=== PATIENT | female | born 1965 | race Caucasian/White ===

== ENCOUNTER → 2017-08-29 12:17 | Outpatient (CLI) | payer BC, SELFPAY | PROVIDERS: PCP Nurse Practitioner Family; Visit Provider Nurse Practitioner Family | DX: R53.83 Other fatigue (principal) | CPT/HCPCS: 93225; 93226 ==

== ENCOUNTER → 2017-09-23 10:21 | Outpatient (POV) | payer BC, SELFPAY | PROVIDERS: Family Provider Nurse Practitioner Family; PCP Nurse Practitioner Family; Visit Provider Internal Medicine | DX: Z00.00 Encounter for general adult medical examination without abnormal findings (principal) ==

== ENCOUNTER → 2017-11-14 16:17 | Outpatient (CLI) | payer BC, SELFPAY ==
--- NOTE | 2017-11-14 16:20 | XR_ITS ---
XR DEXA axial skeleton HISTORY: ITS.REASON: post menapausal ORDERING PHYSICIAN: Low Hammonds PATIENT AGE: 52 years COMPARISON: None FINDINGS: The BMD measured at the left femoral neck is 1.070 g/cm squared with a T score of 0.2 . This is considered normal according to the World Health Organization criteria. Fracture risk is low. Treatment is advised. The L1 L4 density has a T score 1.0 which is within normal limits. On the scanogram submitted there is a sclerotic focus along the right ilium inferiorly and laterally. Consider pelvic radiograph for more thorough evaluation. IMPRESSION: 1. Normal bone density. Follow-up October 2019 2. Possible sclerotic lesion of the right ilium laterally. Consider pelvic radiograph for further evaluation
--- NOTE | 2017-11-14 16:20 | MM_ITS ---
. MM Dig screening mamm BI w/CAD CAD Screening ORDERING PHYSICIAN : Low Hammonds PATIENT AGE: 52 years GENDER: Female COMPARISON: Previous mammograms: 20 INDICATION: Takes estrogen. Previous benign excisional biopsy right and left breast Family history. paternal aunt and maternal aunts TECHNIQUE: Standard CC and MLO images were obtained. R2 CAD reviewed. FINDINGS: Moderate Dense inhomogeneous breast tissue, distributed mainly right and left breast bilaterally.. Mammography is decreased sensitivity within regions of greater breast density. Mild/moderate asymmetry and scattered areas of density bilaterally but the overall pattern appears similar to 2017 in 2015 with no significant new findings. Subtle changes from Previous biopsies bilateral suggested. Mammography is somewhat limited breast of this character if any palpable areas arise follow-up images with ultrasound would be warranted. RIGHT BREAST:Stable region of dense breast tissue superior central breast most evident on the cc view and dissipate on MLO view. This area is unchanged since 2015 LEFT BREAST:Density tissue superior breast actually seems to dissipate more so on today's MLO view than previous 2017 exam. No new findings. ======= IMPRESSION: No new areas of significant concern Inhomogeneous breast. Stable areas of dense breast bilaterally Mammography is slightly limited in these areas but no new findings Would recommend an encourage annual bilateral follow-up BI-RADS Category: 2 Benign Finding(s) RECOMMENDED FOLLOW-UP: 1YR - 1 YEAR FOLLOW-UP (A letter has been sent to the patient regarding results of the study.)
== END ==
PROVIDERS: Family Provider Nurse Practitioner Family; PCP Nurse Practitioner Family; Visit Provider Nurse Practitioner Family
DX: N95.1 Menopausal and female climacteric states (principal); Z12.31 Encounter for screening mammogram for malignant neoplasm of breast
CPT/HCPCS: 77067; 77080

== ENCOUNTER → 2017-11-18 10:27 | Outpatient (CLI) | payer BC, SELFPAY ==
--- NOTE | 2017-11-18 10:28 | XR_ITS ---
XR pelvis 1-2V HISTORY: ITS.REASON: possible lesion see on bone density scan ORDERING PHYSICIAN: KADEN Smith PATIENT AGE: 52 years COMPARISON: DEXA scan of 11/14/2017 FINDINGS: No fracture or dislocation is evident. No significant degenerative change. No lytic or blastic change. The SI joints have an unremarkable appearance. Unremarkable soft tissues. The area of increased density noted on the bone scan in the right ilium is not identified on the plain film and was likely due to an artifact. Surgical clips are present in the pelvis. IMPRESSION: Negative pelvis. No blastic lesions evident.
== END ==
PROVIDERS: PCP Nurse Practitioner Family; Visit Provider Physician Assistant
DX: M89.9 Disorder of bone, unspecified (principal)
CPT/HCPCS: 72170

== ENCOUNTER → 2017-12-16 14:33 | Outpatient (CLI) | payer BC, SELFPAY ==
--- NOTE | 2017-12-16 14:34 | MR_ITS ---
MR cervical spine wo con, MR 3-d myelogram/MRCP HISTORY: Neck Pain . RT Hand and shoulder pain. ITS.REASON: neck pain ORDERING PHYSICIAN: Allison Conn MD PATIENT AGE: 52 years COMPARISON: Prior MRI 04/06/16 TECHNIQUE: Standard multiplanar multiecho sequences are performed without contrast. 3-D MIP and myelographic images are also rendered and reviewed FINDINGS: The craniocervical junction has an unremarkable appearance. There is straightening of the cervical lordosis. C2-C3: Unremarkable. C3-C4: Mild degenerative disc disease with minimal bulging disc. Anterior osteophyte. C4-C5: Degenerative disc disease with mild concentric bulging disc. Right-sided foraminal narrowing from uncovertebral hypertrophy. C5-C6: Degenerative disc disease with bulging discs/broad-based disc osteophyte complex with resultant narrowing of the canal at 9 mm. Uncovertebral hypertrophy and facet hypertrophy with bilateral lateral recess and foraminal narrowing. There is minimal contour deformity involving the aspect of the cord at this level. C6-C7: Mild degenerative disc disease. C7-T1 unremarkable. Mild degenerative disc disease upper thoracic spine as seen on the sagittal images. IMPRESSION: 1. Overall no significant change multilevel cervical spondylosis with degenerative disc disease, bulging disc, uncovertebral and facet hypertrophy. No disc herniation evident. Please see above for detailed description at each level. 2. Degenerative disc disease C5-C6 with broad-based bulging disc/disc osteophyte complex with canal stenosis with contour deformity involving the anterior aspect of the cord with bilateral foraminal narrowing. 3. Right-sided foraminal narrowing at C4-C5 from uncovertebral hypertrophy IMPRESSION:
== END ==
PROVIDERS: Family Provider Nurse Practitioner Family; PCP Nurse Practitioner Family; Visit Provider Specialist
DX: M47.12 Other spondylosis with myelopathy, cervical region (principal); M54.2 Cervicalgia; R53.1 Weakness; G62.9 Polyneuropathy, unspecified
CPT/HCPCS: 72141; 76376

== ENCOUNTER → 2017-12-19 11:26 | Outpatient (CLI) | payer BC, SELFPAY ==
--- NOTE | 2017-12-19 11:28 | XR_ITS ---
XR cervical spine w flex/ext CLINICAL INDICATION: ITS.REASON: NECK pain, SPONDYLOSIS WITH MYELOPATHY ORDERING PHYSICIAN: Allison Conn MD PATIENT AGE: 52 years COMPARISON: 12/16/2017 FINDINGS: There is multilevel degenerative disc disease at C3-C4, C4-C5, C5-C6, and C6-C7. These findings are most severe at C5-C6 and C6-C7. There are endplate osteophytes anteriorly and posteriorly at C5-C6 and C6-C7. There is mild foraminal narrowing on the right at C5-C6 and on the left at C5-C6. No lytic or blastic change. No evidence of cervical rib. Flexion and extension views are obtained showing no abnormal subluxation in flexion or extension. The neutral images show mild reversal of the cervical lordosis which may be due to mild muscle spasm. IMPRESSION: 1. Slight reversal of cervical lordosis which may be positional or due to mild spasm. 2. Multilevel cervical spondylosis with degenerative disc disease and foraminal narrowing at C5-C6. 3. No abnormal subluxation in flexion or extension
[2017-12-19 14:07] LABS: Alanine Aminotransferase 32 U/L (12-78); Albumin Level 3.8 gm/dL (3.4-5.0); Albumin/Globulin Ratio 0.8 (1.1-1.8); Alkaline Phosphatase 120 U/L (46-116); Anion Gap 11.5 mEq/L (5-15); Aspartate Amino Transferase 22 U/L (15-37); Bilirubin,Total 0.3 mg/dL (0.2-1.0); Blood Urea Nitrogen 10 mg/dL (7-18); Calcium 9.7 mg/dL (8.5-10.1); Carbon Dioxide 30 mmol/L (21.0-32.0); Chloride 101 mmol/L (98-107); Creatinine,Serum 0.54 mg/dL (0.55-1.02); Estimated Glomerular Filt Rate 118 ml/min (>60); GFR (African American) 143 ML/MIN (>60); Globulin 4.5 gm/dl (1.3-3.2); Glucose 84 mg/dL (74-106); Potassium 3.5 mmoL/L (3.5-5.1); Sodium 139 mmol/L (136-145); Total Protein,Serum 8.3 gm/dL (6.4-8.2)
[2017-12-19 14:15] LABS: Basophils # 0.1 K/mm3 (0-0.2); Basophils % 0.5 % (0.1-2.0); Hematocrit 47.3 % (37.0-47.0); Hemoglobin 16.7 g/dL (12.2-16.2); Lymphocytes # 3.1 K/mm3 (0.7-4.5); Lymphocytes % 31.5 K/mm3 (10-50); Mean Corpuscular HGB Conc 35.3 g/dL (31.8-35.4); Mean Corpuscular Hemoglobin 33.4 pg (27.0-31.2); Mean Corpuscular Volume 94.6 fl (81-99); Mean Platelet Volume 9.1 fl (7.4-10.4); Monocytes # 0.5 K/mm3 (0.1-1.0); Monocytes % 4.9 % (1.7-9.3); Neutrophils # 6.3 K/mm3 (1.8-7.8); Neutrophils % 63.1 % (37.0-80.0); Platelet Count 188 K/mm3 (142-424); Red Blood Count 5.01 M/mm3 (4.20-5.40); Red Cell Distribution Width 13.2 % (11.5-17.5)
[2017-12-20 12:58] LABS: Folate 7.3 ng/mL (>3.0); Vitamin B12 524 pg/mL (232-1245)
== END ==
PROVIDERS: Visit Provider Specialist
DX: M47.12 Other spondylosis with myelopathy, cervical region (principal); M54.2 Cervicalgia; R53.1 Weakness; G62.9 Polyneuropathy, unspecified
CPT/HCPCS: 36415; 72052; 80053; 82607; 82746; 85025

== ENCOUNTER → 2018-04-14 13:03 | Outpatient (CLI) | payer BC, SELFPAY ==
--- NOTE | 2018-04-14 13:05 | CT_ITS ---
CT chest wo con HISTORY: Follow-up lung nodule, emphysema, tobacco use, smoker ITS.REASON: LUNG NODULE ORDERING PHYSICIAN: Qasim Flores MD PATIENT AGE: 53 years COMPARISON: 04/08/2017 Technique: Axial images obtained with sagittal and coronal reformats. All CT scans at the facility use one or more dose reduction, viz: automated exposure control, ma/kV adjustment per patient size (including targeted exams where dose is matched to indication, i.e. head), or iterative reconstruction technique. FINDINGS: No mediastinal or hilar mass or adenopathy. There are few small nodes present within the mediastinum and abel some of which are calcified. Normal heart size. No pericardial effusion. Scattered fibrotic changes are once again noted in the apices with no change in the previously described biapical stellate densities. No new pulmonary nodular opacities evident. Incidental note made of nonobstructing right nephrolithiasis along with left renal cortical scarring with nephrocalcinosis. IMPRESSION: 1. No change with no acute finding. 2. Centrilobular is edema with biapical fibrosis which appear stable. 3. Recommend yearly CT follow-up.
== END ==
PROVIDERS: Family Provider Nurse Practitioner Family; PCP Nurse Practitioner Family; Visit Provider Internal Medicine
DX: R91.1 Solitary pulmonary nodule (principal)
CPT/HCPCS: 71250

== ENCOUNTER → 2018-04-22 09:27 | Outpatient (POV) | payer BC, SELFPAY | PROVIDERS: Family Provider Nurse Practitioner Family; PCP Nurse Practitioner Family; Visit Provider Internal Medicine | DX: Z00.00 Encounter for general adult medical examination without abnormal findings (principal) ==

== ENCOUNTER → 2018-10-08 09:08 | Outpatient (CLI) | payer BC, SELFPAY ==
--- NOTE | 2018-10-08 09:10 | MR_ITS ---
MR head/brain wo con HISTORY: ITS.REASON: new onset severe headaches ORDERING PHYSICIAN: Allison Conn MD PATIENT AGE: 53 years Comparison: None TECHNIQUE: Standard multiplanar multiecho sequences are performed without contrast. FINDINGS: No midline shift, mass effect, intracranial hemorrhage, or hydrocephalus. No evidence of acute infarction. There are scattered periventricular and subcortical T2 white matter hyperintensities as well as a few T2 white matter hyperintensities in the tristen which may represent ischemic gliotic change from microvascular disease. Migraine headache is an additional consideration. Demyelinating process is felt to be less likely but not totally excluded. No evidence of corpus callosum involvement or subcortical U Fiber involvement. The pituitary has an unremarkable appearance. No cerebellar ectopia. The upper cervical cord is unremarkable. There is mild anterolisthesis of C3 on C4 with minimal bulging disc at C3-C4 and C4-C5. Mild mucosal thickening of the ethmoid and frontal sinuses. No mastoid effusion or sinus air-fluid level. The hippocampal gyri are unremarkable and the temporal horns are symmetric. No obvious calvarial abnormality. IMPRESSION: 1. No acute intracranial findings. 2. Scattered T2 nonspecific T2 white matter hyperintensity foci which may represent ischemic gliotic change from microvascular disease or migraine headache. Demyelinating process felt to be less likely but not totally excluded. 3. Mild ethmoid sinus disease 4. Degenerative changes in the upper cervical spine
== END ==
PROVIDERS: PCP Nurse Practitioner Family; Visit Provider Specialist
DX: G43.009 Migraine without aura, not intractable, without status migrainosus (principal); G47.00 Insomnia, unspecified; M47.812 Spondylosis without myelopathy or radiculopathy, cervical region
CPT/HCPCS: 70551

== ENCOUNTER → 2018-10-27 07:52 | Outpatient (POV) | payer BC, SELFPAY | PROVIDERS: Visit Provider Specialist | DX: M79.601 Pain in right arm (principal) | CPT/HCPCS: 95886; 95908 ==

== ENCOUNTER → 2018-11-25 09:13 | Outpatient (CLI) | payer BC, SELFPAY ==
--- NOTE | 2018-11-25 09:23 | XR_ITS ---
EXAM: XR lumbar spine min 4V HISTORY: Low back pain ITS.REASON: pain ORDERING PHYSICIAN: Julisa Freeman PATIENT AGE: 53 years COMPARISON: None FINDINGS: There is mild straightening of the normal curvature upper lumbar spine probably reflecting muscle spasm. There is a transitional vertebrae at the lumbosacral junction with almost complete sacralization of L5. There is mild degenerative spurring of the T12-L1 disc space. There is no pars defect. There are mild hypertrophic facet changes lower lumbar spine especially L3-4 and L4-5 levels. IMPRESSION: Findings of muscle spasm along with mild degenerative disc disease T12-L1 and facet hypertrophy lower lumbar spine
[2018-11-25 10:09] LABS: Basophils % 0.1 % (0.1-2.0); Eosinophils % 0.1 % (0.1-12.0); Hematocrit 44.6 % (37.0-47.0); Hemoglobin 16.1 g/dL (12.2-16.2); Lymphocytes # 1.9 K/mm3 (0.7-4.5); Lymphocytes % 11.6 % (10-50); Mean Corpuscular HGB Conc 36.2 g/dL (31.8-35.4); Mean Corpuscular Hemoglobin 33.3 pg (27.0-31.2); Mean Corpuscular Volume 91.9 fl (81-99); Monocytes # 0.8 K/mm3 (0.1-1.0); Monocytes % 4.9 % (1.7-9.3); Neutrophils # 13.6 K/mm3 (1.8-7.8); Neutrophils % 83.3 % (37.0-80.0); Platelet Count 190 K/mm3 (142-424); Red Blood Count 4.86 M/mm3 (4.20-5.40); White Blood Count 16.4 K/mm3 (4.8-10.8)
[2018-11-25 11:30] LABS: Erythrocyte Sedimentation Rate 30 mm/hr (0-30)
[2018-11-25 11:46] LABS: MANUAL DIFFERENTIAL MANUAL DIFFERENTIAL (MANUAL DIFF)
[2018-11-25 12:00] LABS: Albumin Level 3.5 gm/dL (3.4-5.0); Albumin/Globulin Ratio 0.9 (1.1-1.8); Alkaline Phosphatase 144 U/L (46-116); Anion Gap 15.8 mEq/L (5-15); Bilirubin,Total 0.3 mg/dL (0.2-1.0); Blood Urea Nitrogen 12 mg/dL (7-18); C-Reactive Protein 0.4 mg/L (0.0-0.9); Calcium 9.5 mg/dL (8.5-10.1); Carbon Dioxide 27 mmol/L (21.0-32.0); Chloride 102 mmol/L (98-107); Creatinine,Serum 0.61 mg/dL (0.55-1.02); Estimated Glomerular Filt Rate 102 ml/min (>60); GFR (African American) 124 ML/MIN (>60); Potassium 3.8 mmoL/L (3.5-5.1); Sodium 141 mmol/L (136-145); Thyroid Stimulating Hormone 0.69 uIU/ml (0.358-3.740); Total Protein,Serum 7.5 gm/dL (6.4-8.2)
[2018-11-25 12:23] LABS: Alanine Aminotransferase 24 U/L (12-78); Aspartate Amino Transferase 21 U/L (15-37); Glucose 107 mg/dL (74-106)
[2018-11-25 12:52] LABS: Lymphocytes % 16 % (10-50); Monocytes % 4 % (2-9); Neutrophils % 78 % (42-76); Platelet Estimate Normal; RBC Morphology Normal; Total Cells Counted 100
[2018-11-26 14:12] LABS: Anti-DNA (DS) Ab Qn 6 IU/mL (0-9); RA Latex Turbid. 19.2 IU/mL (0.0-13.9); Vitamin D 25 Hydroxy 9.1 ng/mL (30.0-100.0)
== END ==
PROVIDERS: PCP Emergency Medicine; Visit Provider Nurse Practitioner Family
DX: M54.9 Dorsalgia, unspecified (principal); M25.50 Pain in unspecified joint; R53.83 Other fatigue
CPT/HCPCS: 36415; 72110; 80053; 82652; 84439; 84443; 85007; 85025; 85651; 86140; 86225; 86431

== ENCOUNTER → 2018-11-26 11:52 | Outpatient (CLI) | payer BC, SELFPAY ==
[2018-11-26 12:51] LABS: Chol/HDL Ratio 6.3 (1-3.5); Cholesterol 200 mg/dL (140-200); HDL Cholesterol 32 mg/dL (29-89)
[2018-11-26 13:22] LABS: Triglycerides 518 mg/dL (30-200)
[2018-11-27 12:19] LABS: Anti-Centromere B Antibodies <0.2 AI (0.0-0.9); Anti-Jo-1 <0.2 AI (0.0-0.9); Anti-Smith Antibody <0.2 AI (0.0-0.9); Antichromatin Antibodies 0.2 AI (0.0-0.9); Antiscleroderma-70 Antibodies <0.2 AI (0.0-0.9); RNP Antibodies <0.2 AI (0.0-0.9); Sjogren's Anti-SS-A <0.2 AI (0.0-0.9); Sjogren's Anti-SS-B <0.2 AI (0.0-0.9)
[2018-11-27 15:07] LABS: Anti-DNA (DS) Ab Qn 6 IU/mL (0-9)
[2018-11-28 07:16] LABS: PTT-LA 42.7 sec (0.0-51.9); dRVVT 50.1 sec (0.0-47.0); dRVVT Mix 41.8 sec (0.0-47.0)
[2018-11-28 09:04] LABS: Anti-Cyclic Citrullinated Pept 6 units (0-19)
[2018-11-28 09:06] LABS: Lupus Reflex Interpretation Comment: (.)
== END ==
PROVIDERS: Visit Provider Nurse Practitioner Family
DX: M25.50 Pain in unspecified joint (principal); R53.83 Other fatigue
CPT/HCPCS: 36415; 80061; 85613; 86200; 86225; 86235

== ENCOUNTER → 2019-01-06 15:57 | Outpatient (POV) | payer BC, SELFPAY | PROVIDERS: Visit Provider Internal Medicine | DX: Z00.00 Encounter for general adult medical examination without abnormal findings (principal) ==

== ENCOUNTER → 2019-01-29 12:43 | Outpatient (CLI) | payer BC, SELFPAY ==
--- NOTE | 2019-01-29 12:46 | CT_ITS ---
CT abdomen pelvis wo con CLINICAL INDICATION: Follow-up left nephrolithiasis/left ureteral stone ITS.REASON: kidney stone ORDERING PHYSICIAN: Rashawn Sims MD PATIENT AGE: 53 years COMPARISON: 11/26/2018 TECHNIQUE: Axial images obtained with sagittal and coronal reformats. All CT scans at the facility use one or more dose reduction, viz: automated exposure control, ma/kV adjustment per patient size (including targeted exams where dose is matched to indication, i.e. head), or iterative reconstruction technique. PROCEDURE: Oral Contrast: None IV Contrast: None . FINDINGS: The lung bases are clear. Stable isodensity is noted in the right hepatic dome. The gallbladder, spleen, adrenal glands, and pancreas have an unremarkable appearance. There are nonobstructing bilateral renal calculi. There are 2 small stones in the mid and upper aspect of the right kidney at 2 mm. On the left, a 3 mm stone in the upper pole. There are 2 cortical calcifications in the lower pole the largest medially at 4 mm associated with a cortical scar one superiorly at 3 mm. The left-sided hydronephrosis and hydroureter has improved. The previously noted 5 mm stone in the distal left ureter is no longer apparent and is not evident within the urinary bladder or urethra. This stone has not been pushed back into the right renal pelvicalyceal system. Unremarkable appendix. Diverticulosis involves the sigmoid colon and descending colon. No evidence of diverticulitis. No intestinal obstruction or free air. Prior hysterectomy. No acute bony findings. IMPRESSION: 1. Nonobstructing bilateral renal calculi. There is cortical scarring of the left kidney with nephrocalcinosis 2. Left-sided ureteral calculus is no longer apparent. There is resolution of the left-sided obstructive uropathy.
== END ==
PROVIDERS: PCP Nurse Practitioner Family; Visit Provider Urology
DX: N20.0 Calculus of kidney (principal)
CPT/HCPCS: 74176

== ENCOUNTER → 2019-02-04 12:22 | Outpatient (CLI) | payer BC, SELFPAY ==
--- NOTE | 2019-02-04 | CA_ITS ---
PROCEDURE: 2-D M-mode and color Doppler study INDICATIONS FOR THE TEST: Chest pain COPD Heart Murmur Tobacco SmokingX Palpitations Fatigue Syncope Edema Hypertension Diabetes Mellitus Rheumatic Fever SOBXDOEXObesity Hyperlipidemia Family History HD Additional History PATIENT INFORMATION HEIGHT: 62 WEIGHT:138 GENDER: Female B/P:100/68 2-D/M-MODE INTERPRETATION: 2-D MEASUREMENTS OBSERVED VALUES IN CMS Right Ventricular Dimension (RVDd) 1.4 Interventricular Septum (Thickness)(IVsd) .7 Left Ventricular Internal Dimensions(LVIDd) 5.5 Left Ventricular Posterior Wall (Thickness)(LVPWd) 1.1 Aortic Root 2.9 Aortic Cusp Separation 1.7 Left Atrial Dimensions (LAD) 2.2 2D 1. Left atrium is normal size, left ventricle is normal size, left ventricle wall thickness is upper limit of normal, there is preserved left ventricular systolic function, visually estimated ejection fraction 55% with no regional wall motion abnormality. 2. The right atrium and right ventricle are normal size and contractility. 3. The aortic valve is thickened and calcified, leaflet continue to display mobility. 4. The mitral and tricuspid valve leaflets are minimally thickened. 5. The pulmonic valve is poorly visualized. 6. No significant pericardial effusion noted. DOPPLER INTERROGATION: Doppler interrogation of the aortic, mitral and tricuspid valvular presence of mild mitral and tricuspid regurgitation, tricuspid regurgitation jet velocity is inadequate for calculation of the right ventricular systolic pressure, grade 1 diastolic dysfunction seen without tissue Doppler evidence of raised left atrial pressure. CONCLUSION: 1. Normal left ventricular size, preserved ventricular systolic function, visually estimated ejection fraction 55% with no regional wall motion abnormality, grade 1 diastolic dysfunction seen without tissue Doppler evidence of raised left atrial pressure. 2. Mild mitral and tricuspid regurgitation 3. No significant pericardial effusion noted.
[2019-02-04 13:30] VITALS: PULSE 100; PULSE 97
== END ==
PROVIDERS: PCP Emergency Medicine; Visit Provider Internal Medicine
DX: R06.02 Shortness of breath (principal); J42 Unspecified chronic bronchitis
CPT/HCPCS: 93306; 94060; 94618; 94640; 94726; 94729

== ENCOUNTER → 2019-03-12 13:23 | Outpatient (CLI) | payer BC, SELFPAY ==
--- NOTE | 2019-03-12 13:25 | US_ITS ---
MM Dig mamm BI DX w/CAD, US breast RT complete, US breast LT complete INDICATION: Bilateral breast pain ORDERING PHYSICIAN: KADEN Ochoa PATIENT AGE: 54 years COMPARISON: 11/14/2017, 07/29/2015 TECHNIQUE: Standard images performed along with spot views and bilateral breast ultrasound FINDINGS: There is average fibroglandular tissue Right breast: Asymmetric density is noted in the central aspect of the right breast similar to multiple previous exams. Asymmetric density also noted in the medial aspect of the right breast somewhat less apparent than when compared to the previous studies. Right breast ultrasound: 4 mm cyst at 8:00, 5 mm hypoechoic nodule at 9:00 and may represent complex cyst Left mammogram: Asymmetry is present in the upper outer aspect of the left breast. No discrete mass evident on the spot compression views. Left breast ultrasound: Unremarkable. Small nodes are present in the axilla. IMPRESSION: No convincing evidence of malignancy. Asymmetric density noted in the superior left breast without sonographic correlate and may be due to asymmetric fibroglandular tissue. Asymmetric density in the central right breast. Probably relates to fibroglandular tissue. BI-RADS Category: 3 Probably Benign Finding Short Term Follow-up RECOMMENDED FOLLOW-UP: 6M - 6 MONTH FOLLOW-UP (A letter has been sent to the patient regarding results of the study.)
== END ==
PROVIDERS: PCP Nurse Practitioner Family; Visit Provider Physician Assistant
DX: N64.4 Mastodynia (principal); R92.8 Other abnormal and inconclusive findings on diagnostic imaging of breast
CPT/HCPCS: 76641; 77066

== ENCOUNTER → 2019-04-22 07:05 | Outpatient (CLI) | payer BC, SELFPAY ==
--- NOTE | 2019-04-22 | CA_ITS ---
APPROVED REPORT Exam: Pharmacologic Technologist: Tiffanie Alvarez, Ht: 5 ft 3 in Wt: 143 lbs BSA: 1.68 m2 HR: 62 bpm BP: 121/68 mmHg Indications: Chest pain, Shortness of Air Medical History Medications: Lisinopril,,,,, Estradiol,,,,, BisOPROLOL,,,,, Tizanidine,,,,, Gemfibrizil,,,,, Stress Test Details Test: LEXISCAN HR Resting HR: 66 bpm Max Heart Rate (APMHR): 165 bpm Max HR Achieved: 107 bpm Target HR (85% APMHR): 140 bpm % of APMHR: 64 Recovery HR: 77 bpm BP Resting BP: 121/68 mmHg Max BP: 143/83 mmHg Recovery BP: 125.0/75.0 mmHg ECG Clinical Exercise duration: 04:02 min Highest Stage Achieved: Stress ECG Conclusion Resting EKG: Normal Sinus Rhythm, rightward axis, low voltage QRS in precordial leads. Switched from exercise at patients request. Symptoms: mild stomach discomfort Arrhythmias/Ectopy: None ST-T Changes: no significant change Conclusion: Unremarkable Lexiscan Stress. Myoview images reported separately. Electronically signed by : Hermilo Solano, 04/22/2019 11:46:39
--- NOTE | 2019-04-22 07:06 | NM_ITS ---
APPROVED REPORT Exam: Nuclear Stress Test Indication: Chest pain, SOB, HTN, High Cholesterol, Tobacco use, Abnormal EKG Patient Location: Outpatient Stress Tech: Tiffanie Alvarez NM Tech:Mai Cornelius, ARRT, RT (R)(N) Ht: 5 ft 3 in Wt: 143 lbs BSA: 1.68 m2 HR: 62 bpm BP: 121/68 mmHg BMI: 25.3 History: Chest pain, SOB, HTN, High Cholesterol, Tobacco use, Abnormal EKG Procedure: Patient received a 0.4 mg of intravenous Lexiscan, resting heart rate 62 bpm, resting blood pressure 121/68 mmHg, with Lexiscan maximum heart rate achived was 101 bpm which is Less than 85 % of the maximum predicted heart rate and blood pressure was 143/83 mmHg. With Lexiscan, patient denied any complaint of chest pain. Electrocardiogram Resting electrocardiogram shows sinus rhythm low voltage QRS complexes, with Lexiscan there is less than 1.[address] segment depression from the baseline EKG. The EKG portion of the Lexiscan Myoview is nondiagnostic. Cardiac Stress and Resting SPECT Images: Cardiac Stress and Resting SPECT images were obtained using technetium 99m Myoview 31 mCi stress and 10 mCi at rest. Gated SPECT with analysis of segmental wall motion and calculation of the ejection fraction also done. Cardiac stress and resting SPECT images show uniform myocardial activity without segmental perfusion abnormality, computer derived ejection fraction is over 60 % with no regional wall motion abnormality. The right ventricle is normal size and contractility. Conclusion: 1. The EKG portion of the Lexiscan Myoview is nondiagnostic. 2. No scintigraphic evidence of reversible ischemia seen, computer derived ejection fraction is 60% with no regional wall motion abnormality, right ventricle is normal size and contractility. 3. Normal Lexiscan Myoview study. Electronically signed by : Zack Hearn, 04/30/2019 16:31:12
--- NOTE | 2019-04-22 07:19 | HMH.ITSHM ---
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 []LISINOPRIL ESTRADIOL BISOPROLOL GEMFIBRAZIL TIZANIDINE
== END ==
PROVIDERS: PCP Nurse Practitioner Family; Visit Provider Internal Medicine
DX: R06.00 Dyspnea, unspecified (principal); R07.9 Chest pain, unspecified
CPT/HCPCS: 78452; 93017; A9502; J2785

== ENCOUNTER → 2019-04-28 12:19 | Outpatient (CLI) | payer BC, SELFPAY ==
--- NOTE | 2019-04-28 12:26 | CT_ITS ---
PROCEDURE: CT CHEST WO CON CLINICAL INDICATION: ABNORMAL CHEST CT Follow-up lung nodule COMPARISON: CHESTWO CT chest wo con from 04/14/2018 TECHNIQUE: Axial images obtained with sagittal and coronal reformats. All CT scans at the facility use one or more dose reduction, viz: automated exposure control, ma/kV adjustment per patient size (including targeted exams where dose is matched to indication, i.e. head), or iterative reconstruction technique. FINDINGS: Scattered small nodes are present in the axilla. No mediastinal or hilar mass or adenopathy. Normal heart size. COPD with centrilobular emphysema and scattered areas of scarring. No change in the previously described stellate densities. No new abnormalities apparent. No effusions or infiltrates. Upper abdominal images are unremarkable. IMPRESSION: Stable CT appearance of the chest. No change with no acute finding. No change in the stellate densities COPD/centrilobular emphysema Dictated by: Deejay Rodriguez MD 04/29/2019 10:52 Signed by: <Electronically signed by Deejay Rodriguez MD in [place]> 04/29/2019 10:52
== END ==
PROVIDERS: PCP Nurse Practitioner Family; Visit Provider Internal Medicine
DX: R93.89 Abnormal findings on diagnostic imaging of other specified body structures (principal)
CPT/HCPCS: 71250

== ENCOUNTER → 2019-05-19 20:11 | Outpatient (CLI) | payer BC, SELFPAY | PROVIDERS: PCP Nurse Practitioner Family; Visit Provider Nurse Practitioner Family | DX: G47.33 Obstructive sleep apnea (adult) (pediatric) (principal); I10 Essential (primary) hypertension; R40.0 Somnolence; R06.83 Snoring; R51 Headache; G89.29 Other chronic pain; G47.8 Other sleep disorders | CPT/HCPCS: 95810 ==

== ENCOUNTER → 2019-06-30 11:28 | Outpatient (CLI) | payer BC, SELFPAY ==
--- NOTE | 2019-06-30 11:31 | XR_ITS ---
PROCEDURE: XR KUB CLINICAL INDICATION: KIDNEY STONE COMPARISON: [id number] XR lumbar spine min 4V from 11/25/[id number] abdomen pelvis wo con from 01/29/2019 FINDINGS: A small calcific density is present along the lateral aspect of the L2 transverse process on the left at 3 mm consistent with a renal stone. Small stone is present in the upper pole left kidney at 2 mm. No obvious ureteral calculi are evident. There are bilateral pelvic calcifications. These however were present on a previous lumbar spine film of 11/25/2018. Surgical clips are present in the pelvis. IMPRESSION: Left nephrolithiasis Dictated by: Deejay Rodriguez MD 06/30/2019 14:04 Electronically signed by Deejay Rodriguez MD in [place] 06/30/2019 14:04
== END ==
PROVIDERS: PCP Nurse Practitioner Family; Visit Provider Urology
DX: N20.0 Calculus of kidney (principal)
CPT/HCPCS: 74018

== ENCOUNTER → 2019-09-16 12:39 | Outpatient (CLI) | payer BC, SELFPAY ==
--- NOTE | 2019-09-16 12:40 | MM_ITS ---
PROCEDURE: MM DIG MAMM BI DX W/CAD with 3D tomosynthesis CLINICAL INDICATION: 6 mth f/u Follow-up abnormal mammogram COMPARISON: [id number] DIG MAMM-DX SY W/AVWS W/CAD from 11/07/2016 [facility] MM Dig screening mamm BI w/CAD from 11/14/2017 DIG MAMM-DX SY from 03/12/2019 BREASTRT US breast RT complete from 03/12/2019 BREASTLT US breast LT complete from 03/12/2019 US BREAST LT COMPLETE from 09/16/2019 US BREAST RT COMPLETE from 09/16/2019 TECHNIQUE: Standard CC and MLO images and 3D Will synthesis was obtained. R2 CAD reviewed. FINDINGS: There is average fibroglandular tissue. No malignant appearing mass or malignant-appearing microcalcification is evident. Asymmetry once again noted in the upper aspect of the left breast not significantly changed consistent with fibroglandular tissue. On the spot view of the left CC there was questionable calcifications in the central aspect of the left breast. This is not demonstrated on the additional orthogonal view or the tomograms. Continued six-month follow-up suggested of this area. Right breast ultrasound 5 mm hypoechoic nodule once again noted at 8 o'clock unchanged. 4 mm hypoechoic nodule noted at 11 o'clock. Left breast ultrasound: Unremarkable. IMPRESSION: Probably benign findings. Probably benign hypoechoic nodules of the right breast. Questionable calcification central/medial left breast as seen on the spot view only. Recommend continued six-month follow-up to confirm 1 year stability BI-RAD Category: 3 Probably Benign Finding Short Term Follow-up FOLLOW-UP: 6M 6Month Follow-up (A letter has been sent to the patient regarding results of the study.) Dictated by: Deejay Rodriguez MD 09/26/2019 09:14 Electronically signed by Deejay Rodriguez MD in [place] 09/26/2019 09:14
== END ==
PROVIDERS: PCP Nurse Practitioner Family; Visit Provider Nurse Practitioner Family
DX: R92.8 Other abnormal and inconclusive findings on diagnostic imaging of breast (principal)
CPT/HCPCS: 76641; 77062; 77066; G0279

== ENCOUNTER → 2020-01-22 09:24 | Outpatient (CLI) | payer BC, SELFPAY ==
[2020-01-22 09:45] LABS: Basophils # 0.2 K/mm3 (0-0.2); Eosinophils % 0.3 % (0.1-12.0); Hematocrit 45.5 % (37.0-47.0); Hemoglobin 16.5 g/dL (12.2-16.2); Lymphocytes # 2.3 K/mm3 (0.7-4.5); Lymphocytes % 30.4 % (10-50); Mean Corpuscular HGB Conc 36.2 g/dL (31.8-35.4); Mean Corpuscular Hemoglobin 34.1 pg (27.0-31.2); Mean Platelet Volume 8.8 fl (7.4-10.4); Monocytes # 0.4 K/mm3 (0.1-1.0); Monocytes % 5.1 % (1.7-9.3); Neutrophils # 4.6 K/mm3 (1.8-7.8); Neutrophils % 62.2 % (37.0-80.0); Platelet Count 181 K/mm3 (142-424); Red Blood Count 4.84 M/mm3 (4.20-5.40); Red Cell Distribution Width 13.7 % (11.5-17.5); White Blood Count 7.5 K/mm3 (4.8-10.8)
[2020-01-22 10:35] LABS: Alanine Aminotransferase 14 U/L (12-78); Albumin Level 4.3 g/dl (3.5-5.0); Albumin/Globulin Ratio 1.4 (1.1-1.8); Alkaline Phosphatase 121 U/L (38-126); Anion Gap 8.4 mEq/L (5-15); Aspartate Amino Transferase 26 U/L (14-36); Bilirubin,Total 0.5 mg/dl (0.2-1.3); Blood Urea Nitrogen 12 mg/dl (7-17); Calcium 9.9 mg/dl (8.4-10.2); Carbon Dioxide 33 mmol/L (22.0-30.0); Chloride 102 mmol/L (98-107); Chol/HDL Ratio 7.4 (1-3.5); Cholesterol 229 mg/dl (140-200); Estimated Glomerular Filt Rate 87 ml/min (>60); GFR (African American) 105 ML/MIN (>60); Glucose 86 mg/dl (74-100); HDL Cholesterol 31 mg/dl (40-60); Potassium 4.4 mmoL/L (3.5-5.1); Sodium 139 mmol/L (136-145); Total Protein,Serum 7.3 g/dl (6.3-8.2)
[2020-01-22 10:45] LABS: Triglycerides 917 mg/dl (30-150)
[2020-01-22 10:46] LABS: Direct LDL Cholesterol 43.62 mg/dL (100-129)
[2020-01-22 10:51] LABS: T4 (Thyroxine) 9.2 ug/dl (5.53-11.0)
[2020-01-22 11:04] LABS: Thyroid Stimulating Hormone 1.96 uIU/mL (0.465-4.68)
[2020-01-23 11:13] LABS: Vitamin D 25 Hydroxy 16.4 ng/mL (30.0-100.0)
== END ==
PROVIDERS: Visit Provider Nurse Practitioner Family
DX: Z00.00 Encounter for general adult medical examination without abnormal findings (principal); E55.9 Vitamin D deficiency, unspecified
CPT/HCPCS: 36415; 80053; 80061; 82652; 84436; 84443; 85025

== ENCOUNTER → 2020-01-28 14:24 | Outpatient (CLI) | payer BC, SELFPAY ==
[2020-01-28 16:43] LABS: Hemoglobin A1C 4.8 % (4.0-6.0)
== END ==
PROVIDERS: Visit Provider Nurse Practitioner Family
DX: E78.2 Mixed hyperlipidemia (principal)
CPT/HCPCS: 36415; 83036

== ENCOUNTER → 2020-01-29 10:20 | Outpatient (CLI) | payer BC, SELFPAY ==
--- NOTE | 2020-01-29 10:30 | XR_ITS ---
PROCEDURE: XR KUB CLINICAL INDICATION: stones COMPARISON: [facility] CT abdomen pelvis wo con from 01/29/2019 XR KUB from 06/30/2019 FINDINGS: There is a 4 mm calcific density overlying the lower pole of the right kidney and a 2 mm calcific density in the midpole and 2 mm calcific density in the upper pole consistent with left-sided nephrolithiasis. Pelvic calcifications are present and may be vascular. Surgical clips are present in the pelvis. No definite ureteral calculus. There is a faint calcific density overlying the upper pole of the right kidney. IMPRESSION: Bilateral nephrolithiasis Dictated by: Deejay Rodriguez MD 01/29/2020 15:00 Electronically signed by Deejay Rodriguez MD in [place] 01/29/2020 15:00
== END ==
PROVIDERS: PCP Nurse Practitioner Family; Visit Provider Urology
DX: N20.0 Calculus of kidney (principal)
CPT/HCPCS: 74018

== ENCOUNTER → 2021-01-31 15:08 | Outpatient (CLI) | payer BC, SELFPAY | PROVIDERS: Visit Provider Nurse Practitioner Family | DX: R10.9 Unspecified abdominal pain (principal) | CPT/HCPCS: 87086; 87088; 87186 ==

== ENCOUNTER → 2021-04-19 08:58 | Outpatient (CLI) | payer BC, SELFPAY ==
--- NOTE | 2021-04-19 08:58 | US_ITS ---
PROCEDURE: US GALLBLADDER CLINICAL INDICATION: abd pain COMPARISON: CT ABDW CT ABD W/ CONTRAST from 03/09/2016 FINDINGS: Pancreas: Unremarkable/Not well seen Liver: There is a hyperechoic focus in the left hepatic lobe measuring 1 cm. There is appropriate direction of blood flow within a non dilated portal vein. Right kidney: Unremarkable appearing. No hydronephrosis. Gallbladder: Gallbladder is filled with stones. Common bile duct is normal at 3 mm. No gallbladder wall thickening or pericholecystic fluid. IMPRESSION: 1. Cholelithiasis. 2. 1 cm hyperechoic focus of the liver in the left hepatic lobe which may be due to a hemangioma and could be confirmed with MRI with hemangioma protocol Dictated by: Deejay Rodriguez MD 04/19/2021 17:51 Deejay Rodriguez MD in [place] 04/19/2021 17:51
== END ==
PROVIDERS: PCP Nurse Practitioner Family; Visit Provider Nurse Practitioner Family
DX: R10.9 Unspecified abdominal pain (principal)
CPT/HCPCS: 76705

== ENCOUNTER → 2021-05-11 11:17 | Outpatient (CLI) | payer BC, SELFPAY ==
[2021-05-11 11:38] LABS: Chloride 103 mmol/L (98-107); Potassium 3.7 mmoL/L (3.5-5.1); Sodium 144 mmol/L (136-145)
[2021-05-11 11:41] LABS: Anion Gap 12.7 mEq/L (5-15); Blood Urea Nitrogen 13 mg/dl (7-17); Calcium 10.1 mg/dl (8.4-10.2); Carbon Dioxide 32 mmol/L (22.0-30.0); Estimated Glomerular Filt Rate 103 ml/min (>60); GFR (African American) 125 ML/MIN (>60); Glucose 89 mg/dl (74-100)
== END ==
PROVIDERS: Visit Provider Nurse Practitioner Family
DX: Z01.812 Encounter for preprocedural laboratory examination (principal)
CPT/HCPCS: 36415; 80048

== ENCOUNTER → 2021-05-16 09:05 | Outpatient (CLI) | payer BC, SELFPAY ==
--- NOTE | 2021-05-16 09:07 | MR_ITS ---
PROCEDURE INFORMATION: Exam: MR Abdomen Without and With Contrast Exam date and time: 05/16/2021 9:07 AM Age: 56 years old Clinical indication: Abdominal pain; Patient HX: Nausea and vomiting. Epigastric pain x3-4months. Abnormal US 04-19-21; Additional info: Hemangioma protocol TECHNIQUE: Imaging protocol: MR of the abdomen without and with intravenous contrast. Contrast material: PROHANCE; Contrast volume: 12 ml; Contrast route: IV; COMPARISON: ABDPELWO CT abdomen pelvis wo con 01/29/2019 12:49 PM FINDINGS: Liver: There are 5 separate lesions identified within the liver. Three are present within the superior aspect of the right hepatic lobe, with the largest right hepatic lobe lesion measuring 11 mm. There are 3 lesions also identified within the left hepatic lobe. The largest left hepatic lobe lesion measures 10 mm. Diffusion-weighted images demonstrate some proton diffusion restriction within these small lesions. All lesions demonstrate enhancement which is greater than adjacent hepatic tissue on the 5, 10, and 15 minute postcontrast enhancement images. They are compatible with benign hemangiomas. Gallbladder and bile ducts: There are multiple gallstones present within the gallbladder. No evidence of gallbladder wall thickening or pericholecystic effusion. There is no evidence of intrahepatic or extrahepatic biliary dilatation. Pancreas: Unremarkable. No ductal dilation. Spleen: Unremarkable. No splenomegaly. Adrenal glands: Unremarkable. No mass. Kidneys and ureters: Focal cortical loss identified along the lateral aspect of the left kidney. There is no evidence of renal mass or hydronephrosis. There is a 4 mm cortical cyst arising from the anterior interpolar region of the right kidney. Stomach and bowel: Visualized stomach and intestines are unremarkable. Intraperitoneal space: No free fluid. Arteries: No abdominal aortic aneurysm. Bones/joints: Unremarkable. Soft tissues: Unremarkable. IMPRESSION: 1. There are 6 separate hepatic masses present within right and left hepatic lobes. The largest is present within the superior aspect of the right hepatic lobe measuring 11 mm. All lesions demonstrate enhancement which is greater than adjacent liver on delayed contrast enhancement imaging. They are compatible with benign hemangiomas. 2. Cholelithiasis. 3. Focal cortical loss lateral aspect of the left kidney. There is a 4 mm cortical cyst arising from the anterior interpolar region of the right kidney. COMMENTS: Consistent with the [employer]'s Incidental Findings Committee white paper (J Am Sherman Radiol 2018): Any incidental renal lesion less than 1 cm or classified as too small to characterize, or any incidental cystic renal lesion characterized as simple-appearing, is likely benign. No follow-up imaging is recommended for these lesions per consensus recommendations based on imaging criteria.
== END ==
PROVIDERS: PCP Nurse Practitioner Family; Visit Provider Nurse Practitioner Family
DX: R16.0 Hepatomegaly, not elsewhere classified (principal)
CPT/HCPCS: 74183; A9576

== ENCOUNTER → 2021-06-03 12:01 | Outpatient (CLI) | payer BC, SELFPAY ==
[2021-06-03 12:34] LABS: Basophils # 0.2 K/mm3 (0-0.2); Eosinophils % 0.1 % (0.1-12.0); Hematocrit 45.7 % (37.0-47.0); Hemoglobin 16.2 g/dL (12.2-16.2); Lymphocytes # 2.9 K/mm3 (0.7-4.5); Lymphocytes % 29.6 % (10-50); Mean Corpuscular HGB Conc 35.5 g/dL (31.8-35.4); Mean Corpuscular Hemoglobin 33.9 pg (27.0-31.2); Mean Corpuscular Volume 95.5 fl (81-99); Mean Platelet Volume 8.9 fl (7.4-10.4); Monocytes # 0.4 K/mm3 (0.1-1.0); Monocytes % 4.4 % (1.7-9.3); Neutrophils # 6.2 K/mm3 (1.8-7.8); Platelet Count 190 K/mm3 (142-424); Red Blood Count 4.79 M/mm3 (4.20-5.40); Red Cell Distribution Width 13.6 % (11.5-17.5); White Blood Count 9.7 K/mm3 (4.8-10.8)
[2021-06-03 13:21] LABS: Chloride 104 mmol/L (98-107); Sodium 144 mmol/L (136-145)
[2021-06-03 13:22] LABS: Potassium 4.2 mmoL/L (3.5-5.1)
[2021-06-03 13:24] LABS: Alanine Aminotransferase 21 U/L (12-78); Alkaline Phosphatase 108 U/L (38-126); Aspartate Amino Transferase 29 U/L (14-36); Bilirubin,Total 0.3 mg/dl (0.2-1.3); Blood Urea Nitrogen 13 mg/dl (7-17); Estimated Glomerular Filt Rate 127 ml/min (>60); GFR (African American) 154 ML/MIN (>60)
[2021-06-03 13:25] LABS: Albumin Level 4.1 g/dl (3.5-5.0); Albumin/Globulin Ratio 1.3 (1.1-1.8); Anion Gap 12.2 mEq/L (5-15); Calcium 9.9 mg/dl (8.4-10.2); Carbon Dioxide 32 mmol/L (22.0-30.0); Globulin 3.1 g/dL (1.3-3.2); Glucose 95 mg/dl (74-100); Total Protein,Serum 7.2 g/dl (6.3-8.2)
== END ==
PROVIDERS: Visit Provider Surgery
DX: Z01.812 Encounter for preprocedural laboratory examination (principal); Z11.52 Encounter for screening for COVID-19; K80.20 Calculus of gallbladder without cholecystitis without obstruction
CPT/HCPCS: 36415; 80053; 85025; C9803; U0003; U0005

== ENCOUNTER 2021-06-06 06:02 | Day surgery (SDC) | payer BC, SELFPAY ==
[2021-05-31 14:54] VITALS: BMI 22.3
[2021-06-06] VITALS (24 sets, daily range): BP systolic 94–143; BP diastolic 57–85; PULSE 63–89; RESP 14–18; TEMP 30.6–43; O2SAT 95–100
--- NOTE | 2021-06-06 06:31 | HMH.ANESCL ---
[facility] Anesthesia Checklist - Structural Data Admitted From: Home Planned Operative Procedure/s: lap ivory Consent for Planned Operative Procedure(s) Verified: Yes - Additional verifications Anesthesia Reactions: No Hx Blood Transfusions: No Blood Transfusion Reaction: No - Airway Assessment C-Spine Mobility Assessed: Yes TMJ Mobility Assessed: Yes Dentition: Good Dentition - Neurological Assessment Level of Consciousness: Awake, Alert, Appropriate - Anesthesia Plan Anesthesia Risk discussed: Yes Anesthesia Plan: Verified ASA Class: II Anesthesia Type: General [facility] History I have reviewed the patient's past medical history: Yes Medical History: Reports:: Chronic Obstructive Pulmonary Disease (COPD), Hypertension, Kidney Stones, Migraine, Renal Disease Denies:: Cancer, Diabetes Mellitus Type 1, Diabetes Mellitus Type 2, Internal Pacemaker, MRSA, Seizures *Have you ever received a pneumonia vaccine?: No *Have you received a flu vaccine this season?: No Other Medical History: Reports: Arthritis, Hormone Therapy, Liver Disease, Other. Denies: Blood Transfusion Reaction Anesthesia experience/problems:: none Other Surgeries: Yes: Colonoscopy, , Hysterectomy-Total, Other. No: Pacemaker Amputation: No Fractures: No - *Social History Last grade of school completed: 9th or 10th Smoking Status: Current every day smoker Tobacco Type: cigarettes # Packs/Day (cigarettes): 2 #Yrs smoked (if former smoker): 30 Alcohol Intake: never Alcohol Intake Frequency:: other Substance Use Type: denies use *Occupational Status:: disabled Housing: house Household Members: family *Travel in the last 8 weeks: None Family Hx:: Non-contributory
--- NOTE | 2021-06-06 08:20 | P.OP_ITS ---
Date of procedure: 06/06/21 Pre-op Diagnosis:: Symptomatic gallstones Post-op Diagnosis:: Same Procedure performed:: Laparoscopic cholecystectomy Surgeon:: Roel Perez MD AUTO DESIGN DETAILER:: Other Anesthesia: GETA Estimated blood loss (mL): 20 Clinical Note:: 56-year-old female referred by Yandel Gaitan for gallbladder. She states for couple months she has had symptoms of epigastric and right upper quadrant pain. She has had associated nausea and vomiting. This seems to be worse in the evenings. Does not seem to be associated with eating. She underwent gallbladder ultrasound which reveals gallbladder filled with gallstones with normal common bile duct. She was found to have a liver lesion on ultrasound and MRI was performed which revealed several lesions consistent with hepatic hemangiomas. Operative findings:: She had a somewhat thickened gallbladder. It was obscured with omental adhesions. There were stones present. No obvious visible liver lesions. Operative note:: Patient was taken to the operating room. She was positioned in a supine position. General anesthesia was induced via endotracheal tube. Abdomen was prepped and draped in the standard surgical fashion. Subumbilical skin incision was made. While performing abdominal wall lift Veress needle was inserted and CO2 pneumoperitoneum was achieved to 15 mmHg. 11 mm optical trocar was inserted at the umbilicus. Intraperitoneal contents were visualized. She was positioned in reverse Trendelenburg left side down. A couple of 5 mm trochars were inserted in the right upper abdomen. 10 mm trocar was inserted in the epigastrium. Gallbladder was mostly completely obscured with omental adhesions. These were taken down using blunt dissection. The gallbladder was grasped retracted anteriorly and superiorly over the dome of the liver. Infundibulum of the gallbladder was grasped and retracted anterior laterally. Blunt dissection was carried out the neck of the gallbladder bluntly incising the visceral peritoneum. The cystic duct was dissected free from surrounding structures. It appeared as though the cystic artery was virtually wrapped around and densely adherent to the cystic duct. Both structures were multiply clipped and sharply divided. The gallbladder was then dissected free from the liver in a retrograde fashion using RAÚL ultrasonic harmonic ulises. There was some unavoidable limited hepatic capsule avulsion with traction of the gallbladder. To ensure hemostasis electrocautery was used. Gallbladder was then placed within an Endo Catch retrieval device and removed from the peritoneal cavity via the umbilical trocar site. Gallbladder fossa and perihepatic space was irrigated and as pirated until clear. EVista was deployed on the gallbladder fossa in a limited fashion to further ensure hemostasis. Trochars were then removed as CO2 pneumoperitoneum was evacuated. Fascia at the umbilicus was closed with several interrupted 0 Vicryl sutures. 0 Vicryl was placed in the anterior fascia at the epigastric site. Local anesthetic was infiltrated. Skin incision was closed with 4-0 Monocryl in a subcuticular fashion. Steri-Strips and dressings were applied. Condition: stable Disposition: PACU Specimens:: Gallbladder and contents Complications:: None immediately apparent
--- NOTE | 2021-06-06 08:29 | P.PN_ITS ---
[facility] Anesthesia Record Part I Intake, IV Amount: 700 Estimated blood loss (mL): 0 Urine output (mL): 0 Blood Pressure: 94/57 SaO2: 98 Pulse Rate: 64 Respiratory Rate: 14 Temperature: 98.0 F Patient is:: Drowsy Stable to PACU at:: 08:25
--- NOTE | 2021-06-06 09:18 | SUR.PHASEI ---
0900 spoke with JOHANA Patel, explained meds given to this point and patient stated pain level. Order for 2mg morphine x1, states that no more PACU pain meds to be given, suggests exploring PO home med dose prior to DC in Post Op if surgeon agrees. patient resting between doses but when awakened reports pain 10/10 consistently.
--- NOTE | 2021-06-06 10:47 | SUR.PHASEII ---
PT WANTS TO GET DRESSED AND GO HOME,
--- NOTE | 2021-06-06 11:47 | P.PN_ITS ---
[facility] Anesthesia Record Part II Discharge Time: 09:27 Destination: Home PACU nurse assessment reviewed?: Yes Patient Condition:: Good Anesthesia Complications:: No None Swallowing reflex intact?: Yes Cyanosis?: No Blood Pressure: 121/67 Pulse Rate: 85 Temperature: 87.0 F Mental Status: Alert & Oriented Pain level:: 2 Nausea and/or vomitting:: None Intake, IV Amount: 0
== END 2021-06-06 10:58 | disposition home or self-care (01) ==
LOC: OR 06:04
PROVIDERS: PCP Nurse Practitioner Family; Visit Provider Surgery
PROC: 0FT44ZZ Resection of Gallbladder, Percutaneous Endoscopic Approach (ICD-10-PCS; CPT 47562; principal; 2021-06-06 07:30)
DX: K80.20 Calculus of gallbladder without cholecystitis without obstruction (principal); K66.0 Peritoneal adhesions (postprocedural) (postinfection); J44.9 Chronic obstructive pulmonary disease, unspecified; I10 Essential (primary) hypertension; G43.909 Migraine, unspecified, not intractable, without status migrainosus; N28.9 Disorder of kidney and ureter, unspecified; M19.90 Unspecified osteoarthritis, unspecified site; K76.9 Liver disease, unspecified; Z79.890 Hormone replacement therapy; Z79.899 Other long term (current) drug therapy
CPT/HCPCS: 47562; 96374; J2405; J2710

== ENCOUNTER → 2021-06-20 15:28 | Outpatient (CLI) | payer BC, SELFPAY | PROVIDERS: Visit Provider Urology | DX: N39.0 Urinary tract infection, site not specified (principal); B96.20 Unspecified Escherichia coli [E. coli] as the cause of diseases classified elsewhere | CPT/HCPCS: 87086; 87088; 87186 ==

== ENCOUNTER → 2021-07-14 10:44 | Outpatient (CLI) | payer BC, SELFPAY | PROVIDERS: PCP Nurse Practitioner Family; Visit Provider Nurse Practitioner | DX: Z20.822 Contact with and (suspected) exposure to COVID-19 (principal) | CPT/HCPCS: C9803; U0003; U0005 ==

== ENCOUNTER → 2021-07-28 14:24 | Outpatient (CLI) | payer BC, SELFPAY | PROVIDERS: PCP Nurse Practitioner Family; Visit Provider Nurse Practitioner | DX: Z20.822 Contact with and (suspected) exposure to COVID-19 (principal) | CPT/HCPCS: C9803; U0003; U0005 ==

== ENCOUNTER → 2023-01-18 09:10 | Outpatient (CLI) | payer BC, SELFPAY ==
--- NOTE | 2023-01-18 09:11 | MR_ITS ---
FINAL REPORT CLINICAL HISTORY: RIGHT SIDED neck pain. WEAKNESS IN RIGHT ARM. HEADACHE COMPARISON: 12/16/2017 FINDINGS: Multiplanar MR imaging of the cervical spine was performed without contrast. On the sagittal T2-weighted images, disc degeneration is seen throughout. There are endplate changes at multiple levels. There is no evidence of fracture. There is mild anterolisthesis of C3 on C4. Mild retrolisthesis is seen of C5 on C6. The cervical spinal cord has an unremarkable appearance without evidence of mass, edema or syrinx. No significant canal stenosis is identified. The cervicomedullary junction is normal. C2-3: There is no significant canal stenosis or neural foraminal narrowing. C3-4: Disc osteophyte complex with small central disc protrusion and mild right neural foraminal narrowing. C4-5: Disc osteophyte complex with moderate right and severe left neural foraminal narrowing. C5-6: Disc osteophyte complex with severe right and mild left neural foraminal narrowing. There is mild central canal stenosis with AP diameter of the thecal sac measuring 8 mm. C6-7: Disc osteophyte complex with moderate right and mild left neural foraminal narrowing. C7-T1: There is no significant canal stenosis or neural foraminal narrowing. T1-2: Annular disc bulge with uncovertebral osteophytes and mild bilateral neural foraminal narrowing. IMPRESSION: Multilevel degenerative disc disease with mild central canal stenosis and severe right neural foraminal narrowing at C5-6, stable from prior exam. Reviewed, Interpreted and Dictated by Roel Cruz III, MD Transcribed by Bianca Patel Authenticated and [facility]
--- NOTE | 2023-01-18 10:26 | CT_ITS ---
FINAL REPORT TECHNIQUE: Axial images were obtained from the lung apex to the mid abdomen by computed tomography. This study was performed with techniques to keep radiation doses as low as reasonably achievable (ALARA). Individualized dose reduction techniques using automated exposure control or adjustment of mA and/or kV according to the patient's size were employed. CLINICAL HISTORY: lung cancer screening, CURRENT SMOKER 2 PKS PER DAY X 37 YRS COMPARISON: 04/28/2019 FINDINGS: CHEST CT LOW DOSE CTDI vol (mGy): 2.90 DLP (mGy-cm): 105.25 There is no axillary adenopathy. There are small mediastinal nodes without evidence of adenopathy. The heart is normal in size. There is no pericardial or pleural effusion. Lung window images demonstrate no suspicious infiltrate or nodule. There is mild emphysema. There is bilateral scarring, greatest in the lung apices. Findings are stable since previous. Patient is status post cholecystectomy. There is mild left renal scarring. There are small nonobstructing left renal stones versus parenchymal calcification. IMPRESSION: Stable appearance of the chest. Lung RADS category 1. Recommend 12 month follow-up low-dose chest CT. Reviewed, Interpreted and Dictated by Roel Cruz III, MD Transcribed by Sybil Mccracken Authenticated and [facility]
== END ==
PROVIDERS: PCP Emergency Medicine; Visit Provider Emergency Medicine
DX: M54.2 Cervicalgia (principal); Z79.891 Long term (current) use of opiate analgesic; Z12.2 Encounter for screening for malignant neoplasm of respiratory organs
CPT/HCPCS: 71271; 72141; 76376

== ENCOUNTER 2023-05-16 12:57 | Emergency (ER) | payer BC, SELFPAY ==
[2023-05-16 13:10] VITALS: BP 146/85; PULSE 89; RESP 18; TEMP 36.9; O2SAT 97; BMI 22.1
--- NOTE | 2023-05-16 13:17 | EXP.UTC ---
Discharge Plan Disposition Patient Disposition: Home, Self-Care Condition: Good Prescriptions Prescriptions: No Action estradiol 2 mg tablet 2 mg PO DAILY Rx Instructions: TAKE 1 TABLET BY MOUTH EVERY DAY lisinopril-hydrochlorothiazide 10-12.5 mg tablet 1 tab PO DAILY Rx Instructions: TAKE 1 TABLET BY MOUTH ONCE DAILY FOR HIGH BLOOD PRESSURE Referrals Follow up/Referrals: Erick Washburn MD [Primary Care Provider] - See instructions Activity Restrictions/Add. Instructions Additional Instructions/Restrictions: Start oral steriods tomorrow Follow up with your Family Doctor for further testing and evaluation if no improvement Return if needed Straight to ER if any life threatening symptoms Clinical Impressions Clinical Impression: Right sciatic nerve pain Instructions Patient Instructions: Sciatica, DI for Sciatica Discharge ED Provider: Sunitha Garcia [facility] General Stated complaint: numbness in right leg and toes Mode of Arrival: Ambulatory Source of Information: Patient Limitations: No Limitations Time Seen by Provider: 05/16/23 13:17 Description of Symptoms (Recalled from Triage Doc. by RN): PATIENT C/O NUMBNESS TO RIGHT 4TH/5TH TOES AND PAIN TO RIGHT LEG. SHE STATES THIS HAS BEEN GOING ON FOR A WHILE, BUT HAS GOTTEN WORSE OVER THE LAST 2 WEEKS HEENT Symptoms (Recalled from RN notes): No Resp Symptoms (Recalled from RN notes): No Skin Symptoms (Recalled from RN notes): No MS Symptoms (Recalled from RN notes): Yes Functional Status (Recalled from RN notes): WNL History of Present Illness Provider Complaint: Patient states that she has been having numb like feeling in her last two toes for several months on and off and states that for the last couple of weeks she has been having pain in her buttock area that goes down her leg to her toes at times States that her mother has this and they told her it was her sciatic nerve and now she thinks she may be having sciatic nerve pain so she came in to see if there was something she can get for it Related Data Home Medications Medication Instructions Recorded Confirmed estradiol 2 mg tablet 2 mg PO DAILY Supplement 05/16/23 05/16/23 lisinopril 10 1 tab PO DAILY Hypertension 05/16/23 05/16/23 mg-hydrochlorothiazide 12.5 mg tablet Allergies Allergy/AdvReac Type Severity Reaction Status Date / Time Penicillins [PENICILLINS] Allergy Intermediate I-HIVES Verified 01/08/23 10:23 Worker's Comp Is this a Worker's Comp case?: No [facility] Disclaimer: The information contained in this section may have been updated after the patient was seen, as this information can be updated by other users. Medical History Tobacco dependence due to cigarettes Social History Smoking Status: Current every day smoker tobacco type: cigarettes packs per day: 2 second hand exposure: Yes alcohol intake: never counseling provided: none substance use type: denies use current occupational status: disabled Travel in the last 8 weeks: None household members: family housing: house current occupational exposures/hazards: No caffeine: Yes ROS Obtained: Yes All systems reviewed & no additional complaints except as documented and Yes Systems reviewed as appropriate & no additional complaints except as documented Constitutional Constitutional: Reports system reviewed and no additional complaints, except as documented and Reports as per HPI ENT Ears, Nose, Mouth, and Throat: Reports system reviewed and no additional complaints, except as documented and Reports as per HPI Cardiovascular Cardiovascular: Reports system reviewed and no additional complaints, except as documented and Reports as per HPI Respiratory Respiratory: Reports system reviewed and no additional complaints, except as documented and Reports as per HPI Gastrointestinal G
[2023-05-16 13:41] VITALS: BP 146/85; PULSE 89; RESP 18; TEMP 36.9; O2SAT 97
== END 2023-05-16 13:44 | disposition home or self-care (01) ==
PROVIDERS: Emergency Provider Nurse Practitioner; PCP Emergency Medicine
DX: M54.31 Sciatica, right side (principal); F17.210 Nicotine dependence, cigarettes, uncomplicated
CPT/HCPCS: 96372; 99204; 99212; G0463

== ENCOUNTER 2024-01-07 10:55 | Emergency (ER) | payer BC, SELFPAY ==
[2024-01-07 11:00] VITALS: BP 156/92; PULSE 77; RESP 18; TEMP 37.2; O2SAT 98; BMI 22.8
--- NOTE | 2024-01-07 11:08 | EXP.UTC ---
Discharge Plan Disposition Patient Disposition: Home, Self-Care Condition: Good Prescriptions Prescriptions: New methylprednisolone 4 mg Tablets,Dose Pack 4 mg PO DIRECTED 6 Days Qty: 21 0RF Rx Instructions: Take 1 pack as directed for 6 days No Action lisinopril-hydrochlorothiazide 10-12.5 mg tablet See Rx Instructions .ROUTE .COMPLEX Qty: 90 0RF Dose Instruction: TAKE 1 TABLET BY MOUTH DAILY FOR HYPERTENSION/HIGH BLOOD PRESSURE Rx Instructions: TAKE 1 TABLET BY MOUTH DAILY FOR HYPERTENSION/HIGH BLOOD PRESSURE estradiol 2 mg tablet See Rx Instructions .ROUTE .COMPLEX Qty: 30 3RF Dose Instruction: TAKE 1 TABLET BY MOUTH EVERY DAY Rx Instructions: TAKE 1 TABLET BY MOUTH EVERY DAY Referrals Follow up/Referrals: Provider,Referral, [Primary Care Provider] - See instructions Myriam Boyd DPM [Staff Physician] - See instructions Activity Restrictions/Add. Instructions Additional Instructions/Restrictions: Rest the affected extremity, Elevate the extremity as tolerated while you are resting. Take the medications as directed. Follow up with Dr. Boyd (podiatry). I put in a referral but you need to call her office and schedule an appointment. You need further testing to evaluate your symptoms. Follow up with your regular doctor. We are giving you a list of doctors that are taking new patients. GO TO THE ER FOR ANY WORSENING SYMPTOMS Clinical Impressions Clinical Impression: Paresthesia of skin, Numbness of toes Instructions Patient Instructions: DI for Numbness/Tingling, Methylprednisolone Discharge ED Provider: Qasim Miranda [facility] General Stated complaint: numbness in R foot Time Seen by Provider: 01/07/24 11:07 History of Present Illness Provider Complaint: She states that for the past approx. 4 weeks she has had numbness of the tips of her right 2nd through 5th toes. She denies any foot pain. She denies any injury. She denies any history of diabetes or neuropathy. Related Data Previous Rx's Medication Instructions Recorded lisinopril 10 See Rx Instructions .Route 10/31/23 mg-hydrochlorothiazide 12.5 mg .COMPLEX #90 tabs tablet estradiol 2 mg tablet See Rx Instructions .Route 12/19/23 .COMPLEX #30 tabs methylprednisolone 4 mg tablets in 4 mg PO DIRECTED 6 days #21 tabs 01/07/24 a dose pack Allergies Allergy/AdvReac Type Severity Reaction Status Date / Time Penicillins [PENICILLINS] Allergy Intermediate I-HIVES Verified 01/07/24 11:13 [facility] Disclaimer: The information contained in this section may have been updated after the patient was seen, as this information can be updated by other users. Medical History Tobacco dependence due to cigarettes Social History Smoking Status: Current every day smoker tobacco type: cigarettes packs per day: 2 second hand exposure: Yes alcohol intake: never counseling provided: none substance use type: denies use current occupational status: disabled Travel in the last 8 weeks: None household members: family housing: house current occupational exposures/hazards: No caffeine: Yes ROS Obtained: Yes All systems reviewed & no additional complaints except as documented Constitutional Constitutional: Denies chills and Denies fever(s) Eyes Eyes: Denies eye discharge ENT Ears, Nose, Mouth, and Throat: Denies dizziness, Denies otalgia and Denies sore throat Cardiovascular Cardiovascular: Denies chest pain Respiratory Respiratory: Denies shortness of breath, Denies chest congestion, Denies cough, Denies stridor and Denies wheezing Gastrointestinal Gastrointestingal: Denies nausea or vomiting Musculoskeletal Musculoskeletal: Reports system reviewed and no additional complaints, except as documented and Denies arthralgias Integumentary/Breasts Skin/Breast: Denies redness, Denies rash and Denies wounds Neurologic Neurologic: Reports as per HPI, Denies dizziness and Reports paresthesias Allergic/Immunologic Allergic/Immunologic: Denies wheezing Physical Exam General General appearance: alert and in no apparent distress Head Head exam: atraumatic, normocephalic and normal inspection Eye Eye exam: Present normal appearance, PERRL and EOMI ENT ENT exam: Present normal exam, normal oropharynx, mucous membranes moist, TM's normal bilaterally and normal external ear exam Neck Neck exam: Present normal inspection, full ROM and trachea midline; Absent meningismus or lymphadenopathy Chest Chest inspection: Present normal inspection and symmetric chest wall rise; Absent tenderness Respiratory Respiratory exam: Present normal lung sounds bilaterally; Absent respiratory distress Cardiovascular Cardiovascular exam: Present regular rate and normal rhythm; Absent JVD Abdominal Exam Abdominal exam: Present soft and normal bowel sounds; Absent distention, tenderness or guarding Extremities Exam Extremities exam: Present full ROM and normal capillary refill; Absent calf tenderness Expanded Lower Extremity Exam Right: Knee exam: Present normal inspection, full ROM and knee extension intact; Absent tenderness Lower leg exam: Present normal inspection, full ROM and Achilles tendon intact; Absent tenderness or Homans' sign Ankle exam: Present normal inspection and full ROM; Absent tenderness, tenderness over talofibular lig or anterior draw sign Foot/toe exam: Present full ROM; Absent tenderness, swelling, abrasion, laceration, ecchymosis, deformity, crepitus, dislocation, erythema, amputation, puncture wound, foreign body, calcaneal tenderness, tenderness at base of 5th metatarsal, nail avulsion or subungual hematoma Neurovascular/Tendon exam: Present normal capillary refill; Absent pulse deficit, motor deficit, sensory deficit, tendon deficit, extremity cold to touch, pallor, normal 2-point discrimination or normal fine/light touch Gait: observed and normal Back Exam Back exam: Present normal inspection; Absent tenderness Neurological Exam Neurological exam: Present alert, oriented X3, CN II-XII intact, normal gait and reflexes normal Expanded Neurological Exam Speech: Present fluid speech Cranial nerves: Normal: EOM function (II, III, IV, ), facial sensation (V), facial palsy (VII), gag reflex (IX), spinal accessory function (XI) and tongue deviation (XII) Cerebellar function: normal gait Motor strength - LUE: 5/5 Motor strength - RUE: 5/5 Motor strength - LLE: 5/5 Motor strength - RLE: 5/5 Sensory exam lower extremity: Abnormal Right: 2 point discrimination (she has decreased sensation to the tips of 2nd toe to 5th on right foot, normal sensation elsewhere) DTR: 2+: biceps (L), biceps (R), patellar (L), patellar (R), Achilles tendon (L) and Achilles tendon (R) Spinal cord function: Absent saddle anesthesia Psychiatric Psychiatric exam: Present normal affect and normal mood Skin Skin exam: Present warm, dry, intact and normal color; Absent rash, cyanosis, diaphoresis, erythema, pallor, mottled or other Lymphatic Lymphatic Findings: no adenopathy Medical Decision Making Medical Records Medical records reviewed: No I reviewed the patient's medical records. Emanuel Inquiry Pt receiving controlled substance: No Lab Data Lab results reviewed: Yes I reviewed the patient's lab results.
[2024-01-07 11:28] LABS: POC Glucose,Bedside 99 (70-110)
[2024-01-07 11:49] VITALS: BP 156/92; PULSE 77; RESP 18; TEMP 37.2; O2SAT 98
== END 2024-01-07 11:49 | disposition home or self-care (01) ==
PROVIDERS: Emergency Provider Nurse Practitioner Family
DX: R20.2 Paresthesia of skin (principal); R20.0 Anesthesia of skin; F17.210 Nicotine dependence, cigarettes, uncomplicated
CPT/HCPCS: 82962; 99212; 99214; G0463

== ENCOUNTER 2024-01-23 13:33 | Outpatient (CLI) | payer BC, SELFPAY ==
--- NOTE | 2024-01-23 13:34 | MM_ITS ---
PROCEDURE INFORMATION: Exam: MG Bilateral Screening 3D Mammography Exam date and time: 01/23/2024 1:50 PM Age: 58 years old Clinical indication: Screening. Maternal and paternal aunts had breast cancer. TECHNIQUE: Imaging protocol: Bilateral Screening tomosynthesis and 2D mammography including computer-aided detection (CAD) when performed. COMPARISON: 1. MG MM DIG MAMM BI DX W/CAD 09/16/2019 1:23 PM 2. MG DIG MAMM-DX SY 03/12/2019 2:04 PM 3. MG SCBI MM Dig screening mamm BI w/CAD 11/14/2017 4:28 PM 4. MG DMDBAV DIG MAMM-DX SY W/AVWS W/CAD 11/07/2016 11:09 AM FINDINGS: MAMMOGRAPHY: Breast composition: The breasts are heterogeneously dense, which may obscure small masses. Mass: Questionable 0.3 cm mass in the right inner lower breast, in the CC projection, middle 3rd, about 6 cm from the nipple, MLO image [id number] and frame 49. The more posterior mass in the inner right breast is stable since 10/28/2016. Architectural distortion: None. Calcifications: No suspicious calcifications. Asymmetric density: None. Skin thickening: None. Axillary adenopathy: None. IMPRESSION: Patient will be recalled for right sonography for further evaluation of questionable right breast mass. ASSESSMENT: BI-RADS Category 0: Incomplete: Need Additional Imaging Evaluation and/or Prior Mammograms for Comparison
== END 2024-01-23 23:59 | disposition home or self-care (01) ==
LOC: RAD 13:34
PROVIDERS: PCP Internal Medicine; Visit Provider Nurse Practitioner Obstetrics & Gynecology
DX: Z12.31 Encounter for screening mammogram for malignant neoplasm of breast (principal)
CPT/HCPCS: 77063; 77067

== ENCOUNTER 2024-02-04 13:55 | Outpatient (CLI) | payer BC, SELFPAY ==
--- NOTE | 2024-02-04 13:55 | US_ITS ---
PROCEDURE INFORMATION: Exam: US Right Breast, Complete Exam date and time: 02/04/2024 2:15 PM Age: 58 years old Clinical indication: Patient recalled for further evaluation of a right breast mass TECHNIQUE: Imaging protocol: Complete ultrasound of all four quadrants of the right breast and the retroareolar regions, including ultrasound of the axilla when performed. COMPARISON: Mammogram dated 01/13/2024 FINDINGS: ULTRASOUND: Breast ultrasound findings: Sonographic images of the right breast including the retroareolar region, all 4 quadrants and the axilla do not demonstrate any solid or cystic masses. No architectural distortion or acoustical shadowing. No skin thickening or axillary adenopathy. Review of the patient's most recent mammogram dated 01/23/2024 demonstrated a superficial well-circumscribed 0.3 cm mass in the lower inner quadrant. IMPRESSION: A six-month follow-up diagnostic right mammogram is recommended to ensure stability of a 0.3 cm mass seen in the right lower inner quadrant middle third. There was no sonographic correlate. ASSESSMENT: BI-RADS Category 3: Probably benign.
== END 2024-02-04 23:59 | disposition home or self-care (01) ==
LOC: RAD 13:55
PROVIDERS: PCP Internal Medicine; Visit Provider Nurse Practitioner Obstetrics & Gynecology
DX: R92.8 Other abnormal and inconclusive findings on diagnostic imaging of breast (principal); N63.14 Unspecified lump in the right breast, lower inner quadrant
CPT/HCPCS: 76641

== ENCOUNTER 2024-03-24 09:27 | Outpatient (CLI) | payer BC, SELFPAY ==
--- NOTE | 2024-03-24 09:32 | XR_ITS ---
FINAL REPORT CLINICAL HISTORY: right LE radiculopathy states toes right side feel numb for a few months FINDINGS: LUMBAR SPINE Five views demonstrate no acute fracture. There is moderate anterior osteophyte formation at L1-2 and L2-3. There is moderate facet sclerosis in the lower lumbar spine. There is no malalignment. IMPRESSION: Degenerative changes as above. Reviewed, Interpreted and Dictated by Jadon Ortiz MD Transcribed by Sybil Mccracken Authenticated and [facility]
[2024-03-24 19:07] LABS: Basophils # 0.2 K/mm3 (0-0.2); Basophils % 2.5 % (0.1-2.0); Eosinophils % 0.1 % (0.1-12.0); Hematocrit 45.2 % (37.0-47.0); Hemoglobin 15.9 g/dL (12.2-16.2); Lymphocytes # 2.7 K/mm3 (0.7-4.5); Lymphocytes % 30.9 % (10-50); Mean Corpuscular HGB Conc 35.1 g/dL (31.8-35.4); Mean Corpuscular Volume 99.9 fl (81-99); Mean Platelet Volume 10.3 fl (7.4-10.4); Monocytes # 0.6 K/mm3 (0.1-1.0); Monocytes % 7.1 % (1.7-9.3); Neutrophils # 5.1 K/mm3 (1.8-7.8); Neutrophils % 59.5 % (37.0-80.0); Platelet Count 172 K/mm3 (142-424); Red Blood Count 4.53 M/mm3 (4.20-5.40); Red Cell Distribution Width 14.1 % (11.5-17.5); White Blood Count 8.6 K/mm3 (4.8-10.8)
[2024-03-24 19:26] LABS: Alanine Aminotransferase 18 U/L (12-78); Albumin Level 4.1 g/dl (3.5-5.0); Albumin/Globulin Ratio 1.3 (1.1-1.8); Alkaline Phosphatase 141 U/L (38-126); Anion Gap 13.4 mEq/L (5-15); Aspartate Amino Transferase 28 U/L (14-36); Bilirubin,Total 0.5 mg/dl (0.2-1.3); Blood Urea Nitrogen 13 mg/dl (7-17); Calcium 9.6 mg/dl (8.4-10.2); Carbon Dioxide 25 mmol/L (22.0-30.0); Chloride 108 mmol/L (98-107); Chol/HDL Ratio 11.2 (1-3.5); Cholesterol 247 mg/dl (140-200); Estimated Glomerular Filt Rate 102 ml/min (>60); GFR (African American) 123 ML/MIN (>60); Globulin 3.1 g/dL (1.3-3.2); HDL Cholesterol 22 mg/dl (40-60); Potassium 3.4 mmoL/L (3.5-5.1); Sodium 143 mmol/L (136-145); Total Protein,Serum 7.2 g/dl (6.3-8.2)
[2024-03-24 19:32] LABS: Glucose 43 mg/dl (74-100)
[2024-03-24 19:39] LABS: Direct LDL Cholesterol < 30.00 mg/dL (100-129)
[2024-03-24 19:53] LABS: 25-OH Vitamin D, Total 23.8 ng/mL (30-100)
[2024-03-24 19:54] LABS: Thyroid Stimulating Hormone 2.04 uIU/mL (0.465-4.68)
[2024-03-25 10:35] LABS: Triglycerides 1783 mg/dl (30-150)
[2024-03-27 05:09] LABS: Insulin Level Total 6.1 uIU/mL (2.6-24.9)
[2024-03-27 08:30] LABS: C-Peptide 2.1 ng/mL (1.1-4.4)
== END 2024-03-24 23:59 | disposition home or self-care (01) ==
LOC: RAD 09:28
PROVIDERS: PCP Physician Assistant; Visit Provider Physician Assistant
DX: M54.31 Sciatica, right side (principal)
CPT/HCPCS: 72110; 80050; 80053; 80061; 82306; 83525; 84443; 84681; 85025

== ENCOUNTER 2024-05-07 14:00 | Outpatient (RCR) | payer BC, SELFPAY ==
--- NOTE | 2024-04-02 11:52 | HMH.PTOPEV ---
PT Outpatient Evaluation Rehab PT Outpatient Evaluation Start: 04/02/24 08:03 Freq: Status: Active Protocol: Document 04/02/24 10:55 HARRY (Rec: 04/02/24 11:51 HARRY [id number]) E-signed By Hernandez Walsh, PT Outpatient Therapy Subjective History Subjective History Patient Holly Smith is a 59 yof presenting at outpatient PT today with the chief complaint of back pain. Her back pain has been chronic and on going for multiple years. Lately in the past year she as noticed some numbness that occurs only in her toes mainly affecting the right foot. Patient had X-ray imaging of the lumbar spine completed on (03/24/24). Results of that x- ray reported no acute fracture , moderate anterior osteophyte formation at L1-2 and L2-3, moderate facet sclerosis in the lower lumbar spine, and no malalignment. Overall the impression was stated and conclude as consistent with degenerative changes. Patient' s PMH includes HTN and she stated she is waiting for blood work to come back as she is getting a few other things checked out. She does not have a history of diabetes currently at this time but is a frequent smoker. Patient mentioned that she has previously had PT in the past and that it provided no progressive changes. New diagnosis of cancer in past 12 No months? Chief Complaint Pain,Spasms,Stiff Symptom Type Ache Symptoms Relieved By Rest/Positioning,OTC Meds Symptoms Aggravated By Prone,Supine,Sitting,Standing, Bending/Stooping,Physical Activity,Lifting Prior Functional Limitations None Current Functional Limitations Lifting,Sleeping,Standing, Sitting,Recreation Activity, Walking,Bending/Stooping Symptom Description Constant and Continuous Level of pain today (0-10) 8 Pain scale - at its worst (0-10) 10 Lumbopelvic Eval Assistive device Assistive Devices None / NA Gait Observation General Gait Pattern Observation Antalgic Gait Accessory Movement T11 bilateral T12 bilateral L2 bilateral L3 bilateral Range of Motion Lumbar Spine Active Flexion Range of 35 Motion (degrees) Lumbar Spine Active Extension Range of 10 Motion (degrees) Left Lumbar Spine Lateral Flexion Active 13 Range of Motion (degrees) Right Lumbar Spine Lateral Flexion 15 Active Range of Motion (degrees) Lumbar Spine ROM Limitations Soft Tissue Tightness,Pain Manual Muscle Test Bilateral Knee Extension Strength Grade 3+ Fair+ Knee Flexion Strength Grade 3+ Fair+ Hip Flexion Strength Grade 3+ Fair+ Hip Abduction Strength Grade 3+ Fair+ Hip Adduction Strength Grade 3+ Fair+ Ankle Dorsiflexion Strength Grade 5 Normal Gastronemius/Soleus Strength Grade 5 Normal Special Tests Hip Adelso (IZZY) Test Negative Left,Negative Right Hip Piriformis Test Negative Left,Negative Right Sciatic Nerve Tension Test Negative Left,Negative Right Oswestry Index Section 1 Pain Intensity The pain is moderate and does not vary much Section 2 Personal Care (Washing,Dresing) my way of washing or dressing even though it causes some pain Section 3 Lifting I can lift heavy weights without extra pain Section 4 Walking I have some pain when walking but it does not increase with distance Section 5 Sitting Pain prevents me from sitting for more than one hour Section 6 Standing I have some pain on standing, but it does not increase with time Section 7 Sleeping Because of my pain, my normal night's sleep is less than 6 hours sleep Section 8 Social Life Pain has no significant effect on my social life apart from limiting Section 9 Traveling I get some pain when traveling , but none of my usual forms of travel m Section 10 Changing Degreee of Pain My pain is neither getting better or worse Score and Risk Level Oswestry Sc 16 Oswestry Risk Level Moderate Disability Miscellaneous Dx PT Eval Objective Objective Leg discrepancy assess during IE, noted some slight variation with observation. Distraction also completed and provided that patient no significant changes. Outpatient Therapy Assessment Impairments Problems/Impairmments Palpation Tenderness,Impaired Range of Motion,Impaired Strength,Impaired Endurance, Impaired Walking,Impaired Standing,Impaired Sitting, Impaired Bending,Subjective C/ O Pain Prognosis Rehab Potential Good Comment Patient is a good candidate at this time for skilled PT services to address her limited ROM in the lumbar spine along with her decreased strength in the LE's. She will significantly benefit to decrease her pain levels and improve her limitations to promote a better QOL. Short Term Goals Number of Weeks 4 Decreased Palpation Tenderness Yes: PPT of Lumbar spine musculature surrounding (L 1-3 ) from 4/5 to 3/5 Increase Range of Motion Yes: AROM Lumbar Flexion by 5 degrees Increase Strength Yes: B LE MMT grossly 4/5 Increase Ability to Walk Yes: 5 min with pain level at or below 7/10 Improve Oswestry Score Yes: Score: 14 or below Decrease Subjective C/O Pain Yes: at rest from 8/10 to 6/10 Patient to be Ind w/ HEP Yes Track Man Goals Number of Weeks 8 Decreased Palpation Tenderness Yes: PPT of Lumbar spine musculature surrounding (L 1-3 ) from 3/5 to 2/5 or less Increase Range of Motion Yes: AROM Lumbar Flexion and Extension by 10 degrees Increase Strength Yes: B LE MMT grossly 5/5 Increase Ability to Walk Yes: 10 min with pain level at or below 6/10 Improve Oswestry Score Yes: Score: 10 or below Decrease Subjective C/O Pain Yes: at rest from 6/10 to 4/10 or below Patient to be Ind w/ Advanced HEP Yes Outpatient Therapy Plan of Care Treatment Plan May Include Therapeutic Exercise Including Home Yes Exercise Program Manual Therapy Techniques Yes Neuromuscular Re-education Yes Therapeutic Activities to Return to Yes Previous Functional/Work Level ADL/Self Care Education Yes Mechanical Traction Yes Dry Needling Yes Thermal Modalities Yes Electrical Stimulation Yes Ultrasound/Phonophoresis Yes Iontophoresis Yes Eval/Re-Eval Yes Frequency Times per week 1-2 Duration Number of Weeks 4-6 Addendums This patient is a candidate for social No or vocational rehab? Patient/Guardian verbally acknowledges Yes understanding of treatment program and consents to further treatment? Patient/Guardian verbally acknowledges Yes understanding of diagnosis, prognosis and goals for treatment? Eval Complexity PT Charges 84591 - High Complexity Shoulder/Elbow Eval Shoulder Objective Measurements Elbow Objective Measurements PHYSICIAN CERTIFICATION: I certify the specified therapy services for Holly Smith are required, authorized, and reviewed every 30 days.
--- NOTE | 2024-05-05 15:59 | HMH.RHREAS ---
Rehab Reassessment Rehab OP Re-assessment Start: 04/02/24 08:03 Freq: Status: Active Protocol: Document 05/05/24 15:46 PHOMartinANDRADE (Rec: 05/05/24 15:58 PHORNE [id number]) E-signed By Hernandez Walsh, PT Oswestry Index Section 1 Pain Intensity The pain is moderate and does not vary much Section 2 Personal Care (Washing,Dresing) my way of washing or dressing even though it causes some pain Section 3 Lifting I can only lift very light weights at most Section 4 Walking I cannot walk more than 1/4 mile without increasing pain Section 5 Sitting Pain prevents me from sitting for more than one hour Section 6 Standing I avoid standing because it increases the pain immediately Section 7 Sleeping Because of my pain, my normal night's sleep is less than 6 hours sleep Section 8 Social Life Pain has restricted my social life and I do not go out often Section 9 Traveling I get extra pain while traveling, but it does not compel me to seek al Section 10 Changing Degreee of Pain My pain is neither getting better or worse Score and Risk Level Oswestry Sc 30 Oswestry Risk Level Severe Disability Rehab Re-assessment Subjective Subjective Pt reports pain in her low back remains 8/10 most of the time. She reports continued radicular symptoms in the R LE , worse in the foot and ankle. She continues to report difficulty with all mobility due to pain. Pt reports she missed several visits over the past 2-3 weeks due to illness and a in her family. Objective Objective Notes AROM Lumbar Spine (in deg): FLEX= 0-40, EXT= 0-10, L SB= 0 -15, R SB= 0-5 MMT R LE: HIP FLEX 4/5, HIP ABD 4/5, HIP ADD 4/5, KNEE FLEX 4/5, KNEE EXT 4/5 L LE: HIP FLEX 4/5, HIP ABD 4/ 5, HIP ADD 4/5, KNEE EXT 4+/5, KNEE FLEX 4+/5. TTP: 0/4 to B lumbar paraspinals this date. Oswestry: 30 this date vs 16 on IE. Assessment Progress Assessment Slower Than Expected Assessment Notes Pt as shown some increase in B LE strength overall, but lumbar ROM and overall pain with any movement have not improved. She also has significantly worse score on Oswestry back pain disability questionnaire this date vs her initial evaluation. She continues to need skilled therapy to reduce pain and increased strength in order to return her to [facility]. Patient goals met ST/7 LT/7 Plan Plan Continue per initial POC. Frequency of Therapy 2 x/wk Duration of therapy 4 wks Time and Billing Re-Eval Time 11 Re-Eval Billing Units 1 PHYSICIAN CERTIFICATION: I certify the specified therapy services for Holly Smith are required, authorized, and reviewed every 30 days.
== END 2024-05-07 14:05 | disposition home or self-care (01) ==
LOC: PT 14:00
PROVIDERS: Visit Provider Physician Assistant
DX: M25.70 Osteophyte, unspecified joint (principal)
CPT/HCPCS: 97014; 97110; 97163; 97164; G0283

== ENCOUNTER 2024-05-19 14:19 | Outpatient (CLI) | payer BC, SELFPAY ==
[2024-05-19 15:01] LABS: Alanine Aminotransferase 19 U/L (12-78); Albumin Level 4.4 g/dl (3.5-5.0); Albumin/Globulin Ratio 1.6 (1.1-1.8); Alkaline Phosphatase 124 U/L (38-126); Anion Gap 8.4 mEq/L (5-15); Aspartate Amino Transferase 29 U/L (14-36); Bilirubin,Total 0.5 mg/dl (0.2-1.3); Blood Urea Nitrogen 15 mg/dl (7-17); Calcium 10.2 mg/dl (8.4-10.2); Carbon Dioxide 27 mmol/L (22.0-30.0); Chloride 110 mmol/L (98-107); Chol/HDL Ratio 7.8 (1-3.5); Cholesterol 227 mg/dl (140-200); Estimated Glomerular Filt Rate 102 ml/min (>60); GFR (African American) 123 ML/MIN (>60); Globulin 2.8 g/dL (1.3-3.2); Glucose 59 mg/dl (74-100); HDL Cholesterol 29 mg/dl (40-60); Potassium 3.4 mmoL/L (3.5-5.1); Sodium 142 mmol/L (136-145); Total Protein,Serum 7.2 g/dl (6.3-8.2); Triglycerides 428 mg/dl (30-150)
[2024-05-19 15:11] LABS: Direct LDL Cholesterol 93.12 mg/dL (100-129)
[2024-05-19 15:18] LABS: 25-OH Vitamin D, Total 41.8 ng/mL (30-100)
[2024-05-19 15:50] LABS: Vitamin B12 621 pg/mL (239-931)
== END 2024-05-19 23:59 | disposition home or self-care (01) ==
LOC: LAB.DROPOF 14:20
PROVIDERS: PCP Internal Medicine; Visit Provider Internal Medicine
DX: R20.0 Anesthesia of skin (principal); R20.2 Paresthesia of skin; M54.31 Sciatica, right side; E78.1 Pure hyperglyceridemia; E55.9 Vitamin D deficiency, unspecified; F68.12 Factitious disorder imposed on self, with predominantly physical signs and symptoms; E87.6 Hypokalemia
CPT/HCPCS: 80053; 80061; 82306; 82607

== ENCOUNTER 2024-08-17 15:24 | Outpatient (CLI) | payer BC, SELFPAY ==
[2024-08-17 13:34] LABS: Chol/HDL Ratio 10.6 (1-3.5); Cholesterol 243 mg/dl (140-200); HDL Cholesterol 23 mg/dl (40-60)
[2024-08-17 13:45] LABS: Triglycerides 679 mg/dl (30-150)
== END 2024-08-17 23:59 | disposition home or self-care (01) ==
LOC: LAB.DROPOF 15:24
PROVIDERS: PCP Internal Medicine; Visit Provider Internal Medicine
DX: E78.1 Pure hyperglyceridemia (principal)
CPT/HCPCS: 80061

== ENCOUNTER 2024-09-15 12:36 | Outpatient (CLI) | payer OTHER, SELFPAY | END 2024-09-15 23:59 | disposition home or self-care (01) | LOC: RAD 12:37 | PROVIDERS: PCP Internal Medicine; Visit Provider Nurse Practitioner Obstetrics & Gynecology | DX: Z12.31 Encounter for screening mammogram for malignant neoplasm of breast (principal) ==

== ENCOUNTER 2024-09-24 14:27 | Outpatient (CLI) | payer OTHER, SELFPAY ==
--- NOTE | 2024-09-24 14:29 | MM_ITS ---
PROCEDURE INFORMATION: Exam: MG Right Diagnostic Breast Tomosynthesis Exam date and time: 09/24/2024 2:43 PM Age: 59 years old Clinical indication: Short-term radiographic followup; Right breast TECHNIQUE: Imaging protocol: Right Diagnostic tomosynthesis and 2D mammography including computer-aided detection (CAD) when performed. Unilateral or bilateral exam. COMPARISON: 1. MG MM DIG SCREENING MAMM BI W/CAD 01/23/2024 1:50 PM 2. MG MM DIG MAMM BI DX W/CAD 09/16/2019 1:23 PM FINDINGS: MAMMOGRAPHY: Breast composition: There are scattered areas of fibroglandular density. Breast mammogram findings: Digital diagnostic spot compression views of the right lower quadrant not demonstrating any persistent mass lesions. IMPRESSION: No mammographic evidence of malignancy. Annual bilateral mammographic screening is recommended unless otherwise clinically indicated. ASSESSMENT: BI-RADS Category 1: Negative.
== END 2024-09-24 23:59 | disposition home or self-care (01) ==
LOC: RAD 14:29
PROVIDERS: PCP Internal Medicine; Visit Provider Nurse Practitioner Obstetrics & Gynecology
DX: N63.14 Unspecified lump in the right breast, lower inner quadrant (principal)
CPT/HCPCS: 77061; 77065; G0279

== ENCOUNTER 2024-09-30 12:48 | Outpatient (CLI) | payer OTHER, SELFPAY ==
--- NOTE | 2024-09-30 12:55 | XR_ITS ---
FINAL REPORT CLINICAL HISTORY: Foot Pain COMPARISON: None FINDINGS: LEFT FOOT Three views demonstrate no acute fracture or dislocation. The joint spaces appear normal. No acute soft tissue abnormality is seen. IMPRESSION: No acute bony abnormality. Reviewed, Interpreted and Dictated by Jadon Ortiz MD Transcribed by Alyse Crawford Authenticated and . [facility]
--- NOTE | 2024-09-30 12:55 | XR_ITS ---
FINAL REPORT CLINICAL HISTORY: Foot Pain COMPARISON: None FINDINGS: RIGHT FOOT Three views demonstrate no acute fracture or dislocation. The joint spaces appear normal. No acute soft tissue abnormality is seen. IMPRESSION: No acute bony abnormality. Reviewed, Interpreted and Dictated by Jadon Ortiz MD Transcribed by Alyse rCawford Authenticated and [facility]
== END 2024-09-30 23:59 | disposition home or self-care (01) ==
LOC: RAD 12:49
PROVIDERS: PCP Internal Medicine; Visit Provider Podiatrist
DX: M79.671 Pain in right foot (principal); M79.672 Pain in left foot
CPT/HCPCS: 73630

== ENCOUNTER 2024-12-02 12:26 | Outpatient (CLI) | payer OTHER, SELFPAY ==
[2024-12-02 12:47] LABS: Basophils # 0.1 K/mm3 (0-0.2); Basophils % 0.7 % (0.1-2.0); Hematocrit 42.8 % (37.0-47.0); Hemoglobin 15.4 g/dL (12.2-16.2); Lymphocytes # 2.6 K/mm3 (0.7-4.5); Lymphocytes % 36.7 % (10-50); Mean Corpuscular Hemoglobin 32.3 pg (27.0-31.2); Mean Corpuscular Volume 89.7 fl (81-99); Mean Platelet Volume 10.3 fl (7.4-10.4); Monocytes # 0.4 K/mm3 (0.1-1.0); Monocytes % 5.7 % (1.7-9.3); Neutrophils % 56.6 % (37.0-80.0); Platelet Count 164 K/mm3 (142-424); Red Blood Count 4.77 M/mm3 (4.20-5.40); Red Cell Distribution Width 13.4 % (11.5-17.5); White Blood Count 7.1 K/mm3 (4.8-10.8)
[2024-12-02 12:54] LABS: Albumin Level 4.1 g/dl (3.5-5.0); Chloride 104 mmol/L (98-107); Potassium 3.1 mmoL/L (3.5-5.1); Sodium 142 mmol/L (136-145)
[2024-12-02 12:56] LABS: Blood Urea Nitrogen 9 mg/dl (7-17); Estimated Glomerular Filt Rate 102 ml/min (>60); GFR (African American) 123 ML/MIN (>60)
[2024-12-02 12:57] LABS: Alanine Aminotransferase 19 U/L (12-78); Albumin/Globulin Ratio 1.1 (1.1-1.8); Alkaline Phosphatase 110 U/L (38-126); Anion Gap 9.1 mEq/L (5-15); Aspartate Amino Transferase 28 U/L (14-36); Bilirubin,Total 0.5 mg/dl (0.2-1.3); Calcium 9.6 mg/dl (8.4-10.2); Carbon Dioxide 32 mmol/L (22.0-30.0); Cholesterol 248 mg/dl (140-200); Globulin 3.6 g/dL (1.3-3.2); Glucose 96 mg/dl (74-100); HDL Cholesterol 31 mg/dl (40-60); Total Protein,Serum 7.7 g/dl (6.3-8.2)
--- NOTE | 2024-12-02 13:00 | CT_ITS ---
FINAL REPORT TECHNIQUE: Thin section axial images were obtained of the right foot after the administration of IV contrast. Coronal and sagittal reconstructions were obtained and reviewed. This study was performed with techniques to keep radiation doses as low as reasonably achievable, (ALARA). Individualized dose reduction techniques using automated exposure control or adjustment of mA and/or kV according to the patient's size were employed. CLINICAL HISTORY: Foot Pain, numbness COMPARISON: None FINDINGS: There are scattered mild degenerative changes. There is no evidence of fracture. There are no destructive bony lesions seen. No obvious soft tissue mass. IMPRESSION: Mild degenerative changes without acute bony abnormality. Reviewed, Interpreted and Dictated by Wendy Nichole MD Transcribed by Janeen Heaton Authenticated and . [facility]
[2024-12-02 13:08] LABS: Direct LDL Cholesterol 44.49 mg/dL (100-129)
[2024-12-02 13:29] LABS: Triglycerides 847 mg/dl (30-150)
[2024-12-02] MEDS: IOPAMIDOL-370 (76%);100ML BOTTLE 75 ML IV (13:30)
[2024-12-02] MEDS: SODIUM CHLORIDE 0.9% 10ML SYR (RAD ONLY) 10 ML IV (13:30)
--- NOTE | 2024-12-02 13:30 | US_ITS ---
FINAL REPORT CLINICAL HISTORY: Decreased Pedal Pulses, Smoker, HTN COMPARISON: None FINDINGS: LOWER EXTREMITY SEGMENTAL PRESSURE MEASUREMENTS FINDINGS: Pressure indices are as follows: RIGHT LOWER EXTREMITY: Thigh: 0.93 Calf: 0.98 Ankle, posterior tibial artery: 1.00 Ankle, dorsalis pedis: 0.91 Toe: 0.72 ULICES: 1.00 Comments: Within normal limits LEFT LOWER EXTREMITY: Thigh: 1.09 Calf: 1.05 Ankle, posterior tibial artery: 1.04 Ankle, dorsalis pedis: 1.01 Toe: 0.91 ULICES: 1.04 Comments: Within normal limits IMPRESSION: No evidence of peripheral vascular disease in the bilateral lower extremities. Reviewed, Interpreted and Dictated by Wendy Nichole MD Transcribed by Janeen Heaton Authenticated and [facility]
== END 2024-12-02 23:59 | disposition home or self-care (01) ==
LOC: RAD 12:27
PROVIDERS: Nurse Practitioner Obstetrics & Gynecology; PCP Internal Medicine; Visit Provider Nurse Practitioner
DX: Z01.419 Encounter for gynecological examination (general) (routine) without abnormal findings (principal); R09.89 Other specified symptoms and signs involving the circulatory and respiratory systems; M79.671 Pain in right foot
CPT/HCPCS: 36415; 73701; 80053; 80061; 85025; 93923; Q9967

== ENCOUNTER 2024-12-15 11:15 | Outpatient (CLI) | payer OTHER, SELFPAY ==
[2024-12-15 21:17] LABS: Potassium 4.2 mmoL/L (3.5-5.1)
[2024-12-15 21:31] LABS: Triglycerides 438 mg/dl (30-150)
== END 2024-12-15 23:59 | disposition home or self-care (01) ==
LOC: LAB.DROPOF 12-16 09:05
PROVIDERS: PCP Internal Medicine; Visit Provider Internal Medicine
DX: E87.6 Hypokalemia (principal); E78.1 Pure hyperglyceridemia
CPT/HCPCS: 84132; 84478

== ENCOUNTER 2025-01-15 12:52 | Outpatient (CLI) | payer OTHER, SELFPAY ==
--- NOTE | 2025-01-15 13:00 | CT_ITS ---
FINAL REPORT CLINICAL HISTORY: abnl luc, numbness of foot COMPARISON: None FINDINGS: CT ABDOMEN, CT PELVIS, CTA ABDOMEN, CTA PELVIS AND CTA LOWER EXTREMITY RUNOFF COMPARISON: None TECHNIQUE: Thin section axial CT with IV contrast supplemented with 3D MIP reconstruction under CT Angiogram protocol This study was performed with techniques to keep radiation doses as low as reasonably achievable, (ALARA). Individualized dose reduction techniques using automated exposure control or adjustment of mA and/or kV according to the patient's size were employed. FINDINGS: CT ANGIOGRAM ABDOMEN AND PELVIS: Abdominal aorta shows no significant stenosis, aneurysm or dissection. Mild scattered plaque disease is present in the abdominal aorta. There is high-grade stenosis of the origin of the celiac axis. The superior mesenteric and inferior mesenteric arteries are widely patent. The right renal artery is widely patent. There is high-grade stenosis of the left renal artery. Iliac vessels show no significant stenosis, dissection or aneurysm. CTA RIGHT LOWER EXTREMITY: The femoral and popliteal vessels showed no significant stenosis or occlusion. There is three-vessel runoff to the level of the proximal calf. Distal to the proximal calf the vessels are not well-visualized, likely secondary to slow flow. CTA LEFT LOWER EXTREMITY: The femoral and popliteal vessels show no significant stenosis or occlusion. There is three-vessel runoff of the proximal calf. Distal to the proximal calf the vessels are not well-visualized, likely secondary to slow flow. Abdomen: There is severe left renal atrophy and scarring. Otherwise, the solid abdominal organs are grossly unremarkable. The gallbladder has been surgically resected. No bowel obstruction is seen. There is no free fluid or free air. Pelvis: Moderate sigmoid diverticulosis is present. Pelvic bowel loops are unremarkable. No mass or fluid collection is seen. IMPRESSION: 1. No significant peripheral vascular disease of the lower extremities. 2. 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 This study was performed using automated techniques to achieve radiation exposure as low as reasonably achievable Reviewed, Interpreted and Dictated by Wendy Nichole MD Transcribed by Rica Merida Authenticated and [facility]
[2025-01-15 13:22] LABS: Blood Urea Nitrogen 10 mg/dl (7-17); Estimated Glomerular Filt Rate 126 ml/min (>60); GFR (African American) 152 ML/MIN (>60)
[2025-01-15] MEDS: IOPAMIDOL-370 (76%);100ML BOTTLE 100 ML IV (13:45)
[2025-01-15] MEDS: SODIUM CHLORIDE 0.9% 10ML SYR (RAD ONLY) 10 ML IV (13:45)
[2025-01-15] MEDS: IOPAMIDOL-370 (76%);100ML BOTTLE 20 ML IV (13:45)
[2025-01-15] MEDS: 0.9 % SODIUM CHLORIDE 50 ML VIAL IV ×2 (13:45)
== END 2025-01-15 23:59 | disposition home or self-care (01) ==
LOC: RAD 12:52
PROVIDERS: PCP Internal Medicine; Visit Provider Nurse Practitioner Family
DX: R94.31 Abnormal electrocardiogram [ECG] [EKG] (principal); R09.89 Other specified symptoms and signs involving the circulatory and respiratory systems; R68.89 Other general symptoms and signs; R20.0 Anesthesia of skin; R20.2 Paresthesia of skin; R20.9 Unspecified disturbances of skin sensation
CPT/HCPCS: 36415; 75635; 82565; 84520; 93306; Q9967

== ENCOUNTER 2025-02-10 07:29 | Outpatient (CLI) | payer OTHER, SELFPAY ==
--- OUTSIDE RECORDS SUMMARY | 2025-02-10 07:31 | XMS_ITS | Encounter Summary ---
Author Organization [employer] Address [address] [place] [id number] Care Team Providers Care Milk Delivery Driver Name Role Phone Unavailable Primary Care Provider Unavailabl e Encounter Details Date Type Department Care Team (Late st Contact Info) Description 11/28/2018 Transcribed Document [facility] [place] [address] [place] [address] Provider, MD Hilario [facility] [place], [place] [id number] Social History Tobacco Use Types Packs/Day Years Used Date Smoking Tobacco: Never Assessed Comments Unknown Sex and Gender Information Value Date Recorded Sex Assigned at Female 02/22/2022 4:54 PM CDT Legal Sex Female 6:31 PM CDT Gender Identity Female 02/22/2022 4:54 PM CDT Sexual Orientation Not on file documented as of this encounter Miscellaneous Notes * Cerner Conversion Note - Historical ProviderMD - 11/28/2018 1:12 PM CDT [facility] Main OR IntraOp Summary Primary Physician: JOHANNE HERNANDEZ MD-URO Finalized Date/Time: 11/29/18 14:07:57 Pt. Name: LUIS ENRIQUE SMITH D.O.B./Sex: 1965 Female Med Rec #: [id number] Physician: NEWTON SUAREZ MD Financial #: [id number] Pt. Type: O Room/Bed: [facility]/ Admit/Disch: 11/27/18 17:42:00 - Institution: [facility] IntraOp Case Attendance Entry 1 Entry 2 Entry 3 Case Attendee JOHANNE HERNANDEZ WILLS, SANDRA R. [place], Gina M, RN MD-URO Role Performed Surgeon/Proceduralist, Scrub, First Snaker, First First Time In 11/28/18 12:52:00 11/28/18 12:52:00 11/28/18 12:52:00 Time Out 11/28/18 13:30:00 11/28/18 13:30:00 11/28/18 13:30:00 Procedure Cystoscopy Laser Stone Cystoscopy Laser Stone Cystoscopy Laser Stone Manipulation(Left), Manipulation(Left), Manipulation(Left), Ureteral Stent Ureteral Stent Ureteral Stent Insertion, Ureteroscopy Insertion, Ureteroscopy Insertion, Ureteroscopy Other Attendee Superficial Wound Closed By: Last Modified By: Shirin Dc RN [place], Gina M, RN Shirin Dc, RN 11/28/18 13:30:43 11/28/18 13:30:43 11/28/18 13:30:43 Entry 4 Entry 5 Entry 6 Case Attendee JUICE ADAMS KEITH, MD OWENS, LARRY B, CRNA Role Performed Laser Promotions Assistant Sales Marketing Anesthesiologist of STENCIL TYPIST/Nurse Knuckle Strap Sewer Record Time In 11/28/18 12:52:00 11/28/18 12:52:00 11/28/18 12:52:00 Time Out 11/28/18 13:30:00 11/28/18 13:30:00 11/28/18 13:08:00 Procedure Cystoscopy Laser Stone Cystoscopy Laser Stone Cystoscopy Laser Stone Manipulation(Left), Manipulation(Left), Manipulation(Left), Ureteral Stent Ureteral Stent Ureteral Stent Insertion, Ureteroscopy Insertion, Ureteroscopy Insertion, Ureteroscopy Other Attendee Superficial Wound Closed By: Last Modified By: Shirin Dc, RN Shirin Dc, RN Shirin Dc, RN 11/28/18 13:30:43 11/28/18 13:30:43 11/28/18 13:30:43 Entry 7 Entry 8 Case Attendee EDWARD JEONG, STENCIL TYPIST SUSAN ANSARI MD Role Performed STENCIL TYPIST/Nurse Knuckle Strap Sewer Resident Time In 11/28/18 13:08:00 11/28/18 12:52:00 Time Out 11/28/18 13:30:00 11/28/18 13:30:00 Procedure Cystoscopy Laser Stone Cystoscopy Laser Stone Manipulation(Left), Manipulation(Left), Ureteral Stent Ureteral Stent Insertion, Ureteroscopy Insertion, Ureteroscopy Other Attendee Superficial Wound Closed By: Last Modified By: Shirin Dc RN [place], Gina M, RN 11/28/18 13:30:43 11/28/18 13:30:43 [facility] IntraOp Case Attendance Audit 11/28/18 13:30:43 Manager Quantitative: HAMILTGM Modifier: HAMILTGM 1 <+> Time Out 1 <*> Procedure Cystoscopy Laser Stone Manipulation(Left), Ureteral Stent Insertion, Ureteroscopy 2 <+> Time Out 2 <*> Procedure Cystoscopy Laser Stone Manipulation(Left), Ureteral Stent Insertion, Ureteroscopy 3 <+> Time Out 3 <*> Procedure Cystoscopy Laser Stone Manipulation(Left), Ureteral Stent Insertion, Ureteroscopy 4 <+> Time Out 4 <*> Procedure Cystoscopy Laser Stone Manipulation(Left), Ureteral Stent Insertion, Ureteroscopy 5 <+> Time Out 5 <*> Procedure Cystoscopy Laser Stone Manipulation(Left), Ureteral Stent Insertion, Ureteroscopy 6 <*> Procedure Cystoscopy Laser Stone Manipulation(Left), Ureteral Stent Insertion, Ureteroscopy 7 <+> Time Out 7 <*> Procedure Cystoscopy Laser Stone Manipulation(Left), Ureteral Stent Insertion, Ureteroscopy 8 <+> Time In 8 <+> Time Out 8 <*> Procedure Cystoscopy Laser Stone Manipulation(Left), Ureteral Stent Insertion, Ureteroscopy 11/28/18 13:22:42 Manager Quantitative: HAMILTGM Modifier: HAMILTGM <+> 8 Case Attendee <+> 8 Role Performed <+> 8 Procedure 11/28/18 13:14:14 Manager Quantitative: HAMILTGM Modifier: HAMILTGM 6 <+> Time Out 6 <*> Procedure Cystoscopy Laser Stone Manipulation(Left), Ureteral Stent Insertion, Ureteroscopy <+> 7 Case Attendee <+> 7 Role Performed <+> 7 Time In <+> 7 Procedure 11/28/18 13:00:52 Manager Quantitative: HAMILTGM Modifier: HAMILTGM 1 <+> Time In 1 <*> Procedure Cystoscopy Laser Stone Manipulation(Left), Ureteral Stent Insertion, Ureteroscopy 2 <+> Time In 2 <*> Procedure Cystoscopy Laser Stone Manipulation(Left), Ureteral Stent Insertion, Ureteroscopy 3 <+> Time In 3 <*> Procedure Cystoscopy Laser Stone Manipulation(Left), Ureteral Stent Insertion, Ureteroscopy 4 <+> Time In 4 <*> Procedure Cystoscopy Laser Stone Manipulation(Left), Ureteral Stent Insertion, Ureteroscopy 5 <+> Time In 5 <*> Procedure Cystoscopy Laser Stone Manipulation(Left), Ureteral Stent Insertion, Ureteroscopy 6 <+> Time In 6 <*> Procedure Cystoscopy Laser Stone Manipulation(Left), Ureteral Stent Insertion, Ureteroscopy [facility] IntraOp Case Times Entry 1 Patient In Room Time 11/28/18 12:52:00 Out Room Time 11/28/18 13:30:00 Anesthesia Start Time 11/28/18 12:54:00 Stop Time 11/28/18 13:30:00 Surgery / Procedure Times Start Time 11/28/18 13:12:00 Stop Time 11/28/18 13:25:00 Last Modified By: Shirin Dc RN 11/28/18 13:30:41 [facility] IntraOp Case Times Audit 11/28/18 13:30:41 Manager Quantitative: HAMILTGM Modifier: HAMILTGM <+> 1 Out Room Time <+> 1 Stop Time 11/28/18 13:29:20 Manager Quantitative: HAMILTGM Modifier: HAMILTGM <+> 1 Stop Time 11/28/18 13:16:59 Manager Quantitative: HAMILTGM Modifier: HAMILTGM <+> 1 Start Time [facility] IntraOp Communication Entry 1 Entry 2 Communication To Family/Significant other Other Comment NO FAMILY PRESENT REPORT Communication By Shirin Dc RN [place], Gina M, RN Date and Time 11/28/18 13:00:00 11/28/18 13:29:00 Last Modified By: Shirin Dc RN [place], Gina M, RN 11/28/18 13:00:46 11/28/18 13:29:35 [facility] IntraOp Communication Audit 11/28/18 13:29:35 Manager Quantitative: HAMILTGM Modifier: HAMILTGM <+> 2 Communication By <+> 2 Date and Time <+> 2 Communication To <+> 2 Comment [facility] IntraOp Departure from OR Entry 1 Integumentary Assessment Integumentary WDL Assessment WDL Transfer/Handoff Transfer to PACU Phase I Handoff Method Phone call Post-op Transport Stretchchanda/Javier Via Patient Transport SUSAN ANSARI MD, Accompanied by EDWARD JEONG CRNA Last Modified By: Shirin Dc RN 11/28/18 13:22:55 [facility] IntraOp Departure from OR Audit 11/28/18 13:22:55 Manager Quantitative: HAMILTGM Modifier: HAMILTGM 1 <*> Patient Transport Accompanied by Shirin Dc RN [facility] IntraOp Fire Risk Assessment Entry 1 Fire Info Surgical Site or 0- No Incision Above the Xyphoid Open O2 Source 0- No (Mask or Cannula) Available Ignition 1- Yes (ESU, Laser, Light Source) Fire Risk 1 Assessment Score Fire Score Fire Risk Yes Assessment Complete Fire Risk Shirin Dc RN Assessment Verified By Fire Risk 11/28/18 12:41:00 Assessment Verified Date/Time Fire Risk Standard Fire Yes Safety Precautions Followed Last Modified By: Shirin Dc RN 11/28/18 12:41:18 [facility] IntraOp General Case Manager Flight 1 Case Information OR Cysto 02 [facility] Case Level 1 Room Verified Yes Wound Class II - Clean-Contaminated Specialty SN Urology Anesthesia Type General ASA Class 2 Diagnosis Preop Diagnosis LEFT RENAL CALCULUS Postop Same As Preop No Postop Diagnosis SEE DOCTOR'S POST OP NOTES Last Modified By: Shirin Dc RN 11/28/18 13:00:27 [facility] IntraOp General Case Data Audit 11/28/18 13:00:27 Manager Quantitative: HAMILTGM Modifier: HAMILTGM <+> 1 Preop Diagnosis 11/28/18 12:59:47 Manager Quantitative: HAMILTGM Modifier: HAMILTGM <+> 1 ASA Class [facility] IntraOp Intraoperative Assessment Entry 1 Handoff Method Online nursing summary Valid History / Yes Physical in Chart Preoperative Yes Checklist Reviewed/Evaluated Allergies Reviewed Yes Patient is Latex No Sensitive Isolation Not applicable Precautions Noted Level of WDL Consciousness (WDL = Alert, Oriented to Person, Place, and Time) Skin Assessment Yes Verified Present Upon IVs Arrival to OR Last Modified By: Shirin Dc RN 11/28/18 12:41:55 [facility] IntraOp Intraoperative Equipment Entry 1 Equipment Intraop Monitoring Electrocardiogram Three lead placement (ECG) Electrode Placement Blood Pressure Non-Invasive BP Device Source Blood Pressure Arm, right upper Location Pulse Oximeter Hand, left Probe Site Antiembolic Devices Antiembolic Devices Sequential compression device, knee high Antiembolic Device Bilateral Location Antiembolic Device 40 MMHG Setting Scopes Photo/Video Documentation Photo No Video No Last Modified By: Shirin Dc RN 11/28/18 12:42:19 [facility] IntraOp Medication Admin Entry 1 Medication/Irrigant NORMAL SALINE -- Route of IRRIGATION Administration Dose Administered By JOHANNE HERNANDEZ MD-URO Procedure Irrigation Last Modified By: Shirin Dc RN 11/28/18 12:42:46 General Comments: CONTRAST UTILIZED DURING STENT PLACEMENT. [facility] IntraOp Patient Positioning Entry 1 Procedure Cystoscopy Laser Stone Manipulation(Left), Ureteral Stent Insertion, Ureteroscopy Body Position Lithotomy Left Arm Position Tucked and padded at side Right Arm Position Tucked and padded at side Left Leg Position Secured in Leg Agustin Right Leg Position Secured in Leg Agustin Feet Uncrossed Yes Pressure Points Yes Checked Positioning Devices Head Rest, Table, Cysto, Pad, Elbow, Stirrups/Leg Agustin, Cysto Positioned By JOHANNE HERNANDEZ MD-URO, Shirin Dc RN, MINDI GRANT CRNA Position Verified Positioning Yes Verified by Anesthesia Positioning Yes Verified by Surgeon Last Modified By: Shirin Dc RN 11/28/18 12:43:02 [facility] IntraOp Sign In Entry 1 Patient, Site, Yes Procedure Identified Surgical Consent Yes Confirmed Relevant Surgical Yes Documents Available Surgical Site N/A Marked by person performing procedure Anesthesia Machine Yes Check Completed Medication Checks Yes Completed Allergies Yes Airway Difficult Yes Airway/Aspiration Risk Difficult Yes Airway/Aspiration Intervention Equipment Available Blood Loss Risk Yes Blood Loss Yes Intervention Equipment Prepared and Ready Blood Identifiers Not applicable Verified Per Policy Hypothermia Risk Yes Warming Measures Yes Taken Last Modified By: Shirin Dc RN 11/28/18 12:59:42 [facility] IntraOp Sign Out Entry 1 RN Confirmation Surgical Yes Procedure(s) Identified Instrument, Sponge N/A and Sharps Counts Correct/Documented Equipment Problems N/A Documented Urinary Catheter N/A Documented in IView Melo Patient Yes Recovery Concerns Reviewed with Anesthesia Provider, Surgeon and RN Melo Patient Yes Management Concerns Reviewed with Anesthesia Provider, Surgeon and RN Safety Checklist Yes Elements Complete? RN Sign Out Shirin Dc RN Signature RN Sign Out 11/28/18 13:30:00 Signature Date/Time Plan of Care Outcome - Fire Risk OUTCOME STATEMENT: Goal met Patient is free from injury related to surgical fire Plan of Care Outcome - Pt Positioning OUTCOME STATEMENT: Goal met Absence of signs and symptoms of positioning injury. Plan of Care Outcome - Skin Prep OUTCOME STATEMENT: Goal met Intraoperative care is consistent with measures to prevent infection Plan of Care Outcome - Xray/Images OUTCOME STATEMENT: Goal met Absence of observable signs or symptoms of radiation injury Plan of Care Outcome - Counts OUTCOME STATEMENT: Goal met Absence of signs and symptoms of injury related to extraneous objects Last Modified By: Shirin Dc RN 11/28/18 13:30:48 [facility] IntraOp Sign Out Audit 11/28/18 13:30:48 Manager Quantitative: IRENAALIYAHPeri Modifier: HAMILTGM <+> 1 RN Sign Out Signature Date/Time [facility] IntraOp Skin Prep Entry 1 Procedure Cystoscopy Laser Stone Manipulation(Left), Ureteral Stent Insertion, Ureteroscopy Prescribed N/A Pre-Surgical Prep Completed Prep Area Genitalia Intraop Prep Integumentary WDL Assessment WDL Prep Agents Betadine solution Prep by Shirin Dc RN Hair Removal Methods No hair removal performed Last Modified By: Shirin Dc RN 11/28/18 12:43:32 [facility] IntraOp Surgical Procedures Entry 1 Entry 2 Entry 3 Procedure Cystoscopy Laser Stone Ureteral Stent Insertion Ureteroscopy Manipulation Modifiers Left Additional CYSTO, LT URETERAL Procedure STENT PLACEMENT, POSS Description URETEROSCOPY, LASER OF STONE Primary Procedure Yes No No Primary Surgeon JOHANNE HERNANDEZ, JOHANNE HERNANDEZ, JOHANNE HERNANDEZ, -URO -URO -URO Start 11/28/18 13:12:00 11/28/18 13:12:00 11/28/18 13:12:00 Stop 11/28/18 13:25:00 11/28/18 13:25:00 11/28/18 13:25:00 Physician States Cecum Reached Anesthesia Type General General General Specialty SN Urology SN Urology SN Urology Wound Class II - Clean-Contaminated II - Clean-Contaminated II - Clean-Contaminated Last Modified By: Shirin Dc RN [place], Gina M, Shirin Davis RN 11/28/18 13:29:21 11/28/18 13:29:21 11/28/18 13:29:21 [facility] IntraOp Surgical Procedures Audit 11/28/18 13:29:21 Manager Quantitative: ALBERJAMILATGPeri Modifier: HAMILTGM <+> 1 Start <+> 1 Stop <+> 2 Start <+> 2 Stop <+> 3 Start <+> 3 Stop [facility] IntraOp Temp Regulation Devices Entry 1 Temp Regulation Temperature Warm blankets, Forced Regulation Device Air Warming device Temperature Upper body Regulation Site Temperature MINDI GRANT, STENCIL TYPIST Regulation Device Applied by Temperature monitored per Regulation Comment anesthesia, jon sparks available Last Modified By: Shirin Dc RN 11/28/18 12:43:52 [facility] IntraOP Time Out Entry 1 Procedure to be Cystoscopy Laser Stone Performed Manipulation(Left), Ureteral Stent Insertion, Ureteroscopy Time Out Time Out Pause Time 11/28/18 13:11:00 All activity Yes suspended (unless life threatening emergency) Team Verbally Correct patient Confirms Information identity, Correct side and site are marked, Consent form is present and accurate, Agreement on the procedure to be done, Correct patient position, Relevant images/results properly labeled/appropriately displayed, Confirm antibiotics have been administered, Confirm the skin prep has dried, Confirm prosthesis/implant/devic e is present, Performed in location of procedure after prepped/draped Antibiotic Yes Prophylaxis Administered Or In Progress Within the Last 60 Minutes Beta Dedra N/A Administered Venous Yes Thromboembolism Prophylaxis Required Anticipated Critical Events Surgeon None expected Anesthesia Provider None expected Nursing Assures Sterility of instruments, Implant Availability Essential Imaging Yes Labeled and Displayed Last Modified By: Shirin Dc RN 11/28/18 13:14:21 [facility] IntraOP Time Out Audit 11/28/18 13:14:21 Manager Quantitative: GIUSEPPE Modifier: GIUSEPPE 1 <+> Time Out Pause Time 1 <*> Procedure to be Performed Cystoscopy Laser Stone Manipulation(Left), Ureteral Stent Insertion, Ureteroscopy Case Comments <None> Finalized By: ROBERTA LEI Document Signatures Signed By: Shirin cD RN 11/28/18 13:30 ROBERTA LEI 11/29/18 14:07 Unfinalized History Date/Time Username Reason for Unfinalizing Freetext Reason for Unfinalizing 11/29/18 14:02 [email or web address] Correct Billing documented in this encounter Plan of Treatment Not on file documented as of this encounter Visit Diagnoses Not on filedocumented in this encounter
--- OUTSIDE RECORDS SUMMARY | 2025-02-10 07:31 | XMS_ITS | Encounter Summary ---
Author Organization [employer] Address [address] [place] [address] Care Team Providers Care Garment Tag Stringer Name Role Phone Unavailable Primary Care Provider Unavailabl e Encounter Details Date Type Department Care Team (Late st Contact Info) Description 11/29/2018 Transcribed Document [facility] [place] [address] [place] [address] ProviderHilario MD [facility] [place] [address] Social History Tobacco Use Types Packs/Day Years Used Date Smoking Tobacco: Never Assessed Comments Unknown Sex and Gender Information Value Date Recorded Sex Assigned at Female 02/22/2022 4:54 PM CDT Legal Sex Female 6:31 PM CDT Gender Identity Female 02/22/2022 4:54 PM CDT Sexual Orientation Not on file documented as of this encounter Miscellaneous Notes * Cerner Conversion Note - Historical ProviderMD - 11/29/2018 9:10 AM CDT Pain Assessment Entered On: 11/30/2018 3:03 EDT Performed On: 11/29/2018 21:05 EDT by NATO CIFUENTES RN Intervention Information: morphine Performed by NATO CIFUENTES RN on 11/29/2018 20:35:00 EDT morphine,2mg IV Push,Right Antecubit [place],Pain (Severe 7-10) Pain Assessment Pain Assessment : Follow-up assessment Pain Scale Goal : 3 Pain Scale Used : 0-10 Scale NATO CIFUENTES RN - 11/30/2018 3:03 EDT Pain Scale Intensity : 0 NATO CIFUENTES RN - 11/30/2018 3:03 EDT Image 4 - Images currently included in the form version of this document have not been included in the text rendition version of the form. Electronically signed by Selina More Conversion [employer] Maintenance Worker Cerner at 12/11/2022 10:41 AM CDT documented in this encounter Plan of Treatment Not on file documented as of this encounter Visit Diagnoses Not on filedocumented in this encounter
--- OUTSIDE RECORDS SUMMARY | 2025-02-10 07:31 | XMS_ITS | Encounter Summary ---
Author Organization [employer] Address [address] [place] [address] Care Team Providers Care Apiarist Name Role Phone Unavailable Primary Care Provider Unavailabl e Encounter Details Date Type Department Care Team (Late st Contact Info) Description 11/28/2018 Transcribed Document [facility] [place] [address] [place] [address] ProviderHilario MD [facility] [place] [address] Social History Tobacco Use Types Packs/Day Years [...] Conversion Note - Historical ProviderMD - 11/28/2018 4:25 PM CDT Patient: LUIS ENRIQUE SMITH Age: 53 years Sex: Female : 1965 Associated Diagnoses: None Author: KAYCEE DENTON MD-INF error documented in this encounter Plan of Treatment Not on file documented as of this encounter Visit Diagnoses Not on filedocumented in this encounter
--- OUTSIDE RECORDS SUMMARY | 2025-02-10 07:31 | XMS_ITS | Encounter Summary ---
Author Organization [employer] Address [address] [place] [address] Care Team Providers Care Finish Mill Operator Name Role Phone Unavailable Primary Care Provider Unavailabl e Encounter Details Date Type Department Care Team (Late st Contact Info) Description 11/29/2018 Transcribed Document [facility] [place] Family Medicine [address] [place] [address] ProviderHilario MD [facility] [place] [address] Social History Tobacco Use Types Packs/Day Years [...] Conversion Note - Historical ProviderMD - 11/29/2018 11:20 AM CDT Patient: LUIS ENRIQUE SMITH Age: 53 years Sex: Female : 1965 Associated Diagnoses: None Author: JOSE MARTIN SUAREZ MD-INT Basic Information fever No hematuria She is nauseous but no vomiting She is nothing by mouth Review of Systems Constitutional: Fever, No chills. Eye: No recent visual problem, No icterus, No blurring, No visual disturbances. Ear/Nose/Mouth/Throat: No decreased hearing, No sore throat. Respiratory: No shortness of breath, No cough. Cardiovascular: No chest pain, No palpitations, No syncope. Gastrointestinal: Nausea, No vomiting, No hematemesis. Genitourinary: Dysuria, Left flank pain, No hematuria. Hematology/Lymphatics: No bleeding tendency, No swollen lymph glands. Endocrine: No cold intolerance, No heat intolerance. Musculoskeletal: No joint pain, No muscle pain. Integumentary: No rash, No pruritus, No breakdown. Neurologic: No confusion, No numbness. Psychiatric: No depression, Not delusional. Health Status Allergies: Allergic Reactions (Selected) Moderate Penicillin- No reactions were documented., Allergies (1) Active Reaction penicillin None Documented Current medications: (Selected) Inpatient Medications Ordered DuoNeb 0.5 mg-2.5 mg/3 mL inhalation solution: 3 mL, Nebulized Inhalation, Q6H, PRN: Shortness of Breath Pepcid: 20 mg, IV Push, BID Phenergan: 6.25 mg, IntraVENous, Q6H, PRN: Nausea Rocephin: 2 Gram, 100 mL/Hr, IV Piggyback, [id number] Sodium Chloride 0.45% intravenous solution 1,000 mL: 100 mL/Hr, IntraVENous Toprol-XL: 25 mg, Oral, BID Tylenol: 650 mg, Oral, Q4H, PRN: Other (See Comment) Zofran: 4 mg, IV Push, Q4H, PRN: Nausea acetaminophen-HYDROcodone 325 mg-7.5 mg oral tablet: 1 Tab, Oral, Q4H, PRN: Pain (Moderate 4-6) amitriptyline: 20 mg, Oral, At Bedtime methocarbamol: 750 mg, Oral, TID, PRN: Pain (Mild 1-3) metoprolol tartrate: 25 mg, Oral, Q4H, PRN: Tachycardia morphine: 2 mg, IV Push, Q6H, PRN: Pain (Severe 7-10) traZODone: 50 mg, Oral, At Bedtime, PRN: Insomnia Documented Medications Documented Robaxin-750 oral tablet: 1 Tab, Oral, TID, PRN: pain, 0 Refill(s) Zestoretic 10 mg-12.5 mg oral tablet: 1 Tab, Oral, Daily, 30 Tab, 0 Refill(s) amitriptyline 10 mg oral tablet: 2 Tab, Oral, At Bedtime, 60 Tab, 0 Refill(s) estradiol 2 mg oral tablet: 1 Tab, Oral, Daily, 0 Refill(s) naproxen 500 mg oral tablet: 1 Tab, Oral, BID, PRN: pain, 20 Tab, 0 Refill(s) predniSONE 20 mg oral tablet: 1 Tab, Oral, BID, for 5 Day(s), Start Date: 11/24/2018, 0 Refill(s), Medications (14) Active Scheduled: (4) amitriptyline 10 mg tab 20 mg 2 Tab, Oral, At Bedtime cefTRIAXone 2 Gram, IV Piggyback, [id number] famotidine 20 mg/2 mL inj 20 mg 2 mL, IV Push, BID metoprolol succinate XL 25 mg tab 25 mg 1 Tab, Oral, BID Continuous: (1) NaCl 0.45% 1,000 mL 1,000 mL, IntraVENous, 100 mL/Hr PRN: (9) acetaminophen 325 mg tab 650 mg 2 Tab, Oral, Q4H acetaminophen/HYDROcodone 325/7.5 mg tab 1 Tab, Oral, Q4H albuterol-ipratropium inh 3 mL 3 mL, Nebulized Inhalation, Q6H methocarbamol 500 mg tab 750 mg 1.5 Tab, Oral, TID metoprolol tartrate 25 mg tab 25 mg 1 Tab, Oral, Q4H morphine 2 mg/1 ml inj 2 mg 1 mL, IV Push, Q6H ondansetron 4 mg/2 mL inj 4 mg 2 mL, IV Push, Q4H promethazine 25 mg/1 mL inj 6.25 mg 0.25 mL, IntraVENous, Q6H traZODone 50 mg tab 50 mg 1 Tab, Oral, At Bedtime Problem list: Medical At risk for sleep apnea / IMO [id number] / Confirmed, Active Problems (1) At risk for sleep apnea Physical Examination VS/Measurements Vitals Signs (last 24 hrs) Last Charted Minimum Maximum Temp H 99.8 (NOV 29 10:45) 97.8 (NOV 28 13:32) H 102.6 (NOV 28 23:28) Mon HR 98 (NOV 29 10:45) 92 (NOV 29 06:00) 125 (NOV 28 23:28) Resp Rate 18 (NOV 29 10:45) 15 (NOV 28 13:40) H 22 (NOV 28 14:45) SBP 107 (NOV 29 10:45) 102 (NOV 29 03:11) H 151 (NOV 28 23:28) DBP 70 (NOV 29 10:45) L 55 (NOV 28 14:00) 80 (NOV 28 23:28) MAP 83 (NOV 29 10:45) 72 (NOV 28 14:45) 108 (NOV 28 23:28) SpO2 L 90 (NOV 29 10:45) L 90 (NOV 29 10:45) 99 (NOV 28 13:50) General: Alert and oriented, No acute distress. Eye: Extraocular movements are intact, Normal conjunctiva. Sclera: Not icteric. HENT: Normocephalic, Normal hearing, Oral mucosa is moist. Neck: Supple, Non-tender, No jugular venous distention, No lymphadenopathy. Respiratory: Lungs are clear to auscultation, Respirations are non-labored, Breath sounds are equal, Symmetrical chest wall expansion. Cardiovascular: Normal rate, Regular rhythm, No murmur, No gallop, Good pulses equal in all extremities, No edema. Gastrointestinal: Soft, Non-tender, Non-distended, Normal bowel sounds, No organomegaly. Genitourinary: No costovertebral angle tenderness. Lymphatics: No lymphadenopathy neck, axilla, groin. Musculoskeletal: Normal range of motion, Normal strength, No tenderness, No swelling, No deformity. Integumentary: Warm, [place], Moist, No rash. Neurologic: Alert, Oriented, Normal sensory, Normal motor function, No focal deficits, Cranial Nerves II-XII are grossly intact, Normal deep tendon reflexes. Psychiatric: Cooperative, Appropriate mood & affect, Normal judgment. Review / Management Results review: Labs (Last four charted values) WBC L 3.9 (NOV 29) 7.4 (NOV 28) H 14.4 (NOV 27) HB 11.9 (NOV 29) 12.6 (NOV 05) 14.7 (NOV 27) HCT L 33.4 (NOV 29) 35.1 (NOV 05) 40.7 (NOV 27) Plt L 81 (NOV 29) L 95 (NOV 05) L 134 (NOV 27) Na 140 (NOV 29) 138 (NOV 28) 137 (NOV 27) K 3.6 (NOV 29) L 3.3 (NOV 05) 3.5 (NOV 27) Cl 112 (NOV 06) 107 (NOV 05) 103 (NOV 27) CO2 22 (NOV 29) 22 (NOV 05) 25 (NOV 27) BUN 7 (NOV 29) 15 (NOV 28) 17 (NOV 27) Cr 0.80 (NOV 29) 0.80 (NOV 28) 1.00 (NOV 27) Glu R 98 (NOV 29) 84 (NOV 28) 99 (NOV 27) Ca L 7.9 (NOV 29) L 7.8 (NOV 28) L 8.2 (NOV 27) Lactic 1.3 (NOV 27) PT 12.0 (NOV 27) INR 1.1 (NOV 27) AST 26 (NOV 27) ALT 21 (NOV 27) ALK P 120 (NOV 27) T Bili 0.9 (NOV 27) PTN 6.5 (NOV 27) ALB L 2.9 (NOV 27) , NOV 29 06:28 140 112 7 / 98 3.6 22 0.80 \ NOV 29 06:28 \ 11.9 / L 3.9 L 81 / L 33.4 \, No Radiology Results Found. Impression and Plan Bacteremia IV roephin IV cosult Obstructing left ureteral stone: Nothing by mouth Patient was evaluated by urology today She is going for surgery IV fluids Pain control IV antibiotics Urinary tract infection, present on admission Blood cultures ??2 with collected Urine culture is collected Patient was initially placed on IV Rocephin and it was switched into IV cefepime on 11/28/2018 Left flank pain secondary to obstructing left ureteral stone: Pain control IV hydration I informed the patient with Bactermia Fever, secondary to UTI and left ureteral stone Blood cultures ??2 Urine culture IV fluids and IV antibiotics Leukocytosis secondary to urinary tract infection and left ureteral stone Blood cultures ??2 Urine culture IV fluids and IV antibiotics Volume depletion with dehydration: I placed the patient on IV fluids for hydration Hypotension with history of essential hypertension Monitor vital signs and manage accordingly Hypokalemia on 11/28/2018 This has been repleted. It is mild GI prophylaxis: Patient is placed on Pepcid DVT prophylaxis: Patient is ordered for sequential compression devices while in bed Patient is ambulatory and otherwise healthy Unable to start anticoagulants given her UTI and need for surgery Time spent: 35 minutes documented in this encounter Plan of Treatment Not on file documented as of this encounter Visit Diagnoses Not on filedocumented in this encounter
--- OUTSIDE RECORDS SUMMARY | 2025-02-10 07:31 | XMS_ITS | Encounter Summary ---
Author Organization [employer] Address [address] [place] [address] Care Team Providers Care Metrologist Name Role Phone Unavailable Primary Care Provider Unavailabl e Encounter Details Date Type Department Care Team (Late st Contact Info) Description 11/30/2018 Transcribed Document [facility] [place] Family Medicine [address] [place] [address] ProviderHilario MD [address] [place], [place] [id number] Social History Tobacco Use Types Packs/Day Years Used Date Smoking Tobacco: Never Assessed Comments Unknown Sex and Gender Information Value Date Recorded Sex Assigned at Female 02/22/2022 4:54 PM CDT Legal Sex Female 6:31 PM CDT Gender Identity Female 02/22/2022 4:54 PM CDT Sexual Orientation Not on file documented as of this encounter Miscellaneous Notes * Cerner Conversion Note - Historical ProviderMD - 11/30/2018 1:44 PM CDT Care Management Assessment/Plan Entered On: 11/30/2018 13:44 EDT Performed On: 11/30/2018 13:44 EDT by GONZALEZ GRISSOM RN-Account SupervisorSpray Technician Note Care Management Note Report : GONZALEZ GRISSOM RN-Account Supervisor - 11/28/18 13:21:37 Received from [facility] with c/o flank pain, placed in observation with a kidney stone. Urology was consulted. Pt discussed in morning MD rounds. Met with Pt at the bedside. Resting quietly. IVF's infusing. Pt states that she is currently NPO waiting to go to surgery. Pt is ADL independent, denies DME/HH/Rehab. Plans are to return home at discharge. No needs anticipated/verbalized at this time. RRS is low @36. CM will follow. Documentation Status Complete : Yes GONZALEZ GRISSOM RN-Account Supervisor - 11/30/2018 13:44 EDT Final Discharge Disposition Note-CM Discharge To Care Management : Home/Residential/Assisted or Self Care -01 GONZALEZ GRISSOM, JUN-Account Supervisor - 11/30/2018 13:44 EDT documented in this encounter Plan of Treatment Not on file documented as of this encounter Visit Diagnoses Not on filedocumented in this encounter
--- OUTSIDE RECORDS SUMMARY | 2025-02-10 07:31 | XMS_ITS | Encounter Summary ---
Author Organization [employer] Address [address] [place] [address] Care Team Providers Care Picking Machine Operator Helper Name Role Phone Unavailable Primary Care Provider Unavailabl e Encounter Details Date Type Department Care Team (Late st Contact Info) Description 11/28/2018 Transcribed Document [facility] [place] [address] [place], [place] [id number] ProviderHilario MD [facility] [place] [address] Social History Tobacco Use Types Packs/Day Years Used Date Smoking Tobacco: Never Assessed Comments Unknown Sex and Gender Information Value Date Recorded Sex Assigned at Female 02/22/2022 4:54 PM CDT Legal Sex Female 6:31 PM CDT Gender Identity Female 02/22/2022 4:54 PM CDT Sexual Orientation Not on file documented as of this encounter Miscellaneous Notes * Cerner Conversion Note - Hilario ProviderMD - 11/28/2018 7:51 AM CDT DATE OF CONSULTATION: 11/28/2018 CONSULTATION ATTENDING PHYSICIAN: Antionette Nevarez M.D. PATIENT CARE DIRECTOR: Rashawn Sims MD REASON FOR CONSULTATION: Left ureteral stone with possible urinary infection. BRIEF HISTORY: Patient is a 53-year-old female, who presented to [facility] yesterday with three days of left flank pain. The pain became refractory and she actually returned to the emergency room after a previous visit 24 hours earlier. She had a CT scan on her initial visit, which revealed a 5 mm left ureteral stone. Upon return, she was noted to have a white count [id number], nitrite positive urine, and questionable probable urinary infection. She had some low-grade subjective fever, but her temperature max was 99.5. She had no previous history of stones nor problems with recurrent urinary infections. She has no chronic medical conditions. PAST MEDICAL HISTORY: ALLERGIES: PENICILLIN. CHRONIC MEDICATIONS: None. PREVIOUS SURGICAL HISTORY: Hysterectomy and section. SOCIAL HISTORY: She is single, smokes. PHYSICAL EXAMINATION: GENERAL: She is moderately uncomfortable due to left flank pain and renal colic symptoms. VITAL SIGNS: Her temperature this morning was 99.1, blood pressure is 114/73, heart rate is 118. GENITOURINARY: She has moderate left CVA tenderness. IMPRESSION: Left ureteral stone with probable urinary infection. I suggest we proceed with cystoscopy, probable left ureteral stent placement. If the stone is easily amenable for treatment, we will remove it, but likely only place a stent. This was discussed in detail. This will require a repeat intervention at a later time to address her stone. Rashawn Sims M.D. Dict: 11/28/2018 07:51:39 Trans: 11/28/2018 08:53:16 CC1: Rashawn Sims M.D. documented in this encounter Plan of Treatment Not on file documented as of this encounter Visit Diagnoses Not on filedocumented in this encounter
--- OUTSIDE RECORDS SUMMARY | 2025-02-10 07:31 | XMS_ITS | Encounter Summary ---
Author Organization [email or web address] Address [address] [place] [address] Care Team Providers Care Dental Officer Name Role Phone Unavailable Primary Care Provider Unavailabl e Encounter Details Date Type Department Care Team (Late st Contact Info) Description 11/28/2018 Transcribed Document [facility] [place] Family Medicine [address] [place] [address] ProviderHilario MD [facility] [place] [address] Social History Tobacco Use Types Packs/Day Years [...] Conversion Note - Historical ProviderMD - 11/28/2018 1:17 PM CDT Care Management Assessment/Plan Entered On: 11/28/2018 13:21 EDT Performed On: 11/28/2018 13:17 EDT by GONZALEZ GRISSOM RN-Safety Council DirectorOptical Goods Drill Operator Note Care Management Note : Received from [facility] with c/o flank pain, placed in [...] Documentation Status Complete : Yes GONZALEZ GRISSOM RN-Safety Council Director - 11/28/2018 13:17 EDT Patient History Information Obtained from, Care Mgt : Patient, Medical Record Current Primary Care Physician : Low Hammonds Emergency Contact #1 : Jaelyn Morales Emergency Contact #1 Emergency Contact #1 Relationship : mother Emergency Contact #2 : . Emergency Contact #2 Phone Number : . Emergency Contact #2 Relationship : . Living Situation : Home Patient Lives With : Child/Children, Significant other(s) Mobility Assistance Prior to Admission : Independent Current Daily Living Assistance : None Sensory Deficits : None Professional Skilled Services : None Current Home Treatments : None Home Equipment : None GONZALEZ GRISSOM RN-Safety Council Director - 11/28/2018 13:17 EDT Discharge Planning Details Discharge Home : Home with spouse/significant other GONZALEZ GRISSOM RN-Safety Council Director - 11/28/2018 13:17 EDT documented in this encounter Plan of Treatment Not on file documented as of this encounter Visit Diagnoses Not on filedocumented in this encounter
--- OUTSIDE RECORDS SUMMARY | 2025-02-10 07:31 | XMS_ITS | Encounter Summary ---
Author Organization [employer] Address [address] [place] [address] Care Team Providers Care Package Drier Name Role Phone Unavailable Primary Care Provider Unavailabl e Encounter Details Date Type Department Care Team (Late st Contact Info) Description 11/28/2018 Transcribed Document [facility] [place] Family Medicine [address] [place] [address] ProviderHilario MD [facility] [place] [address] Social History Tobacco Use Types Packs/Day Years [...] Conversion Note - Hilario ProviderMD - 11/28/2018 1:33 PM CDT Patient: LUIS ENRIQUE SMITH Age: 53 Years Sex: Female : 1965 *Operation cystoscopy, left RPG, left ureteral stent Indication for Surgery obstructing left ureteral stone with infection *Preoperative Diagnosis left ureteral stone, UTI *Postoperative Diagnosis same as above *Surgeon(s) MD Nelson Merritt, PGY4 *Estimated Blood Loss 0cc *Findings minimal left hydro, appropriately placed stent *Specimen(s) none Complications none Date of Service Date/Time of Service SN - Proc - Start Time: 11/28/18 13:12:00 (EDT) (11/28/18 13:29:21 EDT) SN - Proc - Start Time: 11/28/18 13:12:00 (EDT) (11/28/18 13:29:21 EDT) SN - Proc - Start Time: 11/28/18 13:12:00 (EDT) (11/28/18 13:29:21 EDT) documented in this encounter Plan of Treatment Not on file documented as of this encounter Visit Diagnoses Not on filedocumented in this encounter
--- OUTSIDE RECORDS SUMMARY | 2025-02-10 07:31 | XMS_ITS | Encounter Summary ---
Author Organization [employer] Address [address] [place] [address] Care Team Providers Care Ceo Na Name Role Phone Unavailable Primary Care Provider Unavailabl e Encounter Details Date Type Department Care Team (Late st Contact Info) Description 11/29/2018 Transcribed Document [facility] [place] [address] [place] [address] ProviderHilario MD [address] [place], [place] [address] Social History Tobacco Use Types Packs/Day Years [...] Conversion Note - Historical ProviderMD - 11/29/2018 8:53 AM CDT Patient: LUIS ENRIQUE SMITH Age: 53 Years Sex: Female : 1965 Subjective Febrile to 102 last night after stent placement yesterday afternoon. Feels okay this morning. Eager to go home LUCINDA. Blood cultures have returned with GNR in one bottle. Intake & Output Intake & Output Totals Last 24 Hours (7a-7a) Intake (35 Events) Continuous Infusions (2400 mL) Medications (109 mL) Oral Intake (720 mL) Surgical Services Intake (800 mL) Output (6 Events) Nunez Catheter (1925 mL) Urine Voided (Volume) (500 mL) Input Total: 4029 mL Output Total: 2425 mL Balance: 1604 mL Vital Signs T: 37 ??C TMIN: 36.5 ??C TMAX: 39.2 ??C HR: 92(Monitored) RR: 17 BP: 113/68 SpO2: 95% Physical Exam no acute distress, lying in bed non labored respirations soft, non tender, no CVAT nunez in place with pink urine, no sediment or clots VTE Risk Total Score VTE Prophylaxis - Surgical Sequential Compression Device Start: 11/28/18 9:54:00 EDT, Bilateral, Continuous Order (JOHANNE HERNANDEZ) Sequential Compression Device Start: 11/27/18 17:49:00 EDT, Bilateral, Length: Knee High, While patient is in bed, Continuous Order (NEWTON SUAREZ) Assessment/Plan left ureteral stone POD1 s/p left ureteral stent - recommend continuing nunez and would generally recommend remaining inpatient until afebrile for 24 hours. Patient is adamant that she go home as soon as possible and does live close to the hospital, defer to primary team on disposition. - follow with Dr. Hernandez one week after discharge. Orders: Diet, Adult Medications Inpatient acetaminophen-HYDROcodone 325 mg-7.5 mg oral tablet, 1 Tab, Oral, Q4H, PRN DuoNeb 0.5 mg-2.5 mg/3 mL inhalation solution, 3 mL, Nebulized Inhalation , Q6H, PRN metoprolol tartrate, 25 mg= 1 Tab, Oral, Q4H, PRN morphine, 2 mg= 1 mL, IV Push, Q2H, PRN Normal Saline 1,000 mL, 1000 mL, IntraVENous Pepcid, 20 mg= 2 mL, IV Push, BID Phenergan, 6.25 mg= 0.25 mL, IntraVENous, Q6H, PRN Rocephin traZODone, 50 mg= 1 Tab, Oral, At Bedtime, PRN Tylenol, 650 mg= 2 Tab, Oral, Q4H, PRN Zofran, 4 mg= 2 mL, IV Push, Q4H, PRN Home amitriptyline 10 mg oral tablet, 20 mg= 2 Tab, Oral, At Bedtime estradiol 2 mg oral tablet, 2 mg= 1 Tab, Oral, Daily naproxen 500 mg oral tablet, 500 mg= 1 Tab, Oral, BID, PRN predniSONE 20 mg oral tablet, 20 mg= 1 Tab, Oral, BID Robaxin-750 oral tablet, 750 mg= 1 Tab, Oral, TID, PRN Zestoretic 10 mg-12.5 mg oral tablet, 1 Tab, Oral, Daily Routine Labs - Last 24 Hours NOV 29 06:28 140 112 7 / 98 3.6 22 0.80 \ NOV 28 07:00 \ 12.6 / 7.4 L 95 / 35.1 \ Anion Gap: 10 Calcium Level: 7.9 mg/dL Low Imaging Results (Last 24 Hours) No Radiology Results Found Problem List/Past Medical History Ongoing At risk for sleep apnea Historical No qualifying data Allergies penicillin documented in this encounter Plan of Treatment Not on file documented as of this encounter Visit Diagnoses Not on filedocumented in this encounter
--- OUTSIDE RECORDS SUMMARY | 2025-02-10 07:31 | XMS_ITS | Encounter Summary ---
Author Organization [facility] Address [address] [place] [address] Care Team Providers Care Boat Engines Installer Name Role Phone Unavailable Primary Care Provider Unavailabl e Encounter Details Date Type Department Care Team (Late st Contact Info) Description 11/28/2018 Transcribed Document [facility] [place] [facility] [place] [address] ProviderHilario MD [facility] [place] [address] Social History Tobacco Use Types Packs/Day Years [...] Conversion Note - Historical ProviderMD - 11/28/2018 1:33 PM CDT DATE OF PROCEDURE:11/28/2018 PREOPERATIVE DIAGNOSIS(ES): 1. Left ureteral stone. 2. Urinary tract infection. POSTOPERATIVE DIAGNOSIS(ES): 1. Left ureteral stone. 2. Urinary tract infection. PROCEDURE: 1. Left cystourethroscopy. 2. Left retrograde pyelogram with interpretation of images less than 1 hour. 3. Left ureteral stent placement. SURGEON: Rashawn Sims M.D. RESIDENT: Nelson Conley M.D. (R), PGY-4 ANESTHESIA: General. COMPLICATIONS: None. SPECIMENS: None. DRAINS: 4.8 Italian x 24 cm double-J ureteral stent on the left side without strings. INDICATION FOR PROCEDURE: Ms. Smith is a 53-year-old lady with leukocytosis and subjective fevers, who was found to have a 5 mm left ureteral stone. She was counseled on the risks and benefits of this intervention including stenting and possible treatment of the stone. There appeared to be minimal infection on passage of a wire on endoscopic evaluation. She was counseled that this procedure would likely result in just ureteral stenting and she would require definitive stone treatment at a later date due to her clinical presentation. OPERATIVE FINDINGS: 1. Murky urine obtained after passage of Sensor wire in the left ureter. 2. Left retrograde pyelogram demonstrated minimal hydronephrosis. 3. Adequate proximal and distal curl of this 4.8-Italian x 24 cm double-J ureteral stent without strings. DESCRIPTION OF PROCEDURE: After being correctly identified in the preoperative holding area, the patient's informed consent was verified. She was taken to the operating room where she was placed in supine position. Bilateral SCDs were applied and general anesthesia was induced. The patient was admitted to dorsal lithotomy position where genitals, perineum, were prepped and draped in the usual sterile fashion. Time-out was performed that confirmed the correct patient, procedure, site of procedure as well as administration of preoperative antibiotics. A well lubricated 22-Italian rigid cystoscope with a 30 degree lens was inserted atraumatically per urethra into the bladder. Ulloa cystoscopy was performed that demonstrated no tumor, stones, or foreign bodies in the urinary bladder with each ureteral orifice in its orthotopic position. There was a bit of edema at the left ureteral orifice, but no stone visible. A Sensor wire was used to cannulate this ureteral orifice to and the wire advanced to the level of the left renal pelvis. A 5-Italian open-ended ureteral catheter was placed to 25 cm from the ureteral orifice and wire removed. A gentle left retrograde pyelogram was performed that noted minimal hydronephrosis. We should note that murky urine was noted on passage of the wire, which led us to decide on only placing a stent rather than treating the stone today. The Sensor wire was replaced and the open-ended ureteral catheter removed in a push-pull fashion. A 4.8-Italian x 24 cm double-J ureteral stent was then deployed in the standard retrograde fashion with adequate proximal and distal curl. The strings were removed. Patient's bladder was left distended and a 16-Italian Peters catheter was placed per urethra with balloon inflated to 10 mL sterile water. The patient was repositioned, awakened, extubated, and taken to PACU in stable condition. Dr. Sims was present and scrubbed for the entirety of the procedure. DISPOSITION: Ms. Smith will remain admitted to the hospitalist service. We will continue to follow her. We will likely take her catheter out tomorrow. She will follow up with us in one week in the office to discuss treatment of her stone. We will continue to follow her urine culture. Dictated By: Nelson Conley MD (R) For Elvira Hamlin M.D. Dict: 11/28/2018 13:33:20 Trans: 11/28/2018 14:21:06 CC1: Rashawn Sims M.D. Electronically signed by Selina More Conversion Quarry Plug And Feather Driller Cerner at 12/11/2022 10:36 AM CDT documented in this encounter Plan of Treatment Not on file documented as of this encounter Visit Diagnoses Not on filedocumented in this encounter
--- OUTSIDE RECORDS SUMMARY | 2025-02-10 07:31 | XMS_ITS | Encounter Summary ---
Author Organization [employer] [facility] Address [address] [place] [address] Care Team Providers Care Chronograph Operator Name Role Phone Unavailable Primary Care Provider Unavailabl e Encounter Details Date Type Department Care Team (Late st Contact Info) Description 11/28/2018 Transcribed Document [facility] Family Medicine [address] [place] [address] ProviderHilario MD [facility] [place] [address] Social History Tobacco Use Types Packs/Day Years [...] Conversion Note - Historical ProviderMD - 11/28/2018 1:51 PM CDT Consult Phone Call Documentation Entered On: 11/28/2018 14:19 EDT Performed On: 11/28/2018 13:51 EDT by RYLIE LEWIS Phone Call for Consults Consult Phone Call/Page Attempt : Other: spoke with Nica Consult Reason : positive blood culture Physician Requesting Consult : JOSE MARTIN SUAREZ MD-INT Physician Requested for Consult : FRITZ BAER MD-INF Provider Service Notified Name : Infectious Disease Physician Covering for Consult : KAYCEE DENTON MD-INF Date and Time Call Returned : 11/28/2018 14:19 EDT RYLIE LEWIS - 11/28/2018 14:18 EDT documented in this encounter Plan of Treatment Not on file documented as of this encounter Visit Diagnoses Not on filedocumented in this encounter
--- OUTSIDE RECORDS SUMMARY | 2025-02-10 07:31 | XMS_ITS | Encounter Summary ---
Author Organization [employer] [facility] Address [address] [place] [address] Care Team Providers Care Vegetable Buncher Name Role Phone Unavailable Primary Care Provider Unavailabl e Encounter Details Date Type Department Care Team (Late st Contact Info) Description 11/28/2018 Transcribed Document [facility] [place] [address] [place] [address] ProviderHilario MD [facility] [place] [address] Social History Tobacco Use Types Packs/Day Years [...] Conversion Note - Hilario ProviderMD - 11/28/2018 9:25 AM CDT Patient: LUIS ENRIQUE SMITH Age: 53 years Sex: Female : 1965 Associated Diagnoses: None Author: JOSE MARTIN SUAREZ MD-INT Basic Information Patient was admitted last night She continues to have left flank pain Positive dysuria No hematuria She is nauseous but no vomiting She is nothing by mouth Review of Systems Constitutional: No fever, No chills. Eye: No recent visual problem, [...] Nebulized Inhalation, Q6H, PRN: Shortness of Breath Normal Saline 1,000 mL: 100 mL/Hr, IntraVENous Pepcid: 20 mg, IV Push, BID Phenergan: 6.25 mg, IntraVENous, Q6H, PRN: Nausea Tylenol: 650 mg, Oral, Q4H, PRN: Other (See Comment) Zofran: 4 mg, IV Push, Q4H, PRN: Nausea acetaminophen-HYDROcodone 325 mg-7.5 mg oral tablet: 1 Tab, Oral, Q4H, PRN: Pain (Moderate 4-6) cefepime: 2 Gram, IV Piggyback, [id number] metoprolol tartrate: 25 mg, Oral, Q4H, PRN: Tachycardia morphine: 2 mg, IV Push, Q2H, PRN: Pain (Severe 7-10) traZODone: 50 mg, Oral, At Bedtime, PRN: Insomnia Documented Medications Documented estradiol 2 mg oral tablet: Tab, Oral, Daily, 0 Refill(s) lisinopril: 12.5, Oral, Daily, 0 Refill(s), Medications (11) Active Scheduled: (2) cefepime 2 Gram, IV Piggyback, [id number] famotidine 20 mg/2 mL inj 20 mg 2 mL, IV Push, BID Continuous: (1) NaCl 0.9% 1,000 mL 1,000 mL, IntraVENous, 100 mL/Hr PRN: (8) acetaminophen 325 mg tab 650 mg 2 Tab, Oral, Q4H acetaminophen/HYDROcodone 325/7.5 mg tab 1 Tab, Oral, Q4H albuterol-ipratropium inh 3 mL 3 mL, Nebulized Inhalation, Q6H metoprolol tartrate 25 mg tab 25 mg 1 Tab, Oral, Q4H morphine 2 mg/1 ml inj 2 mg 1 mL, IV Push, Q2H ondansetron 4 mg/2 mL inj 4 mg 2 mL, IV Push, Q4H promethazine 25 mg/1 mL inj 6.25 mg 0.25 mL, IntraVENous, Q6H traZODone 50 mg tab 50 mg 1 Tab, Oral, At Bedtime Problem list: Medical At risk for sleep apnea / IMO [id number] / Confirmed, Active Problems (1) At risk for sleep apnea Physical Examination VS/Measurements Vitals Signs (last 24 hrs) Last Charted Minimum Maximum Temp 99.1 (NOV 28 06:45) 98.7 (NOV 28 02:46) H 100.1 (NOV 27 23:30) Mon HR 118 (NOV 28 06:45) 102 (NOV 28 02:46) 129 (NOV 27 18:00) Resp Rate 17 (NOV 28 06:45) 14 (NOV 28 03:21) 18 (NOV 28 02:46) SBP 114 (NOV 28 06:45) 90 (NOV 28 02:46) 114 (NOV 28 06:45) DBP 73 (NOV 28 06:45) L 52 (NOV 28 03:21) 73 (NOV 28 06:45) MAP 88 (NOV 28 06:45) 65 (NOV 28 03:21) 88 (NOV 28 06:45) SpO2 L 92 (NOV 28 03:21) L 92 (NOV 27 23:30) 96 (NOV 27 18:00) General: Alert and oriented, No acute distress. [...] tenderness, No swelling, No deformity. Integumentary: Warm, [place], Moist, No rash. Neurologic: Alert, Oriented, Normal sensory, Normal motor function, No focal deficits, Cranial Nerves II-XII are grossly intact, Normal deep tendon reflexes. Psychiatric: Cooperative, Appropriate mood & affect, Normal judgment. Review / Management Results review: Labs (Last four charted values) WBC 7.4 (NOV 28) H 14.4 (NOV 27) HB 12.6 (NOV 28) 14.7 (NOV 27) HCT 35.1 (NOV 28) 40.7 (NOV 27) Plt L 95 (NOV 28) L 134 (NOV 27) Na 138 (NOV 28) 137 (NOV 27) K L 3.3 (NOV 28) 3.5 (NOV 27) Cl 107 (NOV 28) 103 (NOV 27) CO2 22 (NOV 28) 25 (NOV 27) BUN 15 (NOV 28) 17 (NOV 27) Cr 0.80 (NOV 28) 1.00 (NOV 27) Glu R 84 (NOV 28) 99 (NOV 27) Ca L 7.8 (NOV 28) L 8.2 (NOV 27) Lactic 1.3 (NOV 27) PT 12.0 (NOV 27) INR 1.1 (NOV 27) AST 26 (NOV 27) ALT 21 (NOV 27) ALK P 120 (NOV 27) T Bili 0.9 (NOV 27) PTN 6.5 (NOV 27) ALB L 2.9 (NOV 27) , NOV 28 07:00 138 107 15 / 84 L 3.3 22 0.80 \, No Radiology Results Found. Impression and Plan Obstructing left ureteral stone: Nothing by mouth [...] left ureteral stone: Pain control IV hydration Fever, secondary to UTI and left ureteral [...]
--- OUTSIDE RECORDS SUMMARY | 2025-02-10 07:31 | XMS_ITS | Encounter Summary ---
Author Organization [employer] [facility] Address [address] [place] [address] Care Team Providers Care Chicken Tender Name Role Phone Unavailable Primary Care Provider Unavailabl e Encounter Details Date Type Department Care Team (Late st Contact Info) Description 11/29/2018 Transcribed Document [facility] [place] [address] [place] [address] ProviderHilario MD [address] [place] [address] Social History Tobacco Use Types Packs/Day Years [...] Conversion Note - Historical ProviderMD - 11/29/2018 5:00 PM CDT Chart Check - Review Order Profile Entered On: 11/29/2018 16:35 EDT Performed On: 11/29/2018 17:00 EDT by Miranda Portillo Rn-Traveler Chart Check Chart Reviewed Date and Time : 11/29/2018 16:35 EDT Powerplans Initiated/Discontinued as Appropriate : Yes All Active Orders Reviewed : Yes Miranda Portillo Rn-Traveler - 11/29/2018 16:35 EDT documented in this encounter Plan of Treatment Not on file documented as of this encounter Visit Diagnoses Not on filedocumented in this encounter
--- OUTSIDE RECORDS SUMMARY | 2025-02-10 07:31 | XMS_ITS | Clinical Summary ---
Author Organization [facility] Address [address] [place] [address] Phone Care Team Providers Care Garment Supervisor Name Role Phone Bhavik Villalba MD Unavailable [ ] Conditions or Problems Problem Name Problem Code Onset Date Status Entry Date Provider Comment Standard Description Annotate Acute Pyelonephritis 77426915 (SNOMED CT) 12/12 Active 12/12 Yvette Peters Acute pyelonephritis Obstructive uropathy with infection N13.6 (ICD-10-C M) 12/12 Active 12/12 Yvette Peters Pyonephrosis E. Coli sepsis/septice steffen A41.51 (ICD-10-C M) 12/12 Active 12/12 Yvette Peters Sepsis due to Escherichia coli [E. coli] Neutrophilic leukemoid reaction D72.823 (ICD-10-C M) 12/12 Active 12/12 Yvette Peters Leukemoid reaction Secondary thrombocytopen ia 28379904 (SNOMED CT) 12/12 Active 12/12 Yvette Peters Acquired thrombocytopenia Benign Essential Hypertension 4366668 (SNOMED CT) 12/12 Active 12/12 Yvette Peters Benign essential hypertension Medications Medication Instructions Start Date Stop Date Generic Name [facility] Provider ZESTORETIC 10-12.5 MG TABS Take one by mouth daily LISINOPRIL-HYDRO CHLOROTHIAZIDE 05019432388 Linda Goodson ROBAXIN-750 TABLET Take one by mouth 3 times daily, morning, afternoon and evening./PRN METHOCARBAMOL TABS 16856027781 Linda Goodson PROMETHAZINE HCL 12.5 MG TABS Q4H/PRN PROMETHAZINE HCL 62530779671 Linda Goodson NAPROXEN 500 MG TABS by mouth twice a day/PRN NAPROXEN [id number] Linda Goodson ESTRADIOL 2 MG TABS Take one by mouth daily ESTRADIOL 21491689214 Linda Goodson CEFUROXIME AXETIL 500 MG TABS by mouth twice a day CEFUROXIME AXETIL 62131933217 Linda Goodson AMITRIPTYLINE HCL 10 MG TABS 2 tabs at bedtime AMITRIPTYLINE HCL 87867096906 Linda Goodson Medications Administered No information available. Allergies, Adverse Reactions, Alerts Allergy Name Reaction Description Start Date Severity Statu s Provider PENICILLIN V POTASSIUM Moderate Active Linda Goodson Results Date Name Value Unit Range Flag Description Clinical Lists Update: Prelo ad SMOK STATUS Current every da y smoker Tobacco smoking status Plan of Care No information available. Procedures No information available. Vital Signs No information available. Immunizations No information available. Advance Directives No information available.
--- OUTSIDE RECORDS SUMMARY | 2025-02-10 07:31 | XMS_ITS | Encounter Summary ---
Author Organization [employer] [facility] Address [address] [place] [address] Care Team Providers Care Head Of Integrated Media Name Role Phone Unavailable Primary Care Provider Unavailabl e Encounter Details Date Type Department Care Team (Late st Contact Info) Description 11/30/2018 Transcribed Document [facility] [place] [address] [place] [address] ProviderHilario MD [address] [place] [address] Social History Tobacco Use Types Packs/Day Years [...] Conversion Note - Historical ProviderMD - 11/30/2018 2:00 AM CDT Drafter Apprentice Details Entered On: 11/30/2018 3:03 EDT Performed On: 11/30/2018 2:00 EDT by NATO CIFUENTES RN Order Details Transport Mode Order Detail : Ambulatory Isolation Precautions Order Detail : Contact precautions, Standard Precautions Order Detail : 0 IV Order Detail : 1 Oxygen Order Detail : 0 Nurse Collect Order Detail : 0 Lift/Transfer : Independent Central Line Order Detail : No Room Service : Appropriate Arterial Line : No NATO CIFUENTES RN - 11/30/2018 3:03 EDT documented in this encounter Plan of Treatment Not on file documented as of this encounter Visit Diagnoses Not on filedocumented in this encounter
--- OUTSIDE RECORDS SUMMARY | 2025-02-10 07:32 | XMS_ITS | Encounter Summary ---
Author Organization [employer] [facility] Address [address] [place] [address] Care Team Providers Care Model Engine Mechanic Name Role Phone Unavailable Primary Care Provider Unavailabl e Encounter Details Date Type Department Care Team (Late st Contact Info) Description 11/30/2018 Transcribed Document [facility] [place] [address] [place] [address] ProviderHilario MD [facility] [address] Social History Tobacco Use Types Packs/Day Years [...] Conversion Note - Historical ProviderMD - 11/30/2018 9:34 AM CDT Patient: LUIS ENRIQUE SMITH Age: [...] Rocephin: 2 Gram, 100 mL/Hr, IV Piggyback, [id number] Sodium Chloride 0.45% intravenous solution 1,000 mL: [...] IV Push, Q6H, PRN: Pain (Severe 7-10) potassium chloride 10 mEq oral tablet, extended release: 30 mEq, 3 Tab, Oral, Daily traZODone: 50 mg, Oral, At Bedtime, PRN: [...] Day(s), Start Date: 11/24/2018, 0 Refill(s), Medications (15) Active Scheduled: (5) amitriptyline 10 mg tab 20 mg 2 Tab, Oral, At Bedtime cefTRIAXone 2 Gram, IV Piggyback, [id number] famotidine 20 mg/2 mL inj 20 mg 2 mL, IV Push, BID metoprolol succinate XL 25 mg tab 25 mg 1 Tab, Oral, BID potassium chloride CR 10 mEq tab 30 mEq 3 Tab, Oral, Daily Continuous: (1) NaCl 0.45% 1,000 mL 1,000 [...] At risk for sleep apnea / IMO [id number] / Confirmed, Active Problems (1) At risk for sleep apnea Physical Examination VS/Measurements Vitals Signs (last 24 hrs) Last Charted Minimum Maximum Temp H 100.1 (NOV 30 05:32) 98.3 (NOV 29 15:24) H 100.9 (NOV 29 18:28) Apical HR 89 (NOV 30 08:53) 88 (NOV 29 20:35) 98 (NOV 29 11:41) Mon HR 89 (NOV 30 08:53) 86 (NOV 29 15:24) 104 (NOV 30 03:10) Resp Rate 16 (NOV 30 05:32) 16 (NOV 29 18:28) 18 (NOV 29 10:45) SBP 140 (NOV 30 08:53) 107 (NOV 29 10:45) H 148 (NOV 30 03:10) DBP 84 (NOV 30 08:53) 70 (NOV 29 10:45) 87 (NOV 29 18:28) MAP 110 (NOV 30 08:53) 83 (NOV 29 10:45) 110 (NOV 30 08:53) SpO2 L 92 (NOV 30 05:32) L 90 (NOV 29 10:45) 94 (NOV 29 15:24) General: Alert and oriented, No acute distress. [...] tenderness, No swelling, No deformity. Integumentary: Warm, [place], Moist, No rash. Neurologic: Alert, Oriented, Normal sensory, Normal motor function, No focal deficits, Cranial Nerves II-XII are grossly intact, Normal deep tendon reflexes. Psychiatric: Cooperative, Appropriate mood & affect, Normal judgment. Review / Management Results review: Labs (Last four charted values) WBC L 3.9 (NOV 30) L 3.9 (NOV 29) 7.4 (NOV 05) H 14.4 (NOV 27) HB 12.2 (NOV 30) 11.9 (NOV 29) 12.6 (NOV 05) 14.7 (NOV 04) HCT L 32.7 (NOV 30) L 33.4 (NOV 06) 35.1 (NOV 05) 40.7 (NOV 27) Plt L 80 (NOV 30) L 81 (NOV 29) L 95 (NOV 28) L 134 (NOV 27) Na 137 (NOV 30) 140 (NOV 29) 138 (NOV 28) 137 (NOV 27) K L 3.4 (NOV 30) 3.6 (NOV 29) L 3.3 (NOV 28) 3.5 (NOV 27) Cl 109 (NOV 30) 112 (NOV 29) 107 (NOV 28) 103 (NOV 27) CO2 22 (NOV 30) 22 (NOV 29) 22 (NOV 28) 25 (NOV 27) BUN 8 (NOV 30) 7 (NOV 29) 15 (NOV 28) 17 (NOV 27) Cr 0.70 (NOV 30) 0.80 (NOV 29) 0.80 (NOV 28) 1.00 (NOV 27) Glu R 101 (NOV 30) 98 (NOV 29) 84 (NOV 28) 99 (NOV 27) Ca L 7.9 (NOV 30) L 7.9 (NOV 29) L 7.8 (NOV 28) L 8.2 (NOV 27) Lactic 1.3 (NOV 27) PT 12.0 (NOV 27) INR 1.1 (NOV 27) AST 26 (NOV 27) ALT 21 (NOV 27) ALK P 120 (NOV 27) T Bili 0.9 (NOV 27) PTN 6.5 (NOV 27) ALB L 2.9 (NOV 27) , NOV 30 08:03 137 109 8 / 101 L 3.4 22 0.70 \ NOV 30 08:03 \ 12.2 / L 3.9 L 80 / L 32.7 \, No Radiology Results Found. Impression and [...]
--- OUTSIDE RECORDS SUMMARY | 2025-02-10 07:32 | XMS_ITS | Clinical Summary ---
Author Organization [employer] Address [address] [place] [address] Care Team Providers Care Sheet Folder Name Role Phone Unavailable Primary Care Provider Unavailabl e Social History Tobacco Use Types Packs/Day Years Used Date Smoking Tobacco: Never Assessed Comments Unknown Sex and Gender Information Value Date Recorded Sex Assigned at Female 02/22/2022 4:54 PM CDT Legal Sex Female 6:31 PM CDT Gender Identity Female 02/22/2022 4:54 PM CDT Sexual Orientation Not on file Plan of Treatment Not on file
--- OUTSIDE RECORDS SUMMARY | 2025-02-10 07:32 | XMS_ITS | Encounter Summary ---
Author Organization [employer] Address [address] [place] [address] Care Team Providers Care Anesthesiology Faculty Name Role Phone Unavailable Primary Care Provider Unavailabl e Encounter Details Date Type Department Care Team (Late st Contact Info) Description 11/27/2018 Transcribed Document [facility] [place] [address] [place] [address] ProviderHilario MD [facility] [address] Social History Tobacco Use Types Packs/Day Years Used Date Smoking Tobacco: Never Assessed Comments Unknown Sex and Gender Information Value Date Recorded Sex Assigned at Female 02/22/2022 4:54 PM CDT Legal Sex Female 6:31 PM CDT Gender Identity Female 02/22/2022 4:54 PM CDT Sexual Orientation Not on file documented as of this encounter Miscellaneous Notes * Cerner Conversion Note - Historical ProviderMD - 11/27/2018 5:52 PM CDT Consult Phone Call Documentation Entered On: 11/27/2018 18:23 EDT Performed On: 11/27/2018 17:52 EDT by [place] Patient Toe Pounder Phone Call for Consults Consult Phone Call/Page Attempt : First call Consult Reason : kidney stones Physician Requested for Consult : JOHANNE HERNANDEZ MD-URO [place], Patient Toe Pounder - 11/27/2018 18:23 EDT Electronically signed by Selina More Conversion Senior [employer] Net Developer Cerjoseph at 12/11/2022 10:39 AM CDT documented in this encounter Plan of Treatment Not on file documented as of this encounter Visit Diagnoses Not on filedocumented in this encounter
--- OUTSIDE RECORDS SUMMARY | 2025-02-10 07:32 | XMS_ITS | Encounter Summary ---
Author Organization [employer] [facility] Address [address] [place] [address] Care Team Providers Care Special Delivery Messenger Name Role Phone Unavailable Primary Care Provider Unavailabl e Encounter Details Date Type Department Care Team (Late st Contact Info) Description 11/30/2018 Transcribed Document [facility] [place] [address] [place] [address] ProviderHilario MD [place] [address] Social History Tobacco Use Types Packs/Day Years [...] Conversion Note - Historical ProviderMD - 11/30/2018 3:19 PM CDT Nursing Discharge Summary Entered On: 11/30/2018 15:19 EDT Performed On: 11/30/2018 15:19 EDT by Miranda Portillo Rn-Traveler Discharge Documentation Discharge Date/Time : 11/30/2018 15:19 EDT Patient Disposition, General : Discharge Discharge To : Home with ambulatory/outpatient follow-up Mode Of Departure, General Discharge : Ambulatory, Private vehicle Accompanied By, Discharge : Significant other IV Discontinued : Yes Personal Belongings With Patient : Yes Prescriptions Given to Patient : Yes Discharge Instructions Reviewed With, Opportunity For Questions Given : Patient Patient Education Completed : Yes Number of Prescriptions Given : 4 Teaching Method : Explanation, Printed materials Teaching Evaluation : Verbalizes understanding Miranda Portillo Rn-Traveler - 11/30/2018 15:19 EDT documented in this encounter Plan of Treatment Not on file documented as of this encounter Visit Diagnoses Not on filedocumented in this encounter
--- OUTSIDE RECORDS SUMMARY | 2025-02-10 07:32 | XMS_ITS | Encounter Summary ---
Author Organization [employer] Address [address] [place] [address] Care Team Providers Care Trucking Contractor Name Role Phone Unavailable Primary Care Provider Unavailabl e Encounter Details Date Type Department Care Team (Late st Contact Info) Description 11/28/2018 Transcribed Document [facility] [place] Family Medicine [address] [place] [address] Provider, MD Hilario [facility] [place], [place] [id number] Social History Tobacco Use Types Packs/Day Years Used Date Smoking Tobacco: Never Assessed Comments Unknown Sex and Gender Information Value Date Recorded Sex Assigned at Female 02/22/2022 4:54 PM CDT Legal Sex Female 6:31 PM CDT Gender Identity Female 02/22/2022 4:54 PM CDT Sexual Orientation Not on file documented as of this encounter Miscellaneous Notes * Cerner Conversion Note - Historical Provider, - 11/28/2018 1:12 PM CDT [facility] Main OR PACU Summary Primary Physician: JOHANNE HERNADNEZ MD-URO Finalized Date/Time: 11/29/18 15:35:23 Pt. Name: LUIS ENRIQUE SMITH/Sex: 1965 Female Med Rec #: [id number] Physician: NEWTON SUAREZ MD Financial #: [id number] Pt. Type: I Room/Bed: 357/1 Admit/Disch: 11/27/18 17:42:00 - Institution: [facility] Main OR PACU I Case Times Entry 1 In PACU I 11/28/18 13:32:00 Ready for PACU 11/28/18 14:18:00 Discharge Discharge from PACU 11/28/18 14:18:00 I Last Modified By: Duyen Lange RN 11/29/18 15:35:13 Finalized By: Duyen Lange RN Document Signatures Signed By: Duyen Lange RN 11/29/18 15:35 Electronically signed by Argenis [facility] Conversion Flight Nurse Cerner at 12/11/2022 10:19 AM CDT documented in this encounter Plan of Treatment Not on file documented as of this encounter Visit Diagnoses Not on filedocumented in this encounter
--- OUTSIDE RECORDS SUMMARY | 2025-02-10 07:32 | XMS_ITS | Encounter Summary ---
Author Organization [employer] Address [address] [place] [address] Care Team Providers Care Salesperson Stereo Equipment Name Role Phone Unavailable Primary Care Provider Unavailabl e Encounter Details Date Type Department Care Team (Late st Contact Info) Description 12/03/2018 Transcribed Document [facility] [place] [address] [place] [address] ProviderHilario [facility] [place], [place] [address] Social History Tobacco Use Types Packs/Day Years Used Date Smoking Tobacco: Never Assessed Comments Unknown Sex and Gender Information Value Date Recorded Sex Assigned at Female 02/22/2022 4:54 PM CDT Legal Sex Female 6:31 PM CDT Gender Identity Female 02/22/2022 4:54 PM CDT Sexual Orientation Not on file documented as of this encounter Miscellaneous Notes * Cerner Conversion Note - Historical ProviderMD - 12/03/2018 7:02 AM CDT Patient: LUIS ENRIQUE SMITH Age: 53 Years Sex: Female : 1965 Admit Date 11/27/2018 17:42 Discharge Date 11/30/2018 17:33 Discharge Diagnosis Ureteral stone 11/28/2018 N20.1 ICD-10-CM Procedures SN - Proc - Procedure: Cystoscopy Laser Stone Manipulation (11/28/18 12:43:39 EDT) SN - Proc - Procedure: Ureteral Stent Insertion (11/28/18 12:43:39 EDT) SN - Proc - Procedure: Ureteroscopy (11/28/18 12:43:39 EDT) Reason for Hospitalization This 53-year-old female with history of hypertension, otherwise no major medical problems. Patient for last three days has been having left flank pain, acute with nausea, vomiting, fever. Her symptoms getting worse. Patient was evaluated at outside facility. Had CAT scan shows left ureteric stone with mild hydronephrosis. Patient was transferred to [facility]. Came in, blood work shows leukocytosis, patient was started on IV fluid, pain control, IV Rocephin, and Urology consults. Hospital Course Bacteremia IV roephin , going home on cefuroxime 500 mg oral tablet 500 mg = 1 Tab, Oral, BID per Dr. Villalba ID evaluated by ID Obstructing left ureteral stone: Nothing by mouth [...] This has been repleted. It is mild Vital Signs Oxygen Settings (Last) Oxygen Therapy Mode: Room air (11/30/18 08:00:00 EDT) Oxygen Flow Rate: 5 Liter/Min (11/28/18 13:32:00 EDT) Physical Exam Vitals Signs (last 24 hrs) Last Charted [...] (NOV 29 10:45) 94 (NOV 29 15:24) GENERAL: Awake, alert, and oriented to time, place, and person. HEENT: Head is atraumatic, normocephalic. Mucous membranes are dry. No pallor. No jaundice. No cyanosis NECK: Supple. No jugular vein distention. HEART: Regular rate and rhythm. No gallop, rub, or murmur. Normal first and second sounds. No third or fourth sounds. CHEST: Clear to auscultation bilaterally. No wheezes, rales, or crackles. ABDOMEN: Soft, active bowel sounds. No hepatosplenomegaly. No masses. No tenderness. No abdominal distention. Audible bowel sounds in all four abdominal quadrants. GENITOURINARY: No suprapubic tenderness. No suprapubic fullness. No CVA tenderness bilaterally. EXTREMITIES: No clubbing, no cyanosis, no edema. VASCULAR: 2+ pulses dorsalis pedis and posterior tibialis arteries bilaterally. PSYCHIATRIC: Not depressed or anxious. NEUROLOGIC EXAMINATION: Cranial nerves 2 through 12 grossly intact. There is no apparent motor focal weakness in the upper or lower extremities. No facial droop bilaterally. No neurological deficits in upper or lower or lower extremities. MUSCULOSKELETAL: No joint deformity in both knees or both ankles. SKIN: No hematomas. No purpura. No bruises. ENDOCRINE: No thyroid enlargement or nodules. Discharge Disposition Home Discharge Follow Up Follow up with primary care provider - Within 1 to 2 weeks Follow up with primary care provider - Within 1 to 2 weeks KAYCEE VILLALBA - 12/16/2018 12:00 JOHANNE HERNANDEZ - Within 1 to 2 weeks Discharge Medications (7) Active amitriptyline 10 mg oral tablet 20 mg = 2 Tab, Oral, At Bedtime cefuroxime 500 mg oral tablet 500 mg = 1 Tab, Oral, BID estradiol 2 mg oral tablet 2 mg = 1 Tab, Oral, Daily naproxen 500 mg oral tablet 500 mg = 1 Tab, PRN, Oral, BID promethazine 12.5 mg oral tablet 12.5 mg = 1 Tab, PRN, Oral, Q4H Robaxin-750 oral tablet 750 mg = 1 Tab, PRN, Oral, TID Zestoretic 10 mg-12.5 mg oral tablet 1 Tab, Oral, Daily Condition on Discharge stable Consulting Physicians JOHANNE HERNANDEZ MD-URO SUSAN ANSARI MD MEEK, JOHN R, MD-INF KAYCEE VILLALBA MD-INF Follow Up Labs/Studies Labs (Last four charted values) WBC L 3.9 (NOV 30) L 3.9 (NOV 29) 7.4 (NOV 28) H 14.4 (NOV 27) HB 12.2 (NOV 30) 11.9 (NOV 29) 12.6 (NOV 28) 14.7 (NOV 27) HCT L 32.7 (NOV 30) L 33.4 (NOV 29) 35.1 (NOV 28) 40.7 (NOV 27) Plt L 80 (NOV 30) L 81 (NOV 29) L 95 (NOV 28) L 134 (NOV 27) Na 137 (NOV 30) 140 (NOV 29) 138 (NOV 28) 137 (NOV 27) K L 3.4 (NOV 30) 3.6 (NOV 29) L 3.3 (NOV 28) 3.5 (NOV 27) Cl 109 (NOV 30) 112 (NOV 29) 107 (NOV 05) 103 (NOV 27) CO2 22 (NOV 30) 22 (NOV 29) 22 (NOV 28) 25 (NOV 27) BUN 8 (NOV 30) 7 (NOV 29) 15 (NOV 28) 17 (NOV 27) Cr 0.70 (NOV 30) 0.80 (NOV 29) 0.80 (NOV 28) 1.00 (NOV 27) Glu R 101 (NOV 30) 98 (NOV 06) 84 (NOV 05) 99 (NOV 27) Ca L 7.9 (NOV 30) L 7.9 (NOV 06) L 7.8 (NOV 05) L 8.2 (NOV 27) Lactic 1.3 (NOV 27) PT 12.0 (NOV 27) INR 1.1 (NOV 27) AST 26 (NOV 27) ALT 21 (NOV 27) ALK P 120 (NOV 27) T Bili 0.9 (NOV 27) PTN 6.5 (NOV 27) ALB L 2.9 (NOV 27) , NOV 30 08:03 137 109 8 / 101 L 3.4 22 0.70 \ APR 07 08:03 \ 12.2 / L 3.9 L 80 / L 32.7 \, Time Spent on Discharge 35 minutes Electronically signed by Argenis, Myron Conversion Inbound Customer Service Representative Cerner at 12/11/2022 10:38 AM CDT documented in this encounter Plan of Treatment Not on file documented as of this encounter Visit Diagnoses Not on filedocumented in this encounter
--- OUTSIDE RECORDS SUMMARY | 2025-02-10 07:32 | XMS_ITS | Encounter Summary ---
Author Organization [employer] Address [address] [place] [address] Care Team Providers Care Mother Tester Name Role Phone Unavailable Primary Care Provider Unavailabl e Encounter Details Date Type Department Care Team (Late st Contact Info) Description 11/28/2018 Transcribed Document [facility] [place] [address] [place] [address] Provider, MD Hilario [facility] [place], [place] [address] Social History Tobacco Use Types Packs/Day Years [...] Historical Provider, - 11/28/2018 1:12 PM CDT [facility] Main OR Preop Summary Primary Physician: JOHANNE HERNANDEZ MD-URO Finalized Date/Time: 11/28/18 13:53:11 Pt. Name: LUIS ENRIQUE SMITH/Sex: 1965 Female Med Rec #: [id number] Physician: NEWTON SUAREZ MD Financial #: [id number] Pt. Type: O Room/Bed: 357/1 Admit/Disch: 11/27/18 17:42:00 - Institution: [facility] PreOp Case Times Entry 1 In Preop 11/28/18 12:10:00 Ready for Holding n/a Room Patient Ready for 11/28/18 12:30:00 Surgery Patient Out of Preop 11/28/18 12:47:00 Patient Out of n/a Holding Room Last Modified By: ANDRES KENDALL RN 11/28/18 13:53:05 [facility] PreOp Case Times Audit 11/28/18 13:53:05 Chart Writer: [email or web address] Modifier: [email or web address] <+> 1 Patient Out of Preop <+> 1 Patient Ready for Surgery Finalized By: ANDRES KENDALL RN Document Signatures Signed By: ANDRES KENDALL RN 11/28/18 13:53 Electronically signed by Argenis [facility] Conversion Line Pilot Cerner at 12/11/2022 10:18 AM CDT documented in this encounter Plan of Treatment Not on file documented as of this encounter Visit Diagnoses Not on filedocumented in this encounter
--- OUTSIDE RECORDS SUMMARY | 2025-02-10 07:32 | XMS_ITS | Encounter Summary ---
Author Organization [employer] Address [address] [place] [address] Care Team Providers Care Musical Instrument Supervisor Name Role Phone Unavailable Primary Care Provider Unavailabl e Encounter Details Date Type Department Care Team (Late st Contact Info) Description 11/30/2018 Transcribed Document [facility] [place] Family Medicine [address] [place] [address] ProviderHilario MD [address] [place] [address] Social History Tobacco Use Types Packs/Day Years [...] Conversion Note - Historical ProviderMD - 11/30/2018 5:00 AM CDT Chart Check - Review Order Profile Entered On: 11/30/2018 3:03 EDT Performed On: 11/30/2018 5:00 EDT by NATO CIFUENTES RN Chart Check Chart Reviewed Date and Time : 11/30/2018 4:00 EDT Powerplans Initiated/Discontinued as Appropriate : Yes All Active Orders Reviewed : Yes NATO CIFUENTES RN - 11/30/2018 3:03 EDT documented in this encounter Plan of Treatment Not on file documented as of this encounter Visit Diagnoses Not on filedocumented in this encounter
--- OUTSIDE RECORDS SUMMARY | 2025-02-10 07:32 | XMS_ITS | Encounter Summary ---
Author Organization [employer] Address [address] [place] [address] Care Team Providers Care Counselor Aide Name Role Phone Unavailable Primary Care Provider Unavailabl e Encounter Details Date Type Department Care Team (Late st Contact Info) Description 12/03/2018 Transcribed Document [facility] [place] [address] [place] [address] ProviderHilario MD [address] [place] [address] Social History Tobacco Use Types Packs/Day Years [...] Conversion Note - Historical ProviderMD - 12/03/2018 9:34 AM CDT Post Visit Phone Call Entered On: 12/03/2018 9:35 EDT Performed On: 12/03/2018 9:34 EDT by RADAMES CROWDER RN Post Visit Phone Call Post Visit Phone Call History : First call Contact Relationship to Patient : Self Emergency Room Visit Since DC : No Adequate Pain Control After Visit : Yes Symptoms of Fever : No Symptoms of Nausea or Vomiting : No Adequate Fluid Intake : Yes Food Intake, Post Visit : Fair Mobility Progressing or Maintained as Expected : Yes Using Continuous Passive Motion Machine : N/A Discharge Instructions Understood : Yes Follow-Up Actions : None RADAMES CROWDER RN - 12/03/2018 9:34 EDT Electronically signed by Selina More Conversion Basin Finish Operator Tig Welder Cerner at 12/11/2022 10:39 AM CDT documented in this encounter Plan of Treatment Not on file documented as of this encounter Visit Diagnoses Not on filedocumented in this encounter
--- OUTSIDE RECORDS SUMMARY | 2025-02-10 07:32 | XMS_ITS | Encounter Summary ---
Author Organization [facility] Address [address] [place] [address] Care Team Providers Care Software Release Manager Name Role Phone Unavailable Primary Care Provider Unavailabl e Encounter Details Date Type Department Care Team (Late st Contact Info) Description 11/30/2018 Transcribed Document [facility] [place] [facility] [address] [place] [address] ProviderHilario MD [facility] [place], [place] [id number] Social History Tobacco Use Types Packs/Day Years Used Date Smoking Tobacco: Never Assessed Comments Unknown Sex and Gender Information Value Date Recorded Sex Assigned at Female 02/22/2022 4:54 PM CDT Legal Sex Female 6:31 PM CDT Gender Identity Female 02/22/2022 4:54 PM CDT Sexual Orientation Not on file documented as of this encounter Miscellaneous Notes * Cerner Conversion Note - Hilario ProviderMD - 11/30/2018 3:04 PM CDT [address] [place] [address] Patient Copy Patient Information: Name: LUIS ENRIQUE SMITH Current Date: 11/30/2018 15:04:45 : 1965 Patient Address: [address] [place] [id number] Patient Attending Physician: NEWTON SUAREZ MD Primary Care Provider: TRACI ALCAZAR NP-FAM Primary Care Provider Discharge Diagnosis: Ureteral stone Weight on Admission: 143 lb, 0 oz Comment: Follow-up Instructions: With: Address: When: Follow up with primary care provider Within 1 to 2 weeks With: Address: When: ALEXIA VILLALBA [address] [place] [address], [address] [place] [address] Business (1) 12:00 PM With: Address: When: JOHANNE HERNANDEZ [address] [facility], [address] [place] [address] [address] (1) Within 1 to 2 weeks Comments: follow up first available in [place] office, ideally one week. With: Address: When: Follow up with primary care provider Within 1 to 2 weeks Discharge Instructions: Diet after Discharge: Heart healthy diet Activity after Discharge: As tolerated Immunizations Documented During Stay: No Immunizations Found Heart Failure Discharge Instructions (if any): Stroke Related Discharge Instructions (if any): Warfarin Related Discharge Instructions (if any): Final Medication List: Printed Prescriptions acetaminophen-oxyCODONE (Percocet 10/325 oral tablet) 1 Tablet(s) Oral Every 4 Hours as needed Pain (Severe 7-10). Refills: 0. phenazopyridine (phenazopyridine 200 mg oral tablet) 1 Tablet(s) Oral Three Times A Day for 3 Day(s). Refills: 0. promethazine (promethazine 12.5 mg oral tablet) 1 Tablet(s) Oral Every 4 Hours as needed as needed for nausea/vomiting. Refills: 0. Other Medications amitriptyline (amitriptyline 10 mg oral tablet) 2 Tablet(s) Oral At Bedtime. cefUROXIME (cefuroxime 500 mg oral tablet) 1 Tablet(s) Oral Two Times A Day for 20 Day(s). Rx per Dr. Alexia Villalba ( ID ). Refills: 0. estradiol (estradiol 2 mg oral tablet) 1 Tablet(s) Oral Every Day. hydrochlorothiazide-lisinopril (Zestoretic 10 mg-12.5 mg oral tablet) 1 Tablet(s) Oral Every Day. methocarbamol (Robaxin-750 oral tablet) 1 Tablet(s) Oral Three Times A Day as needed pain. naproxen (naproxen 500 mg oral tablet) 1 Tablet(s) Oral Two Times A Day as needed pain. Patient Allergies: penicillin Medication Instructions: Take your medications faithfully. Do NOT skip medication. Do NOT stop taking medications without the direction of a physician. Carry a list of your medications with you at all times, and take this medication list with you to your first follow up visit. Report any side effects. Avoid herbal remedies unless discussed with your physician. As part of your treatment plan, your physician may have prescribed a limited course of a controlled substance. This medication may be given to help people with moderate or severe pain or for other medical conditions, but there are risks involved with treatment. Common side effects may include nausea, constipation, drowsiness, sweating, itching, dry mouth, and rash. More serious side effects may include cognitive and motor impairment, like problems with thinking, concentrating, alertness, and movement (e.g. slowed reflexes), and driving and operating heavy machinery can be dangerous. It is important for you to talk to your physician if you have these side effects or questions. These controlled substances can produce physical dependence and be habit-forming if taken for an extended period of time, which means that the body has gotten used to them and may experience withdrawal symptoms if they are abruptly stopped. Withdrawal symptoms can include runny nose, sweating, goose bumps, diarrhea, abdominal cramping, rapid heartbeat, difficulty sleeping, and nervousness. Patient education materials: Ureteroscopy Ureteroscopy is a procedure to check for and treat problems inside part of the urinary tract. In this procedure, a thin, tube-shaped instrument with a light at the end (ureteroscope) is used to look at the inside of the kidneys and the ureters, which are the tubes that carry urine from the kidneys to the bladder. The ureteroscope is inserted into one or both of the ureters. You may need this procedure if you have frequent urinary tract infections (UTIs), blood in your urine, or a stone in one of your ureters. A ureteroscopy can be done to find the cause of urine blockage in a ureter and to evaluate other abnormalities inside the ureters or kidneys. If stones are found, they can be removed during the procedure. Polyps, abnormal tissue, and some types of tumors can also be removed or treated. The ureteroscope may also have a tool to remove tissue to be checked for disease under a microscope (biopsy). Tell a health care provider about: ??? Any allergies you have. ??? All medicines you are taking, including vitamins, herbs, eye drops, creams, and qezv-vfy-crskpud medicines. ??? Any problems you or family members have had with anesthetic medicines. ??? Any blood disorders you have. ??? Any surgeries you have had. ??? Any medical conditions you have. ??? Whether you are or may be . What are the risks? Generally, this is a safe procedure. However, problems may occur, including: ??? Bleeding. ??? Infection. ??? Allergic reactions to medicines. ??? Scarring that narrows the ureter (stricture). ??? Creating a hole in the ureter (perforation). What happens before the procedure? Staying hydratedFollow instructions from your health care provider about hydration, which may include: ??? Up to 2 hours before the procedure ? you may continue to drink clear liquids, such as water, clear fruit juice, black coffee, and plain tea. Eating and drinking restrictionsFollow instructions from your health care provider about eating and drinking, which may include: ??? 8 hours before the procedure ? stop eating heavy meals or foods such as meat, fried foods, or fatty foods. ??? 6 hours before the procedure ? stop eating light meals or foods, such as toast or cereal. ??? 6 hours before the procedure ? stop drinking milk or drinks that contain milk. ??? 2 hours before the procedure ? stop drinking clear liquids. Medicines??? Ask your health care provider about: ? Changing or stopping your regular medicines. This is especially important if you are taking diabetes medicines or blood thinners. ? Taking medicines such as aspirin and ibuprofen. These medicines can thin your blood. Do not take these medicines before your procedure if your health care provider instructs you not to. ??? You may be given antibiotic medicine to help prevent infection. General instructions??? You may have a urine sample taken to check for infection. ??? Plan to have someone take you home from the hospital or clinic. What happens during the procedure? To reduce your risk of infection: ? Your health care team will wash or sanitize their hands. ? Your skin will be washed with soap. ??? An IV tube will be inserted into one of your veins. ??? You will be given one of the following: ? A medicine to help you relax (sedative). ? A medicine to make you fall asleep (general anesthetic). ? A medicine that is injected into your spine to numb the area below and slightly above the injection site (spinal anesthetic). ??? To lower your risk of infection, you may be given an antibiotic medicine by an injection or through the IV tube. ??? The opening from which you urinate (urethra) will be cleaned with a germ-killing solution. ??? The ureteroscope will be passed through your urethra into your bladder. ??? A salt-water solution will flow through the ureteroscope to fill your bladder. This will help the health care provider see the openings of your ureters more clearly. ??? Then, the ureteroscope will be passed into your ureter. ? If a growth is found, a piece of it may be removed so it can be examined under a microscope (biopsy). ? If a stone is found, it may be removed through the ureteroscope, or the stone may be broken up using a laser, shock waves, or electrical energy. ? In some cases, if the ureter is too small, a tube may be inserted that keeps the ureter open (ureteral stent). The stent may be left in place for 1 or 2 weeks to keep the ureter open, and then the ureteroscopy procedure will be performed. ??? The scope will be removed, and your bladder will be emptied. The procedure may vary among health care providers and hospitals. What happens after the procedure? Your blood pressure, heart rate, breathing rate, and blood oxygen level will be monitored until the medicines you were given have worn off. ??? You may be asked to urinate. ??? Do?notdrive for 24 hours if you were given a sedative. This information is not intended to replace advice given to you by your health care provider. Make sure you discuss any questions you have with your health care provider. Document Released: 08/17/2014 Document Revised: 05/28/2017 Document Reviewed: 05/24/2017 [employer] Interactive Patient Education ? 2017 [employer] Lithotripsy, Care After Refer to this sheet in the next few weeks. These instructions provide you with information on caring for yourself after your procedure. Your health care provider may also give you more specific instructions. Your treatment has been planned according to current medical practices, but problems sometimes occur. Call your health care provider if you have any problems or questions after your procedure. WHAT TO EXPECT AFTER THE PROCEDURE ??? Your urine may have a red tinge for a few days after treatment. Blood loss is usually minimal. ??? You may have soreness in the back or flank area. This usually goes away after a few days. The procedure can cause blotches or bruises on the back where the pressure wave enters the skin. These lockhart usually cause only minimal discomfort and should disappear in a short time. ??? Stone fragments should begin to pass within 24 hours of treatment. However, a delayed passage is not unusual. ??? You may have pain, discomfort, and feel sick to your stomach (nauseated) when the crushed fragments of stone are passed down the tube from the kidney to the bladder. Stone fragments can pass soon after the procedure and may last for up to 4?8 weeks. ??? A small number of patients may have severe pain when stone fragments are not able to pass, which leads to an obstruction. ??? If your stone is greater than 1 inch (2.5 cm) in diameter or if you have multiple stones that have a combined diameter greater than 1 inch (2.5 cm), you may require more than one treatment. ??? If you had a stent placed prior to your procedure, you may experience some discomfort, especially during urination. You may experience the pain or discomfort in your flank or back, or you may experience a sharp pain or discomfort at the base of your penis or in your lower abdomen. The discomfort usually lasts only a few minutes after urinating. HOME CARE INSTRUCTIONS ??? Rest at home until you feel your energy improving. ??? Only take woln-byo-xlddogb or prescription medicines for pain, discomfort, or fever as directed by your health care provider. Depending on the type of lithotripsy, you may need to take antibiotics and anti-inflammatory medicines for a few days. ??? Drink enough water and fluids to keep your urine clear or pale yellow. This helps flush your kidneys. It helps pass any remaining pieces of stone and prevents stones from coming back. ??? Most people can resume daily activities within 1?2 days after standard lithotripsy. It can take longer to recover from laser and percutaneous lithotripsy. ??? Strain all urine through the provided strainer. Keep all particulate matter and stones for your health care provider to see. The stone may be as small as a grain of salt. It is very important to use the strainer each and every time you pass your urine. Any stones that are found can be sent to a medical lab for examination. ??? Visit your health care provider for a follow-up appointment in a few weeks. Your doctor may remove your stent if you have one. Your health care provider will also check to see whether stone particles still remain. SEEK MEDICAL CARE IF: ??? Your pain is not relieved by medicine. ??? You have a lasting nauseous feeling. ??? You feel there is too much blood in the urine. ??? You develop persistent problems with frequent or painful urination that does not at least partially improve after 2 days following the procedure. ??? You have a congested cough. ??? You feel lightheaded. ??? You develop a rash or any other signs that might suggest an allergic problem. ??? You develop any reaction or side effects to your medicine(s). SEEK IMMEDIATE MEDICAL CARE IF: ??? You experience severe back or flank pain or both. ??? You see nothing but blood when you urinate. ??? You cannot pass any urine at all. ??? You have a fever or shaking chills. ??? You develop shortness of breath, difficulty breathing, or chest pain. ??? You develop vomiting that will not stop after 6?8 hours. ??? You have a fainting episode. This information is not intended to replace advice given to you by your health care provider. Make sure you discuss any questions you have with your health care provider. Document Released: 08/31/2008 Document Revised: 05/02/2016 Document Reviewed: 02/25/2014 [employer] Interactive Patient Education ? 2017 [employer] Ureteral Stent Implantation Introduction Ureteral stent implantation is a procedure to insert (implant) a flexible, soft, plastic tube (stent) into a tube (ureter) that drains urine from the kidneys. The stent supports the ureter while it heals and helps to drain urine from the kidneys. You may have a ureteral stent implanted after having a procedure to remove a blockage from the ureter (ureterolysis or pyeloplasty).?You may also have a stent implanted to open the flow of urine when you have a blockage caused by a kidney stone, tumor, blood clot, or infection. You have two ureters, one on each side of the body. The ureters connect the kidneys to the organ that holds urine until it passes out of the body (bladder). The stent is placed so that one end is in the kidney, and one end is in the bladder. The stent is usually taken out after your ureter has healed. Depending on your condition, you may have a stent for just a few weeks, or you may have a long-term stent that will need to be replaced every few months. Tell a health care provider about: ??? Any allergies you have. ??? All medicines you are taking, including vitamins, herbs, eye drops, creams, and gowj-hma-spiohky medicines. ??? Any problems you or family members have had with anesthetic medicines. ??? Any blood disorders you have. ??? Any surgeries you have had. ??? Any medical conditions you have. ??? Whether you are or may be . What are the risks? Generally, this is a safe procedure. However, problems may occur, including:??? Infection. ??? Bleeding. ??? Allergic reactions to medicines. ??? Damage to other structures or organs. Tearing (perforation) of the ureter is possible. ??? Movement of the stent away from where it is placed during surgery (migration). What happens before the procedure? Ask your health care provider about:? Changing or stopping your regular medicines. This is especially important if you are taking diabetes medicines or blood thinners. ? Taking medicines such as aspirin and ibuprofen. These medicines can thin your blood. Do not take these medicines before your procedure if your health care provider instructs you not to. ??? Follow instructions from your health care provider about eating or drinking restrictions. ??? Do notdrink alcohol anddo not use any tobacco products before your procedure, as told by your health care provider. ??? You may be given antibiotic medicine to help prevent infection. ??? Plan to have someone take you home after the procedure. ??? If you go home right after the procedure, plan to have someone with you for 24 hours. What happens during the procedure? An IV tube will be inserted into one of your veins. ??? You will be given a medicine to make you fall asleep (general anesthetic). You may also be given a medicine to help you relax (sedative). ??? A thin, tube-shaped instrument with a light and tiny camera at the end (cystoscope) will be inserted into your urethra. The urethra is the tube that drains urine from the bladder out of the body. In men, the urethra opens at the end of the penis. In women, the urethra opens in front of the vaginal opening. ??? The cystoscope will be passed into your bladder. ??? A thin wire (guide wire) will be passed through your bladder and into your ureter. This is used to guide the stent into your ureter. ??? The stent will be inserted into your ureter. ??? The guide wire and the cystoscope will be removed. ??? A flexible tube (catheter) will be inserted through your urethra so that one end is in your bladder. This helps to drain urine from your bladder. The procedure may vary among hospitals and health care providers. What happens after the procedure? Your blood pressure, heart rate, breathing rate, and blood oxygen level will be monitored often until the medicines you were given have worn off. ??? You may continue to receive medicine and fluids through an IV tube. ??? You may have some soreness or pain in your abdomen and urethra. Medicines will be available to help you. ??? You will be encouraged to get up and walk around as soon as you can. ??? You will have a catheter draining your urine. ??? You will have some blood in your urine. ??? Do notdrive for 24 hours if you received a sedative. This information is not intended to replace advice given to you by your health care provider. Make sure you discuss any questions you have with your health care provider. Document Released: 08/09/2001 Document Revised: 01/17/2017 Document Reviewed: 02/24/2016 ? 2017 [employer] Kidney Stones Kidney stones (urolithiasis) are solid, rock-like deposits that form inside of the organs that make urine (kidneys). A kidney stone may form in a kidney and move into the bladder, where it can cause intense pain and block the flow of urine. Kidney stones are created when high levels of certain minerals are found in the urine. They are usually passed through urination, but in some cases, medical treatment may be needed to remove them. What are the causes? Kidney stones may be caused by: ??? A condition in which certain glands produce too much parathyroid hormone (primary hyperparathyroidism), which causes too much calcium buildup in the blood. ??? Buildup of uric acid crystals in the bladder (hyperuricosuria). Uric acid is a chemical that the body produces when you eat certain foods. It usually exits the body in the urine. ??? Narrowing (stricture) of one or both of the tubes that drain urine from the kidneys to the bladder (ureters). ??? A kidney blockage that is present at (congenital obstruction). ??? Past surgery on the kidney or the ureters, such as gastric bypass surgery. What increases the risk? The following factors make you more likely to develop kidney stones: ??? Having had a kidney stone in the past. ??? Having a family history of kidney stones. ??? Not drinking enough water. ??? Eating a diet that is high in protein, salt (sodium), or sugar. ??? Being overweight or obese. What are the signs or symptoms? Symptoms of a kidney stone may include: ??? Nausea. ??? Vomiting. ??? Blood in the urine (hematuria). ??? Pain in the side of the abdomen, right below the ribs (flank pain). Pain usually spreads (radiates) to the groin. ??? Needing to urinate frequently or urgently. How is this diagnosed? This condition may be diagnosed based on: ??? Your medical history. ??? A physical exam. ??? Blood tests. ??? Urine tests. ??? CT scan. ??? Abdominal X-ray. ??? A procedure to examine the inside of the bladder (cystoscopy). How is this treated? Treatment for kidney stones depends on the size, location, and makeup of the stones. Treatment may involve: ??? Analyzing your urine before and after you pass the stone through urination. ??? Being monitored at the hospital until you pass the stone through urination. ??? Increasing your fluid intake and decreasing the amount of calcium and protein in your diet. ??? A procedure to break up kidney stones in the bladder using: ? A focused beam of light (laser therapy). ? Shock waves (extracorporeal shock wave lithotripsy). ??? Surgery to remove kidney stones. This may be needed if you have severe pain or have stones that block your urinary tract. Follow these instructions at home: Eating and drinking ??? Drink enough fluid to keep your urine clear or pale yellow. This will help you to pass the kidney stone. ??? If directed, change your diet. This may include: ? Limiting how much sodium you eat. ? Eating more fruits and vegetables. ? Limiting how much meat, poultry, fish, and eggs you eat. ??? Follow instructions from your health care provider about eating or drinking restrictions. General instructions ??? Collect urine samples as told by your health care provider. You may need to collect a urine sample: ? 24 hours after you pass the stone. ? 8??12 weeks after passing the kidney stone, and every 6?12 months after that. ??? Strain your urine every time you urinate, for as long as directed. Use the strainer that your health care provider recommends. ??? Do notthrow out the kidney stone after passing it. Keep the stone so it can be tested by your health care provider. Testing the makeup of your kidney stone may help prevent you from getting kidney stones in the future. ??? Take ukxl-pdr-ctqimam and prescription medicines only as told by your health care provider. ??? Keep all follow-up visits as told by your health care provider. This is important. You may need follow-up X-rays or ultrasounds to make sure that your stone has passed. How is this prevented? To prevent another kidney stone: ??? Drink enough fluid to keep your urine clear or pale yellow. This is the best way to prevent kidney stones. ??? Eat a healthy diet and follow recommendations from your health care provider about foods to avoid. You may be instructed to eat a low-protein diet. Recommendations vary depending on the type of kidney stone that you have. ??? Maintain a healthy weight. Contact a health care provider if: ??? You have pain that gets worse or does not get better with medicine. Get help right away if: ??? You have a fever or chills. ??? You develop severe pain. ??? You develop new abdominal pain. ??? You faint. ??? You are unable to urinate. This information is not intended to replace advice given to you by your health care provider. Make sure you discuss any questions you have with your health care provider. Document Released: 08/12/2006 Document Revised: 03/01/2017 Document Reviewed: 01/25/2017 [employer] Interactive Patient Education ? 2017 [employer] Dietary Guidelines to Help Prevent Kidney Stones Your risk of kidney stones can be decreased by adjusting the foods you eat. The most important thing you can do is drink enough fluid. You should drink enough fluid to keep your urine clear or pale yellow. The following guidelines provide specific information for the type of kidney stone you have had. Guidelines according to type of kidney stone Calcium Oxalate Kidney Stones??? Reduce the amount of salt you eat. Foods that have a lot of salt cause your body to release excess calcium into your urine. The excess calcium can combine with a substance called oxalate to form kidney stones. ??? Reduce the amount of animal protein you eat if the amount you eat is excessive. Animal protein causes your body to release excess calcium into your urine. Ask your dietitian how much protein from animal sources you should be eating. ??? Avoid foods that are high in oxalates. If you take vitamins, they should have less than 500 mg of vitamin C. Your body turns vitamin C into oxalates. You do not need to avoid fruits and vegetables high in vitamin C. Calcium Phosphate Kidney Stones??? Reduce the amount of salt you eat to help prevent the release of excess calcium into your urine. ??? Reduce the amount of animal protein you eat if the amount you eat is excessive. Animal protein causes your body to release excess calcium into your urine. Ask your dietitian how much protein from animal sources you should be eating. ??? Get enough calcium from food or take a calcium supplement (ask your dietitian for recommendations). Food sources of calcium that do not increase your risk of kidney stones include: ? Broccoli. ? Dairy products, such as cheese and yogurt. ? Pudding. Uric Acid Kidney Stones??? Do nothave more than 6 oz of animal protein per day. Food sources Animal Protein Sources??? Meat (all types). ??? Poultry. ??? Eggs. ??? Fish, seafood. Foods High in Salt??? Salt seasonings. ??? Soy sauce. ??? Teriyaki sauce. ??? Cured and processed meats. ??? Salted crackers and snack foods. ??? Fast food. ??? Canned soups and most canned foods. Foods High in Oxalates??? Grains: ? Amaranth. ? Barley. ? Grits. ? Wheat germ. ? Bran. ? Buckwheat flour. ? All bran cereals. ? Pretzels. ? Whole wheat bread. ??? Vegetables: ? Beans (wax). ? Beets and beet greens. ? Svetlana greens. ? Eggplant. ? Escarole. ? Leeks. ? Okra. ? Parsley. ? Rutabagas. ? Spinach. ? [place]raltarian chard. ? Tomato paste. ? Fried potatoes. ? Sweet potatoes. ??? Fruits: ? Red currants. ? Figs. ? Kiwi. ? Rhubarb. ??? Meat and Other Protein Sources: ? Beans (dried). ? Soy burgers and other soybean products. ? Miso. ? Nuts (peanuts, almonds, pecans, cashews, hazelnuts). ? Nut butters. ? Sesame seeds and tahini (paste made of sesame seeds). ? Poppy seeds. ??? Beverages: ? Chocolate drink mixes. ? Soy milk. ? Instant iced tea. ? Juices made from high-oxalate fruits or vegetables. ??? Other: ? Carob. ? Chocolate. ? Fruitcake. ? Marmalades. This information is not intended to replace advice given to you by your health care provider. Make sure you discuss any questions you have with your health care provider. Document Released: 12/07/2011 Document Revised: 01/17/2017 Document Reviewed: 07/09/2014 [employer] Interactive Patient Education ? 2017 Department of Health and Human Services. Medication Leaflets: cefuroxime (SEF ue AMANDA eem) Ceftin What is the most important information I should know about cefuroxime? You should not use this medicine if you are allergic to cefuroxime or to similar antibiotics, such as cefdinir (Omnicef), cefprozil (Cefzil), cephalexin (Keflex), and others. What is cefuroxime? Cefuroxime is a cephalosporin (SEF a low spor in) antibiotic. It works by fighting bacteria in your body. Cefuroxime is used to treat many kinds of bacterial infections, including severe or life-threatening forms. Cefuroxime may also be used for purposes not listed in this medication guide. What should I discuss with my healthcare provider before taking cefuroxime? Do not take this medicine if you are allergic to cefuroxime, or to other cephalosporin antibiotics, such as: ? cefaclor (Raniclor); ?? cefadroxil (Duricef); ?? cefazolin (Ancef); ?? cefdinir (Omnicef); ?? cefditoren (Spectracef); ?? cefpodoxime (Vantin); ?? cefprozil (Cefzil); ?? ceftibuten (Cedax); ?? cephalexin (Keflex); or ?? cephradine (Velosef). To make sure cefuroxime is safe for you, tell your doctor if you have: ? an allergy to penicillin; ?? kidney disease; ?? liver disease; ?? a history of intestinal problems, such as colitis; ?? diabetes; or ?? if you are malnourished. The liquid form may contain phenylalanine. Talk to your doctor before using this form of cefuroxime if you have phenylketonuria (PKU). This medicine is not expected to harm an unborn baby. Tell your doctor if you are or plan to become . Cefuroxime can make control pills less effective. Ask your doctor about using a non hormonal control (condom, diaphragm with spermicide) to prevent . Cefuroxime can pass into breast milk and may harm a nursing baby. Tell your doctor if you are breast-feeding a baby. Cefuroxime is not approved for use by anyone younger than 3 months old. How should I take cefuroxime? Follow all directions on your prescription label. Do not take this medicine in larger or smaller amounts or for longer than recommended. You may take cefuroxime tablets with or without meals. Do not crush the tablet or it could have an unpleasant bitter taste. Cefuroxime oral suspension (liquid) must be taken with food. Shake the liquid well just before you measure a dose. Measure liquid medicine with the dosing syringe provided, or with a special dose-measuring spoon or medicine cup. If you do not have a dose-measuring device, ask your pharmacist for one. If you switch from using the tablet form to using the liquid form of cefuroxime, you may not need to use the same exact dosage in number of milligrams. This medicine may not be as effective unless you use the exact form and strength your doctor has prescribed. Use this medicine for the full prescribed length of time. Your symptoms may improve before the infection is completely cleared. Skipping doses may also increase your risk of further infection that is resistant to antibiotics. Cefuroxime will not treat a viral infection such as the flu or a common cold. This medicine can cause unusual results with certain lab tests for glucose (sugar) in the urine. Tell any doctor who treats you that you are using cefuroxime. Store cefuroxime tablets at room temperature away from moisture and heat. Keep the bottle tightly closed when not in use. Store cefuroxime liquid in the refrigerator. Do not allow it to freeze. Throw away any unused cefuroxime liquid that is older than 10 days. What happens if I miss a dose? Take the missed dose as soon as you remember. Skip the missed dose if it is almost time for your next scheduled dose. Do not take extra medicine to make up the missed dose. What happens if I overdose? Seek emergency medical attention or call the Poison Help line at . Overdose symptoms may include seizure (black-out or convulsions). What should I avoid while taking cefuroxime? Antibiotic medicines can cause diarrhea, which may be a sign of a new infection. If you have diarrhea that is watery or bloody, call your doctor. Do not use anti-diarrhea medicine unless your doctor tells you to. What are the possible side effects of cefuroxime? Get emergency medical help if you have signs of an allergic reaction: hives; difficulty breathing; swelling of your face, lips, tongue, or throat. Call your doctor at once if you have: ? severe stomach pain, diarrhea that is watery or bloody; ?? jaundice (yellowing of the skin or eyes); ?? skin rash, bruising, severe tingling, or numbness; ?? seizure (black-out or convulsions); ?? kidney problems--little or no urination, painful or difficult urination, swelling in your feet or ankles, feeling tired or short of breath; or ?? severe skin reaction--fever, sore throat, swelling in your face or tongue, burning in your eyes, skin pain followed by a red or purple skin rash that spreads (especially in the face or upper body) and causes blistering and peeling. Common side effects may include: ? diarrhea; ?? nausea, vomiting; ?? unusual or unpleasant taste in your mouth; or ?? diaper rash in an taking liquid cefuroxime. This is not a complete list of side effects and others may occur. Call your doctor for medical advice about side effects. You may report side effects to FDA at 5-853-UZK-4437. What other drugs will affect cefuroxime? Tell your doctor about all your current medicines and any you start or stop using, especially: ? probenecid (Benemid); ?? a blood thinner such as warfarin (Coumadin, Jantoven); or ?? a diuretic or 'water pill.' This list is not complete. Other drugs may interact with cefuroxime, including prescription and [id number] medicines, vitamins, and herbal products. Not all possible interactions are listed in this medication guide. Where can I get more information? Your pharmacist can provide more information about cefuroxime. Remember, keep this and all other medicines out of the reach of children, never share your medicines with others, and use this medication only for the indication prescribed. Every effort has been made to ensure that the information provided by [employer]') is accurate, up-to-date, and complete, but no guarantee is made to that effect. Drug information contained herein may be time sensitive. [employer] information has been compiled for use by healthcare practitioners and consumers in the [place] and therefore [employer] does not warrant that uses outside of the [place] are appropriate, unless specifically indicated otherwise. [employer]'s drug information does not endorse drugs, diagnose patients or recommend therapy. [facility] drug information is an informational resource designed to assist licensed healthcare practitioners in caring for their patients and/or to serve consumers viewing this service as a supplement to, and not a substitute for, the expertise, skill, knowledge and judgment of healthcare practitioners. The absence of a warning for a given drug or drug combination in no way should be construed to indicate that the drug or drug combination is safe, effective or appropriate for any given patient. [employer] does not assume any responsibility for any aspect of healthcare administered with the aid of information [employer] provides. The information contained herein is not intended to cover all possible uses, directions, precautions, warnings, drug interactions, allergic reactions, or adverse effects. If you have questions about the drugs you are taking, check with your doctor, nurse or pharmacist. Copyright 4115-3545 [employer]. Version: 7.01. Revision Date: 01/20/2016. acetaminophen and oxycodone (a SEET a MIN oh fen and OX i KOE done) Endocet 10/325, Endocet 2.5/325, Endocet 5/325, Endocet 7.5/325, Nalocet, Percocet 10/325, Percocet 2.5/325, Percocet 5/325, Percocet 7.5/325, Primalev, Primlev, Roxicet, Xartemis XR What is the most important information I should know about acetaminophen and oxycodone? MISUSE OF OPIOID MEDICINE CAN CAUSE ADDICTION, OVERDOSE, OR . Keep the medication in a place where others cannot get to it. An overdose of acetaminophen can damage your liver or cause . Call your doctor at once if you have pain in your upper stomach, loss of appetite, dark urine, or jaundice (yellowing of your skin or eyes). Taking opioid medicine during may cause life-threatening withdrawal symptoms in the . Fatal side effects can occur if you use opioid medicine with alcohol, or with other drugs that cause drowsiness or slow your breathing. Stop taking this medicine and call your doctor right away if you have skin redness or a rash that spreads and causes blistering and peeling. What is acetaminophen and oxycodone? Oxycodone is an opioid pain medication, sometimes called a narcotic. Acetaminophen is a less potent pain reliever that increases the effects of oxycodone. Acetaminophen and oxycodone is a combination medicine used to relieve moderate to severe pain. Acetaminophen and oxycodone may also be used for purposes not listed in this medication guide. What should I discuss with my healthcare provider before taking acetaminophen and oxycodone? You should not use this medicine if you are allergic to acetaminophen or oxycodone, or if you have: ? severe asthma or breathing problems; or ?? a blockage in your stomach or intestines. Tell your doctor if you have ever had: ? liver disease; ?? a drug or alcohol addiction; ?? kidney disease; ?? a head injury or seizures; ?? urination problems; or ?? problems with your thyroid, pancreas, or gallbladder. If you use opioid medicine while you are , your baby could become dependent on the drug. This can cause life-threatening withdrawal symptoms in the baby after it is born. Babies born dependent on opioids may need medical treatment for several weeks. Do not breast-feed. This medicine can pass into breast milk and cause drowsiness, breathing problems, or in a nursing baby. How should I take acetaminophen and oxycodone? Follow all directions on your prescription label. Never take this medicine in larger amounts, or for longer than prescribed. An overdose can damage your liver or cause . Tell your doctor if the medicine seems to stop working as well in relieving your pain. Never share this medicine with another person, especially someone with a history of drug abuse or addiction. MISUSE CAN CAUSE ADDICTION, OVERDOSE, OR . Keep the medicine in a place where others cannot get to it. Selling or giving away acetaminophen and oxycodone is against the law. Measure liquid medicine carefully. Use the dosing syringe provided, or use a medicine dose-measuring device (not a kitchen spoon). If you need surgery or medical tests, tell the doctor ahead of time that you are using this medicine. You should not stop using this medicine suddenly. Follow your doctor's instructions about tapering your dose. Store at room temperature away from moisture and heat. Keep track of your medicine. You should be aware if anyone is using it improperly or without a prescription. Do not keep leftover opioid medication. Just one dose can cause in someone using this medicine accidentally or improperly. Ask your pharmacist where to locate a drug take-back disposal program. If there is no take-back program, flush the unused medicine down the toilet. What happens if I miss a dose? Since this medicine is used for pain, you are not likely to miss a dose. Skip any missed dose if it is almost time for your next dose. Do not use two doses at one time. What happens if I overdose? Seek emergency medical attention or call the Poison Help line at . An overdose of acetaminophen and oxycodone can be fatal. The first signs of an acetaminophen overdose include loss of appetite, nausea, vomiting, stomach pain, sweating, and confusion or weakness. Later symptoms may include pain in your upper stomach, dark urine, and yellowing of your skin or the whites of your eyes. Overdose can also cause severe muscle weakness, pinpoint pupils, very slow breathing, extreme drowsiness, or coma. What should I avoid while taking acetaminophen and oxycodone? Avoid driving or operating machinery until you know how this medicine will affect you. Dizziness or drowsiness can cause falls, accidents, or severe injuries. Do not drink alcohol. Dangerous side effects or could occur. Ask a doctor or pharmacist before using any other medicine that may contain acetaminophen (sometimes abbreviated as APAP). Taking certain medications together can lead to a fatal overdose. What are the possible side effects of acetaminophen and oxycodone? Get emergency medical help if you have signs of an allergic reaction: hives; difficulty breathing; swelling of your face, lips, tongue, or throat. Opioid medicine can slow or stop your breathing, and may occur. A person caring for you should seek emergency medical attention if you have slow breathing with long pauses, blue colored lips, or if you are hard to wake up. In rare cases, acetaminophen may cause a severe skin reaction that can be fatal. This could occur even if you have taken acetaminophen in the past and had no reaction. Stop taking this medicine and call your doctor right away if you have skin redness or a rash that spreads and causes blistering and peeling. Call your doctor at once if you have: ? noisy breathing, sighing, shallow breathing; ?? a light-headed feeling, like you might pass out; ?? weakness, tiredness, fever, unusual bruising or bleeding; ?? confusion, unusual thoughts or behavior; ?? problems with urination; ?? liver problems--nausea, upper stomach pain, tiredness, loss of appetite, dark urine, brandon-colored stools, jaundice (yellowing of the skin or eyes); or ?? low cortisol levels-- nausea, vomiting, loss of appetite, dizziness, worsening tiredness or weakness. Seek medical attention right away if you have symptoms of serotonin syndrome, such as: agitation, hallucinations, fever, sweating, shivering, fast heart rate, muscle stiffness, twitching, loss of coordination, nausea, vomiting, or diarrhea. Serious side effects may be more likely in older adults and those who are overweight, malnourished, or debilitated. Long-term use of opioid medication may affect fertility (ability to have children) in men or women. It is not known whether opioid effects on fertility are permanent. Common side effects include: ? dizziness, drowsiness, feeling tired; ?? feelings of extreme happiness or sadness; ?? nausea, vomiting, stomach pain; ?? constipation; or ?? headache. This is not a complete list of side effects and others may occur. Call your doctor for medical advice about side effects. You may report side effects to FDA at 9-856-CIT-7198. What other drugs will affect acetaminophen and oxycodone? You may have breathing problems or withdrawal symptoms if you start or stop taking certain other medicines. Tell your doctor if you also use an antibiotic, antifungal medication, heart or blood pressure medication, seizure medication, or medicine to treat HIV or hepatitis C. Opioid medication can interact with many other drugs and cause dangerous side effects or . Be sure your doctor knows if you also use: ? cold or allergy medicines, bronchodilator asthma/COPD medication, or a diuretic ('water pill'); ?? medicines for motion sickness, irritable bowel syndrome, or overactive bladder; ?? other narcotic medications--opioid pain medicine or prescription cough medicine; ?? a sedative like Valium--diazepam, alprazolam, lorazepam, Xanax, Klonopin, Versed, and others; ?? drugs that make you sleepy or slow your breathing--a sleeping pill, muscle relaxer, medicine to treat mood disorders or mental illness; ?? drugs that affect serotonin levels in your body--a stimulant, or medicine for depression, Parkinson's disease, migraine headaches, serious infections, or nausea and vomiting. This list is not complete. Other drugs may affect acetaminophen and oxycodone, including prescription and atcd-dat-uebtscu medicines, vitamins, and herbal products. Not all possible interactions are listed here. Where can I get more information? Your doctor or pharmacist can provide more information about acetaminophen and oxycodone. Remember, keep this and all other medicines out of the reach of children, never share your medicines with others, and use this medication only for the indication prescribed. Every effort has been made to ensure that the information provided by [employer] is accurate, up-to-date, and complete, but no guarantee is made to that effect. Drug information contained herein may be time sensitive. [employer] information has been compiled for use by healthcare practitioners and consumers in the [place] and therefore [employer] does not warrant that uses outside of the [place] are appropriate, unless specifically indicated otherwise. [facility] drug information does not endorse drugs, diagnose patients or recommend therapy. [employer] drug information is an informational resource designed to assist licensed healthcare practitioners in caring for their patients and/or to serve consumers viewing this service as a supplement to, and not a substitute for, the expertise, skill, knowledge and judgment of healthcare practitioners. The absence of a warning for a given drug or drug combination in no way should be construed to indicate that the drug or drug combination is safe, effective or appropriate for any given patient. [employer] does not assume any responsibility for any aspect of healthcare administered with the aid of information [employer] provides. The information contained herein is not intended to cover all possible uses, directions, precautions, warnings, drug interactions, allergic reactions, or adverse effects. If you have questions about the drugs you are taking, check with your doctor, nurse or pharmacist. Copyright 7880-8055 [employer]. Version: 18.. Revision Date: 07/23/2018. phenazopyridine (fen AY abigail PIR i gris) [employer]O Urinary Pain Relief, Azo-Gesic, Azo-Standard, Baridium, Prodium, Pyridium, Re-Azo, Uricalm What is the most important information I should know about phenazopyridine? You should not use phenazopyridine if you have kidney disease. What is phenazopyridine? Phenazopyridine is a pain reliever that affects the lower part of your urinary tract (bladder and urethra). Phenazopyridine is used to treat urinary symptoms such as pain or burning, increased urination, and increased urge to urinate. These symptoms can be caused by infection, injury, surgery, catheter, or other conditions that irritate the bladder. Phenazopyridine will treat urinary symptoms, but this medication will not treat a urinary tract infection.. Take any antibiotic that your doctor prescribes to treat an infection. Phenazopyridine may also be used for purposes not listed in this medication guide. What should I discuss with my health care provider before taking phenazopyridine? You should not use phenazopyridine if you are allergic to it, or if you have kidney disease. To make sure phenazopyridine is safe for you, tell your doctor if you have: ? liver disease; ?? diabetes; or ?? a genetic enzyme deficiency called triaqav-[id number] dehydrogenase (G6PD) deficiency. FDA category B. Phenazopyridine is not expected to harm an unborn baby. Do not use this medicine without a doctor's advice if you are . It is not known whether phenazopyridine passes into breast milk or if it could harm a nursing baby. Do not use this medicine without a doctor's advice if you are breast-feeding a baby. How should I take phenazopyridine? Use exactly as directed on the label, or as prescribed by your doctor. Do not use in larger or smaller amounts or for longer than recommended. Take phenazopyridine after meals. Drink plenty of liquids while you are taking phenazopyridine. Phenazopyridine will most likely darken the color of your urine to an orange or red color. This is a normal effect and is not harmful. Darkened urine may also cause stains to your underwear that may be permanent. Phenazopyridine can also permanently stain soft contact lenses, and you should not wear them while taking this medicine. Do not use phenazopyridine for longer than 2 days unless your doctor has told you to. This medication can cause unusual results with urine tests. Tell any doctor who treats you that you are using phenazopyridine. Store at room temperature away from moisture and heat. What happens if I miss a dose? Take the missed dose as soon as you remember. Skip the missed dose if it is almost time for your next scheduled dose. Do not take extra medicine to make up the missed dose. What happens if I overdose? Seek emergency medical attention or call the Poison Help line at . What should I avoid while taking phenazopyridine? Do not use this medication while wearing soft contact lenses. Phenazopyridine can permanently discolor soft contact lenses. What are the possible side effects of phenazopyridine? Get emergency medical help if you have any of these signs of an allergic reaction: hives; difficult breathing; swelling of your face, lips, tongue, or throat. Stop using phenazopyridine and call your doctor at once if you have: ? little or no urinating; ?? swelling, rapid weight gain; ?? confusion, loss of appetite, pain in your side or lower back; ?? fever, pale or yellowed skin, stomach pain, nausea and vomiting; or ?? blue or purple appearance of your skin. Common side effects may include: ? headache; ?? dizziness; or ?? upset stomach. This is not a complete list of side effects and others may occur. Call your doctor for medical advice about side effects. You may report side effects to FDA at 9-720-BOT-7380. What other drugs will affect phenazopyridine? Other drugs may interact with phenazopyridine, including prescription and czoh-fwo-jkwcwby medicines, vitamins, and herbal products. Tell each of your health care providers about all medicines you use now and any medicine you start or stop using. Where can I get more information? Your pharmacist can provide more information about phenazopyridine. Remember, keep this and all other medicines out of the reach of children, never share your medicines with others, and use this medication only for the indication prescribed. Every effort has been made to ensure that the information provided by [employer]. ('[employer]') is accurate, up-to-date, and complete, but no guarantee is made to that effect. Drug information contained herein may be time sensitive. [employer] information has been compiled for use by healthcare practitioners and consumers in the [place] and therefore [employer] does not warrant that uses outside of the [place] are appropriate, unless specifically indicated otherwise. [employer] drug information does not endorse drugs, diagnose patients or recommend therapy. [employer] drug information is an informational resource designed to assist licensed healthcare practitioners in caring for their patients and/or to serve consumers viewing this service as a supplement to, and not a substitute for, the expertise, skill, knowledge and judgment of healthcare practitioners. The absence of a warning for a given drug or drug combination in no way should be construed to indicate that the drug or drug combination is safe, effective or appropriate for any given patient. [employer] does not assume any responsibility for any aspect of healthcare administered with the aid of information [employer] provides. The information contained herein is not intended to cover all possible uses, directions, precautions, warnings, drug interactions, allergic reactions, or adverse effects. If you have questions about the drugs you are taking, check with your doctor, nurse or pharmacist. Copyright 1468-5814 [employer]. Version: 3.05. Revision Date: 12/17/2013. promethazine (oral) (pro METH a zeen) Phenergan What is the most important information I should know about promethazine? Promethazine should not be given to a child younger than 2 years old. Promethazine can cause severe breathing problems or in very young children. What is promethazine? Promethazine is in a group of drugs called phenothiazines (IRTT-wc-ZSRG-a-zeens). It works by changing the actions of chemicals in your brain. Promethazine also acts as an antihistamine. It blocks the effects of the naturally occurring chemical histamine in your body. Promethazine is used to treat allergy symptoms such as itching, runny nose, sneezing, itchy or watery eyes, hives, and itchy skin rashes. Promethazine also prevents motion sickness, and treats nausea and vomiting or pain after surgery. It is also used as a sedative or sleep aid. Promethazine is not for use in treating symptoms of asthma, pneumonia, or other lower respiratory tract infections. Promethazine may also be used for purposes not listed in this medication guide. What should I discuss with my healthcare provider before taking promethazine? Promethazine should not be given to a child younger than 2 years old. Promethazine can cause severe breathing problems or in very young children. Carefully follow your doctor's instructions when giving this medicine to a child of any age. You should not take this medicine if you are allergic to promethazine or to similar medicines such as chlorpromazine, fluphenazine, mesoridazine, perphenazine, prochlorperazine, thioridazine, or trifluperazine. To make sure promethazine is safe for you, tell your doctor if you have: ? asthma, chronic obstructive pulmonary disease (COPD), sleep apnea, or other breathing disorder; ?? a sulfite allergy; ?? a history of seizures; ?? a weak immune system (bone marrow depression); ?? glaucoma; ?? enlarged prostate or problems with urination; ?? stomach ulcer or obstruction; ?? heart disease or high blood pressure; ?? liver disease; ?? adrenal gland tumor (pheochromocytoma); ?? low levels of calcium in your blood (hypocalcemia); or ?? if you have ever had a serious side effect while using promethazine or any other phenothiazine. It is not known whether promethazine will harm an unborn baby. Tell your doctor if you are or plan to become while using this medicine. It is not known whether promethazine passes into breast milk or if it could harm a nursing baby. You should not breast-feed while using this medicine. How should I take promethazine? Follow all directions on your prescription label. Your doctor may occasionally change your dose to make sure you get the best results. Do not take this medicine in larger or smaller amounts or for longer than recommended. Promethazine is often taken at bedtime or before meals. For motion sickness, promethazine is usually started within 1 hour before traveling. When used for surgery, promethazine is usually taken the night before the surgery. How often you take this medicine and the timing of your dose will depend on the condition being treated. Measure liquid medicine with the dosing syringe provided, or with a special dose-measuring spoon or medicine cup. If you do not have a dose-measuring device, ask your pharmacist for one. If a child is using this medicine, tell your doctor if the child has any changes in weight. Promethazine doses are based on weight in children, and any changes may affect your child's dose. Call your doctor if your symptoms do not improve, or if they get worse while using promethazine. This medicine can cause unusual results with certain medical tests. Tell any doctor who treats you that you are using promethazine. Store at room temperature away from moisture, heat, and light. What happens if I miss a dose? Take the missed dose as soon as you remember. Skip the missed dose if it is almost time for your next scheduled dose. Do not take extra medicine to make up the missed dose. What happens if I overdose? Seek emergency medical attention or call the Poison Help line at . Overdose symptoms may include overactive reflexes, loss of coordination, severe drowsiness or weakness, fainting, dilated pupils, weak or shallow breathing, or seizure (convulsions). What should I avoid while taking promethazine? This medicine may impair your thinking or reactions. Be careful if you drive or do anything that requires you to be alert. Avoid getting up too fast from a sitting or lying position, or you may feel dizzy. Get up slowly and steady yourself to prevent a fall. Drinking alcohol can increase certain side effects of promethazine. Avoid exposure to sunlight or tanning beds. Promethazine can make you sunburn more easily. Wear protective clothing and use sunscreen (SPF 30 or higher) when you are outdoors. What are the possible side effects of promethazine? Get emergency medical help if you have signs of an allergic reaction: hives; difficult breathing; swelling of your face, lips, tongue, or throat. Stop using promethazine and call your doctor at once if you have: ? severe drowsiness, weak or shallow breathing; ?? a light-headed feeling, like you might pass out; ?? confusion, agitation, hallucinations, nightmares; ?? seizure (convulsions); ?? fast or slow heartbeats; ?? jaundice (yellowing of the skin or eyes); ?? uncontrolled muscle movements in your face (chewing, lip smacking, frowning, tongue movement, blinking or eye movement); ?? easy bruising or bleeding (nosebleeds, bleeding gums); ?? sudden weakness or ill feeling, fever, chills, sore throat, mouth sores, red or swollen gums, trouble swallowing; or ?? severe nervous system reaction--very stiff (rigid) muscles, high fever, sweating, confusion, fast or uneven heartbeats, tremors, feeling like you might pass out. Side effects such as confusion and severe drowsiness may be more likely in older adults. Common side effects may include: ? drowsiness, dizziness; ?? ringing in your ears; ?? double vision; ?? feeling nervous; ?? dry mouth; or ?? tired feeling, sleep problems (insomnia). This is not a complete list of side effects and others may occur. Call your doctor for medical advice about side effects. You may report side effects to FDA at 3-777-EXJ-5128. What other drugs will affect promethazine? Using this medicine with other drugs that make you sleepy or slow your breathing can cause dangerous or life-threatening side effects. Ask your doctor before taking promethazine with a sleeping pill, narcotic pain medicine, muscle relaxer, or medicine for anxiety, depression, or seizures. Other drugs may interact with promethazine, including prescription and aeky-wff-hfnmmdv medicines, vitamins, and herbal products. Tell each of your health care providers about all medicines you use now and any medicine you start or stop using. Where can I get more information? Your pharmacist can provide more information about promethazine. Remember, keep this and all other medicines out of the reach of children, never share your medicines with others, and use this medication only for the indication prescribed. Every effort has been made to ensure that the information provided by [employer] ('[employer]') is accurate, up-to-date, and complete, but no guarantee is made to that effect. Drug information contained herein may be time sensitive. [employer] information has been compiled for use by healthcare practitioners and consumers in the [place] and therefore [employer] does not warrant that uses outside of the [place] are appropriate, unless specifically indicated otherwise. [employer] drug information does not endorse drugs, diagnose patients or recommend therapy. [employer] drug information is an informational resource designed to assist licensed healthcare practitioners in caring for their patients and/or to serve consumers viewing this service as a supplement to, and not a substitute for, the expertise, skill, knowledge and judgment of healthcare practitioners. The absence of a warning for a given drug or drug combination in no way should be construed to indicate that the drug or drug combination is safe, effective or appropriate for any given patient. [employer] does not assume any responsibility for any aspect of healthcare administered with the aid of information [employer] provides. The information contained herein is not intended to cover all possible uses, directions, precautions, warnings, drug interactions, allergic reactions, or adverse effects. If you have questions about the drugs you are taking, check with your doctor, nurse or pharmacist. Copyright 4004-8243 [employer]. Version: 6.02. Revision Date: 06/09/2015. CIGARETTE SMOKING: The facts are clear, cigarette smoking will shorten your life. Smoking can cause many illnesses along the way. As a healthcare provider, we recommend that you stop smoking. Assistance with quitting is available by contacting 3-588-VVID-NOW. This is a free resource providing counseling, support, and referral. Or you may contact your personal physician. 4 WAYS TO GET AHEAD OF SEPSIS SEPSIS is a MEDICAL EMERGENCY. Time matters! Infections put you and your family at risk for a life-threatening condition called sepsis. Sepsis is the body???s extreme response to an infection. It is life-threatening, and without timely treatment, sepsis can rapidly lead to tissue damage, organ failure, and . Sepsis happens when an infection you already have???in your skin, lungs, urinary tract or somewhere else???triggers a chain reaction throughout your body. 1 PREVENT INFECTIONS Take good care of chronic conditions. Talk to your doctor about getting the recommended vaccines. 2 PRACTICE GOOD HYGIENE Wash your hands frequently. Keep cuts or open sores clean and covered until they are healed. 3 KNOW THE SYMPTOMS Confusion or disorientation Shortness of breath High heart rate Fever, shivering, or feeling very cold Extreme pain or discomfort Clammy or sweaty skin 4 ACT FAST Get medical care IMMEDIATELY if you suspect sepsis or if you have an infection that???s not getting better or is getting worse. To learn more about sepsis and how to prevent infections, visit www.cdc.gov/sepsis. STROKE is an EMERGENCY [employer] ACT F.A.S.T! FACE ?? Facial droop ?? Uneven smile ARM ?? Arm numbness ?? Arm weakness SPEECH ?? Slurred speech ?? Difficulty speaking or understanding TIME ?? Call 911 and get to the hospital immediately Have the ambulance go to the nearest stroke center. STROKE Risk Factors High blood pressure High cholesterol Heart Disease Diabetes Smoking Heavy alcohol use Physical inactivity and obesity Atrial Fibrillation (irregular heartbeat) Family history of stroke Reminder: Be sure to sign up for the [facility] [place] patient portal, which gives you 18/03 access to your medical information ??? including these discharge instructions ??? using your computer, smartphone, or tablet. Just go to [employer] to get started. Questions? Call . [facility] would like to thank you for allowing us to assist you with your healthcare needs. PAULETTE Payne JUDY, (or customer success representative) have received the above patient education materials/instructions and have verbalized understanding: Patient Signature _ Date/Time Patient Clinical Administrator Signature (if needed) Date/Time Clinician/Hospital Clinical Administrator Signature (if needed) Date/Time documented in this encounter Plan of Treatment Not on file documented as of this encounter Visit Diagnoses Not on filedocumented in this encounter
--- OUTSIDE RECORDS SUMMARY | 2025-02-10 07:32 | XMS_ITS | Encounter Summary ---
Author Organization [employer] Address [address] [place] [address] Care Team Providers Care Geological Technical Officer Name Role Phone Unavailable Primary Care Provider Unavailabl e Encounter Details Date Type Department Care Team (Late st Contact Info) Description 11/30/2018 Transcribed Document [facility] [place] Family Medicine [address] [place] [address] ProviderHilario MD [address], [place] [id number] Social History Tobacco Use Types Packs/Day Years [...] Hilario ProviderMD - 11/30/2018 3:04 PM CDT Patient Education Materials Follows: Lithotripsy, Care After Refer to this sheet [...] feel your energy improving. ??? Only take froi-sts-hmxobor or prescription medicines for pain, discomfort, or [...] 08/31/2008 Document Revised: 05/02/2016 Document Reviewed: 02/25/2014 [employer] Interactive Patient Education ? 2017 [employer]. Urology Ureteroscopy Ureteroscopy is a procedure to check [...] including vitamins, herbs, eye drops, creams, and llju-rxx-xkjypnw medicines. ??? Any problems you or family [...] 08/17/2014 Document Revised: 05/28/2017 Document Reviewed: 05/24/2017 [employer] Interactive Patient Education ? 2017 [employer] Ureteral Stent Implantation Introduction Ureteral stent [...] including vitamins, herbs, eye drops, creams, and aisz-hvb-vfllodz medicines. ??? Any problems you or family [...] kidney stones in the future. ??? Take kmli-arf-giqqnfa and prescription medicines only as told by [...] 08/12/2006 Document Revised: 03/01/2017 Document Reviewed: 01/25/2017 [employer] Interactive Patient Education ? 2017 [employer] Dietary Guidelines to Help Prevent Kidney [...] ? Parsley. ? Rutabagas. ? Spinach. ? Lithuanian chard. ? Tomato paste. ? Fried potatoes. [...] 12/07/2011 Document Revised: 01/17/2017 Document Reviewed: 07/09/2014 [employer] Interactive Patient Education ? 2017 [employer] documented in this encounter Plan of Treatment Not on file documented as of this encounter Visit Diagnoses Not on filedocumented in this encounter
--- OUTSIDE RECORDS SUMMARY | 2025-02-10 07:32 | XMS_ITS | Referral Summary ---
Author Organization [employer] Address [address] [place] [address] Care Team Providers Care Paper Products Supervisor Name Role Phone Unavailable Primary Care [...]
--- OUTSIDE RECORDS SUMMARY | 2025-02-10 07:32 | XMS_ITS | Encounter Summary ---
Author Organization [employer] Address [address] [place] [address] Care Team Providers Care Head Inspector And Center Marker Name Role Phone Unavailable Primary Care Provider Unavailabl e Encounter Details Date Type Department Care Team (Late st Contact Info) Description 11/27/2018 Transcribed Document [facility] [place] Family Medicine [address] [place] [address] ProviderHilario MD [address] [place] [address] Social History Tobacco Use Types Packs/Day Years [...] Conversion Note - Historical ProviderMD - 11/27/2018 5:49 PM CDT Pain Assessment Entered On: 11/29/2018 13:52 EDT Performed On: 11/29/2018 12:41 EDT by Miranda Portillo Rn-Traveler Intervention Information: acetaminophen Performed by Miranda Portillo Rn-Traveler on 11/29/2018 11:41:00 EDT acetaminophen,650mg Oral,Other (See Comment) Pain Assessment Pain Assessment : Follow-up assessment Pain Scale Goal : 3 Pain Improved by Intervention : Yes Miranda Portillo Rn-Traveler - 11/29/2018 13:52 EDT documented in this encounter Plan of Treatment Not on file documented as of this encounter Visit Diagnoses Not on filedocumented in this encounter
--- OUTSIDE RECORDS SUMMARY | 2025-02-10 07:32 | XMS_ITS | Encounter Summary ---
Author Organization [employer] Address [address] [place] [address] Care Team Providers Care Educational Sign Language Interpreter Name Role Phone Unavailable Primary Care Provider Unavailabl e Encounter Details Date Type Department Care Team (Late st Contact Info) Description 11/30/2018 Transcribed Document [facility] [place] [address] [place] [address] ProviderHilario MD [facility] [place] [address] Social History Tobacco Use Types Packs/Day Years [...] Conversion Note - Historical ProviderMD - 11/30/2018 12:38 AM CDT Rapid Response Team Documentation Entered On: 11/30/2018 0:39 EDT Performed On: 11/30/2018 0:38 EDT by NEEL BROWN RN Rapid Response Event Rapid Response Team Initiation Reason : Positive SIRS screen Rapid Response Team Initiation Reason Details : 357 sirs alert 1830 MDs aware/RN Rapid Response Admission Diagnosis : Calculus of kidney Calculus of kidney Calculus of ureter Calculus of ureter Rapid Response Medical Background : At risk for sleep apnea (Medical) Rapid Response Allergies : Substance Category Reactions Severity penicillin Drug Moderate Rapid Response Recent Vital Signs : 11/29/2018 23:20 Systolic Blood Pressure 121 11/29/2018 23:20 Diastolic Blood Pressure 74 11/29/2018 23:20 Heart Rate Monitored 89 11/29/2018 20:35 Heart Rate, Apical 88 11/29/2018 23:20 Respiratory Rate 18 11/29/2018 23:20 Temperature, Fahrenheit 99.3 11/29/2018 23:20 Oxygen Saturation 92 Rapid Response Recent Lab Results : 11/29/2018 06:28 Sodium Level 140 (136-146) 11/29/2018 06:28 Potassium Level 3.6 (3.5-5.1) 11/29/2018 06:28 Calcium Level LOW 7.9 (8.4-10.1) 11/27/2018 18:11 Magnesium Level 1.6 (1.5-2.4) 11/29/2018 06:28 Chloride Level 112 (102-112) 11/29/2018 06:28 Carbon Dioxide Level 22 (21-32) 11/29/2018 06:28 Blood Urea Nitrogen 7 (7-22) 11/29/2018 06:28 Creatinine Level 0.80 (0.55-1.02) 11/27/2018 18:11 PT 12.0 (9.6-12.0) 11/27/2018 18:11 INR 1.1 (0.9-1.1) 11/29/2018 06:28 Hgb 11.9 (11.2-15.7) 11/29/2018 06:28 Hct LOW 33.4 (34.1-44.9) 11/29/2018 06:28 RBC LOW 3.60 (3.93-5.22) 11/29/2018 06:28 WBC LOW 3.9 (4.5-10.5) 11/29/2018 06:28 Platelet Count LOW 81 (163-369) 11/27/2018 18:11 Lactic Acid Level 1.3 (0.4-2.0) Weight/BMI : Clinical Weight/BMI CLINICALWEIGHT: 65 kg (11/27/18 17:42:00) Body Mass Index: 25.4 kg/m2 High (11/27/18 17:42:00) Rapid Response Educational Sign Language Interpreter #1 : NEEL BROWN, RN NEEL BROWN, RN - 11/30/2018 0:38 EDT Electronically signed by [facility], [facility] Conversion Fountain Brush Assembler Cerner at 12/11/2022 10:33 AM CDT documented in this encounter Plan of Treatment Not on file documented as of this encounter Visit Diagnoses Not on filedocumented in this encounter
--- OUTSIDE RECORDS SUMMARY | 2025-02-10 07:32 | XMS_ITS | Encounter Summary ---
Author Organization [employer] Address [address] [place] [address] Care Team Providers Care Dairy Science Teacher Name Role Phone Unavailable Primary Care Provider Unavailabl e Encounter Details Date Type Department Care Team (Late st Contact Info) Description 11/30/2018 Transcribed Document [facility] [place] Family Medicine [address] [place] [address] ProviderHilario MD [address] [place] [address] Social History Tobacco Use Types Packs/Day Years [...] Conversion Note - Historical ProviderMD - 11/30/2018 3:01 PM CDT Discharge Instructions Entered On: 11/30/2018 15:01 EDT Performed On: 11/30/2018 15:01 EDT by Miranda Portillo Rn-Traveler [place] Instructions HWD Stroke/TIA Discharge Ins : N/A Heart Failure Discharge Ins : N/A Warfarin Discharge Ins : N/A Diet After Discharge : Heart healthy diet Activity After Discharge : As tolerated Miranda Portillo Rn-Traveler - 11/30/2018 15:01 EDT documented in this encounter Plan of Treatment Not on file documented as of this encounter Visit Diagnoses Not on filedocumented in this encounter
--- OUTSIDE RECORDS SUMMARY | 2025-02-10 07:32 | XMS_ITS | Encounter Summary ---
Author Organization [employer] Address [address] [place] [address] Care Team Providers Care Cooker Sulfite Name Role Phone Unavailable Primary Care Provider Unavailabl e Encounter Details Date Type Department Care Team (Late st Contact Info) Description 11/27/2018 Transcribed Document [facility] [place] Family Medicine [address] [place] [address] ProviderHilario MD [facility] [place] [address] Social History Tobacco Use Types Packs/Day Years [...] 5:49 PM CDT Pain Assessment Entered On: 11/28/2018 10:52 EDT Performed On: 11/28/2018 9:27 EDT by Le Solis RN Intervention Information: morphine Performed by Le Solis RN on 11/28/2018 08:57:00 EDT morphine,2mg IV Push,Right Antecubit [place],Pain (Severe 7-10) Pain Assessment Pain Assessment : Follow-up assessment Pain Scale Goal : 3 Pain Scale Used : 0-10 Scale Le Solis RN - 11/28/2018 10:52 EDT Pain Scale Intensity : 8 eL Solis RN - 11/28/2018 10:52 EDT Image 4 - Images currently included in the form version of this document have not been included in the text rendition version of the form. documented in this encounter Plan of Treatment Not on file documented as of this encounter Visit Diagnoses Not on filedocumented in this encounter
--- OUTSIDE RECORDS SUMMARY | 2025-02-10 07:32 | XMS_ITS | Clinical Summary ---
Author Organization Healthcare Address [address] [place] [address] Care Team Providers Care Parachute Accessories Attacher Name Role Phone Low Hammonds APRN Primary Care Provider [phone] Family History Medical History Relation Name Comments Hypertension Other Relation Name Status Comments Other Social History Tobacco Use Types Packs/Day Years Used Date Smoking Tobacco: Heavy Smoker Comments Unknown Sex and Gender Information Value Date Recorded Sex Assigned at Not on file Legal Sex Female 8:38 PM EDT Gender Identity Not on file Sexual Orientation Not on file Last Filed Vital Signs Vital Sign Reading Time Taken Comments Blood Pressure 116/69 03/24/2019 10:50 AM EDT Pulse 86 03/24/2019 10:50 AM EDT Temperature 36.9 C (98.4 F) 03/24/2019 10:50 AM EDT Respiratory Rate 16 03/24/2019 10:50 AM EDT Oxygen Saturation - - Inhaled Oxygen Concentration - - Weight 64.5 kg (142 lb 2.1 oz) 03/24/2019 10:50 AM EDT Height 160 cm (5' 3 ) 03/24/2019 10:50 AM EDT Body Mass Index 25.18 03/24/2019 10:50 AM EDT Plan of Treatment Health Maintenance Due Date Last Done Comments [facility]-Depression Screening 1965 [facility]-Infant/Child/Adol SDOH Screenings 1965 [facility]- SDOH Screenings 1982 [facility]-Adult SDOH Screenings 1982 [facility]-DTaP,Tdap,and Td Vaccine s (1 - Tdap) 1983 [facility]-Pap Smear 10/23/1996 10/23/1993 [facility]-Cervical Cancer Screening 10/23/1998 [facility]-HPV/Cotest 10/23/1998 10/23/1993 CT Colonography 2009 Colonoscopy 2009 FIT-DNA 2009 FIT 2009 FOBT 2009 Sigmoidoscopy 2009 [facility]-Colorectal Cancer Screening 2009 [facility]-Pneumococcal Vaccine: 50 + Years (1 of 1 - PCV) 2014 [facility]-Zoster Vaccines (1 of 2) 2014 [facility]UA-EGEDQ-72 Vaccine (1 - 20 24-25 season) 2024 [facility]-Influenza Vaccine (Seaso n Ended) 2025 [facility]-RSV Vaccine: 60+ Years o r (1 - 1-dose 75+ series) 2039 [facility]-Breast Cancer Screening Discontinued 03/02/2020 HPV Vaccines Aged Out No longer eligi ble based on patient's age to complete this topic [facility]-HIB Vaccines Aged Out No longer e ligible based on patient's age to complete this topic [facility]-Hepatitis A Vaccines Aged Out No longer eligible based on patient's age to complete this topic [facility]-IPV Vaccines Aged Out No longer e ligible based on patient's age to complete this topic [facility]-Rotavirus Vaccines Aged Out No lo nger eligible based on patient's age to complete this topic Procedures Procedure Name Priority Date/Time Associated Diagnosis Comments MAMMOGRAPHY BREAST DIAGNOSTIC TOMOSYNTHESIS BILATERAL Routine 03/02/2020 12:00 AM EDT CYTO DATA CONVERSION Routine 10/23/1993 12:00 AM EST from Last 3 Months or Most Recently Relevant to Health Maintenance Results * Mammography Breast Diagnostic Tomosynthesis Bilateral (03/02/2020 12:00 AM EDT) Anatomical Region Laterality Modality Breast Bilateral Mammography Impressions 03/02/2020 1:38 PM EDT Page 1 of 2 Patient Name:Aleshia Smith : 1965 Age: 54 Gender: femaleDate of Service: 03/02/2020 eferring Phy:Melquiadesyamile Merlos APRNAccount: [phone] BI-RADS Assessment Category 3: Probably benign finding. RECOMMENDATION: Finding 2: Short term follow-up ultrasound of the right breast in 6 months. COMMUNICATION: The patient was seen today by the [facility] surgery/oncology team. They discussed the findings as well as our recommendations with the patient and a printed lay language version of the imaging report was given to the patient at the time of visit. The mammogram was read with the assistance of CAD and tomosynthesis. Dictated By: Carlos Bueno M.D. Verified By: Carlos Bueno M.D. on 03/02/2020 at 01:32:52 PM Page 2 of 2 Narrative 03/02/2020 1:38 PM EDT REQUESTING PHYSICIAN: MARIA DEL ROSARIO MERLOS REASON FOR EXAMINATION/PROCEDURE: 6 mo f/u; MP EXAMINATION / PROCEDURE: CORBIN DIAGNOSTIC CADE Mar 02 2020 12:15; Diag Mamm Cade w/cad Mar 02 2020:15; US R BREAST-AXILLA IF PERF LTD Mar 02 2020 13:20; HISTORY: Patient is 54 years old and is seen for a follow-up at short-interval from prior study for evaluation of an asymmetry in the left breast and nodule in the right breast. The patient has a history of bilateral breast cyst a spiration more than 10 years ago. The patient has the following family history of breast cancer: maternal aunt and paternal aunt. COMPARISON: The present examination has been compared to prior imaging studies performed at [facility] on 07/29/2015, 08/16/2015, 11/07/2016, 11/14/2017, 03/12/2019 and 09/16/2019. FINDINGS: MAMMOGRAM The breast tissue is heterogeneously dense, which may obscure detection of small masses. Finding 1: There are no suspicious masses, calc ifications, or areas of architectural distortion in either breast. ULTRASOUND Finding 2: A focused ultrasound was performed in the right breast from 8 o'clock to 9 o'clock 1 cm to 5 cm from the nipple using a radial and anti-radial approa ch. There is a complicated cyst measuring 6 millimeters in the right breast at 9 o'clock located 4 centimeters from the nipple. Finding 3: A focused ultrasound was performed in the right breast from 10 o'clock to 12 o'clock 1 cm to 5 cm from t he nipple using a radial and anti-radial approach. The finding in question seen on outside ultrasound on 09/16/19 is not seen on today's study. IMPRESSION: BI-RADS Assessment Category 3: Probably benign finding. RECOMMENDATION: Finding 2 : Short term follow-up ultrasound of the right breast in 6 months. COMMUNICATION: The patient was seen today by the [facility] surgery/oncology team. They discussed the findings as well as our recommendations with the patient and a printed lay la nguage version of the imaging report was given to the patient at the time of visit. The mammogram was read with the assistance of CAD and tomosynthesis. Read By: CARLOS BUENO M.D. Signed By: CARLOS BUENO M.D. on 03/02/2020 at 13:37 :59 Verified by: CARLOS BUENO M.D. on Mar 02 2020 1:37P Transcribed by: PSCB on Mar 02 2020 1:37P Dictated by: CARLOS BUENO M.D. on Mar 02 2020 1:37P Patient Name:Aleshia Smith : 1965 Age: 54 Gender: femaleDate of Service: 03/02/2020 eferring Phy:Maria Del Rosario Merlos APRNAccount: [phone] Maria Del Rosario Merlos APRN [facility] [place] [address] FINAL REPORT PROCEDURE: Tomosynthesis Diagnostic Bilateral - bilateral , Diagnostic Mammogram With CAD - bilateral and Right Breast Ultrasound limited and Axilla - right HISTORY: Patient is 54 years old and is seen for a follow-up at short-interval from prior study for evaluation of an asymmetry in the left breast and nodule in the right breast. The patient has a history of bilateral breast cyst aspiration more than 10 years ago. The patient has the following family history of breast cancer: maternal aunt and paternal aunt. COMPARISON: The present examination has been compared to prior imaging studies performed at [facility] on 07/29/2015, 08/16/2015, 11/07/2016, 11/14/2017, 03/12/2019 and 09/16/2019. FINDINGS: MAMMOGRAM The breast tissue is heterogeneously dense, which may obscure detection of small masses. Finding 1: There are no suspicious masses, calcifications, or areas of architectural distortion in either breast. ULTRASOUND Finding 2: A focused ultrasound was performed in the right breast from 8 o'clock to 9 o'clock 1 cm to 5 cm from the nipple using a radial and anti-radial approach. There is a complicated cyst measuring 6 millimeters in the right breast at 9 o'clock located 4 centimeters from the nipple. Finding 3: A focused ultrasound was performed in the right breast from 10 o'clock to 12 o'clock 1 cm to 5 cm from the nipple using a radial and anti-radial approach. The finding in question seen on outside ultrasound on 09/16/19 is not seen on today's study. Procedure Note Patricia Buenoaretom Cooper - 01/01/2021 REQUESTING PHYSICIAN: MARIA DEL ROSARIO MERLOS REASON FOR EXAMINATION/PROCEDURE: 6 mo f/u; MP EXAMINATION / PROCEDURE: CORBIN DIAGNOSTIC CADE Mar 02 2020:; Diag Mamm Cade w/cad Mar 02 2020:; US R BREAST-AXILLA IF PERF LTD Mar 02 2020 - 13:20; HISTORY: Patient is 54 years old and is seen for a follow-up at short-interval from prior study for evaluation of an asymmetry in the left breast and nodule in the right breast. The patient has a history of bilateral breast cyst a spiration more than 10 years ago. The patient has the following family history of breast cancer: maternal aunt and paternal aunt. COMPARISON: The present examination has been compared to prior imaging studies performed at [facility] on 07/29/2015, 08/16/2015, 11/07/2016, 11/14/2017, 03/12/2019 and 09/16/2019. FINDINGS: MAMMOGRAM The breast tissue is heterogeneously dense, which may obscure detection of small masses. Finding 1: There are no suspicious masses, calc ifications, or areas of architectural distortion in either breast. ULTRASOUND Finding 2: A focused ultrasound was performed in the right breast from 8 o'clock to 9 o'clock 1 cm to 5 cm from the nipple using a radial and anti-radial approa ch. There is a complicated cyst measuring 6 millimeters in the right breast at 9 o'clock located 4 centimeters from the nipple. Finding 3: A focused ultrasound was performed in the right breast from 10 o'clock to 12 o'clock 1 cm to 5 cm from t he nipple using a radial and anti-radial approach. The finding in question seen on outside ultrasound on 09/16/19 is not seen on today's study. IMPRESSION: BI-RADS Assessment Category 3: Probably benign finding. RECOMMENDATION: Finding 2 : Short term follow-up ultrasound of the right breast in 6 months. COMMUNICATION: The patient was seen today by the [facility] surgery/oncology team. They discussed the findings as well as our recommendations with the patient and a printed lay la nguage version of the imaging report was given to the patient at the time of visit. The mammogram was read with the assistance of CAD and tomosynthesis. Read By: CARLOS BUENO M.D. Signed By: CARLOS BUENO M.D. on 03/02/2020 at 13:37 :59 Verified by: CARLOS BUENO M.D. on Mar 02 2020 1:37P Transcribed by: [facility] on Mar 02 2020 1:37P Dictated by: CARLOS BUENO M.D. on Mar 02 2020 1:37P Patient Name:Aleshia Smith : 1965 Age: 54 Gender: femaleDate of Service:03/02/2020 eferring Phy:Maria Del Rosario Merlos APRNAccount: [phone] Maria Del Rosario Merlos APRN [facility] [address] [place] [address] FINAL REPORT PROCEDURE: Tomosynthesis Diagnostic Bilateral - bilateral , Diagnostic Mammogram WithCAD - bilateral and Right Breast Ultrasound limited and Axilla - right HISTORY: Patient is 54 years old and is seen for a follow-up at short-interval fromprior study for evaluation of an asymmetry in the left breast and nodule in the right breast. The patient has ahistory of bilateral breast cyst aspiration more than 10 years ago. The patient has the following family history of breastcancer: maternal aunt and paternal aunt. COMPARISON: The present examination has been compared to prior imaging studiesperformed at [facility] on 07/29/2015, 08/16/2015, 11/07/2016, 11/14/2017, 03/12/2019 and09/16/2019. FINDINGS: MAMMOGRAM The breast tissue is heterogeneously dense, which may obscure detection ofsmall masses. Finding 1: There are no suspicious masses, calcifications, or areas ofarchitectural distortion in either breast. ULTRASOUND Finding 2: A focused ultrasound was performed in the right breast from 8o'clock to 9 o'clock 1 cm to 5 cm from the nipple using a radial and anti-radial approach. There is a complicatedcyst measuring 6 millimeters in the right breast at 9 o'clock located 4 centimeters from the nipple. Finding 3: A focused ultrasound was performed in the right breast from 10o'clock to 12 o'clock 1 cm to 5 cm from the nipple using a radial and anti-radial approach. The finding inquestion seen on outside ultrasound on 09/16/19 is not seen on today's study. IMPRESSION: Page 1 of 2 Patient Name:Aleshia Smith : 1965 Age: 54 Gender: femaleDate of Service:03/02/2020 eferring Phy:Maria Del Rosario Merlos, APRNAccount: [phone] BI-RADS Assessment Category 3: Probably benign finding. RECOMMENDATION: Finding 2: Short term follow-up ultrasound of the right breast in 6months. COMMUNICATION: The patient was seen today by the [facility] surgery/oncology team. Theydiscussed the findings as well as our recommendations with the patient and a printed lay language version of theimaging report was given to the patient at the time of visit. The mammogram was read with the assistance of CAD andtomosynthesis. Dictated By: Carlos Bueno M.D. Verified By: Carlos Bueno M.D. on 03/02/2020 at 01:32:52 PM Page 2 of 2 us Maria Del Rosario Merlos PHARMACOVIGILANCE SAFETY EXPERT IMG BI PROCEDURES Final Res ult * Cytology (10/23/1993 12:00 AM EST) 10/23/1993 10/23/1993 Narrative SUNQUEST - 11/06/1993 12:00 AM EST [facility] MR #: [id number] [facility] ALESHIA SMITH [place], [place] [address] 1965 (Age: 28) FW Collect Date: 10/23/1993 00:00 Receipt Date: 10/23/1993 00:00 Page 1 DEPARTMENT OF PATHOLOGY AND LABORATORY MEDICINE CYTOPATHOLOGY REPORT Email: [email or web address] [phone] * Converted Case * This report may not match the original report format ATTENDING MD/Practitioner: Piyush Karimi Jr., Service: SR. DIRECTOR PRODUCT MANAGEMENT Location: Reported: 11/06/1993 00:00 Collected: 10/23/1993 00:00 INTERPRETATION CERVICAL SCRAPE/ENDOCERVICAL BRUSH WITHIN NORMAL LIMITS. SATISFACTORY FOR INTERPRETATION. Electronically Signed Out URVASHI Newell (ASCP) Ginette Zuñiga MD Cervical cytology is a screening test primarily for squamous cancers and precursors and has associated false negative and positive results. New technologies such as liquid based sampling may decrease but will not eliminate all false negative results. Regular screening and follow-up of unexplained clinical signs and symptoms are recommended to minimize false negative results. Please see the ASCCP website (www.asccp.org) for followup recommendations. If HPV testing was requested, correlation with the results is suggested (please call Microbiology at [phone] for results). CLINICAL INFORMATION: Menstrual History: {Not Provided} Date of Last Menstrual Period: {Not Provided} SPECIMEN DESCRIPTION: A: CERVICAL/VAGINAL SMEAR, PAP ICD: F: {Not Entered} SNOMED CODES: 1; [id number] [id number] [id number] In cases where a pathologist has signed out the report, the service has been rendered in part by a resident. The signing pathologist has performed and is responsible for the reported pathologic evaluation. Nilson Karimi MD LAB PATHOLOGY ORDERABLES Fi nal Result SUNQUEST from Last 3 Months or Most Recently Relevant to Health Maintenance Care Teams Parachute Accessories Attacher Relationship Specialty Start Date End Date Low Hammonds APRN [address] [place] [address] PCP - General 01/06/21
--- OUTSIDE RECORDS SUMMARY | 2025-02-10 07:32 | XMS_ITS | Encounter Summary ---
Author Organization [employer] [facility] Address [address] [place] [address] Care Team Providers Care Square Dance Caller Name Role Phone Unavailable Primary Care Provider Unavailabl e Encounter Details Date Type Department Care Team (Late st Contact Info) Description 11/28/2018 Transcribed Document [facility] Family Medicine [address] [place] [address] ProviderHilario MD [facility] [place] [address] Social History Tobacco Use Types Packs/Day Years [...] Conversion Note - Historical ProviderMD - 11/28/2018 9:23 AM CDT Pain Assessment Entered On: 11/30/2018 15:07 EDT Performed On: 11/30/2018 13:16 EDT by Miranda Portillo Rn-Traveler Intervention Information: acetaminophen-HYDROcodone Performed by Miranda Portillo Rn-Traveler on 11/30/2018 12:16:00 EDT acetaminophen-HYDROcodone,1Tab Oral,Pain (Moderate 4-6) Pain Assessment Pain Assessment : Follow-up assessment Pain Scale Goal : 3 Pain Improved by Intervention : Yes Miranda Portillo Rn-Traveler - 11/30/2018 15:07 EDT documented in this encounter Plan of Treatment Not on file documented as of this encounter Visit Diagnoses Not on filedocumented in this encounter
--- OUTSIDE RECORDS SUMMARY | 2025-02-10 07:32 | XMS_ITS | Encounter Summary ---
Author Organization [employer] [facility] Address [address] [place] [address] Care Team Providers Care Biodiesel Processing Technician Name Role Phone Unavailable Primary Care Provider Unavailabl e Encounter Details Date Type Department Care Team (Late st Contact Info) Description 11/27/2018 Transcribed Document [facility] Family Medicine [address] [place] [address] Provider, MD Hilario [facility] [place] [address] Social History Tobacco Use Types Packs/Day Years [...] Conversion Note - Historical ProviderMD - 11/27/2018 7:44 PM CDT DATE OF ADMISSION: 11/27/2018 PRIMARY CARE PHYSICIAN: Dr. Low Hammonds CHIEF COMPLAINT: Left flank pain. HISTORY OF PRESENT ILLNESS: This 53-year-old female with history of hypertension, otherwise no major medical problems. Patient for last three days has been having left flank pain, acute with nausea, vomiting, fever. Her symptoms getting worse. Patient was evaluated at outside facility. Had CAT scan shows left ureteric stone with mild hydronephrosis. Patient was transferred to [facility]. Came in, blood work shows leukocytosis, patient was started on IV fluid, pain control, IV Rocephin, and Urology consults. SYSTEMIC REVIEW: GENERAL: Positive for fever and chills. HEAD: No headache or dizziness. EYES: No change of vision. EARS: No earache. NOSE: No epistaxis. THROAT: No sore throat. RESPIRATORY: No shortness of breath or cough. CARDIAC: No chest pain. GI: Positive for nausea and vomiting. URINARY: Positive for hematuria. MUSCULOSKELETAL: Generalized weakness. NEUROLOGIC: No focal numbness or weakness. SKIN: No new rashes. ENDOCRINE: No heat or cold intolerance. PAST MEDICAL HISTORY: 1. Hypertension. 2. Enlarged heart. PAST SURGICAL HISTORY: 1. . 2. Hysterectomy. SOCIAL HISTORY: Patient is a nonsmoker. No alcohol or drug abuse. FAMILY HISTORY: Positive for kidney stones. ALLERGIES: PENICILLIN. HOME MEDICATIONS: 1. Lisinopril 12.5 mg daily. 2. Estradiol 2 mg daily. PHYSICAL EXAMINATION: VITAL SIGNS: Blood pressure 112/69, temperature 99.1, heart rate 129, respiratory rate 16. HEAD: Atraumatic, normocephalic. Pupils round and reactive. EYES: No conjunctival injection or discharge. EARS: No discharge. NOSE: No bleeding or discharge. MOUTH: Dry. NECK: Supple. Full range of motion. CHEST: Poor inspiratory effort. Diminished air entry. Clear to auscultation. No crackles, wheezes, or rhonchi. HEART: S1 and S2 heard. Regular rate and rhythm. ABDOMEN: Soft. Audible bowel sounds. No tenderness. No guarding. No rebound tenderness. EXTREMITIES: No edema, erythema, or tenderness. NEUROLOGICAL: No apparent focal, motor, sensory deficits. Patient alert, awake, oriented x3. Intact cranial nerves. PSYCHIATRIC: No anxiety or depression. SKIN: No apparent rashes or induration. ENDOCRINE: No thyromegaly or tenderness. GENERAL: Patient lying bed, mild distress, family at bedside. LABORATORIES AND STUDIES: Sodium 137, potassium 3.5, chloride 103, CO2 of 25, glucose 99, BUN 17, creatinine 1.0, calcium 8.2, protein 6.5, albumin 2.9, globulin 3.6, bilirubin 0.9, alkaline phosphatase 120, AST 26, ALT 21, magnesium 1.6, lactic acid 1.3. White blood cells 14.4, hemoglobin 14.7, hematocrit 40.7, platelets 134, INR 1.1. ASSESSMENT AND PLAN: 1. Left flank pain. Patient was admitted to the hospital with obstructing ureteral stone. Patient was started on intravenous fluid, pain control. Urologic consulted. Start intravenous Rocephin. 2. Rule out urinary tract infection. Patient will start on intravenous Rocephin. Check urine culture and sensitivity. 3. Dehydration. We will start intravenous fluids. 4. Hypertension. We will start hydralazine as needed. 5. Gastrointestinal prophylaxis, Pepcid. 6. Deep venous thrombosis prophylaxis, compression boots. Plan discussed with emergency room physician, with patient. Chart was reviewed. TIME SPENT: 55 minutes. Antionette Nevarez M.D. Dict: 11/27/2018 19:44:41 Trans: 11/27/2018 20:23:06 Processed: 11/28/2018 10:21:31 [place] CC1: Antionette Nevarez M.D. CC2: Dr. Low Hammonds Electronically signed by [facility] Conversion Calibration Technician Cerner at 12/11/2022 10:32 AM CDT documented in this encounter Plan of Treatment Not on file documented as of this encounter Visit Diagnoses Not on filedocumented in this encounter
--- OUTSIDE RECORDS SUMMARY | 2025-02-10 07:32 | XMS_ITS | Encounter Summary ---
Author Organization [employer] Address [address] [place] [address] Care Team Providers Care Piping Designer Name Role Phone Unavailable Primary Care Provider Unavailabl e Encounter Details Date Type Department Care Team (Late st Contact Info) Description 11/27/2018 Transcribed Document [facility] [place] Family Medicine [address] [place] [address] ProviderHilario [place] [address] Social History Tobacco Use Types Packs/Day Years Used Date Smoking Tobacco: Never Assessed Comments Unknown Sex and Gender Information Value Date Recorded Sex Assigned at Female 02/22/2022 4:54 PM CDT Legal Sex Female 6:31 PM CDT Gender Identity Female 02/22/2022 4:54 PM CDT Sexual Orientation Not on file documented as of this encounter Miscellaneous Notes * Cerner Conversion Note - Historical Provider, - 11/27/2018 5:42 PM CDT Admission History, Adult Entered On: 11/27/2018 18:01 EDT Performed On: 11/27/2018 17:42 EDT by Le Solis RN Advance Directive Patient has Advance Directive *Q : No, patient refuses Advance Directive information Le Solis RN - 11/27/2018 17:54 EDT Anesthesia/Transfusion History Family History of Anesthesia Reaction : No prior transfusion(s) Transfusion History : Prior anesthesia without reaction Family History of Anesthesia Reaction : None Le Solis RN - 11/27/2018 17:54 EDT Anticipated Discharge Needs Discharge To, Anticipated : Home Anticipated Discharge Needs at This Time : None Le Solis RN - 11/27/2018 17:54 EDT Education Topics, Admission Orientation DCP GENERIC CODE Advance Directives : Verbalizes understanding Allergy Band Applied : Verbalizes understanding Assessment/Vital Signs : Verbalizes understanding Bed Control : Verbalizes understanding Call Light : Verbalizes understanding Confidentiality : Verbalizes understanding Diet/Room Service : Verbalizes understanding Fall Prevention : Verbalizes understanding Hand Hygiene : Verbalizes understanding Healthcare Provider Visit : Verbalizes understanding ID Band Applied : Verbalizes understanding Isolation Precautions : Verbalizes understanding Orientation to Room/Bathroom : Verbalizes understanding Patient Bill of Rights : Verbalizes understanding Patient Rights/Responsibilities : Verbalizes understanding Patient Safety : Verbalizes understanding Personal Privacy Code : Verbalizes understanding Rapid Response Initiated by Patient/Family : Verbalizes understanding Rounding : Verbalizes understanding Siderails use/risks : Verbalizes understanding Skin Precautions : Verbalizes understanding Smoking Policy : Verbalizes understanding Telemetry Monitoring : Verbalizes understanding Television/Phone : Verbalizes understanding Visiting Policy : Verbalizes understanding Le Solis RN - 11/27/2018 17:54 EDT Functional Assessment Living Situation : Home Patient Lives With : Child/Children, Significant other(s) Current Daily Living Assistance : None MCNULTY Hx Falls Immediate/Within 3 Months : No Current Home Treatments : None Le oSlis RN - 11/27/2018 17:54 EDT General Info Preferred Name : Holly Arrived From : Emergency department Mode of Arrival on Unit : Stretcher Want Family/Rep/Phys Notified of Admit : No Emergency Contact #1 : Jaelyn Morales Emergency Contact #1 Emergency Contact #1 Relationship : mother Emergency Contact #2 : . Emergency Contact #2 Phone Number : . Emergency Contact #2 Relationship : . Chief Complaint : Kidney stone left side Primary Language : Guinean Communication Barrier : None Le Solis RN - 11/27/2018 17:54 EDT Fall Risk Scales ABCs Fall Injury Risk Identification : None MCNULTY Hx Falls Immediate/Within 3 Months : No Mcnulty Secondary Diagnosis : No MCNULTY Use of Ambulatory Aid : None MCNULTY IV Therapy or IV Access : Yes Mcnulty Gait/Transferring : Normal, bedrest, immobile Mcnulty Mental Status : Oriented to own ability Mcnulty Fall Risk Score : 20 MCNULTY Fall Scale Risk Level : 0-24 Low Risk [place] Fall Interventions : Adequate lighting, Assistive devices within reach, Bed in low position, Call device within reach, Hourly comfort/safety rounds, Non-slip footwear, Personal items within reach, Reinforced to call for assistance before getting out of bed, Room free of clutter/spills, Upper side-rails up, Wheels locked, Wires/Cords secured Le Solis RN - 11/27/2018 17:54 EDT Health Histories Smoking Status : 10 or more cigarettes (1/2 pack or more)/day in last 30 days Smokeless Tobacco Status : Never Desires Tobacco Cessation Medication : No Reason for No Tobacco Cessation Medication : Refuses FDA approved medications Le Solis RN - 11/27/2018 17:54 EDT Social History (As Of: 11/27/2018 18:01:54 EDT) Height and Weight, Clinical Dosing Height Source : Stated Height Entry Format : [place] Height, Feet : 5 ft(Converted to: 152 cm, 60 Inch) Height, Inches : 3 Inch(Converted to: 0 ft 3 Inch, 7.62 cm) Clinical Height : 160.02 cm Weight Source : Standing scale Weight Entry Format : [place] Clinical Dosing Weight : 65 kg Weight, Pounds : 143 lb Body Surface Area (BSA) : 1.68 m2 Body Mass Index : 25.4 kg/m2 (HI) [place] Body Weight : 52 kg Le Solis RN - 11/27/2018 17:54 EDT Infectious Disease History Infectious Disease History : Chicken pox/Shingles Active Surveillance Screen Assessment : Patient transferred from another hospital/ED Active Surveillance Screen Positive : Yes Isolation Needed : Contact Fever/Chills Last 48 Hours : Yes Experiencing Infectious Disease Symptoms : No symptoms Travel To Regions with Travel Advisories : Unable to assess Travel Outside [place] Within Last 30 Days : No Contact With Traveler to Advisory Region : No Tuberculosis Symptoms : None Le Solis RN - 11/27/2018 17:54 EDT Tetanus Immunization Status Previous Tetanus Immunizations : No qualifying data available. Tetanus Immunization : Unknown Le Solis RN - 11/27/2018 17:54 EDT Influenza Vaccine Asmt, Adult Previous Vaccines from Immunization Schedule : No qualifying data available. Influenza Immunization, Current Season : No Inactivated Flu Vaccine Contraindications : No contraindications to inactivated influenza vaccine Transplant Workup/Recent Transplant : No Order for Influenza Vaccine : Declined Vaccination Le Solis RN - 11/27/2018 17:54 EDT Pneumococcal Vaccine Previous Vaccines from Immunization Schedule : No qualifying data available. Pneumonia Immunization Received : No Pneumococcal Risk Assessment < Age 65 : Cigarette smoker Pneumococcal Vaccine Contraindications : No contraindications to pneumococcal vaccine Transplant Workup/Recent Transplant : No Order for Pneumococcal Vaccine : Declined Vaccination Le Solis RN - 11/27/2018 17:54 EDT Order Details Transport Mode Order Detail : Ambulatory Isolation Precautions Order Detail : Standard Precautions Order Detail : 0 IV Order Detail : 1 Oxygen Order Detail : 0 Nurse Collect Order Detail : 0 Lift/Transfer : Independent Central Line Order Detail : No Room Service : Appropriate Arterial Line : No Le Solis RN - 11/27/2018 17:54 EDT Nutrition History Eating Poorly Due to Decreased Appetite : No Unplanned Weight Loss in Past 3-6 Months : No Malnutrition Screening Tool Total(mal) : 0 Malnutrition Screening Tool Risk Level : Patient not at risk Le Solis RN - 11/27/2018 17:54 EDT Psychosocial History Currently in Unsafe Situation : No Tried to Harm Yourself in the Past? : No Thoughts of Harming/Killing Yourself : No Le Solis RN - 11/27/2018 17:54 EDT Sleep Apnea Risk Assmt Hx of Obstructive Sleep Apnea Diagnosis : No Snore Loudly : Yes Tired, Fatigued, or Sleepy During Day : No Observed Stopping Breathing During Sleep : No Have/Are Being Treated for Hypertension : Yes BMI Greater Than 35 kg/m2 : No Age over 50 Years Old : Yes Neck Circumference Greater Than 40 cm : No Gender Male : No STOP-BANG Sleep Apnea Risk Level Score : 3 Le Solis RN - 11/27/2018 17:54 EDT Valuables and Belongings Valuables and Belongings : Clothing, Personal items Clothing : Common streetwear Clothing Disposition : Bedside Personal Items : Cell phone, Purse Personal Items Disposition : Bedside Le Solis RN - 11/27/2018 17:54 EDT documented in this encounter Plan of Treatment Not on file documented as of this encounter Visit Diagnoses Not on filedocumented in this encounter
--- OUTSIDE RECORDS SUMMARY | 2025-02-10 07:32 | XMS_ITS | Encounter Summary ---
Author Organization [employer] Address [address] [place] [address] Care Team Providers Care Airplane And Engine Inspector Name Role Phone Unavailable Primary Care Provider Unavailabl e Encounter Details Date Type Department Care Team (Late st Contact Info) Description 11/29/2018 Transcribed Document [facility] [place] Family Medicine [facility] [place] [place] [address] ProviderHilario MD [facility] [place] [address] Social History Tobacco Use Types Packs/Day Years Used Date Smoking Tobacco: Never Assessed Comments Unknown Sex and Gender Information Value Date Recorded Sex Assigned at Female 02/22/2022 4:54 PM CDT Legal Sex Female 6:31 PM CDT Gender Identity Female 02/22/2022 4:54 PM CDT Sexual Orientation Not on file documented as of this encounter Miscellaneous Notes * Cerner Conversion Note - Hilario ProviderMD - 11/29/2018 9:42 PM CDT Patient: LUIS ENRIQUE SMITH Age: 53 years Sex: Female : 1965 Associated Diagnoses: None Author: BHAVIK VILLALBA MD-INF ID Consultation Date of Admission :11/27/18 Date Consultation : 11/28/18 Physician requesting Consultation: Dr. Nevarez Evaluating Physician: Dr. Bhavik Villalba CC: Renal stone Reason for Consultation: Bacteremia/UTI with pyelonepritis with obstructive uropathy HPI: Patient is a 53-year-old female with no major medical concerns presenting for evaluation of left flank pain, fever, weakness, malaise, dysuria, fever,rigors with evidence of left ureteral stone. She had urinary outlet obstruction and required stenting today. She was initiated on cefepime for urinary coverage with decrease in her white blood cell from 14,000 down to 7000. Blood cultures on one of 2 sets turned positive for Escherichia coli and infectious disease was asked to see the patient for further treatment recommendations. She reports a history of penicillin allergy however has tolerated cephalosporins well. PMHx: htn SURGICAL Hx: Cystoscopy hysterectomy c section MEDICATIONS: cefEPIME + NaCl 0.9% 50 mL 2 Gram, IV Piggyback, [id number] famotidine 20 mg/2 mL inj 20 mg 2 mL, IV Push, BID potassium chloride CR 10 mEq tab 10 mEq 1 Tab, Oral, TID ALLERGIES: PCN FHx: parents with htn and kidney stones SOHx: Patient is single and lives in [place], [place]. No known Diagnosis of Hep B, C, HIV, TB. No history of MRSA or C diff colitis. No recent sick exposures. No travel outside of country. ROS: A full 12 point ROS performed and positive for: fatigue, weakness, L flank pain, dysuria, fever, rigors. chilss and dysuria All other ROS negative. PHYSICAL EXAM: Vitals Signs (last 24 hrs) Last Charted Minimum Maximum Temp 98.7 (NOV 28 14:45) 97.8 (NOV 28 13:32) H 100.1 (NOV 27 23:30) Mon HR 107 (NOV 28 14:45) 98 (NOV 28 13:50) 129 (NOV 27 18:00) Resp Rate H 22 (NOV 28 14:45) 14 (NOV 28 03:21) H 22 (NOV 28 14:45) SBP 125 (NOV 28 14:45) 90 (NOV 28 02:46) 131 (NOV 28 10:45) DBP L 56 (NOV 28 14:45) L 52 (NOV 28 03:21) H 102 (NOV 28 10:45) MAP 72 (NOV 28 14:45) 65 (NOV 28 03:21) 116 (NOV 28 10:45) SpO2 L 91 (NOV 28 14:45) L 91 (NOV 28 12:00) 99 (NOV 28 13:50) General: patient is acutely ill appearing and weak. HEENT: sclera white without conjunctival injection. No erythema, exudate or ulceration. No thrush present. Dry MM Neck: Supple without nuchal rigidity Lymphatic: No palpable cervical or axillary LAD Lungs: Clear to auscultation bilaterally without wheezes, rales, or rhonchi. Normal respiratory effort Cardiovascular:Tachy without m/r/g. Abdomen: soft, non-tender, non-distended, positive bowel sounds throughout. :Peters catheter with dark colored urine. L flank pain. Lower extremity: No cyanosis, clubbing or edema Neuro: Alert and oriented x3. No focal deficits. Motor 5/5 upper and lower extremity strength; FROM MSK: No joint effusions and without limitations to mobility Skin: Without rash; c/d/i Psych: Appropriate in mood and affect and cooperative with exam LABS: Labs (Last four charted values) WBC 7.4 [...] (NOV 27) ALB L 2.9 (NOV 27) MICRO: Blood culture E coli on 1/2 sets IMAGING: No Radiology Results Found PROBLEM LIST: Sepsis E coli Bacteremia Left pyelonehritis L obstructive uropathy s/p renal stenting Fever Leukocytosis Hypokaleimia Thrombocytopenia PCN allerggy ASSESSMENT: 53-year-old female with sepsis syndrome with fever, leukocytosis, tachycardia with left-sided flank pain and CT imaging performed with an obstructive left renal stone. She required left ureteral stenting. Blood cultures collected at admission and positive on one of 2 sets with Escherichia coli via [employer]. She is currently on cefepime therapy in the setting of a penicillin allergy without adverse drug reactions. She has had positive response in terms of decreased WBC with the use of Cefepime. Recommend further narrowing of antibiotics to Rocephin 2 gIV daily and f/u Sensitivity panel to see if PO option exists. Still with fevers, stent in place. GNR on urine , WBC down on ceftriaxone and will give dose of gent x 1 today PLAN: D/c Cefepime Start Rocephin 1 g IV daily CBC, BMP, ESR, CRP in am F/u cultures for PO option treatment. Gent x 1 Patient was seen at the request of Dr. Nevarez for Bacteremia and my recommendations have been communicated to primary team. Will continue to follow and assist with antimicrobial management. Dr. Bhavik Villalba saw the patient, reviewed laboratory data, performed physical exam and agrees with above problem list and assisted with formulation of assessment and treatment plan. documented in this encounter Plan of Treatment Not on file documented as of this encounter Visit Diagnoses Not on filedocumented in this encounter
--- OUTSIDE RECORDS SUMMARY | 2025-02-10 07:32 | XMS_ITS | Encounter Summary ---
Author Organization [employer] Address [address] [place] [address] Care Team Providers Care Airveyor Operator Name Role Phone Unavailable Primary Care Provider Unavailabl e Encounter Details Date Type Department Care Team (Late st Contact Info) Description 11/30/2018 Transcribed Document [facility] [place] Family Medicine [address] [place] [address] ProviderHilario MD [facility] [place], [place] [address] Social History Tobacco Use Types Packs/Day Years [...] Conversion Note - Hilario ProviderMD - 11/30/2018 8:55 AM CDT Patient: LUIS ENRIQUE SMITH Age: 53 years Sex: Female : 1965 Associated Diagnoses: None Author: BHAVIK VILLALBA MD-INF ID PROGRESS NOTE ABX: Rocephin CC: Renal stone Reason for Consultation: Bacteremia/UTI with pyelonepritis with obstructive uropathy SUBJECTIVE: Low grade fever. Was told she will likely go home today. Denies f/c, sob, n/v/d, rashes. Nunez cath removed and having burning with urination. PHYSICAL EXAM: Vitals Signs (last 24 hrs) [...] 28 12:00) 99 (NOV 28 13:50) General: NAD, alert HEENT: sclera white without conjunctival injection. No erythema, exudate or ulceration. No thrush present. Neck: Supple without nuchal rigidity Lymphatic: No palpable cervical or axillary LAD Lungs: Clear to auscultation bilaterally without wheezes, rales, or rhonchi. Normal respiratory effort Cardiovascular:Tachy without m/r/g. Abdomen: soft, non-tender, non-distended, positive bowel sounds throughout. :No nunez cath Lower extremity: No cyanosis, clubbing or edema [...] 28) 99 (NOV 27) Ca L 7.8 (APR 05) L 8.2 (NOV 27) Lactic 1.3 (NOV 27) PT 12.0 (NOV 27) INR 1.1 (NOV 27) AST 26 (NOV 27) ALT 21 (NOV 27) ALK P 120 (NOV 27) T Bili 0.9 (NOV 27) PTN 6.5 (NOV 27) ALB L 2.9 (NOV 27) MICRO: Blood culture E coli on 2/2 sets (2/3 bottles) Urine cx NG MRSA surveillance negative IMAGING: No Radiology Results Found PROBLEM LIST: Sepsis E coli Bacteremia Left pyelonehritis L obstructive uropathy s/p renal stenting Fever Leukocytosis, improved Hypokalemia Thrombocytopenia PCN allerggy. Tolerates Rocephin ASSESSMENT: 53-year-old female with sepsis syndrome with fever, leukocytosis, tachycardia with left-sided flank pain and CT imaging performed with an obstructive left renal stone. She required left ureteral stenting. Blood cultures collected at admission and positive on one of 2 sets with Escherichia coli via [employer]. She is currently on cefepime therapy in the setting of a penicillin allergy without adverse drug reactions. She has had positive response in terms of decreased WBC with the use of Cefepime. Recommend further narrowing of antibiotics to Rocephin 2 gIV daily and f/u Sensitivity panel to see if PO option exists. Still with fevers, stent in place. Escherichia coli on urine , WBC down on ceftriaxone and status post 1 dose of gentamicin E. coli bacteremia in 2/3 bottles. WBC down in fever curve improving patient reports she's feels better Nunez catheter removed PLAN: Continue Rocephin 2 g IV daily move up her dose today Okay to discharge home after dose of ceftriaxone today if medicine team agrees We'll switch to long-term oral cefuroxime recommend follow-up with me in 2 weeks also recommend follow-up with urology and PCP UM/VANESSA: Can discharge on Cefuroxime 500 mg PO BID for 20 days (prescription on chart). Follow up with Dr. Bhavik Villalba on 12/16/18 at 12:00 noon. Bhavik Villalba MD saw and examined patient, verified findings, reviewed labs and radiographic data, formulated diagnosis, plan for treatment, and all medical decision making. Troy Brown PA-C/for Dr. Bhavik Villalba Electronically signed by [facility] Conversion Record Center Specialist Cerner at 12/11/2022 10:15 AM CDT documented in this encounter Plan of Treatment Not on file documented as of this encounter Visit Diagnoses Not on filedocumented in this encounter
--- OUTSIDE RECORDS SUMMARY | 2025-02-10 07:32 | XMS_ITS | Encounter Summary ---
Author Organization [employer] Address [address] [place] [address] Care Team Providers Care Sld Inclusion Teacher Name Role Phone Unavailable Primary Care Provider Unavailabl e Encounter Details Date Type Department Care Team (Late st Contact Info) Description 11/30/2018 Transcribed Document [facility] [place] Family Medicine [address] [place] [address] ProviderHilario MD [facility] [place], [place] [address] Social History Tobacco Use Types Packs/Day Years [...] Conversion Note - Hilario ProviderMD - 11/30/2018 3:20 PM CDT [address] [place] [address] Patient Copy Patient Information: Name: LUIS ENRIQUE SMITH Current Date: 11/30/2018 15:20:04 : 1965 Patient Address: [address] [place] [id number] Patient Attending Physician: NEWTON SUAREZ MD Primary Care Provider: TRACI ALCAZAR NP-FAM Primary Care Provider Discharge Diagnosis: Ureteral stone Weight on Admission: 143 lb, 0 oz Comment: Follow-up Instructions: With: Address: When: Follow up with primary care provider Within 1 to 2 weeks With: Address: When: ALEXIA VILLALBA [address] [place] [address], [address] [place] [address] Business (1) 12:00 PM With: Address: When: JOHANNE HERNANDEZ [address] [facility], [address] [place] [address] FullStory (1) Within 1 to 2 weeks Comments: follow up first available in [place] office, ideally one week. With: Address: When: [...] including vitamins, herbs, eye drops, creams, and upcb-bga-sxznluo medicines. ??? Any problems you or family [...] 08/17/2014 Document Revised: 05/28/2017 Document Reviewed: 05/24/2017 [employer] Interactive Patient Education ? 2017 [employer] Lithotripsy, Care After Refer to this [...] feel your energy improving. ??? Only take tuyv-xus-rnapvok or prescription medicines for pain, discomfort, or [...] 08/31/2008 Document Revised: 05/02/2016 Document Reviewed: 02/25/2014 [employer] Interactive Patient Education ? 2017 [employer] Ureteral Stent Implantation Introduction Ureteral stent [...] including vitamins, herbs, eye drops, creams, and ezyx-lyk-zomdgni medicines. ??? Any problems you or family [...] kidney stones in the future. ??? Take wbyk-zda-fplsaur and prescription medicines only as told by [...] 01/25/2017 Elsevier Interactive Patient Education ? 2017 [employer] Dietary Guidelines to Help Prevent Kidney [...] ? Parsley. ? Rutabagas. ? Spinach. ? Guinean chard. ? Tomato paste. ? Fried potatoes. [...] 12/07/2011 Document Revised: 01/17/2017 Document Reviewed: 07/09/2014 [employer] Interactive Patient Education ? 2017 [employer]. Medication Leaflets: cefuroxime (SEF ue AMANDA eem) [...] may report side effects to FDA at 5-452-BMQ-2483. What other drugs will affect cefuroxime? Tell your doctor about all your current medicines and any you start or stop using, especially: ? probenecid (Benemid); ?? a blood thinner such as warfarin (Coumadin, Jantoven); or ?? a diuretic or 'water pill.' This list is not complete. Other drugs may interact with cefuroxime, including prescription and bvqb-zxf-hmpneyq medicines, vitamins, and herbal products. Not all [...] to ensure that the information provided by [employer]. ('[employer]') is accurate, up-to-date, and complete, but no guarantee is made to that effect. Drug information contained herein may be time sensitive. [employer] information has been compiled for use by healthcare practitioners and consumers in the [place] and therefore [employer] does not warrant that uses outside of the [place] are appropriate, unless specifically indicated otherwise. [employer]'s drug information does not endorse drugs, diagnose patients or recommend therapy. [employer] drug information is an informational resource designed [...] effective or appropriate for any given patient. [employer] does not assume any responsibility for any aspect of healthcare administered with the aid of information [employer] provides. The information contained herein is not intended to cover all possible uses, directions, precautions, warnings, drug interactions, allergic reactions, or adverse effects. If you have questions about the drugs you are taking, check with your doctor, nurse or pharmacist. Copyright 9500-9312 [employer]. Version: 7.01. Revision Date: 01/20/2016. acetaminophen and [...] may report side effects to FDA at 3-782-JWY-0759. What other drugs will affect acetaminophen and [...] affect acetaminophen and oxycodone, including prescription and mxkq-ksz-junavsr medicines, vitamins, and herbal products. Not all [...] to ensure that the information provided by [employer]. ('Multum') is accurate, up-to-date, and complete, but no guarantee is made to that effect. Drug information contained herein may be time sensitive. [employer] information has been compiled for use by healthcare practitioners and consumers in the [place] and therefore [employer] does not warrant that uses outside of the [place] are appropriate, unless specifically indicated otherwise. [employer] drug information does not endorse drugs, diagnose patients or recommend therapy. [employer] drug information is an informational resource designed [...] effective or appropriate for any given patient. [employer] does not assume any responsibility for any aspect of healthcare administered with the aid of information [employer] provides. The information contained herein is not intended to cover all possible uses, directions, precautions, warnings, drug interactions, allergic reactions, or adverse effects. If you have questions about the drugs you are taking, check with your doctor, nurse or pharmacist. Copyright 1291-8902 [employer]. Version: 18.. Revision Date: 07/23/2018. phenazopyridine (fen [...] or ?? a genetic enzyme deficiency called welgcxh-9-hetxqceyh dehydrogenase (G6PD) deficiency. FDA category B. Phenazopyridine [...] may report side effects to FDA at 5-640-TUB-4468. What other drugs will affect phenazopyridine? Other drugs may interact with phenazopyridine, including prescription and easj-fyu-hhrjlay medicines, vitamins, and herbal products. Tell each [...] to ensure that the information provided by [employer]. ('Communication Specialist Limited[employer]') is accurate, up-to-date, and complete, but no guarantee is made to that effect. Drug information contained herein may be time sensitive. Ch[employer] information has been compiled for use by healthcare practitioners and consumers in the [place] and therefore [employer] does not warrant that uses outside of the [place] are appropriate, unless specifically indicated otherwise. [employer] drug information does not endorse drugs, diagnose patients or recommend therapy. [employer] drug information is an informational resource designed [...] effective or appropriate for any given patient. [employer] does not assume any responsibility for any aspect of healthcare administered with the aid of information [employer] provides. The information contained herein is not intended to cover all possible uses, directions, precautions, warnings, drug interactions, allergic reactions, or adverse effects. If you have questions about the drugs you are taking, check with your doctor, nurse or pharmacist. Copyright 4584-4665 [employer]. Version: 3.05. Revision Date: 12/17/2013. promethazine (oral) (pro METH a zeen) Phenergan What is the most important information I should know about promethazine? Promethazine should not be given to a child younger than 2 years old. Promethazine can cause severe breathing problems or in very young children. What is promethazine? Promethazine is in a group of drugs called phenothiazines (DVJT-yu-JNYZ-a-zeens). It works by changing the actions of [...] may report side effects to FDA at 8-989-HTA-1431. What other drugs will affect promethazine? Using this medicine with other drugs that make you sleepy or slow your breathing can cause dangerous or life-threatening side effects. Ask your doctor before taking promethazine with a sleeping pill, narcotic pain medicine, muscle relaxer, or medicine for anxiety, depression, or seizures. Other drugs may interact with promethazine, including prescription and qvmu-gdb-rlikjey medicines, vitamins, and herbal products. Tell each [...] to ensure that the information provided by [employer]. ('Multum') is accurate, up-to-date, and complete, but no guarantee is made to that effect. Drug information contained herein may be time sensitive. [employer] information has been compiled for use by healthcare practitioners and consumers in the [place] and therefore [employer] does not warrant that uses outside of the [place] are appropriate, unless specifically indicated otherwise. [employer] drug information does not endorse drugs, diagnose patients or recommend therapy. [employer] drug information is an informational resource designed [...] effective or appropriate for any given patient. [employer] does not assume any responsibility for any aspect of healthcare administered with the aid of information [employer] provides. The information contained herein is not intended to cover all possible uses, directions, precautions, warnings, drug interactions, allergic reactions, or adverse effects. If you have questions about the drugs you are taking, check with your doctor, nurse or pharmacist. Copyright 6210-1770 [employer]. Version: 6.02. Revision Date: 06/09/2015. CIGARETTE SMOKING: The facts are clear, cigarette smoking will shorten your life. Smoking can cause many illnesses along the way. As a healthcare provider, we recommend that you stop smoking. Assistance with quitting is available by contacting 3-601-FALR-NOW. This is a free resource providing counseling, [...] Be sure to sign up for the [facility] patient portal, which gives you 18/03 access to your medical information ??? including these discharge instructions ??? using your computer, smartphone, or tablet. Just go to [employer] to get started. Questions? Call . [facility] would like to thank you for allowing us to assist you with your healthcare needs. PAULETTE Payne JUDY, (or it sales representative) have received the above patient education materials/instructions and have verbalized understanding: Patient Signature _ Date/Time Patient Global Project Manager Signature (if needed) Date/Time Clinician/Hospital Global Project Manager Signature (if needed) Date/Time Electronically signed by [facility] Conversion Trouble Lineman Renay at 12/11/2022 10:17 AM CDT documented in this encounter Plan of Treatment Not on file documented as of this encounter Visit Diagnoses Not on filedocumented in this encounter
--- NOTE | 2025-02-10 08:00 | CA_ITS ---
FINAL REPORT TECHNIQUE: Grayscale, color Doppler and duplex Doppler ultrasound of the kidneys, aorta and renal arteries was performed. Multiple velocities were measured. CLINICAL HISTORY: HTN, LT RENAL ARTERY STENOSIS SEEN ON RECENT CTA ABD,SMOKER FINDINGS: Aorta velocity: 104 cm/sec Right kidney: 10.9 cm. No evidence of hydronephrosis or mass. Right intrarenal RI: 0.65-0.70 Right renal artery velocity: 201 cm/sec. Right RAR (Renal artery-Aortic Ratio): 1.92 Left Kidney: 8.6 cm. No evidence of hydronephrosis or mass. Left intrarenal RI: 0.58-0.67 Left renal artery velocity: 191 cm/sec. Left RAR (Renal Artery-Aortic Ratio): 1.83 IMPRESSION: Less than 60% renal artery stenosis bilaterally. Recommend CTA to better quantified. Reviewed, Interpreted and Dictated by Jadon Ortiz MD Transcribed by Janeen Heaton Authenticated and [facility]
== END 2025-02-10 23:59 | disposition home or self-care (01) ==
LOC: RT 07:29
PROVIDERS: PCP Internal Medicine; Visit Provider Physician Assistant
DX: I70.1 Atherosclerosis of renal artery (principal); I10 Essential (primary) hypertension; F17.200 Nicotine dependence, unspecified, uncomplicated
CPT/HCPCS: 93976

== ENCOUNTER 2025-02-16 12:33 | Outpatient (CLI) | payer OTHER, SELFPAY ==
--- NOTE | 2025-02-16 | CA_ITS ---
APPROVED REPORT Exam: Pharmacologic Technologist: Tiffanie Alvarez Ht: 5 ft 3 in Wt: 128 lbs BSA: 1.60 m2 HR: 74 bpm BP: 139/72 mmHg Stress Test Details Test: Lexiscan HR Resting HR: 74 bpm Max Heart Rate (APMHR): 160.984415 bpm Max HR Achieved: 107 bpm Target HR (85% APMHR): 136.109685 bpm % of APMHR: 66.88 Recovery HR: 102 bpm BP Resting BP: 139.0/72.0 mmHg Max BP: 165.0/88.0 mmHg Recovery BP: 150.0/81.0 mmHg ECG Resting ECG: Sinus rhythm Stress ECG Conclusion Symptoms: Dyspnea Arrhythmias/Ectopy: PVC ST-T Changes: Less than [address] depression. Conclusion: EKG unremarkable due to Lexiscan infusion. Electronically signed by : Irma Hernandez MD 02/16/2025 23:22:15
--- OUTSIDE RECORDS SUMMARY | 2025-02-16 12:36 | XMS_ITS | Encounter Summary ---
Author Organization [employer] [facility] Address [address] [place] [address] Care Team Providers Care Food Processing Scientist Name Role Phone Unavailable Primary Care Provider Unavailabl e Encounter Details Date Type Department Care Team (Late st Contact Info) Description 11/29/2018 Transcribed Document [facility] [place] Family Medicine [address] [place] [address] ProviderHilario MD [facility] [place] [address] Social History Tobacco Use Types Packs/Day Years [...] Rocephin: 2 Gram, 100 mL/Hr, IV Piggyback, C67HBpt Sodium Chloride 0.45% intravenous solution 1,000 mL: [...] At Bedtime cefTRIAXone 2 Gram, IV Piggyback, [id number] famotidine 20 mg/2 mL inj 20 mg [...] At risk for sleep apnea / IMO [id number] / Confirmed, Active Problems (1) At risk [...] tenderness, No swelling, No deformity. Integumentary: Warm, [place], Moist, No rash. Neurologic: Alert, Oriented, Normal [...]
--- OUTSIDE RECORDS SUMMARY | 2025-02-16 12:36 | XMS_ITS | Clinical Summary ---
Author Organization [facility] Address [address] [place] [address] Phone Care Team Providers Care Carpentry Supervisor Name Role Phone Bhavik Villalba MD Unavailable [ ] Conditions or Problems Problem Name Problem Code Onset Date Status Entry Date Provider Comment Standard Description Annotate Acute Pyelonephritis 31475717 (SNOMED CT) 12/12 Active 12/12 Yvette Peters Acute pyelonephritis Obstructive uropathy with infection N13.6 (ICD-10-C M) 12/12 Active 12/12 Yvette Peters Pyonephrosis E. Coli sepsis/septice steffen A41.51 (ICD-10-C M) 12/12 Active 12/12 Yvette Peters Sepsis due to Escherichia coli [E. coli] Neutrophilic leukemoid reaction D72.823 (ICD-10-C M) 12/12 Active 12/12 Yvette Peters Leukemoid reaction Secondary thrombocytopen ia 61380792 (SNOMED CT) 12/12 Active 12/12 Yvette Peters Acquired thrombocytopenia Benign Essential Hypertension 0650889 (SNOMED CT) 12/12 Active 12/12 Yvette Peters Benign essential hypertension Medications Medication Instructions Start Date Stop Date Generic Name [facility] Provider ZESTORETIC 10-12.5 MG TABS Take one by mouth daily LISINOPRIL-HYDRO CHLOROTHIAZIDE 42865139911 Linda Goodson ROBAXIN-750 TABLET Take one by mouth 3 times daily, morning, afternoon and evening./PRN METHOCARBAMOL TABS [id number] Linda Goodson PROMETHAZINE HCL 12.5 MG TABS Q4H/PRN PROMETHAZINE HCL 99293096518 Linda Goodson NAPROXEN 500 MG TABS by mouth twice a day/PRN NAPROXEN [id number] Linda Goodson ESTRADIOL 2 MG TABS Take one by mouth daily ESTRADIOL [id number] Linda Goodson CEFUROXIME AXETIL 500 MG TABS by mouth twice a day CEFUROXIME AXETIL 95231875576 Linda Goodson AMITRIPTYLINE HCL 10 MG TABS 2 tabs at bedtime AMITRIPTYLINE HCL [id number] Linda Goodson Medications Administered No information available. [...]
--- OUTSIDE RECORDS SUMMARY | 2025-02-16 12:36 | XMS_ITS | Encounter Summary ---
Author Organization [employer] Address [address] [place] [address] Care Team Providers Care Railroad Operator Name Role Phone Unavailable Primary Care Provider Unavailabl e Encounter Details Date Type Department Care Team (Late st Contact Info) Description 11/28/2018 Transcribed Document [facility] [place] Family Medicine [facility] [place] [address] ProviderHilario MD [facility] [place] [address] Social History Tobacco Use Types Packs/Day Years [...] General. COMPLICATIONS: None. SPECIMENS: None. DRAINS: 4.8 Citizen Of [place] x 24 cm double-J ureteral stent on [...] Adequate proximal and distal curl of this 4.8-Citizen Of [place] x 24 cm double-J ureteral stent without [...] administration of preoperative antibiotics. A well lubricated 22-Citizen Of [place] rigid cystoscope with a 30 degree lens [...] level of the left renal pelvis. A 5-Citizen Of [place] open-ended ureteral catheter was placed to 25 [...] catheter removed in a push-pull fashion. A 4.8-Citizen Of [place] x 24 cm double-J ureteral stent was then deployed in the standard retrograde fashion with adequate proximal and distal curl. The strings were removed. Patient's bladder was left distended and a 16-Citizen Of [place] Peters catheter was placed per urethra with [...] M.D. Electronically signed by Selina More Conversion Transportation Department Supervisor Cerner at 12/11/2022 10:36 AM CDT documented in this encounter Plan of Treatment Not on file documented as of this encounter Visit Diagnoses Not on filedocumented in this encounter
--- OUTSIDE RECORDS SUMMARY | 2025-02-16 12:36 | XMS_ITS | Encounter Summary ---
Author Organization [employer] Address [address] [place] [address] Care Team Providers Care Diet Kitchen Cook Name Role Phone Unavailable Primary Care Provider Unavailabl e Encounter Details Date Type Department Care Team (Late st Contact Info) Description 11/29/2018 Transcribed Document [facility] [place] [address] [place] [address] ProviderHilario MD [address] [place], [place] [address] Social History Tobacco Use Types Packs/Day Years [...]
--- OUTSIDE RECORDS SUMMARY | 2025-02-16 12:36 | XMS_ITS | Encounter Summary ---
Author Organization [employer] Address [address] [place] [address] Care Team Providers Care Infant Toddler Lead Teacher Name Role Phone Unavailable Primary Care Provider Unavailabl e Encounter Details Date Type Department Care Team (Late st Contact Info) Description 11/30/2018 Transcribed Document [facility] [place] Family Medicine [address] [place] [address] ProviderHilario MD [address] [place], [place] [address] Social History Tobacco Use Types Packs/Day Years [...] On: 11/30/2018 13:44 EDT by GONZALEZ GRISSOM RN-Supervisory Civil EngineerSlip Tender Note Care Management Note Report : GONZALEZ GRISSOM RN-Supervisory Civil Engineer - 11/28/18 13:21:37 Received from [facility] with c/o flank pain, placed [...] Documentation Status Complete : Yes GONZALEZ GRISSOM RN-Supervisory Civil Engineer - 11/30/2018 13:44 EDT Final Discharge Disposition Note-CM Discharge To Care Management : Home/Residential/Alf or Self Care -01 GONZALEZ GRISSOM, JUN-Supervisory Civil Engineer - 11/30/2018 13:44 EDT documented in this encounter Plan of Treatment Not on file documented as of this encounter Visit Diagnoses Not on filedocumented in this encounter
--- OUTSIDE RECORDS SUMMARY | 2025-02-16 12:36 | XMS_ITS | Encounter Summary ---
Author Organization [employer] Address [address] [place] [address] Care Team Providers Care Almond Paste Molder Name Role Phone Unavailable Primary Care Provider Unavailabl e Encounter Details Date Type Department Care Team (Late st Contact Info) Description 11/28/2018 Transcribed Document [facility] [place] [address] [place] [address] Provider, MD Hilario [facility] [place] [place], [place] [id number] Social History Tobacco Use Types Packs/Day Years [...] Historical ProviderMD - 11/28/2018 1:12 PM CDT [facility] Main OR IntraOp Summary Primary Physician: JOHANNE HERNANDEZ MD-URO Finalized Date/Time: 11/29/18 14:07:57 Pt. Name: LUIS ENRIQUE SMITH D.O.B./Sex: 1965 Female Med Rec #: [id number] Physician: NEWTON SUAREZ MD Financial #: [id number] Pt. Type: O Room/Bed: [facility]/ Admit/Disch: 11/27/18 17:42:00 - Institution: [facility] IntraOp Case Attendance Entry 1 Entry 2 Entry 3 Case Attendee JOHANNE HERNANDEZ WILLS, SANDRA R. Hamilton, Gina M, RN MD-URO Role Performed Surgeon/Proceduralist, Scrub, First Wind Turbine Design Engineer, First First Time In 11/28/18 12:52:00 11/28/18 [...] OWENS, LARRY B, CRNA Role Performed Laser Eye Technician Anesthesiologist of MARKET DEVELOPER/Nurse Early Intervention Specialist Record Time In 11/28/18 12:52:00 11/28/18 12:52:00 [...] 7 Entry 8 Case Attendee EDWARD JEONG, MARKET DEVELOPER SUSAN ANSARI MD Role Performed MARKET DEVELOPER/Nurse Early Intervention Specialist Resident Time In 11/28/18 13:08:00 11/28/18 12:52:00 Time Out 11/28/18 13:30:00 11/28/18 13:30:00 Procedure Cystoscopy Laser Stone Cystoscopy Laser Stone Manipulation(Left), Manipulation(Left), Ureteral Stent Ureteral Stent Insertion, Ureteroscopy Insertion, Ureteroscopy Other Attendee Superficial Wound Closed By: Last Modified By: Shirin Dc RN Hamilton, Gina M, RN 11/28/18 13:30:43 11/28/18 13:30:43 [facility] IntraOp Case Attendance Audit 11/28/18 13:30:43 [address] Railway Line Installer: HAMILTGM Modifier: HAMILTGM 1 <+> Time Out [...] Manipulation(Left), Ureteral Stent Insertion, Ureteroscopy 11/28/18 13:22:42 Street Railway Line Installer: HAMILTGM Modifier: HAMILTGM <+> 8 Case Attendee <+> 8 Role Performed <+> 8 Procedure 11/28/18 13:14:14 Street Railway Line Installer: HAMILTGM Modifier: HAMILTGM 6 <+> Time Out 6 <*> Procedure Cystoscopy Laser Stone Manipulation(Left), Ureteral Stent Insertion, Ureteroscopy <+> 7 Case Attendee <+> 7 Role Performed <+> 7 Time In <+> 7 Procedure 11/28/18 13:00:52 [address] Railway Line Installer: HAMILTGM Modifier: HAMILTGM 1 <+> Time In [...] Laser Stone Manipulation(Left), Ureteral Stent Insertion, Ureteroscopy [facility] IntraOp Case Times Entry 1 Patient In Room Time 11/28/18 12:52:00 Out Room Time 11/28/18 13:30:00 Anesthesia Start Time 11/28/18 12:54:00 Stop Time 11/28/18 13:30:00 Surgery / Procedure Times Start Time 11/28/18 13:12:00 Stop Time 11/28/18 13:25:00 Last Modified By: Shirin Dc RN 11/28/18 13:30:41 [facility] IntraOp Case Times Audit 11/28/18 13:30:41 [address] Railway Line Installer: HAMILTGM Modifier: HAMILTGM <+> 1 Out Room Time <+> 1 Stop Time 11/28/18 13:29:20 Street Railway Line Installer: HAMILTGM Modifier: HAMILTGM <+> 1 Stop Time 11/28/18 13:16:59 [address] Railway Line Installer: HAMILTGM Modifier: HAMILTGM <+> 1 Start Time [facility] IntraOp Communication Entry 1 Entry 2 Communication To Family/Significant other Other Comment NO FAMILY PRESENT REPORT Communication By Shirin Dc RN Hamilton, Gina M, RN Date and Time 11/28/18 13:00:00 11/28/18 13:29:00 Last Modified By: Shirin Dc RN Hamilton, Gina M, RN 11/28/18 13:00:46 11/28/18 13:29:35 [facility] IntraOp Communication Audit 11/28/18 13:29:35 [address] Railway Line Installer: HAMILTGM Modifier: HAMILTGM <+> 2 Communication By <+> 2 Date and Time <+> 2 Communication To <+> 2 Comment [facility] IntraOp Departure from OR Entry 1 Integumentary Assessment Integumentary WDL Assessment WDL Transfer/Handoff Transfer to PACU Phase I Handoff Method Phone call Post-op Transport Stretchchanda/Javier Via Patient Transport SUSAN ANSARI MD, Accompanied by EDWARD JEONG CRNA Last Modified By: Shirin Dc RN 11/28/18 13:22:55 [facility] IntraOp Departure from OR Audit 11/28/18 13:22:55 [address] Railway Line Installer: HAMILTGM Modifier: HAMILTGM 1 <*> Patient Transport Accompanied by Shirin Dc RN [facility] IntraOp Fire Risk Assessment Entry 1 [...] Modified By: Shirin Dc RN 11/28/18 12:41:18 [facility] IntraOp General Case Regional Recruiter 1 Case Information OR Cysto 02 [facility] Case Level 1 Room Verified Yes Wound Class II - Clean-Contaminated Specialty SN Urology Anesthesia Type General ASA Class 2 Diagnosis Preop Diagnosis LEFT RENAL CALCULUS Postop Same As Preop No Postop Diagnosis SEE DOCTOR'S POST OP NOTES Last Modified By: Shirin Dc RN 11/28/18 13:00:27 [facility] IntraOp General Case Data Audit 11/28/18 13:00:27 Street Railway Line Installer: HAMILTGM Modifier: HAMILTGM <+> 1 Preop Diagnosis 11/28/18 12:59:47 Street Railway Line Installer: HAMILTGM Modifier: HAMILTGM <+> 1 ASA Class [facility] IntraOp Intraoperative Assessment Entry 1 Handoff [...] Modified By: Shirin Dc RN 11/28/18 12:41:55 [facility] IntraOp Intraoperative Equipment Entry 1 Equipment [...] Modified By: Shirin Dc RN 11/28/18 12:42:19 [facility] IntraOp Medication Admin Entry 1 Medication/Irrigant NORMAL SALINE -- Route of IRRIGATION Administration Dose Administered By JOHANNE HERNANDEZ MD-URO Procedure Irrigation Last Modified By: Shirin Dc RN 11/28/18 12:42:46 General Comments: CONTRAST UTILIZED DURING STENT PLACEMENT. [facility] IntraOp Patient Positioning Entry 1 Procedure [...] Modified By: Shirin Dc RN 11/28/18 12:43:02 [facility] IntraOp Sign In Entry 1 Patient, [...] Modified By: Shirin Dc RN 11/28/18 12:59:42 [facility] IntraOp Sign Out Entry 1 RN [...] Modified By: Shirin Dc RN 11/28/18 13:30:48 [facility] IntraOp Sign Out Audit 11/28/18 13:30:48 [address] Railway Line Installer: IRENAALIYAHPeri Modifier: HAMILTGM <+> 1 RN Sign Out Signature Date/Time [facility] IntraOp Skin Prep Entry 1 Procedure Cystoscopy Laser Stone Manipulation(Left), Ureteral Stent Insertion, Ureteroscopy Prescribed N/A Pre-Surgical Prep Completed Prep Area Genitalia Intraop Prep Integumentary WDL Assessment WDL Prep Agents Betadine solution Prep by Shirin Dc RN Hair Removal Methods No hair removal performed Last Modified By: Shirin Dc RN 11/28/18 12:43:32 [facility] IntraOp Surgical Procedures Entry 1 Entry [...] RN 11/28/18 13:29:21 11/28/18 13:29:21 11/28/18 13:29:21 [facility] IntraOp Surgical Procedures Audit 11/28/18 13:29:21 [address] Railway Line Installer: ALBERJAMILATGPeri Modifier: HAMILTGM <+> 1 Start <+> 1 Stop <+> 2 Start <+> 2 Stop <+> 3 Start <+> 3 Stop [facility] IntraOp Temp Regulation Devices Entry 1 Temp Regulation Temperature Warm blankets, Forced Regulation Device Air Warming device Temperature Upper body Regulation Site Temperature MINDI GRANT, MARKET DEVELOPER Regulation Device Applied by Temperature monitored per Regulation Comment anesthesia, jon sparks available Last Modified By: Shirin Dc RN 11/28/18 12:43:52 [facility] IntraOP Time Out Entry 1 Procedure [...] Modified By: Shirin Dc RN 11/28/18 13:14:21 [facility] IntraOP Time Out Audit 11/28/18 13:14:21 [address] Railway Line Installer: GIUSEPPE Modifier: GIUSEPPE 1 <+> Time Out Pause Time 1 <*> Procedure to be Performed Cystoscopy Laser Stone Manipulation(Left), Ureteral Stent Insertion, Ureteroscopy Case Comments <None> Finalized By: ROBERTA LEI Document Signatures Signed By: Shirin Dc RN 11/28/18 13:30 ROBERTA LEI 11/29/18 14:07 Unfinalized History Date/Time Username Reason for Unfinalizing Freetext Reason for Unfinalizing 11/29/18 14:02 WATLISSETDR Correct Billing documented in this encounter Plan of Treatment Not on file documented as of this encounter Visit Diagnoses Not on filedocumented in this encounter
--- OUTSIDE RECORDS SUMMARY | 2025-02-16 12:36 | XMS_ITS | Encounter Summary ---
Author Organization [employer] Address [address] [place] [address] Care Team Providers Care Permit Coordinator Name Role Phone Unavailable Primary Care Provider Unavailabl e Encounter Details Date Type Department Care Team (Late st Contact Info) Description 11/29/2018 Transcribed Document [facility] Family Medicine [facility] [place] [address] ProviderHilario MD [facility] [place] [address] Social History Tobacco Use Types Packs/Day Years [...] 0.9% 50 mL 2 Gram, IV Piggyback, [id number] famotidine 20 mg/2 mL inj 20 mg 2 mL, IV Push, BID potassium chloride CR 10 mEq tab 10 mEq 1 Tab, Oral, TID ALLERGIES: PCN FHx: parents with htn and kidney stones SOHx: Patient is single and lives in [place], [place]. No known Diagnosis of Hep B, [...] of 2 sets with Escherichia coli via TRIRIGA. She is currently on cefepime therapy in [...]
--- OUTSIDE RECORDS SUMMARY | 2025-02-16 12:36 | XMS_ITS | Encounter Summary ---
Author Organization [employer] Address [address] [place] [address] Care Team Providers Care Transformation Analyst Name Role Phone Unavailable Primary Care Provider Unavailabl e Encounter Details Date Type Department Care Team (Late st Contact Info) Description 11/30/2018 Transcribed Document [facility] [place] Medicine [address] [place] [address] ProviderHilario MD [facility] [place], [place] [address] Social History Tobacco Use Types Packs/Day Years [...] Hilario ProviderMD - 11/30/2018 3:04 PM CDT [address] [place] [address] Patient Copy Patient Information: Name: LUIS ENRIQUE SMITH Current Date: 11/30/2018 15:04:45 : 1965 Patient Address: [address] [place] [address] Patient Attending Physician: NEWTON SUAREZ MD Primary Care Provider: TRACI ALCAZAR NP-FAM Primary Care Provider Discharge Diagnosis: Ureteral stone Weight on Admission: 143 lb, 0 oz Comment: Follow-up Instructions: With: Address: When: Follow up with primary care provider Within 1 to 2 weeks With: Address: When: ALEXIA VILLALBA [address] [place] [address], [address] [place] [address] Business (1) 12:00 PM With: Address: When: JOHANNE HERNANDEZ [address] [facility] [address], [address] [place] [address] VISEO (1) Within 1 to 2 weeks Comments: follow up first available in [place] office, ideally one week. With: Address: When: [...] including vitamins, herbs, eye drops, creams, and vjmk-ywc-ujlosew medicines. ??? Any problems you or family [...] 08/17/2014 Document Revised: 05/28/2017 Document Reviewed: 05/24/2017 [employer] Interactive Patient Education ? 2017 [employer] Lithotripsy, Care After Refer to this [...] feel your energy improving. ??? Only take avio-txg-jwbmidg or prescription medicines for pain, discomfort, or [...] 08/31/2008 Document Revised: 05/02/2016 Document Reviewed: 02/25/2014 [employer] Interactive Patient Education ? 2017 [employer] Ureteral Stent Implantation Introduction Ureteral stent [...] including vitamins, herbs, eye drops, creams, and emym-hgt-ohrxilo medicines. ??? Any problems you or family [...] kidney stones in the future. ??? Take ouai-sld-ilbwsxb and prescription medicines only as told by [...] 01/25/2017 Elsevier Interactive Patient Education ? 2017 [employer] Dietary Guidelines to Help Prevent Kidney [...] ? Parsley. ? Rutabagas. ? Spinach. ? Tongan chard. ? Tomato paste. ? Fried potatoes. [...] 12/07/2011 Document Revised: 01/17/2017 Document Reviewed: 07/09/2014 [employer] Interactive Patient Education ? 2017 [employer]. Medication Leaflets: cefuroxime (SEF ue AMANDA eem) [...] may report side effects to FDA at 4-038-SCP-6079. What other drugs will affect cefuroxime? Tell your doctor about all your current medicines and any you start or stop using, especially: ? probenecid (Benemid); ?? a blood thinner such as warfarin (Coumadin, Jantoven); or ?? a diuretic or 'water pill.' This list is not complete. Other drugs may interact with cefuroxime, including prescription and wnjh-oyl-dzpcxhb medicines, vitamins, and herbal products. Not all [...] to ensure that the information provided by [employer]. ('[employer]') is accurate, up-to-date, and complete, but no guarantee is made to that effect. Drug information contained herein may be time sensitive. [employer] information has been compiled for use by healthcare practitioners and consumers in the [place] and therefore [employer] does not warrant that uses outside of the [place] are appropriate, unless specifically indicated otherwise. [employer]'s drug information does not endorse drugs, diagnose patients or recommend therapy. [employer] drug information is an informational resource designed [...] effective or appropriate for any given patient. [employer] does not assume any responsibility for any aspect of healthcare administered with the aid of information [employer] provides. The information contained herein is not intended to cover all possible uses, directions, precautions, warnings, drug interactions, allergic reactions, or adverse effects. If you have questions about the drugs you are taking, check with your doctor, nurse or pharmacist. Copyright 2172-4679 [employer]. Version: 7.01. Revision Date: 01/20/2016. acetaminophen and [...] may report side effects to FDA at 9-846-VQL-7201. What other drugs will affect acetaminophen and [...] affect acetaminophen and oxycodone, including prescription and fdov-mvn-ttcaqnz medicines, vitamins, and herbal products. Not all [...] to ensure that the information provided by [employer]. ('[employer]um') is accurate, up-to-date, and complete, but no guarantee is made to that effect. Drug information contained herein may be time sensitive. [employer] information has been compiled for use by healthcare practitioners and consumers in the [place] and therefore [employer] does not warrant that uses outside of the [place] are appropriate, unless specifically indicated otherwise. [employer] drug information does not endorse drugs, diagnose patients or recommend therapy. [employer] drug information is an informational resource designed [...] effective or appropriate for any given patient. [employer] does not assume any responsibility for any aspect of healthcare administered with the aid of information [employer] provides. The information contained herein is not intended to cover all possible uses, directions, precautions, warnings, drug interactions, allergic reactions, or adverse effects. If you have questions about the drugs you are taking, check with your doctor, nurse or pharmacist. Copyright 0442-5262 [employer]. Version: 18.. Revision Date: 07/23/2018. phenazopyridine (fen [...] or ?? a genetic enzyme deficiency called ukabhgq-1-jqhkdxwjv dehydrogenase (G6PD) deficiency. FDA category B. Phenazopyridine [...] may report side effects to FDA at 2-568-DRV-8962. What other drugs will affect phenazopyridine? Other drugs may interact with phenazopyridine, including prescription and szpf-ame-huadrcu medicines, vitamins, and herbal products. Tell each [...] to ensure that the information provided by [employer]p-labs. ('ShareThe[employer]') is accurate, up-to-date, and complete, but no guarantee is made to that effect. Drug information contained herein may be time sensitive. [employer] information has been compiled for use by healthcare practitioners and consumers in the [place] and therefore [employer] does not warrant that uses outside of the [place] are appropriate, unless specifically indicated otherwise. [employer] drug information does not endorse drugs, diagnose patients or recommend therapy. [employer] drug information is an informational resource designed [...] effective or appropriate for any given patient. [employer] does not assume any responsibility for any aspect of healthcare administered with the aid of information [employer] provides. The information contained herein is not intended to cover all possible uses, directions, precautions, warnings, drug interactions, allergic reactions, or adverse effects. If you have questions about the drugs you are taking, check with your doctor, nurse or pharmacist. Copyright 8368-0110 [employer]. Version: 3.05. Revision Date: 12/17/2013. promethazine (oral) (pro METH a zeen) Phenergan What is the most important information I should know about promethazine? Promethazine should not be given to a child younger than 2 years old. Promethazine can cause severe breathing problems or in very young children. What is promethazine? Promethazine is in a group of drugs called phenothiazines (BIGU-oi-HAOE-a-zeens). It works by changing the actions of [...] may report side effects to FDA at 5-280-OWK-8348. What other drugs will affect promethazine? Using this medicine with other drugs that make you sleepy or slow your breathing can cause dangerous or life-threatening side effects. Ask your doctor before taking promethazine with a sleeping pill, narcotic pain medicine, muscle relaxer, or medicine for anxiety, depression, or seizures. Other drugs may interact with promethazine, including prescription and dmdm-zmj-fybqfcb medicines, vitamins, and herbal products. Tell each [...] to ensure that the information provided by [employer]labs. ('[employer]') is accurate, up-to-date, and complete, but no guarantee is made to that effect. Drug information contained herein may be time sensitive. [employer] information has been compiled for use by healthcare practitioners and consumers in the [place] and therefore [employer] does not warrant that uses outside of the [place] are appropriate, unless specifically indicated otherwise. [employer] drug information does not endorse drugs, diagnose patients or recommend therapy. [employer] drug information is an informational resource designed [...] effective or appropriate for any given patient. [employer] does not assume any responsibility for any aspect of healthcare administered with the aid of information [employer] provides. The information contained herein is not intended to cover all possible uses, directions, precautions, warnings, drug interactions, allergic reactions, or adverse effects. If you have questions about the drugs you are taking, check with your doctor, nurse or pharmacist. Copyright 0755-6399 [employer]abs. Version: 6.02. Revision Date: 06/09/2015. CIGARETTE SMOKING: The facts are clear, cigarette smoking will shorten your life. Smoking can cause many illnesses along the way. As a healthcare provider, we recommend that you stop smoking. Assistance with quitting is available by contacting 6-844-YMRE-NOW. This is a free resource providing counseling, [...] Be sure to sign up for the 3 day [facility] patient portal, which gives you 18/03 access to your medical information ??? including these discharge instructions ??? using your computer, smartphone, or tablet. Just go to AssertID to get started. Questions? Call . [facility] would like to thank you for allowing us to assist you with your healthcare needs. PAULETTE Payne JUDY, (or circulation sales representative) have received the above patient education materials/instructions and have verbalized understanding: Patient Signature _ Date/Time Patient District Superintendent Signature (if needed) Date/Time Clinician/Hospital District Superintendent Signature (if needed) Date/Time Electronically signed by Argenis [facility] Conversion Property Insurance Inspector Renay at 12/11/2022 10:24 AM CDT documented in this encounter Plan of Treatment Not on file documented as of this encounter Visit Diagnoses Not on filedocumented in this encounter
--- OUTSIDE RECORDS SUMMARY | 2025-02-16 12:36 | XMS_ITS | Encounter Summary ---
Author Organization [employer] Address [address] [place] [address] Care Team Providers Care Retail Pharmacist Name Role Phone Unavailable Primary Care Provider Unavailabl e Encounter Details Date Type Department Care Team (Late st Contact Info) Description 11/28/2018 Transcribed Document [facility] Family Medicine [address] [place], [place] [id number] ProviderHilario MD [facility] [place] [address] Social History Tobacco Use Types Packs/Day Years [...] 11/28/2018 CONSULTATION ATTENDING PHYSICIAN: Antionette Nevarez M.D. WAITER: Rashawn Sims MD REASON FOR CONSULTATION: Left ureteral stone with possible urinary infection. BRIEF HISTORY: Patient is a 53-year-old female, who presented to [facility] Emergency Room yesterday with three days of left flank pain. The pain became refractory and she actually returned to the emergency room after a previous visit 24 hours earlier. She had a CT scan on her initial visit, which revealed a 5 mm left ureteral stone. Upon return, she was noted to have a white count [address], nitrite positive urine, and questionable probable urinary [...] Trans: 11/28/2018 08:53:16 CC1: Rashawn Sims M.D. Electronically signed by Selina More Conversion [employer] Mathematics Teacher Cerner at 12/11/2022 10:31 AM CDT documented in this encounter Plan of Treatment Not on file documented as of this encounter Visit Diagnoses Not on filedocumented in this encounter
--- OUTSIDE RECORDS SUMMARY | 2025-02-16 12:36 | XMS_ITS | Encounter Summary ---
Author Organization [employer] Address [address] [place] [address] Care Team Providers Care Paint Specialist Name Role Phone Unavailable Primary Care Provider Unavailabl e Encounter Details Date Type Department Care Team (Late st Contact Info) Description 11/28/2018 Transcribed Document [facility] [place] [address] [place] [address] ProviderHilario MD Counts include 234 beds at the [facility] [place] [address] Social History Tobacco Use Types Packs/Day Years [...]
--- OUTSIDE RECORDS SUMMARY | 2025-02-16 12:36 | XMS_ITS | Encounter Summary ---
Author Organization [employer] Address [address] [place] [address] Care Team Providers Care Traffic And Transport Planner Name Role Phone Unavailable Primary Care Provider Unavailabl e Encounter Details Date Type Department Care Team (Late st Contact Info) Description 11/28/2018 Transcribed Document [facility] [place] [address] [place] [address] ProviderHilario MD [facility] [place] [address] Social History Tobacco Use Types Packs/Day Years [...] Diagnoses: None Author: KAYCEE DENTON MD-INF error Electronically signed by Argenis [facility] Conversion Webfed Offset Press Operator Cerner at 12/11/2022 10:27 AM CDT documented in this encounter Plan of Treatment Not on file documented as of this encounter Visit Diagnoses Not on filedocumented in this encounter
--- OUTSIDE RECORDS SUMMARY | 2025-02-16 12:36 | XMS_ITS | Encounter Summary ---
Author Organization [employer] Address [address] [place] [address] Care Team Providers Care Supervisor Shipfitters Name Role Phone Unavailable Primary Care Provider Unavailabl e Encounter Details Date Type Department Care Team (Late st Contact Info) Description 11/30/2018 Transcribed Document [facility] [place] [address] [place] [address] ProviderHilario MD [facility] [address] Social History Tobacco Use Types Packs/Day Years [...]
--- OUTSIDE RECORDS SUMMARY | 2025-02-16 12:36 | XMS_ITS | Encounter Summary ---
Author Organization [employer] Address [address] [place] [address] Care Team Providers Care Manager Transition Name Role Phone Unavailable Primary Care Provider Unavailabl e Encounter Details Date Type Department Care Team (Late st Contact Info) Description 11/30/2018 Transcribed Document [facility] [place] [address] [place] [address] ProviderHilario MD [facility] [place], [place] [id number] Social History Tobacco Use Types Packs/Day Years [...] non-tender, non-distended, positive bowel sounds throughout. :No unnez cath Lower extremity: No cyanosis, clubbing or [...] PA-C/for Dr. Bhavik Villalba Electronically signed by [facility] Conversion Lighting Designer Cerner at 12/11/2022 10:15 AM CDT documented in this encounter Plan of Treatment Not on file documented as of this encounter Visit Diagnoses Not on filedocumented in this encounter
--- OUTSIDE RECORDS SUMMARY | 2025-02-16 12:36 | XMS_ITS | Encounter Summary ---
Author Organization [employer] Address [address] [place] [address] Care Team Providers Care House Manager Name Role Phone Unavailable Primary Care Provider Unavailabl e Encounter Details Date Type Department Care Team (Late st Contact Info) Description 11/30/2018 Transcribed Document [facility] [place] Family Medicine [address] [place] [address] ProviderHilario MD [address] [place], [place] [address] Social History Tobacco Use Types Packs/Day Years [...] feel your energy improving. ??? Only take txwe-qdu-kkeoest or prescription medicines for pain, discomfort, or [...] 08/31/2008 Document Revised: 05/02/2016 Document Reviewed: 02/25/2014 [employer] Interactive Patient Education ? 2017 Clim[employer]inder. Urology Ureteroscopy Ureteroscopy is a procedure to [...] including vitamins, herbs, eye drops, creams, and mkxt-zau-dopdvmi medicines. ??? Any problems you or family [...] 08/17/2014 Document Revised: 05/28/2017 Document Reviewed: 05/24/2017 [employer] Interactive Patient Education ? 2017 [employer] Inc. Ureteral Stent Implantation Introduction Ureteral stent [...] including vitamins, herbs, eye drops, creams, and mlvv-drw-nlyrefv medicines. ??? Any problems you or family [...] kidney stones in the future. ??? Take eqml-fnh-yudgclp and prescription medicines only as told by [...] 08/12/2006 Document Revised: 03/01/2017 Document Reviewed: 01/25/2017 X[employer]IS Interactive Patient Education ? 2017 [employer] Inc. Dietary Guidelines to Help Prevent Kidney [...] ? Parsley. ? Rutabagas. ? Spinach. ? Romanian chard. ? Tomato paste. ? Fried potatoes. [...] 12/07/2011 Document Revised: 01/17/2017 Document Reviewed: 07/09/2014 [employer]IS Interactive Patient Education ? 2017 [employer] Inc. documented in this encounter Plan of Treatment Not on file documented as of this encounter Visit Diagnoses Not on filedocumented in this encounter
--- OUTSIDE RECORDS SUMMARY | 2025-02-16 12:36 | XMS_ITS | Encounter Summary ---
Author Organization [email or web address] Address [address] [place] [address] Care Team Providers Care Trial Examiner Name Role Phone Unavailable Primary Care Provider Unavailabl e Encounter Details Date Type Department Care Team (Late st Contact Info) Description 11/30/2018 Transcribed Document [facility] [place] Family Medicine [address] [place] [address] ProviderHilario MD [address] [place] [address] Social History Tobacco Use Types Packs/Day Years [...] Historical ProviderMD - 11/30/2018 2:00 AM CDT Pin Sorter And Bagger Details Entered On: 11/30/2018 3:03 EDT Performed [...]
--- OUTSIDE RECORDS SUMMARY | 2025-02-16 12:36 | XMS_ITS | Encounter Summary ---
Author Organization [employer] Address [address] [place] [address] Care Team Providers Care Prescription Benefit Specialist Name Role Phone Unavailable Primary Care Provider Unavailabl e Encounter Details Date Type Department Care Team (Late st Contact Info) Description 11/28/2018 Transcribed Document [facility] [place] Family Medicine [address] [place] [address] ProviderHilario MD [facility] [place], [place] [id number] Social History Tobacco Use Types Packs/Day Years [...]
--- OUTSIDE RECORDS SUMMARY | 2025-02-16 12:36 | XMS_ITS | Encounter Summary ---
Author Organization [email or web address] Address [address] [place] [address] Care Team Providers Care Animal Ride Manager Name Role Phone Unavailable Primary Care Provider Unavailabl e Encounter Details Date Type Department Care Team (Late st Contact Info) Description 11/30/2018 Transcribed Document [facility] [place] [address] [place] [address] ProviderHilario MD [facility] [place], [place] [address] Social History Tobacco Use Types Packs/Day Years [...] Hilario ProviderMD - 11/30/2018 3:20 PM CDT [address] [place] [address] Patient Copy Patient Information: Name: LUIS ENRIQUE SMITH Current Date: 11/30/2018 15:20:04 : 1965 Patient Address: [address] [place] [id number] Patient Attending Physician: NEWTON SUAREZ MD Primary Care Provider: TRACI ALCAZAR NP-FAM Primary Care Provider Discharge Diagnosis: Ureteral stone Weight on Admission: 143 lb, 0 oz Comment: Follow-up Instructions: With: Address: When: Follow up with primary care provider Within 1 to 2 weeks With: Address: When: ALEXIA VILLALBA [address] [place] [address], [address] [place] [address] Business (1) 12:00 PM With: Address: When: JOHANNE HERNAN[address]Z [address] [facility], [address] [place] [address] [place] (1) Within 1 to 2 weeks Comments: follow up first available in [place] office, ideally one week. With: Address: When: [...] including vitamins, herbs, eye drops, creams, and mmfl-wwv-sinigqn medicines. ??? Any problems you or family [...] 08/17/2014 Document Revised: 05/28/2017 Document Reviewed: 05/24/2017 [employer]c Interactive Patient Education ? 2017 sa[employer]c Inc. Lithotripsy, Care After Refer to this [...] feel your energy improving. ??? Only take hgrl-szn-yxrmwkk or prescription medicines for pain, discomfort, or [...] 08/31/2008 Document Revised: 05/02/2016 Document Reviewed: 02/25/2014 [employer]c Interactive Patient Education ? 2017 [employer] Inc. Ureteral Stent Implantation Introduction Ureteral stent [...] including vitamins, herbs, eye drops, creams, and dfcn-wen-zmjyagp medicines. ??? Any problems you or family [...] kidney stones in the future. ??? Take krjx-oye-kluwwqo and prescription medicines only as told by [...] 01/25/2017 Elsevier Interactive Patient Education ? 2017 [employer]c Inc. Dietary Guidelines to Help Prevent Kidney [...] ? Parsley. ? Rutabagas. ? Spinach. ? Togolese chard. ? Tomato paste. ? Fried potatoes. [...] 12/07/2011 Document Revised: 01/17/2017 Document Reviewed: 07/09/2014 saperatec Interactive Patient Education ? 2017 Vendor Registry. Medication Leaflets: cefuroxime (SEF ue AMANDA eem) [...] may report side effects to FDA at 6-834-UOH-8113. What other drugs will affect cefuroxime? Tell your doctor about all your current medicines and any you start or stop using, especially: ? probenecid (Benemid); ?? a blood thinner such as warfarin (Coumadin, Jantoven); or ?? a diuretic or 'water pill.' This list is not complete. Other drugs may interact with cefuroxime, including prescription and tsny-cht-yylmlax medicines, vitamins, and herbal products. Not all [...] to ensure that the information provided by Might[employer]Meeting. ('Multum') is accurate, up-to-date, and complete, but no guarantee is made to that effect. Drug information contained herein may be time sensitive. Sofea information has been compiled for use by healthcare practitioners and consumers in the [place] and therefore Sofea does not warrant that uses outside of the [place] are appropriate, unless specifically indicated otherwise. Sofea's drug information does not endorse drugs, diagnose patients or recommend therapy. [facility] drug information is an informational resource designed [...] effective or appropriate for any given patient. So[employer]a does not assume any responsibility for any aspect of healthcare administered with the aid of information Sofea provides. The information contained herein is not intended to cover all possible uses, directions, precautions, warnings, drug interactions, allergic reactions, or adverse effects. If you have questions about the drugs you are taking, check with your doctor, nurse or pharmacist. Copyright 8643-9819 [employer]eting. Version: 7.01. Revision Date: 01/20/2016. acetaminophen and [...] may report side effects to FDA at 0-561-LMY-9201. What other drugs will affect acetaminophen and [...] affect acetaminophen and oxycodone, including prescription and jvhe-qwr-liyyrfn medicines, vitamins, and herbal products. Not all [...] to ensure that the information provided by [employer]. ('Multum') is accurate, up-to-date, and complete, but no guarantee is made to that effect. Drug information contained herein may be time sensitive. Sofea information has been compiled for use by healthcare practitioners and consumers in the [place] and therefore Sofea does not warrant that uses outside of the [place] are appropriate, unless specifically indicated otherwise. [facility] drug information does not endorse drugs, diagnose patients or recommend therapy. [employer] drug information is an informational resource designed [...] effective or appropriate for any given patient. So[employer]a does not assume any responsibility for any aspect of healthcare administered with the aid of information Sofea provides. The information contained herein is not intended to cover all possible uses, directions, precautions, warnings, drug interactions, allergic reactions, or adverse effects. If you have questions about the drugs you are taking, check with your doctor, nurse or pharmacist. Copyright 0056-6135 [employer]Meeting. Version: 18.. Revision Date: 07/23/2018. phenazopyridine (fen [...] or ?? a genetic enzyme deficiency called ludqvfy-7-poihcwxzq dehydrogenase (G6PD) deficiency. FDA category B. Phenazopyridine [...] may report side effects to FDA at 6-059-LXX-2252. What other drugs will affect phenazopyridine? Other drugs may interact with phenazopyridine, including prescription and dwdr-jbt-oemlifv medicines, vitamins, and herbal products. Tell each [...] to ensure that the information provided by [employer]. ('AccuDrafttum') is accurate, up-to-date, and complete, but no guarantee is made to that effect. Drug information contained herein may be time sensitive. Sofea information has been compiled for use by healthcare practitioners and consumers in the [place] and therefore Sofea does not warrant that uses outside of the [place] are appropriate, unless specifically indicated otherwise. [facility] drug information does not endorse drugs, diagnose patients or recommend therapy. [facility] drug information is an informational resource designed [...] effective or appropriate for any given patient. So[employer]a does not assume any responsibility for any aspect of healthcare administered with the aid of information Sofea provides. The information contained herein is not intended to cover all possible uses, directions, precautions, warnings, drug interactions, allergic reactions, or adverse effects. If you have questions about the drugs you are taking, check with your doctor, nurse or pharmacist. Copyright 3388-4996 [employer]Meeting. Version: 3.05. Revision Date: 12/17/2013. promethazine (oral) (pro METH a zeen) Phenergan What is the most important information I should know about promethazine? Promethazine should not be given to a child younger than 2 years old. Promethazine can cause severe breathing problems or in very young children. What is promethazine? Promethazine is in a group of drugs called phenothiazines (QNLP-pb-PIEV-a-zeens). It works by changing the actions of [...] may report side effects to FDA at 8-709-AOO-5289. What other drugs will affect promethazine? Using this medicine with other drugs that make you sleepy or slow your breathing can cause dangerous or life-threatening side effects. Ask your doctor before taking promethazine with a sleeping pill, narcotic pain medicine, muscle relaxer, or medicine for anxiety, depression, or seizures. Other drugs may interact with promethazine, including prescription and srkb-ohw-yfatbuf medicines, vitamins, and herbal products. Tell each [...] to ensure that the information provided by [employer]. ('Multum') is accurate, up-to-date, and complete, but no guarantee is made to that effect. Drug information contained herein may be time sensitive. Sofea information has been compiled for use by healthcare practitioners and consumers in the [place] and therefore Sofea does not warrant that uses outside of the [place] are appropriate, unless specifically indicated otherwise. [facility] drug information does not endorse drugs, diagnose patients or recommend therapy. [facility] drug information is an informational resource designed [...] effective or appropriate for any given patient. So[employer]a does not assume any responsibility for any aspect of healthcare administered with the aid of information Sofea provides. The information contained herein is not intended to cover all possible uses, directions, precautions, warnings, drug interactions, allergic reactions, or adverse effects. If you have questions about the drugs you are taking, check with your doctor, nurse or pharmacist. Copyright 7433-6635 [employer]eting. Version: 6.02. Revision Date: 06/09/2015. CIGARETTE SMOKING: The facts are clear, cigarette smoking will shorten your life. Smoking can cause many illnesses along the way. As a healthcare provider, we recommend that you stop smoking. Assistance with quitting is available by contacting 3-354-XERF-NOW. This is a free resource providing counseling, [...] Be sure to sign up for the [facility] patient portal, which gives you 18/03 access to your medical information ??? including these discharge instructions ??? using your computer, smartphone, or tablet. Just go to [email or web address] to get started. Questions? Call . [facility] would like to thank you for allowing us to assist you with your healthcare needs. PAULETTE Payne JUDY, (or exhibit display representative) have received the above patient education materials/instructions and have verbalized understanding: Patient Signature _ Date/Time Patient Manager It Security Signature (if needed) Date/Time Clinician/Hospital Manager It Security Signature (if needed) Date/Time Electronically signed by [facility] Conversion Wood Heel Flap Inserter Renay at 12/11/2022 10:17 AM CDT documented in this encounter Plan of Treatment Not on file documented as of this encounter Visit Diagnoses Not on filedocumented in this encounter
--- OUTSIDE RECORDS SUMMARY | 2025-02-16 12:36 | XMS_ITS | Encounter Summary ---
Author Organization [employer] Address [address] [place] [address] Care Team Providers Care Brush Stainer Name Role Phone Unavailable Primary Care Provider Unavailabl e Encounter Details Date Type Department Care Team (Late st Contact Info) Description 11/28/2018 Transcribed Document [facility] [place] [address] [place] [address] ProviderHilario MD [facility] [place] [address] Social History Tobacco Use Types Packs/Day Years [...] On: 11/28/2018 13:17 EDT by GONZALEZ GRISSOM RN-Counter ProfessionalGeodetic Engineer Note Care Management Note : Received from [facility] with c/o flank pain, placed in [...] Documentation Status Complete : Yes GONZALEZ GRISSOM RN-Counter Professional - 11/28/2018 13:17 EDT Patient History Information [...] None Home Equipment : None GONZALEZ GRISSOM RN-Counter Professional - 11/28/2018 13:17 EDT Discharge Planning Details Discharge Home : Home with spouse/significant other GONZALEZ GRISSOM RN-Counter Professional - 11/28/2018 13:17 EDT documented in this encounter Plan of Treatment Not on file documented as of this encounter Visit Diagnoses Not on filedocumented in this encounter
--- OUTSIDE RECORDS SUMMARY | 2025-02-16 12:36 | XMS_ITS | Encounter Summary ---
Author Organization [employer] Address [address] [place] [address] Care Team Providers Care Neon Tube Bender Name Role Phone Unavailable Primary Care Provider Unavailabl e Encounter Details Date Type Department Care Team (Late st Contact Info) Description 11/29/2018 Transcribed Document [facility] [place] [address] [place] [address] ProviderHilario MD [address] [place] [address] Social History Tobacco Use Types Packs/Day Years [...] Performed On: 11/29/2018 17:00 EDT by Miranda oPrtillo Rn-Traveler Chart Check Chart Reviewed Date and Time : 11/29/2018 16:35 EDT Powerplans Initiated/Discontinued as Appropriate : Yes All Active Orders Reviewed : Yes Miranda Portillo Rn-Traveler - 11/29/2018 16:35 EDT documented in this encounter Plan of Treatment Not on file documented as of this encounter Visit Diagnoses Not on filedocumented in this encounter
--- OUTSIDE RECORDS SUMMARY | 2025-02-16 12:36 | XMS_ITS | Clinical Summary ---
Author Organization Healthcare Address [address] [place] [address] Care Team Providers Care Signal Maintainer Name Role Phone Low Hammonds APRN Primary Care Provider [phone]- [phone] Family History Medical History Relation Name Comments [...] 2014 UKY-Zoster Vaccines (1 of 2) 2014 IPM-UQDQI-57 Vaccine (1 - 20 24-25 season) 2024 [...] of Service: 03/02/2020 eferring Phy:Melquiadesyamile Merlos APRNAccount: [phone] BI-RADS Assessment Category 3: Probably benign finding. RECOMMENDATION: Finding 2: Short term follow-up ultrasound of the right breast in 6 months. COMMUNICATION: The patient was seen today by the [facility] surgery/oncology team. They discussed the [...] The patient was seen today by the [facility] surgery/oncology team. They discussed the [...] 03/02/2020 eferring Phy:Maria Del Rosario Merlos APRNAccount: [phone] Maria Del Rosario Merlos APRN [facility] [place] [place] [address] FINAL REPORT PROCEDURE: Tomosynthesis Diagnostic Bilateral - [...] The patient was seen today by the [facility] surgery/oncology team. They discussed the [...] on Mar 02 2020 1:37P Transcribed by: [facility] on Mar 02 2020 1:37P Dictated by: CARLOS BUENO M.D. on Mar 02 2020 1:37P Patient Name:Aleshia Smith : 1965 Age: 54 Gender: femaleDate of Service:03/02/2020 eferring Phy:Maria Del Rosario Merlos APRNAccount: [phone] Maria Del Rosario Merlos APRN [facility] [address] [place] [address] FINAL REPORT PROCEDURE: Tomosynthesis Diagnostic Bilateral - [...] Service:03/02/2020 eferring Phy:Maria Del Rosario Merlos, APRNAccount: [phone] BI-RADS Assessment Category 3: Probably benign finding. RECOMMENDATION: Finding 2: Short term follow-up ultrasound of the right breast in 6months. COMMUNICATION: The patient was seen today by the [facility] surgery/oncology team. Theydiscussed the findings [...] of 2 us Maria Del Rosario Merlos EMBROIDERY CUTTER IMG BI PROCEDURES Final Res ult * Cytology (10/23/1993 12:00 AM EST) 10/23/1993 10/23/1993 Narrative SUNQUEST - 11/06/1993 12:00 AM EST [facility] MR #: [id number] [facility] AL[place]IA SMITH [place], [place] [address] 1965 (Age: 28) FW Collect Date: 10/23/1993 00:00 Receipt Date: 10/23/1993 00:00 Page 1 DEPARTMENT OF PATHOLOGY AND LABORATORY MEDICINE CYTOPATHOLOGY REPORT Email: [phone] * Converted Case * This report may not match the original report format ATTENDING MD/Practitioner: Piyush Karimi Jr., Service: CHEESE WEIGHER Location: Reported: 11/06/1993 00:00 Collected: 10/23/1993 00:00 [...] results is suggested (please call Microbiology at [phone] for results). CLINICAL INFORMATION: Menstrual History: {Not Provided} Date of Last Menstrual Period: {Not Provided} SPECIMEN DESCRIPTION: A: CERVICAL/VAGINAL SMEAR, PAP ICD: F: {Not Entered} SNOMED CODES: 1; [id number] In cases where a pathologist has signed out the report, the service has been rendered in part by a resident. The signing pathologist has performed and is responsible for the reported pathologic evaluation. Nilson Karimi MD LAB PATHOLOGY ORDERABLES Fi nal Result SUNQUEST from Last 3 Months or Most Recently Relevant to Health Maintenance Care Teams Signal Maintainer Relationship Specialty Start Date End Date Low Hammonds APRN [address] [place] [address] PCP - General 01/06/21
--- OUTSIDE RECORDS SUMMARY | 2025-02-16 12:36 | XMS_ITS | Encounter Summary ---
Author Organization [employer] Address [address] [place] [address] Care Team Providers Care Etcher Enameling Name Role Phone Unavailable Primary Care Provider Unavailabl e Encounter Details Date Type Department Care Team (Late st Contact Info) Description 11/29/2018 Transcribed Document [facility] [place] Medicine [address] [place] [address] ProviderHilario MD [facility] [place] [address] Social History Tobacco Use Types Packs/Day Years [...] form. Electronically signed by Selina More Conversion Applications Engineering Manager Cerner at 12/11/2022 10:41 AM CDT documented in this encounter Plan of Treatment Not on file documented as of this encounter Visit Diagnoses Not on filedocumented in this encounter
--- OUTSIDE RECORDS SUMMARY | 2025-02-16 12:36 | XMS_ITS | Encounter Summary ---
Author Organization [employer] Address [address] [place] [address] Care Team Providers Care Diplomatic Officer Name Role Phone Unavailable Primary Care Provider Unavailabl e Encounter Details Date Type Department Care Team (Late st Contact Info) Description 11/28/2018 Transcribed Document [facility] [place] [address] [place] [address] ProviderHilario MD [facility] [place] [address] Social History Tobacco Use Types Packs/Day Years [...] (Moderate 4-6) cefepime: 2 Gram, IV Piggyback, [id number] metoprolol tartrate: 25 mg, Oral, Q4H, PRN: Tachycardia morphine: 2 mg, IV Push, Q2H, PRN: Pain (Severe 7-10) traZODone: 50 mg, Oral, At Bedtime, PRN: Insomnia Documented Medications Documented estradiol 2 mg oral tablet: Tab, Oral, Daily, 0 Refill(s) lisinopril: 12.5, Oral, Daily, 0 Refill(s), Medications (11) Active Scheduled: (2) cefepime 2 Gram, IV Piggyback, [id number] famotidine 20 mg/2 mL inj 20 mg [...] At risk for sleep apnea / IMO [id number] / Confirmed, Active Problems (1) At risk [...] tenderness, No swelling, No deformity. Integumentary: Warm, [place], Moist, No rash. Neurologic: Alert, Oriented, Normal [...]
--- OUTSIDE RECORDS SUMMARY | 2025-02-16 12:37 | XMS_ITS | Encounter Summary ---
Author Organization [employer] Address [address] [place] [address] Care Team Providers Care Manufacturing Systems Engineer Name Role Phone Unavailable Primary Care Provider Unavailabl e Encounter Details Date Type Department Care Team (Late st Contact Info) Description 11/27/2018 Transcribed Document [facility] Family Medicine [address] [place] [address] ProviderHilario MD [facility] [address] Social History Tobacco Use Types Packs/Day Years [...] No Current Home Treatments : None Le Solis RN - 11/27/2018 17:54 EDT General Info [...] Kidney stone left side Primary Language : Solomon Islander Communication Barrier : None Le Solis RN [...] Scale Risk Level : 0-24 Low Risk [place] Fall Interventions : Adequate lighting, Assistive devices [...] Source : Stated Height Entry Format : [place] Height, Feet : 5 ft(Converted to: 152 cm, 60 Inch) Height, Inches : 3 Inch(Converted to: 0 ft 3 Inch, 7.62 cm) Clinical Height : 160.02 cm Weight Source : Standing scale Weight Entry Format : [place] Clinical Dosing Weight : 65 kg Weight, Pounds : 143 lb Body Surface Area (BSA) : 1.68 m2 Body Mass Index : 25.4 kg/m2 (HI) [place] Body Weight : 52 kg Le Solis [...]
--- OUTSIDE RECORDS SUMMARY | 2025-02-16 12:37 | XMS_ITS | Encounter Summary ---
Author Organization [employer] Address [address] [place] [address] Care Team Providers Care Education Coordinator Name Role Phone Unavailable Primary Care Provider Unavailabl e Encounter Details Date Type Department Care Team (Late st Contact Info) Description 11/27/[address] [facility] [place] [address] [place] [address] Provider, MD [place] [address] Social History Tobacco Use Types Packs/Day Years [...] with mild hydronephrosis. Patient was transferred to [facility]. Came in, blood work shows leukocytosis, patient [...] 19:44:41 Trans: 11/27/2018 20:23:06 Processed: 11/28/2018 10:21:31 [place] CC1: Antionette Nevarez M.D. CC2: Dr. Low Hammonds Electronically signed by [facility], [facility] Conversion Box Lining Machine Operator Cerner at 12/11/2022 10:32 AM CDT documented in this encounter Plan of Treatment Not on file documented as of this encounter Visit Diagnoses Not on filedocumented in this encounter
--- OUTSIDE RECORDS SUMMARY | 2025-02-16 12:37 | XMS_ITS | Encounter Summary ---
Author Organization [employer] Address [address] [place] [address] Care Team Providers Care Corporate Associate Attorney Name Role Phone Unavailable Primary Care Provider Unavailabl e Encounter Details Date Type Department Care Team (Late st Contact Info) Description 11/30/2018 Transcribed Document [facility] [place] [address] [place] [address] ProviderHilario MD [address] [place] [address] Social History Tobacco Use Types Packs/Day Years [...]
--- OUTSIDE RECORDS SUMMARY | 2025-02-16 12:37 | XMS_ITS | Encounter Summary ---
Author Organization [employer] Address [address] [place] [address] Care Team Providers Care Review Rn Name Role Phone Unavailable Primary Care Provider Unavailabl e Encounter Details Date Type Department Care Team (Late st Contact Info) Description 11/28/[address] [facility] [place] Family Medicine [address] [place] [address] ProviderHilario MD [facility] [place] [address] Social History Tobacco Use Types Packs/Day Years [...]
--- OUTSIDE RECORDS SUMMARY | 2025-02-16 12:37 | XMS_ITS | Encounter Summary ---
Author Organization [employer] Address [address] [place] [address] Care Team Providers Care Plastics Tooling Engineer Name Role Phone Unavailable Primary Care Provider Unavailabl e Encounter Details Date Type Department Care Team (Late st Contact Info) Description 11/27/2018 Transcribed Document [facility] [place] [address] [place] [address] ProviderHilario MD [address] [place] [address] Social History Tobacco Use Types Packs/Day Years [...]
--- OUTSIDE RECORDS SUMMARY | 2025-02-16 12:37 | XMS_ITS | Encounter Summary ---
Author Organization [employer] Address [address] [place] [address] Care Team Providers Care Quality Control Engineering Technician Name Role Phone Unavailable Primary Care Provider Unavailabl e Encounter Details Date Type Department Care Team (Late st Contact Info) Description 12/03/2018 Transcribed Document [facility] [place] [address] [place] [address] ProviderHilario MD [facility] [place], [place] [address] Social History Tobacco Use Types Packs/Day Years [...] with mild hydronephrosis. Patient was transferred to [facility]. Came in, blood work shows leukocytosis, patient [...] \, Time Spent on Discharge 35 minutes documented in this encounter Plan of Treatment Not on file documented as of this encounter Visit Diagnoses Not on filedocumented in this encounter
--- OUTSIDE RECORDS SUMMARY | 2025-02-16 12:37 | XMS_ITS | Encounter Summary ---
Author Organization [email or web address] Address [address] [place] [address] Care Team Providers Care University Internship Name Role Phone Unavailable Primary Care Provider Unavailabl e Encounter Details Date Type Department Care Team (Late st Contact Info) Description 11/27/2018 Transcribed Document [facility] [place] [address] [place] [address] ProviderHilario MD [facility] [place] [address] Social History Tobacco Use Types Packs/Day Years [...] 11/27/2018 17:52 EDT by [place] Patient Steel Worker Phone Call for Consults Consult Phone Call/Page Attempt : First call Consult Reason : kidney stones Physician Requested for Consult : JOHANNE HERNANDEZ MD-URO [place], Patient Steel Worker - 11/27/2018 18:23 EDT documented in this encounter Plan of Treatment Not on file documented as of this encounter Visit Diagnoses Not on filedocumented in this encounter
--- OUTSIDE RECORDS SUMMARY | 2025-02-16 12:37 | XMS_ITS | Encounter Summary ---
Author Organization [employer] Address [address] [place] [address] Care Team Providers Care Senior Health Physics Technician Name Role Phone Unavailable Primary Care Provider Unavailabl e Encounter Details Date Type Department Care Team (Late st Contact Info) Description 11/30/2018 Transcribed Document [facility] [place] Medicine [address] [place] [address] ProviderHilario MD [facility] [place] [address] Social History Tobacco Use Types Packs/Day Years [...] 25.4 kg/m2 High (11/27/18 17:42:00) Rapid Response Senior Health Physics Technician #1 : NEEL BROWN, RN NEEL BROWN, RN - 11/30/2018 0:38 EDT Electronically signed by [facility], [facility] Conversion Auto Servicer Cerner at 12/11/2022 10:33 AM CDT documented in this encounter Plan of Treatment Not on file documented as of this encounter Visit Diagnoses Not on filedocumented in this encounter
--- OUTSIDE RECORDS SUMMARY | 2025-02-16 12:37 | XMS_ITS | Encounter Summary ---
Author Organization [employer] Address [address] [place] [address] Care Team Providers Care Fiscal Services Director Name Role Phone Unavailable Primary Care Provider Unavailabl e Encounter Details Date Type Department Care Team (Late st Contact Info) Description 11/28/2018 Transcribed Document [facility] [place] [address] [place] [address] Provider, MD Hilario [facility] [place], [place] [address] Social History Tobacco Use Types Packs/Day Years [...] Historical Provider, - 11/28/2018 1:12 PM CDT [facility] Main OR Preop Summary Primary Physician: JOHANNE HERNANDEZ MD-URO Finalized Date/Time: 11/28/18 13:53:11 Pt. Name: LUIS ENRIQUE SMITH/Sex: 1965 Female Med Rec #: [id number] Physician: NEWTON SUAREZ MD Financial #: [id number] Pt. Type: O Room/Bed: 357/1 Admit/Disch: 11/27/18 17:42:00 - Institution: [facility] PreOp Case Times Entry 1 In Preop 11/28/18 12:10:00 Ready for Holding n/a Room Patient Ready for 11/28/18 12:30:00 Surgery Patient Out of Preop 11/28/18 12:47:00 Patient Out of n/a Holding Room Last Modified By: ANDRES KENDALL RN 11/28/18 13:53:05 [facility] PreOp Case Times Audit 11/28/18 13:53:05 Welcome Wagon Host/Hostess: AFTABJ Modifier: BOWLINC <+> 1 Patient Out of Preop <+> 1 Patient Ready for Surgery Finalized By: ANDRES KENDALL RN Document Signatures Signed By: ANDRES KENDALL RN 11/28/18 13:53 Electronically signed by Argenis [facility] Conversion Chimney Builder Brick Cerner at 12/11/2022 10:18 AM CDT documented in this encounter Plan of Treatment Not on file documented as of this encounter Visit Diagnoses Not on filedocumented in this encounter
--- OUTSIDE RECORDS SUMMARY | 2025-02-16 12:37 | XMS_ITS | Encounter Summary ---
Author Organization [employer] iatives Address [address] [place] [address] Care Team Providers Care Jack Tamp Operator Name Role Phone Unavailable Primary Care Provider Unavailabl e Encounter Details Date Type Department Care Team (Late st Contact Info) Description 11/30/2018 Transcribed Document [facility] [place] Family Medicine [address] [place] [address] ProviderHilario MD [facility] [place] [address] Social History Tobacco Use Types Packs/Day Years [...] Rocephin: 2 Gram, 100 mL/Hr, IV Piggyback, [id number] Sodium Chloride 0.45% intravenous solution 1,000 mL: [...] At Bedtime cefTRIAXone 2 Gram, IV Piggyback, [id number] famotidine 20 mg/2 mL inj 20 mg [...] At risk for sleep apnea / IMO [id number] / Confirmed, Active Problems (1) At risk [...] tenderness, No swelling, No deformity. Integumentary: Warm, [place], Moist, No rash. Neurologic: Alert, Oriented, Normal [...]
--- OUTSIDE RECORDS SUMMARY | 2025-02-16 12:37 | XMS_ITS | Encounter Summary ---
Author Organization [employer] Address [address] [place] [address] Care Team Providers Care Cotton Dispatcher Name Role Phone Unavailable Primary Care Provider Unavailabl e Encounter Details Date Type Department Care Team (Late st Contact Info) Description 11/27/2018 Transcribed Document [facility] [place] [address] [place] [address] ProviderHilario MD [facility] [place] [address] Social History Tobacco Use Types Packs/Day Years [...] 10:52 EDT Pain Scale Intensity : 8 Le Solis RN - 11/28/2018 10:52 EDT Image 4 - Images currently included in the form version of this document have not been included in the text rendition version of the form. Electronically signed by Selina More Conversion Airborne Weapons Technical Manager Cerner at 12/11/2022 10:21 AM CDT documented in this encounter Plan of Treatment Not on file documented as of this encounter Visit Diagnoses Not on filedocumented in this encounter
--- OUTSIDE RECORDS SUMMARY | 2025-02-16 12:37 | XMS_ITS | Encounter Summary ---
Author Organization [employer] Address [address] [place] [address] Care Team Providers Care Lodge Officer Name Role Phone Unavailable Primary Care Provider Unavailabl e Encounter Details Date Type Department Care Team (Late st Contact Info) Description 12/03/2018 Transcribed Document [facility] [place] [address] [place] [address] ProviderHilario MD [address] [place] [address] Social History Tobacco Use Types Packs/Day Years [...] RADAMES CROWDER RN - 12/03/2018 9:34 EDT documented in this encounter Plan of Treatment Not on file documented as of this encounter Visit Diagnoses Not on filedocumented in this encounter
--- OUTSIDE RECORDS SUMMARY | 2025-02-16 12:37 | XMS_ITS | Encounter Summary ---
Author Organization [employer] Address [address] [place] [address] Care Team Providers Care Ham Trimmer Name Role Phone Unavailable Primary Care Provider Unavailabl e Encounter Details Date Type Department Care Team (Late st Contact Info) Description 11/30/2018 Transcribed Document [facility] [place] [address] [place] [address] ProviderHilario MD [address] [place] [address] Social History Tobacco Use Types Packs/Day Years [...] 11/30/2018 15:01 EDT by Miranda Portillo Rn-Traveler [place] Instructions HWD Stroke/TIA Discharge Ins : N/A [...]
--- OUTSIDE RECORDS SUMMARY | 2025-02-16 12:37 | XMS_ITS | Encounter Summary ---
Author Organization [employer] Address [address] [place] [address] Care Team Providers Care Embedded Software Test Engineer Name Role Phone Unavailable Primary Care Provider Unavailabl e Encounter Details Date Type Department Care Team (Late st Contact Info) Description 11/28/2018 Transcribed Document [facility] [place] Medicine [address] [place] [address] Provider, MD Hilario [facility] [place], [place] [address] Social History Tobacco Use Types Packs/Day Years [...] Historical Provider, - 11/28/2018 1:12 PM CDT [facility] PAC[facility] Summary Primary Physician: JOHANNE HERNANDEZ MD-URO Finalized Date/Time: 11/29/18 15:35:23 Pt. Name: LUIS ENRIQUE SMITH/Sex: 1965 Female Med Rec #: [id number] Physician: NEWTON SUAREZ MD Financial #: [id number] Pt. Type: I Room/Bed: 357/1 Admit/Disch: 11/27/18 17:42:00 - [facility] Main [facility] PACU I Case Times Entry 1 In PACU I 11/28/18 13:32:00 Ready for PACU 11/28/18 14:18:00 Discharge Discharge from PACU 11/28/18 14:18:00 I Last Modified By: Duyen Lange RN 11/29/18 15:35:13 Finalized By: Duyen Lange RN Document Signatures Signed By: Duyen Lange RN 11/29/18 15:[address] Argenis [facility] Conversion Hotel Custodian Cerner at 12/11/2022 10:19 AM CDT documented in this encounter Plan of Treatment Not on file documented as of this encounter Visit Diagnoses Not on filedocumented in this encounter
--- OUTSIDE RECORDS SUMMARY | 2025-02-16 12:37 | XMS_ITS | Referral Summary ---
Author Organization [employer] Address [address] [place] [address] Care Team Providers Care Director Of Broadcast Name Role Phone Unavailable Primary Care Provider [...]
--- OUTSIDE RECORDS SUMMARY | 2025-02-16 12:37 | XMS_ITS | Clinical Summary ---
Author Organization [employer] Address [address] [place] [address] Care Team Providers Care Installer Technician Name Role Phone Unavailable Primary Care [...]
--- NOTE | 2025-02-16 13:00 | NM_ITS ---
APPROVED REPORT Exam: Nuclear Stress Test Indication: HTN, Tobacco use, SOB Patient Location: Outpatient Stress Tech: Tiffanie Alvarez [place] Tech:Mai Cornelius, ARRT, RT (R)(N) Ht: 5 ft 2 in Wt: 128 lbs Bra Size: 36C HR: 75 bpm BP: 139/72 mmHg BSA: 1.58 m2 TID: 1.03 BMI: 23.4 History: HTN, Tobacco use, SOB Procedure: Patient received 0.4 mg of intravenous Lexiscan, resting heart rate 75 bpm, resting blood pressure 139/72 mmHg, with Lexiscan maximum heart rate achieved was 108 bpm which is % of the maximum predicted heart rate and blood pressure was 165/88 mmHg. With Lexiscan, patient denied any complaint of chest pain. Cardiac Stress and Resting SPECT Images: Cardiac Stress and Resting SPECT images were obtained using technetium 99m Myoview 32.2 mCi stress and 10.38 mCi at rest. Resting and stress imaging in supine and prone positions demonstrate no evidence of fixed or reversible perfusion defects. Gated imaging demonstrates normal global and regional LV systolic function. LVEF is calculated at 65%. Conclusion: No evidence of fixed or reversible perfusion defects. Gated imaging demonstrates normal global and regional LV systolic function. LVEF is calculated at 65%. Electronically signed by : Irma Henrandez MD 02/16/2025 23:20:39
[2025-02-16] MEDS: REGADENOSON 0.4MG/5ML SYRINGE 0.4 MG IV (13:50)
[2025-02-16] MEDS: SODIUM CHLORIDE 0.9% 10ML SYR (RAD ONLY) 10 ML IV ×2 (13:51)
[2025-02-16] MEDS: ISOTOPE MYOVIEW (PER STUDY) 1 DOSE IV (13:51)
== END 2025-02-16 23:59 | disposition home or self-care (01) ==
LOC: RAD 12:34
PROVIDERS: PCP Internal Medicine; Visit Provider Physician Assistant
DX: Z72.0 Tobacco use (principal); I70.1 Atherosclerosis of renal artery; I10 Essential (primary) hypertension; R06.02 Shortness of breath
CPT/HCPCS: 78452; 93017; 93018; A9502; J2785

== ENCOUNTER 2025-03-03 14:46 | Outpatient (CLI) | payer OTHER, SELFPAY ==
--- OUTSIDE RECORDS SUMMARY | 2025-03-03 14:48 | XMS_ITS | Encounter Summary ---
Author Organization [employer] ([place], [place], [place], [place]) Address [address] [place] [address] Care Team Providers Care Stamp Press Operator Name Role Phone Unavailable Primary Care Provider Unavailabl e Encounter Details Date Type Department Care Team (Late st Contact Info) Description 11/28/2018 Transcribed Document [facility] [place] [facility] [place] [address] ProviderHilario MD [place] [address] Social History Tobacco Use Types Packs/Day Years [...] Time: 11/28/18 13:12:00 (EDT) (11/28/18 13:29:21 EDT) Electronically signed by Argenis, Selina Conversion Executive Director Contract Shop Cerner at 12/11/2022 10:41 AM CDT documented in this encounter Plan of Treatment Not on file documented as of this encounter Visit Diagnoses Not on filedocumented in this encounter
--- OUTSIDE RECORDS SUMMARY | 2025-03-03 14:48 | XMS_ITS | Encounter Summary ---
Author Organization [employer] ([place], [place], [place], [place]) Address [address] [place] [address] Care Team Providers Care Rigging Slinger Name Role Phone Unavailable Primary Care Provider Unavailabl e Encounter Details Date Type Department Care Team (Late st Contact Info) Description 11/29/2018 Transcribed Document [facility] [place] [facility] [place] [address] ProviderHilario MD [address] [place] [address] Social History Tobacco Use Types [...]
--- OUTSIDE RECORDS SUMMARY | 2025-03-03 14:48 | XMS_ITS | Encounter Summary ---
Author Organization [employer] ([place], [place], [place], [place]) Address [address] [place] [address] Care Team Providers Care Entry Specialists Name Role Phone Unavailable Primary Care Provider Unavailabl e Encounter Details Date Type Department Care Team (Late st Contact Info) Description 11/30/2018 Transcribed Document [facility] [place] [facility] [place] [address] ProviderHilario MD [address] [place] [address] Social History Tobacco Use Types [...] On: 11/30/2018 13:44 EDT by GONZALEZ GRISSOM RN-Tunnel Form Placing SupervisorAutomobile Parts Assembler Note Care Management Note Report : GONZALEZ GRISSOM RN-Tunnel Form Placing Supervisor - 11/28/18 13:21:37 Received from [facility] with c/o flank pain, placed [...] Documentation Status Complete : Yes GONZALEZ GRISSOM RN-Tunnel Form Placing Supervisor - 11/30/2018 13:44 EDT Final Discharge Disposition Note-CM Discharge To Care Management : Home/Residential/Fpc or Self Care -01 GONZALEZ GRISSOM RN-Tunnel Form Placing Supervisor - 11/30/2018 13:44 EDT Electronically signed by Argenis [facility] Conversion Distribution Sales Manager Cerner at 12/11/2022 10:27 AM CDT documented in this encounter Plan of Treatment Not on file documented as of this encounter Visit Diagnoses Not on filedocumented in this encounter
--- OUTSIDE RECORDS SUMMARY | 2025-03-03 14:48 | XMS_ITS | Encounter Summary ---
Author Organization [employer] ([place], [place], [place], [place]) Address [address] [place] [address] Care Team Providers Care Yarding Supervisor Name Role Phone Unavailable Primary Care Provider Unavailabl e Encounter Details Date Type Department Care Team (Late st Contact Info) Description 11/29/2018 Transcribed Document [facility] [place] [facility] [place] [address] ProviderHilario MD [facility] [place] [address] Social History Tobacco Use Types [...]
--- OUTSIDE RECORDS SUMMARY | 2025-03-03 14:48 | XMS_ITS | Encounter Summary ---
Author Organization [employer] ([place], [place], [place], [place]) Address [address] [place] [address] Care Team Providers Care Rehabilitator Name Role Phone Unavailable Primary Care Provider Unavailabl e Encounter Details Date Type Department Care Team (Late st Contact Info) Description 11/28/2018 Transcribed Document [facility] [place] [facility] [place] [address] ProviderHilario MD [facility] [place] [address] Social History Tobacco Use Types Packs/Day Years Used Date Smoking Tobacco: Never Assessed Comments Unknown Sex and Gender Information Value Date Recorded Sex Assigned at Female 02/22/2022 4:54 PM CDT Legal Sex Female 6:31 PM CDT Gender Identity Female 02/22/2022 4:54 PM CDT Sexual Orientation Not on file documented as of this encounter Miscellaneous Notes * Cerner Conversion Note - Hilario Jolley MD - 11/28/2018 9:25 AM CDT Patient: LUIS [...] (Moderate 4-6) cefepime: 2 Gram, IV Piggyback, [id number] metoprolol tartrate: 25 mg, Oral, Q4H, PRN: Tachycardia morphine: 2 mg, IV Push, Q2H, PRN: Pain (Severe 7-10) traZODone: 50 mg, Oral, At Bedtime, PRN: Insomnia Documented Medications Documented estradiol 2 mg oral tablet: Tab, Oral, Daily, 0 Refill(s) lisinopril: 12.5, Oral, Daily, 0 Refill(s), Medications (11) Active Scheduled: (2) cefepime 2 Gram, IV Piggyback, [id number] famotidine 20 mg/2 mL inj 20 mg [...] At risk for sleep apnea / IMO [id number] / Confirmed, Active Problems (1) At risk [...] tenderness, No swelling, No deformity. Integumentary: Warm, [place], Moist, No rash. Neurologic: Alert, Oriented, [...] need for surgery Time spent: 35 minutes Electronically signed by Selina More Conversion Financial Institution President Cerner at 12/11/2022 10:42 AM CDT documented in this encounter Plan of Treatment Not on file documented as of this encounter Visit Diagnoses Not on filedocumented in this encounter
--- OUTSIDE RECORDS SUMMARY | 2025-03-03 14:48 | XMS_ITS | Encounter Summary ---
Author Organization [employer] ([place], [place], [place], [place]) Address [address] [place] [address] Care Team Providers Care High School Foreign Language Tutor Name Role Phone Unavailable Primary Care Provider Unavailabl e Encounter Details Date Type Department Care Team (Late st Contact Info) Description 11/28/2018 Transcribed Document [facility] [place] [address] [place] [address] ProviderHilario MD [facility] [place], [place] [address] Social History Tobacco Use Types Packs/Day Years [...]
--- OUTSIDE RECORDS SUMMARY | 2025-03-03 14:48 | XMS_ITS | Encounter Summary ---
Author Organization [employer] ([place], [place], [place], [place]) Address [address] [place] [address] Care Team Providers Care Stewardess Supervisor Name Role Phone Unavailable Primary Care Provider Unavailabl e Encounter Details Date Type Department Care Team (Late st Contact Info) Description 11/28/2018 Transcribed Document [facility] [place] [address] ProviderHilario [place] [address] Social History Tobacco Use Types [...]
--- OUTSIDE RECORDS SUMMARY | 2025-03-03 14:48 | XMS_ITS | Encounter Summary ---
Author Organization [employer] ([place], [place], [place], [place]) Address [address] [place] [address] Care Team Providers Care Toy Packer Name Role Phone Unavailable Primary Care Provider Unavailabl e Encounter Details Date Type Department Care Team (Late st Contact Info) Description 11/28/2018 Transcribed Document [facility] [place] [facility] [place] [address] ProviderHilario MD [address] [place] [address] Social History Tobacco Use Types [...] On: 11/28/2018 13:17 EDT by GONZALEZ GRISSOM RN-Tour Bus Driver/GuideWeight Count Operator Note Care Management Note : Received from [facility] with c/o flank pain, placed in observation [...] Documentation Status Complete : Yes GONZALEZ GRISSOM RN-Tour Bus Driver/Guide - 11/28/2018 13:17 EDT Patient History Information [...] None Home Equipment : None GONZALEZ GRISSOM RN-Tour Bus Driver/Guide - 11/28/2018 13:17 EDT Discharge Planning Details Discharge Home : Home with spouse/significant other GONZALEZ GRISSOM RN-Tour Bus Driver/Guide - 11/28/2018 13:17 EDT documented in this encounter Plan of Treatment Not on file documented as of this encounter Visit Diagnoses Not on filedocumented in this encounter
--- OUTSIDE RECORDS SUMMARY | 2025-03-03 14:48 | XMS_ITS | Encounter Summary ---
Author Organization [employer] ([place], [place], [place], [place]) Address [address] [place] [address] Care Team Providers Care Bag Liner Name Role Phone Unavailable Primary Care Provider Unavailabl e Encounter Details Date Type Department Care Team (Late st Contact Info) Description 11/29/2018 Transcribed Document [facility] [place] [address] [place] [address] ProviderHilario MD [address] [place] [address] Social History Tobacco Use Types [...]
--- OUTSIDE RECORDS SUMMARY | 2025-03-03 14:48 | XMS_ITS | Encounter Summary ---
Author Organization [employer] ([place], [place], [place], [place]) Address [address] [place] [address] Care Team Providers Care Consulting Psychologist Name Role Phone Unavailable Primary Care Provider Unavailabl e Encounter Details Date Type Department Care Team (Late st Contact Info) Description 11/28/2018 Transcribed Document [facility] [place] [facility] [place] [address] ProviderHilario [place] [address] Social History Tobacco Use Types [...] Hilario ProviderMD - 11/28/2018 1:33 PM CDT DATE [...] General. COMPLICATIONS: None. SPECIMENS: None. DRAINS: 4.8 [place] Islander x 24 cm double-J ureteral stent on [...] Adequate proximal and distal curl of this 4.8-[place] Islander x 24 cm double-J ureteral stent without [...] administration of preoperative antibiotics. A well lubricated 22-[place] Islander rigid cystoscope with a 30 degree lens [...] level of the left renal pelvis. A 5-[place] Islander open-ended ureteral catheter was placed to 25 [...] catheter removed in a push-pull fashion. A 4.8-[place] Islander x 24 cm double-J ureteral stent was then deployed in the standard retrograde fashion with adequate proximal and distal curl. The strings were removed. Patient's bladder was left distended and a 16-[place] Islander Peters catheter was placed per urethra with [...] Trans: 11/28/2018 14:21:06 CC1: Rashawn Sims M.D. documented in this encounter Plan of Treatment Not on file documented as of this encounter Visit Diagnoses Not on filedocumented in this encounter
--- OUTSIDE RECORDS SUMMARY | 2025-03-03 14:48 | XMS_ITS | Encounter Summary ---
Author Organization [employer] ([place], [place], [place], [place]) Address [address] [place] [address] Care Team Providers Care [address] Tester Name Role Phone Unavailable Primary Care Provider Unavailabl e Encounter Details Date Type Department Care Team (Late st Contact Info) Description 11/29/2018 Transcribed Document [facility] [place] [facility] [place] [address] ProviderHilario MD [facility] [place] [address] Social History Tobacco Use Types [...] Conversion Note - Hilario ProviderMD - 11/29/2018 11:20 AM CDT Patient: [...] Rocephin: 2 Gram, 100 mL/Hr, IV Piggyback, [id number] Sodium Chloride 0.45% intravenous solution 1,000 mL: [...] At Bedtime cefTRIAXone 2 Gram, IV Piggyback, [id number] famotidine 20 mg/2 mL inj 20 mg [...] At risk for sleep apnea / IMO [id number] / Confirmed, Active Problems (1) At risk [...] tenderness, No swelling, No deformity. Integumentary: Warm, Hoyt, Moist, No rash. Neurologic: Alert, Oriented, Normal [...] 28) 137 (NOV 27) K 3.6 (NOV 06) L 3.3 (NOV 05) 3.5 (NOV 27) Cl 112 (NOV 29) 107 (NOV 05) 103 [...]
--- OUTSIDE RECORDS SUMMARY | 2025-03-03 14:48 | XMS_ITS | Encounter Summary ---
Author Organization [employer] ([place], [place], [place], [place]) Address [address] [place] [address] Care Team Providers Care Intervention Manager Name Role Phone Unavailable Primary Care Provider Unavailabl e Encounter Details Date Type Department Care Team (Late st Contact Info) Description 11/28/2018 Transcribed Document [facility] [place] [address] ProviderHilario MD [address] [place] [id number] Social History Tobacco Use Types Packs/Day Years [...] 11/28/2018 CONSULTATION ATTENDING PHYSICIAN: Antionette Nevarez M.D. LOG HOOKER: Rashawn Sims MD REASON FOR CONSULTATION: Left ureteral stone with possible urinary infection. BRIEF HISTORY: Patient is a 53-year-old female, who presented to [facility] Emergency Room yesterday with three days of left flank pain. The pain became refractory and she actually returned to the emergency room after a previous visit 24 hours earlier. She had a CT scan on her initial visit, which revealed a 5 mm left ureteral stone. Upon return, she was noted to have a white count 29797, nitrite positive urine, and questionable probable urinary [...] CC1: Rashawn Sims M.D. Electronically signed by Argenis [facility] Conversion Underground Roof Bolter Cerner at 12/11/2022 10:31 AM CDT documented in this encounter Plan of Treatment Not on file documented as of this encounter Visit Diagnoses Not on filedocumented in this encounter
--- OUTSIDE RECORDS SUMMARY | 2025-03-03 14:48 | XMS_ITS | Encounter Summary ---
Author Organization [employer] ([place], [place], [place], [place]) Address [address] [place] [address] Care Team Providers Care Real Estate Associate Name Role Phone Unavailable Primary Care Provider Unavailabl e Encounter Details Date Type Department Care Team (Late st Contact Info) Description 11/28/2018 Transcribed Document [facility] [place] Medicine [facility] [place] [address] ProviderHilario MD [place] [address] Social History Tobacco Use Types [...] Conversion Note - Hilario ProviderMD - 11/28/2018 1:12 PM CDT [facility] Main OR IntraOp Summary Primary Physician: JOHANNE HERNANDEZ MD-URO Finalized Date/Time: 11/29/18 14:07:57 Pt. Name: LUIS ENRIQUE SMITH D.O.B./Sex: 1965 Female Med Rec #: [id number] Physician: NEWTON SUAREZ MD Financial #: [id number] Pt. Type: O Room/Bed: [facility]/ Admit/Disch: 11/27/18 17:42:00 - Institution: [facility] IntraOp Case Attendance Entry 1 Entry 2 Entry 3 Case Attendee JOHANNE HERNANDEZ WILLS, SANDRA R. Hamilton, Gina M, RN MD-URO Role Performed Surgeon/Proceduralist, Scrub, First Program Planner, First First Time In 11/28/18 12:52:00 11/28/18 12:52:00 11/28/18 12:52:00 Time Out 11/28/18 13:30:00 11/28/18 13:30:00 11/28/18 13:30:00 Procedure Cystoscopy Laser Stone Cystoscopy Laser Stone Cystoscopy Laser Stone Manipulation(Left), Manipulation(Left), Manipulation(Left), Ureteral Stent Ureteral Stent Ureteral Stent Insertion, Ureteroscopy Insertion, Ureteroscopy Insertion, Ureteroscopy Other Attendee Superficial Wound Closed By: Last Modified By: Shirin Dc, RN Shirin Dc, RN Shirin Dc, JUN 11/28/18 13:30:43 11/28/18 13:30:43 11/28/18 13:30:43 Entry 4 Entry 5 Entry 6 Case Attendee JUICE AADMS KEITH, MD OWENS, LARRY B, CRNA Role Performed Laser Roll Table Operator Anesthesiologist of ENGINEER SPECIALIST/Nurse Dry Curer Record Time In 11/28/18 12:52:00 11/28/18 12:52:00 [...] 7 Entry 8 Case Attendee EDWARD JEONG, ENGINEER SPECIALIST SUSAN ANSARI MD Role Performed ENGINEER SPECIALIST/Nurse Dry Curer Resident Time In 11/28/18 13:08:00 11/28/18 12:52:00 Time Out 11/28/18 13:30:00 11/28/18 13:30:00 Procedure Cystoscopy Laser Stone Cystoscopy Laser Stone Manipulation(Left), Manipulation(Left), Ureteral Stent Ureteral Stent Insertion, Ureteroscopy Insertion, Ureteroscopy Other Attendee Superficial Wound Closed By: Last Modified By: Shirin Dc, RN Shirin Dc RN 11/28/18 13:30:43 11/28/18 13:30:43 [facility] IntraOp Case Attendance Audit 11/28/18 13:30:43 Sales Commissions Analyst: [email or web address] Modifier: HAMILTGM 1 <+> Time Out [...] Manipulation(Left), Ureteral Stent Insertion, Ureteroscopy 11/28/18 13:22:42 Sales Commissions Analyst: HAMILTGM Modifier: HAMILTGM <+> 8 Case Attendee <+> 8 Role Performed <+> 8 Procedure 11/28/18 13:14:14 Sales Commissions Analyst: HAMILTGM Modifier: HAMILTGM 6 <+> Time Out 6 <*> Procedure Cystoscopy Laser Stone Manipulation(Left), Ureteral Stent Insertion, Ureteroscopy <+> 7 Case Attendee <+> 7 Role Performed <+> 7 Time In <+> 7 Procedure 11/28/18 13:00:52 Sales Commissions Analyst: HAMILTGM Modifier: HAMILTGM 1 <+> Time In [...] Laser Stone Manipulation(Left), Ureteral Stent Insertion, Ureteroscopy [facility] IntraOp Case Times Entry 1 Patient In Room Time 11/28/18 12:52:00 Out Room Time 11/28/18 13:30:00 Anesthesia Start Time 11/28/18 12:54:00 Stop Time 11/28/18 13:30:00 Surgery / Procedure Times Start Time 11/28/18 13:12:00 Stop Time 11/28/18 13:25:00 Last Modified By: Shirin Dc RN 11/28/18 13:30:41 [facility] IntraOp Case Times Audit 11/28/18 13:30:41 Sales Commissions Analyst: HAMILTGM Modifier: HAMILTGM <+> 1 Out Room Time <+> 1 Stop Time 11/28/18 13:29:20 Sales Commissions Analyst: HAMILTGM Modifier: HAMILTGM <+> 1 Stop Time 11/28/18 13:16:59 Sales Commissions Analyst: HAMILTGM Modifier: HAMILTGM <+> 1 Start Time [facility] IntraOp Communication Entry 1 Entry 2 Communication To Family/Significant other Other Comment NO FAMILY PRESENT REPORT Communication By Shirin Dc, Shirin Davis RN Date and Time 11/28/18 13:00:00 11/28/18 13:29:00 Last Modified By: Shirin Dc RN Hamilton, Gina M RN 11/28/18 13:00:46 11/28/18 13:29:35 [facility] IntraOp Communication Audit 11/28/18 13:29:35 Sales Commissions Analyst: HAMILTGM Modifier: HAMILTGM <+> 2 Communication By <+> 2 Date and Time <+> 2 Communication To <+> 2 Comment [facility] IntraOp Departure from OR Entry 1 Integumentary Assessment Integumentary WDL Assessment WDL Transfer/Handoff Transfer to PACU Phase I Handoff Method Phone call Post-op Transport Stretcher/Javier Via Patient Transport SUSAN ANSARI MD, Accompanied by EDWARD JEONG CRNA Last Modified By: Shirin Dc RN 11/28/18 13:22:55 [facility] IntraOp Departure from OR Audit 11/28/18 13:22:55 Sales Commissions Analyst: HAMILTGM Modifier: HAMILTGM 1 <*> Patient Transport Accompanied by Shirin Dc RN [facility] IntraOp Fire Risk Assessment Entry 1 [...] Modified By: Shirin Dc RN 11/28/18 12:41:18 [facility] IntraOp General Case Bench Assembly Inspector 1 Case Information OR Cysto 02 [facility] Case Level 1 Room Verified Yes Wound Class II - Clean-Contaminated Specialty SN Urology Anesthesia Type General ASA Class 2 Diagnosis Preop Diagnosis LEFT RENAL CALCULUS Postop Same As Preop No Postop Diagnosis SEE DOCTOR'S POST OP NOTES Last Modified By: Shirin Dc RN 11/28/18 13:00:27 [facility] IntraOp General Case Data Audit 11/28/18 13:00:27 Sales Commissions Analyst: HAMILTGM Modifier: HAMILTGM <+> 1 Preop Diagnosis 11/28/18 12:59:47 Sales Commissions Analyst: HAMILTGM Modifier: HAMILTGM <+> 1 ASA Class [facility] IntraOp Intraoperative Assessment Entry 1 Handoff [...] Modified By: Shirin Dc RN 11/28/18 12:41:55 [facility] IntraOp Intraoperative Equipment Entry 1 Equipment [...] Modified By: Shirin Dc RN 11/28/18 12:42:19 [facility] IntraOp Medication Admin Entry 1 Medication/Irrigant NORMAL SALINE -- Route of IRRIGATION Administration Dose Administered By JOHANNE HERNANDEZ MD-URO Procedure Irrigation Last Modified By: Shirin Dc RN 11/28/18 12:42:46 General Comments: CONTRAST UTILIZED DURING STENT PLACEMENT. [facility] IntraOp Patient Positioning Entry 1 Procedure [...] Cysto Positioned By JOHANNE HERNANDEZ MD-URO, Shirin Dc, RN, MINDI GRANT CRNA Position Verified Positioning Yes Verified by Anesthesia Positioning Yes Verified by Surgeon Last Modified By: Shirin Dc RN 11/28/18 12:43:02 [facility] IntraOp Sign In Entry 1 Patient, [...] Modified By: Shirin Dc RN 11/28/18 12:59:42 [facility] IntraOp Sign Out Entry 1 RN [...] Modified By: Shirin Dc RN 11/28/18 13:30:48 [facility] IntraOp Sign Out Audit 11/28/18 13:30:48 Sales Commissions Analyst: GIUSEPPE Modifier: IRENATGPeri <+> 1 RN Sign Out Signature Date/Time [facility] IntraOp Skin Prep Entry 1 Procedure Cystoscopy Laser Stone Manipulation(Left), Ureteral Stent Insertion, Ureteroscopy Prescribed N/A Pre-Surgical Prep Completed Prep Area Genitalia Intraop Prep Integumentary WDL Assessment WDL Prep Agents Betadine solution Prep by Shirin Dc RN Hair Removal Methods No hair removal performed Last Modified By: Shirin Dc RN 11/28/18 12:43:32 [facility] IntraOp Surgical Procedures Entry 1 Entry [...] RN 11/28/18 13:29:21 11/28/18 13:29:21 11/28/18 13:29:21 [facility] IntraOp Surgical Procedures Audit 11/28/18 13:29:21 Sales Commissions Analyst: [email or web address] Modifier: HAMILTGM <+> 1 Start <+> 1 Stop <+> 2 Start <+> 2 Stop <+> 3 Start <+> 3 Stop [facility] IntraOp Temp Regulation Devices Entry 1 Temp Regulation Temperature Warm blankets, Forced Regulation Device Air Warming device Temperature Upper body Regulation Site Temperature MINDI GRANT, ENGINEER SPECIALIST Regulation Device Applied by Temperature monitored per Regulation Comment anesthesia, jon sparks available Last Modified By: Shirin Dc RN 11/28/18 12:43:52 [facility] IntraOP Time Out Entry 1 Procedure [...] Modified By: Shirin Dc RN 11/28/18 13:14:21 [facility] IntraOP Time Out Audit 11/28/18 13:14:21 Sales Commissions Analyst: GIUSEPPE Modifier: GIUSEPPE 1 <+> Time Out [...]
--- OUTSIDE RECORDS SUMMARY | 2025-03-03 14:49 | XMS_ITS | Encounter Summary ---
Author Organization [employer] ([place], [place], [place], [place]) Address [address] [place] [address] Care Team Providers Care Laser Beam Machine Operator Name Role Phone Unavailable Primary Care Provider Unavailabl e Encounter Details Date Type Department Care Team (Late st Contact Info) Description 11/30/2018 Transcribed Document [facility] [place] Family Medicine [facility] [place] [address] ProviderHilario MD [address] [place] [address] Social History Tobacco Use Types Packs/Day [...] Hilario ProviderMD - 11/30/2018 3:20 PM CDT [address] [address] Patient Copy Patient Information: Name: LUIS ENRIQUE SMITH Current Date: 11/30/2018 15:20:04 : 1965 Patient Address: [address] [place] [address] Patient Attending Physician: NEWTON SUAREZ MD Primary Care Provider: TRACI ALCAZAR NP-[facility] Primary Care Provider Discharge Diagnosis: Ureteral stone Weight on Admission: 143 lb, 0 oz Comment: Follow-up Instructions: With: Address: When: Follow up with primary care provider Within 1 to 2 weeks With: Address: When: ALEXIA VILLALBA [address] [facility], [address] [place] [address] Business (1) 12:00 PM With: Address: When: JOHANNE HERNANDEZ [address] [facility], [address] [place] [address] Business (1) Within 1 to 2 weeks Comments: follow up first available in [place] office, ideally one week. With: Address: When: [...] including vitamins, herbs, eye drops, creams, and orrx-mhl-ywkedyr medicines. ??? Any problems you or family [...] 08/17/2014 Document Revised: 05/28/2017 Document Reviewed: 05/24/2017 [employer] Patient Education ? 2017 [employer] Lithotripsy, Care After Refer to this [...] feel your energy improving. ??? Only take rout-zcg-pvisvjy or prescription medicines for pain, discomfort, or [...] 08/31/2008 Document Revised: 05/02/2016 Document Reviewed: 02/25/2014 [employer] Patient Education ? 2017 [employer] Ureteral Stent Implantation Introduction Ureteral stent [...] including vitamins, herbs, eye drops, creams, and mceq-bge-foldvfy medicines. ??? Any problems you or family [...] kidney stones in the future. ??? Take zmbe-dsx-eoqfslo and prescription medicines only as told by [...] 08/12/2006 Document Revised: 03/01/2017 Document Reviewed: 01/25/2017 [employer] Patient Education ? 2017 [employer] Dietary Guidelines to Help Prevent Kidney [...] ? Parsley. ? Rutabagas. ? Spinach. ? Spanish chard. ? Tomato paste. ? Fried potatoes. [...] 12/07/2011 Document Revised: 01/17/2017 Document Reviewed: 07/09/2014 [employer] Patient Education ? 2017 [employer] Medication Leaflets: cefuroxime (SEF ue AMANDA eem) [...] mouth; or ?? diaper rash in an infant taking liquid cefuroxime. This is not a complete list of side effects and others may occur. Call your doctor for medical advice about side effects. You may report side effects to FDA at 0-158-BQL-2901. What other drugs will affect cefuroxime? Tell your doctor about all your current medicines and any you start or stop using, especially: ? probenecid (Benemid); ?? a blood thinner such as warfarin (Coumadin, Jantoven); or ?? a diuretic or 'water pill.' This list is not complete. Other drugs may interact with cefuroxime, including prescription and vrgu-kqp-uvtbsfg medicines, vitamins, and herbal products. Not all [...] to ensure that the information provided by [employer]. ('[employer]') is accurate, up-to-date, and complete, but no guarantee is made to that effect. Drug information contained herein may be time sensitive. [employer] information has been compiled for use by healthcare practitioners and consumers in the [place] and therefore [employer] does not warrant that uses outside of the [place] are appropriate, unless specifically indicated otherwise. [employer] drug information does not endorse drugs, diagnose patients or recommend therapy. [employer] drug information is an informational resource designed [...] effective or appropriate for any given patient. [employer] does not assume any responsibility for any aspect of healthcare administered with the aid of information [employer] provides. The information contained herein is not intended to cover all possible uses, directions, precautions, warnings, drug interactions, allergic reactions, or adverse effects. If you have questions about the drugs you are taking, check with your doctor, nurse or pharmacist. Copyright 2574-7684 [employer]. Version: 7.01. Revision Date: 01/20/2016. acetaminophen and [...] may report side effects to FDA at 5-401-ELC-9058. What other drugs will affect acetaminophen and [...] affect acetaminophen and oxycodone, including prescription and ghah-yzo-hlkuxfg medicines, vitamins, and herbal products. Not all [...] to ensure that the information provided by [employer]. ('[employer]') is accurate, up-to-date, and complete, but no guarantee is made to that effect. Drug information contained herein may be time sensitive. [employer] information has been compiled for use by healthcare practitioners and consumers in the [place] and therefore [employer] does not warrant that uses outside of the [place] are appropriate, unless specifically indicated otherwise. [employer] drug information does not endorse drugs, diagnose patients or recommend therapy. [employer] drug information is an informational resource designed [...] effective or appropriate for any given patient. [employer] does not assume any responsibility for any aspect of healthcare administered with the aid of information [employer] provides. The information contained herein is not intended to cover all possible uses, directions, precautions, warnings, drug interactions, allergic reactions, or adverse effects. If you have questions about the drugs you are taking, check with your doctor, nurse or pharmacist. Copyright 3125-1908 [employer]. Version: 18.02. Revision Date: 07/23/2018. phenazopyridine (fen AY abigail [...] or ?? a genetic enzyme deficiency called crezirj-5-rogfpeqeg dehydrogenase (G6PD) deficiency. FDA category B. Phenazopyridine [...] may report side effects to FDA at 4-770-JYO-2376. What other drugs will affect phenazopyridine? Other drugs may interact with phenazopyridine, including prescription and fmmg-hom-symyecc medicines, vitamins, and herbal products. Tell each [...] to ensure that the information provided by [employer]. ('[employer]') is accurate, up-to-date, and complete, but no guarantee is made to that effect. Drug information contained herein may be time sensitive. [employer] information has been compiled for use by healthcare practitioners and consumers in the [place] and therefore [employer] does not warrant that uses outside of the [place] are appropriate, unless specifically indicated otherwise. [employer] drug information does not endorse drugs, diagnose patients or recommend therapy. [employer] drug information is an informational resource designed [...] effective or appropriate for any given patient. [employer] does not assume any responsibility for any aspect of healthcare administered with the aid of information [employer] provides. The information contained herein is not intended to cover all possible uses, directions, precautions, warnings, drug interactions, allergic reactions, or adverse effects. If you have questions about the drugs you are taking, check with your doctor, nurse or pharmacist. Copyright 3075-6814 [employer]. Version: 3.05. Revision Date: 12/17/2013. promethazine (oral) (pro METH a zeen) Phenergan What is the most important information I should know about promethazine? Promethazine should not be given to a child younger than 2 years old. Promethazine can cause severe breathing problems or in very young children. What is promethazine? Promethazine is in a group of drugs called phenothiazines (STGO-lc-GBRS-a-zeens). It works by changing the actions of [...] may report side effects to FDA at 5-862-CDU-5144. What other drugs will affect promethazine? Using this medicine with other drugs that make you sleepy or slow your breathing can cause dangerous or life-threatening side effects. Ask your doctor before taking promethazine with a sleeping pill, narcotic pain medicine, muscle relaxer, or medicine for anxiety, depression, or seizures. Other drugs may interact with promethazine, including prescription and bepc-ckj-gxbygry medicines, vitamins, and herbal products. Tell each [...] to ensure that the information provided by [employer]. ('[employer]') is accurate, up-to-date, and complete, but no guarantee is made to that effect. Drug information contained herein may be time sensitive. [employer] information has been compiled for use by healthcare practitioners and consumers in the [place] and therefore [employer] does not warrant that uses outside of the [place] are appropriate, unless specifically indicated otherwise. [employer] drug information does not endorse drugs, diagnose patients or recommend therapy. [employer] drug information is an informational resource designed [...] effective or appropriate for any given patient. [employer] does not assume any responsibility for any aspect of healthcare administered with the aid of information [employer] provides. The information contained herein is not intended to cover all possible uses, directions, precautions, warnings, drug interactions, allergic reactions, or adverse effects. If you have questions about the drugs you are taking, check with your doctor, nurse or pharmacist. Copyright 1288-9686 [employer]. Version: 6.02. Revision Date: 06/09/2015. CIGARETTE SMOKING: The facts are clear, cigarette smoking will shorten your life. Smoking can cause many illnesses along the way. As a healthcare provider, we recommend that you stop smoking. Assistance with quitting is available by contacting 5-155-IVTY-NOW. This is a free resource providing counseling, [...] Be sure to sign up for the [employer]bite[employer] patient portal, which gives you 18/03 access to your medical information ??? including these discharge instructions ??? using your computer, smartphone, or tablet. Just go to Shout to get started. Questions? Call . [facility] would like to thank you for allowing us to assist you with your healthcare needs. PAULETTE Payne JUDY, (or outbound telemarketing representative) have received the above patient education materials/instructions and have verbalized understanding: Patient Signature _ Date/Time Patient Payroll Coordinator Signature (if needed) Date/Time Clinician/Hospital Payroll Coordinator Signature (if needed) Date/Time Electronically signed by Argenis [facility] Conversion Occupational Rehabilitation Aide Renay at 12/11/2022 10:17 AM CDT documented in this encounter Plan of Treatment Not on file documented as of this encounter Visit Diagnoses Not on filedocumented in this encounter
--- OUTSIDE RECORDS SUMMARY | 2025-03-03 14:49 | XMS_ITS | Encounter Summary ---
Author Organization [employer] ([place], [place], [place], [place]) Address [address] [place] [address] Care Team Providers Care Acoustical Carpenter Name Role Phone Unavailable Primary Care Provider Unavailabl e Encounter Details Date Type Department Care Team (Late st Contact Info) Description 11/27/2018 Transcribed Document [facility] [place] [facility] [place] [address] ProviderHilario MD [address] [place] [address] Social History Tobacco Use Types Packs/Day [...] with mild hydronephrosis. Patient was transferred to [facility]. Came in, blood work shows leukocytosis, patient [...] 19:44:41 Trans: 11/27/2018 20:23:06 Processed: 11/28/2018 10:21:31 [place] CC1: Antionette Nevarez M.D. CC2: Dr. Low Hammonds Electronically signed by [facility] Conversion Tire Fabric Impregnating Range Tender Cerner at 12/11/2022 10:32 AM CDT documented in this encounter Plan of Treatment Not on file documented as of this encounter Visit Diagnoses Not on filedocumented in this encounter
--- OUTSIDE RECORDS SUMMARY | 2025-03-03 14:49 | XMS_ITS | Encounter Summary ---
Author Organization [employer] ([place], [place], [place], [place]) Address [address] [place] [address] Care Team Providers Care Pleat Taper Name Role Phone Unavailable Primary Care Provider Unavailabl e Encounter Details Date Type Department Care Team (Late st Contact Info) Description 12/03/2018 Transcribed Document [facility] [place] Family Medicine [facility] [place] [address] ProviderHilario MD [facility] [place] [address] Social History Tobacco Use Types [...] Cerner Conversion Note - Hilario ProviderMD - 12/03/2018 7:02 AM CDT Patient: [...] with mild hydronephrosis. Patient was transferred to [facility]. Came in, blood work shows leukocytosis, patient [...] K L 3.4 (NOV 30) 3.6 (NOV 06) L 3.3 (NOV 28) 3.5 (NOV 27) Cl 109 (NOV 30) 112 (NOV 29) 107 (NOV 05) 103 (NOV 04) CO2 22 (NOV 30) 22 (NOV 29) [...] 27) ALB L 2.9 (NOV 27) , APR 07 08:03 137 109 8 / 101 L 3.4 22 0.70 \ NOV 30 08:03 \ 12.2 / L 3.9 L 80 / L 32.7 \, Time Spent on Discharge 35 minutes Electronically signed by Argenis, [facility] Conversion Furniture Detailer Cerner at 12/11/2022 10:38 AM CDT documented in this encounter Plan of Treatment Not on file documented as of this encounter Visit Diagnoses Not on filedocumented in this encounter
--- OUTSIDE RECORDS SUMMARY | 2025-03-03 14:49 | XMS_ITS | Encounter Summary ---
Author Organization [employer] ([place], [place], [place], [place]) Address [address] [place] [address] Care Team Providers Care Home Demonstrator Name Role Phone Unavailable Primary Care Provider Unavailabl e Encounter Details Date Type Department Care Team (Late st Contact Info) Description 11/30/2018 Transcribed Document [facility] [place] [facility] [place] [address] ProviderHilario MD [facility] [place], [place] [id number] Social History Tobacco Use Types Packs/Day Years [...] Historical ProviderMD - 11/30/2018 2:00 AM CDT Stile Ripsaw Operator Details Entered On: 11/30/2018 3:03 EDT Performed [...]
--- OUTSIDE RECORDS SUMMARY | 2025-03-03 14:49 | XMS_ITS | Encounter Summary ---
Author Organization [employer] ([place], [place], [place], [place]) Address [address] [place] [address] Care Team Providers Care Boarding Mother Name Role Phone Unavailable Primary Care Provider Unavailabl e Encounter Details Date Type Department Care Team (Late st Contact Info) Description 11/28/2018 Transcribed Document [facility] [place] [address] ProviderHilario MD [place] [address] Social History Tobacco Use Types [...] Historical ProviderMD - 11/28/2018 1:12 PM CDT [facility] Main OR PACU Summary Primary Physician: JOHANNE HERNANDEZ MD-URO Finalized Date/Time: 11/29/18 15:35:23 Pt. Name: LUIS ENRIQUE SMITH/Sex: 1965 Female Med Rec #: [id number] Physician: NEWTON SUAREZ MD Financial #: [id number] Pt. Type: I Room/Bed: [facility]/ Admit/Disch: 11/27/18 17:42:00 - Institution: [facility] Main OR PACU I Case Times Entry 1 In PACU I 11/28/18 13:32:00 Ready for PACU 11/28/18 14:18:00 Discharge Discharge from PACU 11/28/18 14:18:00 I Last Modified By: Duyen Lange RN 11/29/18 15:35:13 Finalized By: Duyen Lange RN Document Signatures Signed By: Duyen Lange RN 11/29/18 15:35 Electronically signed by Argenis [facility] Conversion Karate Teacher Cerner at 12/11/2022 10:19 AM CDT documented in this encounter Plan of Treatment Not on file documented as of this encounter Visit Diagnoses Not on filedocumented in this encounter
--- OUTSIDE RECORDS SUMMARY | 2025-03-03 14:49 | XMS_ITS | Encounter Summary ---
Author Organization [employer] ([place], [place], [place], [place]) Address [address] [place] [address] Care Team Providers Care Hydrogen Plant Operator Name Role Phone Unavailable Primary Care Provider Unavailabl e Encounter Details Date Type Department Care Team (Late st Contact Info) Description 11/27/2018 Transcribed Document [facility] [place] [address] [place] [address] ProviderHilario MD [facility] [place], [place] [address] Social History Tobacco Use Types Packs/Day Years [...] 11/27/2018 17:52 EDT by [place] Patient Application Chemist Phone Call for Consults Consult Phone Call/Page Attempt : First call Consult Reason : kidney stones Physician Requested for Consult : JOHANNE HERNANDEZ MD-URO [place], Patient Application Chemist - 11/27/2018 18:23 EDT documented in this encounter Plan of Treatment Not on file documented as of this encounter Visit Diagnoses Not on filedocumented in this encounter
--- OUTSIDE RECORDS SUMMARY | 2025-03-03 14:49 | XMS_ITS | Encounter Summary ---
Author Organization [employer] ([place], [place], [place], [place]) Address [address] [place] [address] Care Team Providers Care Dispatcher Chief Oil Name Role Phone Unavailable Primary Care Provider Unavailabl e Encounter Details Date Type Department Care Team (Late st Contact Info) Description 11/30/2018 Transcribed Document [facility] [place] Medicine [facility] [place] [address] ProviderHilario MD [facility] [place] [address] Social History Tobacco Use Types [...] 25.4 kg/m2 High (11/27/18 17:42:00) Rapid Response Dispatcher Chief Oil #1 : NEEL BROWN, RN NEEL BROWN, RN - 11/30/2018 0:38 EDT Electronically signed by Argenis [facility] Conversion Traffic Enumerator Cerner at 12/11/2022 10:33 AM CDT documented in this encounter Plan of Treatment Not on file documented as of this encounter Visit Diagnoses Not on filedocumented in this encounter
--- OUTSIDE RECORDS SUMMARY | 2025-03-03 14:49 | XMS_ITS | Encounter Summary ---
Author Organization [employer] ([place], [place], [place], [place]) Address [address] [place] [address] Care Team Providers Care Filling Operator Name Role Phone Unavailable Primary Care Provider Unavailabl e Encounter Details Date Type Department Care Team (Late st Contact Info) Description 11/27/2018 Transcribed Document [facility] [place] [address] [place] [address] ProviderHilario MD [address] [place], [place] [address] Social History Tobacco Use Types Packs/Day Years [...]
--- OUTSIDE RECORDS SUMMARY | 2025-03-03 14:49 | XMS_ITS | Encounter Summary ---
Author Organization [employer] ([place], [place], [place], [place]) Address [address] [place] [address] Care Team Providers Care Central Office Trouble Shooter Name Role Phone Unavailable Primary Care Provider Unavailabl e Encounter Details Date Type Department Care Team (Late st Contact Info) Description 11/28/2018 Transcribed Document [facility] [place] Medicine [facility] [place] [address] ProviderHilario MD [place] [address] Social History Tobacco Use Types [...] Hilario ProviderMD - 11/28/2018 1:12 PM CDT [facility] Main OR Preop Summary Primary Physician: JOHANNE HERNANDEZ MD-URO Finalized Date/Time: 11/28/18 13:53:11 Pt. Name: LUIS ENRIQUE SMITH D.O.B./Sex: 1965 Female Med Rec #: [id number] Physician: NEWTON SUAREZ MD Financial #: [id number] Pt. Type: O Room/Bed: 357/1 Admit/Disch: 11/27/18 17:42:00 - Institution: [facility] PreOp Case Times Entry 1 In Preop 11/28/18 12:10:00 Ready for Holding n/a Room Patient Ready for 11/28/18 12:30:00 Surgery Patient Out of Preop 11/28/18 12:47:00 Patient Out of n/a Holding Room Last Modified By: ANDRES KENDALL RN 11/28/18 13:53:05 [facility] PreOp Case Times Audit 11/28/18 13:53:05 Pit Recorder: JONATAN Modifier: BOWLINC <+> 1 Patient Out of Preop <+> 1 Patient Ready for Surgery Finalized By: ANDRES KENDALL RN Document Signatures Signed By: ANDRES KENDALL RN 11/28/18 13:53 Electronically signed by Argenis [facility] Conversion Packing Attendant Cerner at 12/11/2022 10:18 AM CDT documented in this encounter Plan of Treatment Not on file documented as of this encounter Visit Diagnoses Not on filedocumented in this encounter
--- OUTSIDE RECORDS SUMMARY | 2025-03-03 14:49 | XMS_ITS | Referral Summary ---
Author Organization [employer] ([place], [place], [place], [place]) Address [address] [place] [address] Care Team Providers Care Otolaryngology Physician Name Role Phone Unavailable Primary Care Provider [...]
--- OUTSIDE RECORDS SUMMARY | 2025-03-03 14:49 | XMS_ITS | Encounter Summary ---
Author Organization [employer] ([place], [place], [place], [place]) Address [address] [place] [address] Care Team Providers Care Shoeblack Name Role Phone Unavailable Primary Care Provider Unavailabl e Encounter Details Date Type Department Care Team (Late st Contact Info) Description 11/30/2018 Transcribed Document [facility] [place] [address] [place] [address] ProviderHilario MD [address] [place], [place] [address] Social History Tobacco Use Types Packs/Day Years [...]
--- OUTSIDE RECORDS SUMMARY | 2025-03-03 14:49 | XMS_ITS | Encounter Summary ---
Author Organization [employer] ([place], [place], [place], [place]) Address [address] [place] [address] Care Team Providers Care Hired Worker Name Role Phone Unavailable Primary Care Provider Unavailabl e Encounter Details Date Type Department Care Team (Late st Contact Info) Description 11/29/[address] [facility] [place] [facility] [place] [address] ProviderHilario MD [address] [place] [address] Social History Tobacco Use Types Packs/Day [...] Conversion Note - Hilario Jolley MD - 11/29/2018 9:42 PM CDT Patient: LUIS [...] 0.9% 50 mL 2 Gram, IV Piggyback, [id number] famotidine 20 mg/2 mL inj 20 mg 2 mL, IV Push, BID potassium chloride CR 10 mEq tab 10 mEq 1 Tab, Oral, TID ALLERGIES: PCN FHx: parents with htn and kidney stones SOHx: Patient is single and lives in [place], [place]. No known Diagnosis of Hep B, [...] of 2 sets with Escherichia coli via [facility]. She is currently on cefepime therapy in [...]
--- OUTSIDE RECORDS SUMMARY | 2025-03-03 14:49 | XMS_ITS | Encounter Summary ---
Author Organization [employer] ([place], [place], [place], [place]) Address [address] [place] [address] Care Team Providers Care Gasoline Truck Operator Name Role Phone Unavailable Primary Care Provider Unavailabl e Encounter Details Date Type Department Care Team (Late st Contact Info) Description 11/30/2018 Transcribed Document [facility] [place] Family Medicine [facility] [place] [address] ProviderHilario MD [address] [place] [address] Social History Tobacco Use Types Packs/Day [...] Hilario ProviderMD - 11/30/2018 3:04 PM CDT [address] [address] Patient Copy Patient Information: Name: LUIS ENRIQUE SMITH Current Date: 11/30/2018 15:04:45 : 1965 Patient Address: [address] [place] [id number] Patient Attending Physician: NEWTON SUAREZ MD Primary Care Provider: TRACI ALCAZAR NP-[facility] Primary Care Provider Discharge Diagnosis: Ureteral stone Weight on Admission: 143 lb, 0 oz Comment: Follow-up Instructions: With: Address: When: Follow up with primary care provider Within 1 to 2 weeks With: Address: When: ALEXIA VILLALBA [address] [facility], [address] [place] [address] Business (1) 12:00 PM With: Address: When: JOHANNE HERNANDEZ [address] [facility], [address] [place] [address] Business (1) Within 1 to 2 weeks Comments: follow up first available in [place] office, ideally one week. With: Address: When: [...] for 20 Day(s). Rx per Dr. Alexia Villabla ( [place] ). Refills: 0. estradiol (estradiol [...] including vitamins, herbs, eye drops, creams, and susy-jne-hrsefjk medicines. ??? Any problems you or family [...] 08/17/2014 Document Revised: 05/28/2017 Document Reviewed: 05/24/2017 [employer] Interactive Patient Education ? 2017 [employer]. Lithotripsy, Care After Refer to this [...] feel your energy improving. ??? Only take gcbd-hpb-iuicdjb or prescription medicines for pain, discomfort, or [...] 08/31/2008 Document Revised: 05/02/2016 Document Reviewed: 02/25/2014 [employer] Interactive Patient Education ? 2017 [employer]. Ureteral Stent Implantation Introduction Ureteral stent [...] including vitamins, herbs, eye drops, creams, and jzce-vsa-fhgsjjm medicines. ??? Any problems you or family [...] kidney stones in the future. ??? Take anom-gdr-xqtgmnb and prescription medicines only as told by [...] 08/12/2006 Document Revised: 03/01/2017 Document Reviewed: 01/25/2017 [employer] Interactive Patient Education ? 2017 [employer]. Dietary Guidelines to Help Prevent Kidney [...] ? Parsley. ? Rutabagas. ? Spinach. ? Croatian chard. ? Tomato paste. ? Fried potatoes. [...] 12/07/2011 Document Revised: 01/17/2017 Document Reviewed: 07/09/2014 [employer] Interactive Patient Education ? 2017 [employer]. Medication Leaflets: cefuroxime (SEF ue AMANDA [...] may report side effects to FDA at 6-570-PAP-2481. What other drugs will affect cefuroxime? Tell your doctor about all your current medicines and any you start or stop using, especially: ? probenecid (Benemid); ?? a blood thinner such as warfarin (Coumadin, Jantoven); or ?? a diuretic or 'water pill.' This list is not complete. Other drugs may interact with cefuroxime, including prescription and wjjx-erx-rfrhzde medicines, vitamins, and herbal products. Not all [...] to ensure that the information provided by [employer]. ('[employer]') is accurate, up-to-date, and complete, but no guarantee is made to that effect. Drug information contained herein may be time sensitive. [employer] information has been compiled for use by healthcare practitioners and consumers in the [place] and therefore [employer] does not warrant that uses outside of the [place] are appropriate, unless specifically indicated otherwise. [employer] drug information does not endorse drugs, diagnose patients or recommend therapy. [employer] drug information is an informational resource designed [...] effective or appropriate for any given patient. [employer] does not assume any responsibility for any aspect of healthcare administered with the aid of information NE[employer] provides. The information contained herein is not intended to cover all possible uses, directions, precautions, warnings, drug interactions, allergic reactions, or adverse effects. If you have questions about the drugs you are taking, check with your doctor, nurse or pharmacist. Copyright 4411-2830 [employer]. Version: 7.01. Revision Date: 01/20/2016. acetaminophen and [...] may report side effects to FDA at 6-978-SYO-0340. What other drugs will affect acetaminophen and [...] affect acetaminophen and oxycodone, including prescription and mbqx-mls-vjzuepy medicines, vitamins, and herbal products. Not all [...] to ensure that the information provided by [employer]. ('[employer]') is accurate, up-to-date, and complete, but no guarantee is made to that effect. Drug information contained herein may be time sensitive. [employer] information has been compiled for use by healthcare practitioners and consumers in the [place] and therefore [employer] does not warrant that uses outside of the [place] are appropriate, unless specifically indicated otherwise. [employer] drug information does not endorse drugs, diagnose patients or recommend therapy. [employer] drug information is an informational resource designed [...] effective or appropriate for any given patient. [employer] does not assume any responsibility for any aspect of healthcare administered with the aid of information [employer] provides. The information contained herein is not intended to cover all possible uses, directions, precautions, warnings, drug interactions, allergic reactions, or adverse effects. If you have questions about the drugs you are taking, check with your doctor, nurse or pharmacist. Copyright 7621-3136 [employer]. Version: 18.02. Revision Date: 07/23/2018. phenazopyridine (fen [...] or ?? a genetic enzyme deficiency called zwxlmfs-2-zlpylsksf dehydrogenase (G6PD) deficiency. FDA category B. Phenazopyridine [...] may report side effects to FDA at 6-866-FLJ-5641. What other drugs will affect phenazopyridine? Other drugs may interact with phenazopyridine, including prescription and iorh-mbc-qwrubij medicines, vitamins, and herbal products. Tell each [...] to ensure that the information provided by [employer]. ('[employer]um') is accurate, up-to-date, and complete, but no guarantee is made to that effect. Drug information contained herein may be time sensitive. [employer]IX information has been compiled for use by healthcare practitioners and consumers in the [place] and therefore [employer] does not warrant that uses outside of the [place] are appropriate, unless specifically indicated otherwise. [employer] drug information does not endorse drugs, diagnose patients or recommend therapy. [employer] drug information is an informational resource designed [...] effective or appropriate for any given patient. [employer] does not assume any responsibility for any aspect of healthcare administered with the aid of information [employer] provides. The information contained herein is not intended to cover all possible uses, directions, precautions, warnings, drug interactions, allergic reactions, or adverse effects. If you have questions about the drugs you are taking, check with your doctor, nurse or pharmacist. Copyright 0229-6222 [employer]. Version: 3.05. Revision Date: 12/17/2013. promethazine (oral) (pro METH a zeen) Phenergan What is the most important information I should know about promethazine? Promethazine should not be given to a child younger than 2 years old. Promethazine can cause severe breathing problems or in very young children. What is promethazine? Promethazine is in a group of drugs called phenothiazines (FATU-pa-DXMK-a-zeens). It works by changing the actions of [...] may report side effects to FDA at 3-560-UJU-6811. What other drugs will affect promethazine? Using this medicine with other drugs that make you sleepy or slow your breathing can cause dangerous or life-threatening side effects. Ask your doctor before taking promethazine with a sleeping pill, narcotic pain medicine, muscle relaxer, or medicine for anxiety, depression, or seizures. Other drugs may interact with promethazine, including prescription and ywns-uay-lpfvtxr medicines, vitamins, and herbal products. Tell each [...] to ensure that the information provided by [employer]. ('[employer]') is accurate, up-to-date, and complete, but no guarantee is made to that effect. Drug information contained herein may be time sensitive. NE[employer]IX information has been compiled for use by healthcare practitioners and consumers in the [place] and therefore [employer] does not warrant that uses outside of the [place] are appropriate, unless specifically indicated otherwise. [employer] drug information does not endorse drugs, diagnose patients or recommend therapy. [employer] drug information is an informational resource designed [...] effective or appropriate for any given patient. [employer] does not assume any responsibility for any aspect of healthcare administered with the aid of information NE[employer] provides. The information contained herein is not intended to cover all possible uses, directions, precautions, warnings, drug interactions, allergic reactions, or adverse effects. If you have questions about the drugs you are taking, check with your doctor, nurse or pharmacist. Copyright 0448-4810 [employer]. Version: 6.02. Revision Date: 06/09/2015. CIGARETTE SMOKING: The facts are clear, cigarette smoking will shorten your life. Smoking can cause many illnesses along the way. As a healthcare provider, we recommend that you stop smoking. Assistance with quitting is available by contacting 3-089-ZDKF-NOW. This is a free resource providing counseling, [...] Be sure to sign up for the [employer] patient portal, which gives you 18/03 access to your medical information ??? including these discharge instructions ??? using your computer, smartphone, or tablet. Just go to [employer] to get started. Questions? Call . [facility] would like to thank you for allowing us to assist you with your healthcare needs. PAULETTE Payne JUDY, (or senior customer service representative) have received the above patient education materials/instructions and have verbalized understanding: Patient Signature _ Date/Time Patient Blasting Helper Signature (if needed) Date/Time Clinician/Hospital Blasting Helper Signature (if needed) Date/Time Electronically signed by [facility] Conversion Body Die Maker Renay at 12/11/2022 10:24 AM CDT documented in this encounter Plan of Treatment Not on file documented as of this encounter Visit Diagnoses Not on filedocumented in this encounter
--- OUTSIDE RECORDS SUMMARY | 2025-03-03 14:49 | XMS_ITS | Encounter Summary ---
Author Organization [employer] ([place], [place], [place], [place]) Address [address] [place] [address] Care Team Providers Care Shirt Closer Name Role Phone Unavailable Primary Care Provider Unavailabl e Encounter Details Date Type Department Care Team (Late st Contact Info) Description 11/30/2018 Transcribed Document [facility] [place] [facility] [place] [address] ProviderHilario MD [facility] [place] [address] Social History Tobacco Use Types [...] Miranda Portillo Rn-Traveler - 11/30/2018 15:19 EDT Electronically signed by [facility] Conversion Account Administrator Cerner at 12/11/2022 10:26 AM CDT documented in this encounter Plan of Treatment Not on file documented as of this encounter Visit Diagnoses Not on filedocumented in this encounter
--- OUTSIDE RECORDS SUMMARY | 2025-03-03 14:49 | XMS_ITS | Encounter Summary ---
Author Organization [employer] ([place], [place], [place], [place]) Address [address] [place] [address] Care Team Providers Care Outside Sales Professional Name Role Phone Unavailable Primary Care Provider Unavailabl e Encounter Details Date Type Department Care Team (Late st Contact Info) Description 11/30/2018 Transcribed Document [facility] [place] [facility] [place] [address] ProviderHilario MD [facility] [place] [address] Social History Tobacco Use Types [...] Conversion Note - Hilario ProviderMD - 11/30/2018 9:34 AM CDT Patient: [...] Rocephin: 2 Gram, 100 mL/Hr, IV Piggyback, M67BNgu Sodium Chloride 0.45% intravenous solution 1,000 mL: [...] At Bedtime cefTRIAXone 2 Gram, IV Piggyback, T99CQlo famotidine 20 mg/2 mL inj 20 mg [...] At risk for sleep apnea / IMO [id number] / Confirmed, Active Problems (1) At risk [...] tenderness, No swelling, No deformity. Integumentary: Warm, [place], Moist, No rash. Neurologic: Alert, Oriented, Normal [...] 27) HB 12.2 (NOV 30) 11.9 (NOV 06) 12.6 (NOV 05) 14.7 (NOV 27) HCT L 32.7 (NOV [...]
--- OUTSIDE RECORDS SUMMARY | 2025-03-03 14:49 | XMS_ITS | Encounter Summary ---
Author Organization [employer] ([place], [place], [place], [place]) Address [address] [place] [address] Care Team Providers Care Photonics Engineer Name Role Phone Unavailable Primary Care Provider Unavailabl e Encounter Details Date Type Department Care Team (Late st Contact Info) Description 11/30/2018 Transcribed Document [facility] [place] Medicine [facility] [place] [address] ProviderHilario [place] [address] Social History Tobacco Use Types [...] Conversion Note - Hilario Jolley MD - 11/30/2018 8:55 AM CDT Patient: LUIS [...] PA-C/for Dr. Bhavik Villalba Electronically signed by [facility] Conversion Qa Test Analyst Vikasner at 12/11/2022 10:15 AM CDT documented in this encounter Plan of Treatment Not on file documented as of this encounter Visit Diagnoses Not on filedocumented in this encounter
--- OUTSIDE RECORDS SUMMARY | 2025-03-03 14:49 | XMS_ITS | Encounter Summary ---
Author Organization [employer] ([place], [place], [place], [place]) Address [address] [place] [address] Care Team Providers Care Sales Representative Sales Manager Name Role Phone Unavailable Primary Care Provider Unavailabl e Encounter Details Date Type Department Care Team (Late st Contact Info) Description 11/28/2018 Transcribed Document [facility] [place] Family Medicine [address] [place] [address] ProviderHilario MD [facility] [place], [place] [address] Social History Tobacco Use Types Packs/Day Years [...]
--- OUTSIDE RECORDS SUMMARY | 2025-03-03 14:49 | XMS_ITS | Encounter Summary ---
Author Organization [employer] ([place], [place], [place], [place]) Address [address] [place] [address] Care Team Providers Care Admitting Manager Name Role Phone Unavailable Primary Care Provider Unavailabl e Encounter Details Date Type Department Care Team (Late st Contact Info) Description 11/27/2018 Transcribed Document [facility] [place] Family Medicine [facility]placed by [facility] [place] [address] ProviderHilario MD Replaced by [facility] [address] Social History Tobacco Use Types [...]
--- OUTSIDE RECORDS SUMMARY | 2025-03-03 14:49 | XMS_ITS | Encounter Summary ---
Author Organization [employer] ([place], [place], [place], [place]) Address [address] [place] [address] Care Team Providers Care Seismograph Shooter Name Role Phone Unavailable Primary Care Provider Unavailabl e Encounter Details Date Type Department Care Team (Late st Contact Info) Description 11/30/2018 Transcribed Document [facility] [place] Family Medicine [facility] [place] [address] ProviderHilario MD [address] [place] [address] Social History Tobacco Use Types [...] feel your energy improving. ??? Only take ytvk-rar-ejugxvs or prescription medicines for pain, discomfort, or [...] 08/31/2008 Document Revised: 05/02/2016 Document Reviewed: 02/25/2014 [employer] Interactive Patient Education ? 2017 [employer]. Urology Ureteroscopy Ureteroscopy is a procedure to [...] including vitamins, herbs, eye drops, creams, and npyb-ido-vfagdfx medicines. ??? Any problems you or family [...] 08/17/2014 Document Revised: 05/28/2017 Document Reviewed: 05/24/2017 [employer] Interactive Patient Education ? 2017 [employer] Ureteral Stent Implantation Introduction Ureteral stent [...] including vitamins, herbs, eye drops, creams, and blxs-clg-fvbnxlu medicines. ??? Any problems you or family [...] kidney stones in the future. ??? Take ofjb-jsb-fqivmao and prescription medicines only as told by [...] 08/12/2006 Document Revised: 03/01/2017 Document Reviewed: 01/25/2017 [employer] Interactive Patient Education ? 2017 [employer] Dietary Guidelines to Help Prevent Kidney [...] ? Parsley. ? Rutabagas. ? Spinach. ? Bahamian chard. ? Tomato paste. ? Fried potatoes. [...] 12/07/2011 Document Revised: 01/17/2017 Document Reviewed: 07/09/2014 [employer] Interactive Patient Education ? 2017 [employer]. documented in this encounter Plan of Treatment Not on file documented as of this encounter Visit Diagnoses Not on filedocumented in this encounter
--- OUTSIDE RECORDS SUMMARY | 2025-03-03 14:49 | XMS_ITS | Encounter Summary ---
Author Organization [employer] ([place], [place], [place], [place]) Address [address] [place] [address] Care Team Providers Care Net Washer Name Role Phone Unavailable Primary Care Provider Unavailabl e Encounter Details Date Type Department Care Team (Late st Contact Info) Description 11/30/2018 Transcribed Document [facility] [place] Family Medicine [address] [place] [address] ProviderHilario MD [address] [place], [place] [address] Social History Tobacco Use Types Packs/Day Years [...] 11/30/2018 15:01 EDT by Miranda Portillo Rn-Traveler DC Instructions HWD Stroke/TIA Discharge Ins : N/A [...]
--- OUTSIDE RECORDS SUMMARY | 2025-03-03 14:49 | XMS_ITS | Clinical Summary ---
Author Organization [facility] Address [address] [place] [address] Phone Care Team Providers Care Monitoring Engineer Name Role Phone Bhavik Villalba MD Unavailable [ ] Conditions or Problems Problem Name Problem Code Onset Date Status Entry Date Provider Comment Standard Description Annotate Acute Pyelonephritis 69854986 (SNOMED CT) 12/12 Active 12/12 Yvette Pteers Acute pyelonephritis Obstructive uropathy with infection N13.6 (ICD-10-C M) 12/12 Active 12/12 Yvette Peters Pyonephrosis E. Coli sepsis/septice steffen A41.51 (ICD-10-C M) 12/12 Active 12/12 Yvette Peters Sepsis due to Escherichia coli [E. coli] Neutrophilic leukemoid reaction D72.823 (ICD-10-C M) 12/12 Active 12/12 Yvette Peters Leukemoid reaction Secondary thrombocytopen ia 84983721 (SNOMED CT) 12/12 Active 12/12 Yvette Peters Acquired thrombocytopenia Benign Essential Hypertension 0005322 (SNOMED CT) 12/12 Active 12/12 Yvette Peters Benign essential hypertension Medications Medication Instructions Start Date Stop Date Generic Name [facility] [place]NOTE 2] Provider ZESTORETIC 10-12.5 MG TABS Take one by mouth daily LISINOPRIL-HYDRO CHLOROTHIAZIDE 59661688683 Linda Goodson ROBAXIN-750 TABLET Take one by mouth 3 times daily, morning, afternoon and evening./PRN METHOCARBAMOL TABS 90221913934 Linda Goodson PROMETHAZINE HCL 12.5 MG TABS Q4H/PRN PROMETHAZINE HCL 86889423745 Linda Goodson NAPROXEN 500 MG TABS by mouth twice a day/PRN NAPROXEN 75545666040 Linda Goodson ESTRADIOL 2 MG TABS Take one by mouth daily ESTRADIOL 84263489016 Linda Goodson CEFUROXIME AXETIL 500 MG TABS by mouth twice a day CEFUROXIME AXETIL 50619541306 Linda Goodson AMITRIPTYLINE HCL 10 MG TABS 2 tabs at bedtime AMITRIPTYLINE HCL 61555305876 Linda Goodson Medications Administered No information available. [...]
--- OUTSIDE RECORDS SUMMARY | 2025-03-03 14:49 | XMS_ITS | Clinical Summary ---
Author Organization Healthcare Address [address] [place] [address] Care Team Providers Care Link Trainer Operator Name Role Phone Low Hammonds APRN Primary Care Provider [phone]- [phone] Family History Medical History Relation Name Comments [...] Date Last Done Comments [facility]-Depression Screening 1965 [facility]-/Child/Adol SDOH Screenings 1965 [facility]- SDOH Screenings 1982 [...] 2014 [facility]-Zoster Vaccines (1 of 2) 2014 [id number]-39 Vaccine (1 - 20 24-25 season) 2024 [facility]-Influenza Vaccine (#1) 2025 [facility]-RSV Vaccine: 60+ Years o r [...] Gender: femaleDate of Service: 03/02/2020 eferring Phy:Melquiadesyamile Merlos, APRNAccount: [phone] BI-RADS Assessment Category 3: Probably benign finding. RECOMMENDATION: Finding 2: Short term follow-up ultrasound of the right breast in 6 months. COMMUNICATION: The patient was seen today by the [facility] surgery/oncology team. They discussed the findings as well as our recommendations with the patient and a printed lay language version of the imaging report was given to the patient at the time of visit. The mammogram was read with the assistance of CAD and tomosynthesis. Dictated By: Abby Bueno M.D. Verified By: Abby Bueno M.D. on 03/02/2020 at 01:32:52 PM Page 2 of 2 Narrative 03/02/2020 1:38 PM EDT REQUESTING PHYSICIAN: MARIA DEL ROSARIO MERLOS REASON FOR EXAMINATION/PROCEDURE: 6 mo f/u; MP EXAMINATION / PROCEDURE: CORBIN DIAGNOSTIC SY Mar 02 2020:15; Diag Mamm Sy w/cad Mar 02 2020:15; US R BREAST-AXILLA IF PERF LTD Mar 02 2020:20; HISTORY: Patient is 54 years old and [...] The patient was seen today by the [facility] surgery/oncology team. They discussed the findings as well as our recommendations with the patient and a printed lay la nguage version of the imaging report was given to the patient at the time of visit. The mammogram was read with the assistance of CAD and tomosynthesis. Read By: ABBY BUENO M.D. Signed By: ABBY BUENO M.D. on 03/02/2020 at 13:37 :59 Verified by: ABBY BUENO M.D. on Mar 02 2020 1:37P Transcribed by: PSCB on Mar 02 2020 1:37P Dictated by: ABBY BUENO M.D. on Mar 02 2020 1:37P Patient Name:Aleshia Smith : 1965 Age: 54 Gender: femaleDate of Service: 03/02/2020 eferring Phy:Maria Del Rosario Merlos APRNAccount: [phone] Maria Del Rosario Merlos APRN [facility] [place] [address] FINAL REPORT PROCEDURE: Tomosynthesis Diagnostic Bilateral - [...] not seen on today's study. Procedure Note Abby Bueno - 01/01/2021 REQUESTING PHYSICIAN: MARIA DEL ROSARIO MERLOS REASON FOR EXAMINATION/PROCEDURE: 6 mo f/u; MP EXAMINATION / PROCEDURE: CORBIN DIAGNOSTIC SY Mar 02 2020:15; Diag Mamm Sy w/cad Mar 02 2020:15; US R BREAST-AXILLA [...] The patient was seen today by the [facility] surgery/oncology team. They discussed the findings as well as our recommendations with the patient and a printed lay la nguage version of the imaging report was given to the patient at the time of visit. The mammogram was read with the assistance of CAD and tomosynthesis. Read By: ABBY BUENO M.D. Signed By: ABBY BUENO M.D. on 03/02/2020 at 13:37 :59 Verified by: ABBY BUENO M.D. on Mar 02 2020 1:37P Transcribed by: [facility] on Mar 02 2020 1:37P Dictated by: ABBY BUENO M.D. on Mar 02 2020 1:37P Patient Name:Aleshia Smith : 1965 Age: 54 Gender: femaleDate of Service:03/02/2020 eferring Phy:Maria Del Rosario Merlos APRNAccount: [phone] Maria Del Rosario Merlos APRN [facility] [address] [place] [address] FINAL REPORT PROCEDURE: Tomosynthesis Diagnostic Bilateral - [...] Service:03/02/2020 eferring Phy:Maria Del Rosario Merlos, APRNAccount: [phone] BI-RADS Assessment Category 3: Probably benign finding. RECOMMENDATION: Finding 2: Short term follow-up ultrasound of the right breast in 6months. COMMUNICATION: The patient was seen today by the [facility] surgery/oncology team. Theydiscussed the findings as well as our recommendations with the patient and a printed lay language version of theimaging report was given to the patient at the time of visit. The mammogram was read with the assistance of CAD andtomosynthesis. Dictated By: Abby Bueno M.D. Verified By: Abby Bueno M.D. on 03/02/2020 at 01:32:52 PM Page 2 of 2 us Maria Del Rosario Merlos SENIOR ESTIMATOR IMG BI PROCEDURES Final Res ult * Cytology (10/23/1993 12:00 AM EST) 10/23/1993 10/23/1993 Narrative SUNQUEST - 11/06/1993 12:00 AM EST [facility] MR #: [id number] [facility] ALESHIA SMITH [place], [place] [address] 1965 (Age: 28) FW Collect Date: 10/23/1993 00:00 Receipt Date: 10/23/1993 00:00 Page 1 DEPARTMENT OF PATHOLOGY AND LABORATORY MEDICINE CYTOPATHOLOGY REPORT Email: [email or web address] * Converted Case * This report may not match the original report format ATTENDING MD/Practitioner: Piyush Karimi Jr., Service: TEST CASE DEVELOPER Location: Reported: 11/06/1993 00:00 Collected: 10/23/1993 00:00 [...] results is suggested (please call Microbiology at [phone] for results). CLINICAL INFORMATION: Menstrual History: {Not Provided} Date of Last Menstrual Period: {Not Provided} SPECIMEN DESCRIPTION: A: CERVICAL/VAGINAL SMEAR, PAP ICD: F: {Not Entered} SNOMED CODES: 1; A5S257 [id number] In cases where a pathologist has signed out the report, the service has been rendered in part by a resident. The signing pathologist has performed and is responsible for the reported pathologic evaluation. Nilson Karimi MD LAB PATHOLOGY ORDERABLES Fi nal Result SUNQUEST from Last 3 Months or Most Recently Relevant to Health Maintenance Care Teams Link Trainer Operator Relationship Specialty Start Date End Date Low Hammonds APRN [address] [place] [address] PCP - General 01/06/21
--- OUTSIDE RECORDS SUMMARY | 2025-03-03 14:49 | XMS_ITS | Encounter Summary ---
Author Organization [employer] ([place], [place], [place], [place]) Address [address] [place] [address] Care Team Providers Care Unit Support Representative Name Role Phone Unavailable Primary Care Provider Unavailabl e Encounter Details Date Type Department Care Team (Late st Contact Info) Description 11/27/2018 Transcribed Document [facility] Family Medicine [facility] [place] [address] ProviderHilario MD [facility] [place] [address] Social History Tobacco Use Types [...] Conversion Note - Historical ProviderMD - 11/27/2018 5:42 PM CDT Admission History, [...] Kidney stone left side Primary Language : [place] Citizen Communication Barrier : None Le Solis RN [...] Scale Risk Level : 0-24 Low Risk [place] Fall Interventions : Adequate lighting, Assistive devices [...] Source : Stated Height Entry Format : [place] Height, Feet : 5 ft(Converted to: 152 cm, 60 Inch) Height, Inches : 3 Inch(Converted to: 0 ft 3 Inch, 7.62 cm) Clinical Height : 160.02 cm Weight Source : Standing scale Weight Entry Format : [place] Clinical Dosing Weight : 65 kg Weight, Pounds : 143 lb Body Surface Area (BSA) : 1.68 m2 Body Mass Index : 25.4 kg/m2 (HI) [place] Body Weight : 52 kg Le Solis [...]
--- OUTSIDE RECORDS SUMMARY | 2025-03-03 14:49 | XMS_ITS | Encounter Summary ---
Author Organization [employer] ([place], [place], [place], [place]) Address [address] [place] [address] Care Team Providers Care Tieing Machine Operator Name Role Phone Unavailable Primary Care Provider Unavailabl e Encounter Details Date Type Department Care Team (Late st Contact Info) Description 12/03/2018 Transcribed Document [facility] Family Medicine [facility] [place] [address] ProviderHilario MD [facility] [place] [address] Social History Tobacco Use Types [...] : Yes Follow-Up Actions : None RADAMES CROWDER, JUN - 12/03/2018 9:34 EDT documented in this encounter Plan of Treatment Not on file documented as of this encounter Visit Diagnoses Not on filedocumented in this encounter
--- OUTSIDE RECORDS SUMMARY | 2025-03-03 14:49 | XMS_ITS | Clinical Summary ---
Author Organization [employer] ([place], [place], [place], [place]) Address [address] [place] [address] Care Team Providers Care Clinical Product Manager Name Role Phone Unavailable Primary Care [...]
[2025-03-03 15:32] LABS: Blood Urea Nitrogen 7 mg/dl (7-17); Creatinine,Serum 0.60 mg/dl (0.52-1.04); Estimated Glomerular Filt Rate 102 ml/min (>60); GFR (African American) 123 ML/MIN (>60)
--- NOTE | 2025-03-03 15:45 | MR_ITS ---
PROCEDURE INFORMATION: Exam: MR Right Lower Extremity Other Than Joint Without and With Contrast; Foot Exam date and time: 03/03/2025 3:24 PM Age: 59 years old Clinical indication: Pain; Foot; Right; Additional info: Right foot numbness in all toes and medial aspect of foot, radiates up medial side of leg. 1 year. Nki TECHNIQUE: Imaging protocol: Magnetic resonance imaging of the right lower extremity without and with contrast. Exam focused on the foot. Contrast material: PROHANCE; Contrast volume: 12 ml; Contrast route: IV; COMPARISON: CT FOOT RT W CON 12/02/2024 1:19 PM FINDINGS: Bones/joints: No bone abnormalities. Articular cartilage is normal. No joint effusion. LIGAMENTS: Lisfranc ligament: No evidence of tear. TENDONS: Flexor tendons of foot: No evidence of tear. Tibialis posterior tendon: No tear or fluid as visualized. Peroneal tendons: No tear or fluid as visualized. Extensor tendons of foot: No evidence of tear. Tibialis anterior tendon: No tear or fluid as visualized. Tarsal canal (Sinus tarsi): No abnormalities. Tarsal tunnel: No abnormalities. Soft tissues: No masses or fluid collections. Plantar fascia: No tear or masses as visualized. IMPRESSION: No acute findings in the right foot. No neurovascular impingement.
--- NOTE | 2025-03-03 16:45 | MR_ITS ---
PROCEDURE INFORMATION: Exam: MR Right Lower Extremity Joint Without and With Contrast; Ankle Exam date and time: 03/03/2025 3:24 PM Age: 59 years old Clinical indication: Pain; Foot; Right; Additional info: Right foot numbness in all toes and medial aspect of foot, radiates up medial side of leg. 1 year TECHNIQUE: Imaging protocol: Magnetic resonance imaging of the right lower extremity without and with contrast. Exam focused on the ankle. Contrast material: PROHANCE; Contrast volume: 12 ml; Contrast route: IV; COMPARISON: CT FOOT RT W CON 12/02/2024 1:19 PM FINDINGS: Bones/joints: No bone abnormalities. Articular cartilage is normal. No joint effusion. LIGAMENTS: Distal tibiofibular syndesmosis: No tear. Anterior talofibular ligament: No tear. Posterior talofibular ligament: No tear. Calcaneofibular ligament: No tear. Deltoid ligament complex: No tear. TENDONS: Flexor tendons of foot: No tears or fluid. Tibialis posterior tendon: No tear or fluid. Peroneal tendons: No tear or fluid. Extensor tendons of foot: No tears or fluid. Tibialis anterior tendon: No tear or fluid. Achilles tendon: No tear, thickening, or adjacent fluid. Tarsal canal (Sinus tarsi): Normal signal of the fat. Tarsal tunnel: No signal abnormalities. Soft tissues: No soft tissue masses or significant swelling. Plantar fascia: No masses or edema. IMPRESSION: No acute findings in the right ankle. No evidence of neurovascular impingement.
[2025-03-03] MEDS: SODIUM CHLORIDE 0.9% 10ML SYR (RAD ONLY) 10 ML IV (17:01)
[2025-03-03] MEDS: GADOTERIDOL INJ 20ML SYRINGE 12 ML IV (17:01)
[2025-03-03] MEDS: 0.9 % SODIUM CHLORIDE 50 ML VIAL 10 ML IV (17:01)
== END 2025-03-03 23:59 | disposition home or self-care (01) ==
LOC: RAD 14:46
PROVIDERS: PCP Internal Medicine; Visit Provider Nurse Practitioner
DX: M79.671 Pain in right foot (principal); M25.579 Pain in unspecified ankle and joints of unspecified foot
CPT/HCPCS: 73720; 73723; 82565; 84520; A9576

== ENCOUNTER 2025-06-22 13:55 | Outpatient (CLI) | payer OTHER, SELFPAY ==
[2025-06-22 17:08] LABS: Hematocrit 47.3 % (37.0-47.0); Hemoglobin 16.6 g/dL (12.2-16.2); Immature Granulocytes % 0.2 %; Mean Corpuscular HGB Conc 35.1 g/dL (31.8-35.4); Mean Corpuscular Hemoglobin 32.2 pg (27.0-31.2); Mean Corpuscular Volume 91.7 fl (81-99); Nucleated Red Blood Cells % 0 %; Platelet Count 178 K/mm3 (142-424); Red Blood Count 5.16 M/mm3 (4.20-5.40); Red Cell Distribution Width-SD 41.8 fL; White Blood Count 8.3 K/mm3 (4.8-10.8)
[2025-06-22 18:51] LABS: Alanine Aminotransferase 25 U/L (12-78); Albumin Level 3.8 g/dl (3.5-5.0); Albumin/Globulin Ratio 0.9 (1.1-1.8); Alkaline Phosphatase 150 U/L (38-126); Anion Gap 13.7 mEq/L (5-15); Aspartate Amino Transferase 35 U/L (14-36); Bilirubin,Total 0.7 mg/dl (0.2-1.3); Blood Urea Nitrogen 9 mg/dl (7-17); Calcium 9.8 mg/dl (8.4-10.2); Carbon Dioxide 29 mmol/L (22.0-30.0); Chloride 103 mmol/L (98-107); Creatinine,Serum 0.60 mg/dl (0.52-1.04); Estimated Glomerular Filt Rate 102 ml/min (>60); GFR (African American) 123 ML/MIN (>60); Globulin 4.2 g/dL (1.3-3.2); Glucose 75 mg/dl (74-100); HDL Cholesterol 32 mg/dl (40-60); Potassium 4.7 mmoL/L (3.5-5.1); Sodium 141 mmol/L (136-145); Total Protein,Serum 8.0 g/dl (6.3-8.2)
[2025-06-22 20:08] LABS: Cholesterol 167 mg/dl (140-200)
[2025-06-22 20:27] LABS: Triglycerides 437 mg/dl (30-150)
--- OUTSIDE RECORDS SUMMARY | 2025-06-23 12:26 | XMS_ITS | Encounter Summary ---
Author Organization [employer] ([place], [place], [place], [place]) Address [address] [place] [address] Care Team Providers Care Sap Bi Developer Name Role Phone Unavailable Primary Care Provider Unavailabl e Encounter Details Date Type Department Care Team (Late st Contact Info) Description 12/03/2018 Transcribed Document [facility] [place] [facility] [place] [address] ProviderHilario MD [place] [address] Social History Tobacco Use Types [...]
--- OUTSIDE RECORDS SUMMARY | 2025-06-23 12:26 | XMS_ITS | Referral Summary ---
Author Organization [employer] ([place], [place], [place], [place]) Address [address] [place] [address] Care Team Providers Care Regional Merchandising Manager Name Role Phone Unavailable Primary Care [...]
--- OUTSIDE RECORDS SUMMARY | 2025-06-23 12:26 | XMS_ITS | Encounter Summary ---
Author Organization [employer] ([place], [place], [place], [place]) Address [address] [place] [address] Care Team Providers Care Byproducts Supervisor Name Role Phone Unavailable Primary Care Provider Unavailabl e Encounter Details Date Type Department Care Team (Late st Contact Info) Description 11/28/2018 Transcribed Document [facility] Medicine [facility] [place] [address] ProviderHilario MD [facility] [place] [address] Social History Tobacco Use Types [...]
--- OUTSIDE RECORDS SUMMARY | 2025-06-23 12:26 | XMS_ITS | Encounter Summary ---
Author Organization [employer] ([place], [place], [place], [place]) Address [address] [place] [address] Care Team Providers Care Conveyor Monitor Name Role Phone Unavailable Primary Care Provider Unavailabl e Encounter Details Date Type Department Care Team (Late st Contact Info) Description 11/29/2018 Transcribed Document [facility] [place] [address] [place] [address] ProviderHilario MD [address] [place] [address] Social History Tobacco Use Types [...]
--- OUTSIDE RECORDS SUMMARY | 2025-06-23 12:26 | XMS_ITS | Encounter Summary ---
Author Organization [employer] ([place], [place], [place], [place]) Address [address] [place] [address] Care Team Providers Care Retail Management Keyholder Name Role Phone Unavailable Primary Care Provider Unavailabl e Encounter Details Date Type Department Care Team (Late st Contact Info) Description 11/28/2018 Transcribed Document [facility] [place] [facility] [address] ProviderHilario [place] [address] Social History Tobacco Use Types [...] Hilario ProviderMD - 11/28/2018 1:12 PM CDT [facility] Main OR Preop Summary Primary Physician: JOHANNE HERNANDEZ MD-URO Finalized Date/Time: 11/28/18 13:53:11 Pt. Name: LUIS ENRIQUE SMITH D.O.B./Sex: 1965 Female Med Rec #: [id number] Physician: NEWTON SUAREZ MD Financial #: [id number] Pt. Type: O Room/Bed: 357/1 Admit/Disch: 11/27/18 17:42:00 - Institution: [facility] PreOp Case Times Entry 1 In Preop 11/28/18 12:10:00 Ready for Holding n/a Room Patient Ready for 11/28/18 12:30:00 Surgery Patient Out of Preop 11/28/18 12:47:00 Patient Out of n/a Holding Room Last Modified By: ANDRES KENDALL RN 11/28/18 13:53:05 [facility] PreOp Case Times Audit 11/28/18 13:53:05 [employer]: JONATAN Modifier: BOWLINC <+> 1 Patient Out of Preop <+> 1 Patient Ready for Surgery Finalized By: ANDRES KENDALL RN Document Signatures Signed By: ANDRES KENDALL RN 11/28/18 13:53 Electronically signed by Argenis [facility] Conversion Chairman Emeritus [employer] at 12/11/2022 10:18 AM CDT documented in this encounter Plan of Treatment Not on file documented as of this encounter Visit Diagnoses Not on filedocumented in this encounter
--- OUTSIDE RECORDS SUMMARY | 2025-06-23 12:26 | XMS_ITS | Encounter Summary ---
Author Organization [employer] ([place], [place], [place], [place]) Address [address] [place] [address] Care Team Providers Care Space Systems Operations Superintendent Name Role Phone Unavailable Primary Care Provider Unavailabl e Encounter Details Date Type Department Care Team (Late st Contact Info) Description 11/28/2018 Transcribed Document [facility] [place] [facility] [place] [address] ProviderHilario MD [facility] [place] [address] Social History Tobacco Use Types [...] Hilario ProviderMD - 11/28/2018 1:12 PM CDT [facility] Main OR PACU Summary Primary Physician: JOHANNE HERNANDEZ MD-URO Finalized Date/Time: 11/29/18 15:35:23 Pt. Name: LUIS ENRIQUE SMITH/Sex: 1965 Female Med Rec #: [id number] Physician: NEWTON SUAREZ MD Financial #: [id number] Pt. Type: I Room/Bed: [facility]/ Admit/Disch: 11/27/18 17:42:00 - Institution: [facility] Main OR PACU I Case Times Entry 1 In PACU I 11/28/18 13:32:00 Ready for PACU 11/28/18 14:18:00 Discharge Discharge from PACU 11/28/18 14:18:00 I Last Modified By: Duyen Lange RN 11/29/18 15:35:13 Finalized By: Duyen Lange RN Document Signatures Signed By: Duyen Lange RN 11/29/18 15:35 Electronically signed by Argenis [facility] Conversion Load Manager Cerner at 12/11/2022 10:19 AM CDT documented in this encounter Plan of Treatment Not on file documented as of this encounter Visit Diagnoses Not on filedocumented in this encounter
--- OUTSIDE RECORDS SUMMARY | 2025-06-23 12:26 | XMS_ITS | Encounter Summary ---
Author Organization [employer] ([place], [place], [place], [place]) Address [address] [place] [address] Care Team Providers Care Treer Name Role Phone Unavailable Primary Care Provider Unavailabl e Encounter Details Date Type Department Care Team (Late st Contact Info) Description 11/27/2018 Transcribed Document [facility] [place] [facility] [place] [address] ProviderHilario MD [facility] [place] [address] Social History Tobacco Use Types [...] Kidney stone left side Primary Language : [place] Communication Barrier : None Le Solis RN [...] Scale Risk Level : 0-24 Low Risk [place] Fall Interventions : Adequate lighting, Assistive devices [...] Source : Stated Height Entry Format : [place] Height, Feet : 5 ft(Converted to: 152 cm, 60 Inch) Height, Inches : 3 Inch(Converted to: 0 ft 3 Inch, 7.62 cm) Clinical Height : 160.02 cm Weight Source : Standing scale Weight Entry Format : [place] Clinical Dosing Weight : 65 kg Weight, Pounds : 143 lb Body Surface Area (BSA) : 1.68 m2 Body Mass Index : 25.4 kg/m2 (HI) [place] Body Weight : 52 kg Le Solis [...]
--- OUTSIDE RECORDS SUMMARY | 2025-06-23 12:26 | XMS_ITS | Clinical Summary ---
Author Organization [employer] ([place], [place], [place], [place]) Address [address] [place] [address] Care Team Providers Care Boat Repairer Name Role Phone Unavailable Primary Care Provider [...]
--- OUTSIDE RECORDS SUMMARY | 2025-06-23 12:26 | XMS_ITS | Encounter Summary ---
Author Organization [employer] ([place], [place], [place], [place]) Address [address] [place] [address] Care Team Providers Care Screen Examiner Name Role Phone Unavailable Primary Care Provider Unavailabl e Encounter Details Date Type Department Care Team (Late st Contact Info) Description 11/30/2018 Transcribed Document [facility] [place] [address] ProviderHilario [place] [address] Social History Tobacco Use Types [...] PA-C/for Dr. Bhavik Villalba Electronically signed by [facility] Conversion Director [employer] at 12/11/2022 10:15 AM CDT documented in this encounter Plan of Treatment Not on file documented as of this encounter Visit Diagnoses Not on filedocumented in this encounter
--- OUTSIDE RECORDS SUMMARY | 2025-06-23 12:26 | XMS_ITS | Clinical Summary ---
Author Organization [facility] Address [address] [place] [address] Phone Care Team Providers Care Inspector Structural Bonding Name Role Phone Bhavik Villalba MD Unavailable [ ] Conditions or Problems Problem Name Problem Code Onset Date Status Entry Date Provider Comment Standard Description Annotate Acute Pyelonephritis 68173737 (SNOMED CT) 12/12 Active 12/12 Yvette Peters Acute pyelonephritis Obstructive uropathy with infection N13.6 (ICD-10-C M) 12/12 Active 12/12 Yvette Peters Pyonephrosis E. Coli sepsis/septice steffen A41.51 (ICD-10-C M) 12/12 Active 12/12 Yvette Peters Sepsis due to Escherichia coli [E. coli] Neutrophilic leukemoid reaction D72.823 (ICD-10-C M) 12/12 Active 12/12 Yvette Peters Leukemoid reaction Secondary thrombocytopen ia 16301227 (SNOMED CT) 12/12 Active 12/12 Yvette Peters Acquired thrombocytopenia Benign Essential Hypertension 3343188 (SNOMED CT) 12/12 Active 12/12 Yvette Peters Benign essential hypertension Medications Medication Instructions Start Date Stop Date Generic Name [facility] Provider ZESTORETIC 10-12.5 MG TABS Take one by mouth daily LISINOPRIL-HYDRO CHLOROTHIAZIDE 35873135932 Linda Goodson ROBAXIN-750 TABLET Take one by mouth 3 times daily, morning, afternoon and evening./PRN METHOCARBAMOL TABS 58774832006 Linda Goodson PROMETHAZINE HCL 12.5 MG TABS Q4H/PRN PROMETHAZINE HCL 10973829874 Linda Goodson NAPROXEN 500 MG TABS by mouth twice a day/PRN NAPROXEN 32594628979 Linda Goodson ESTRADIOL 2 MG TABS Take one by mouth daily ESTRADIOL 93710643828 Linda Goodson CEFUROXIME AXETIL 500 MG TABS by mouth twice a day CEFUROXIME AXETIL 94261313909 Linda Goodson AMITRIPTYLINE HCL 10 MG TABS 2 tabs at bedtime AMITRIPTYLINE HCL 60420056461 Linda Goodson Medications Administered No information available. [...]
--- OUTSIDE RECORDS SUMMARY | 2025-06-23 12:26 | XMS_ITS | Encounter Summary ---
Author Organization [employer] ([place], [place], [place], [place]) Address [address] [place] [address] Care Team Providers Care Parking Lot Supervisor Name Role Phone Unavailable Primary Care Provider Unavailabl e Encounter Details Date Type Department Care Team (Late st Contact Info) Description 11/28/2018 Transcribed Document [facility] [place] [facility] [place] [address] ProviderHilario MD [facility] [place] [address] Social History Tobacco Use Types [...] (Moderate 4-6) cefepime: 2 Gram, IV Piggyback, [id number] metoprolol tartrate: 25 mg, Oral, Q4H, PRN: Tachycardia morphine: 2 mg, IV Push, Q2H, PRN: Pain (Severe 7-10) traZODone: 50 mg, Oral, At Bedtime, PRN: Insomnia Documented Medications Documented estradiol 2 mg oral tablet: Tab, Oral, Daily, 0 Refill(s) lisinopril: 12.5, Oral, Daily, 0 Refill(s), Medications (11) Active Scheduled: (2) cefepime 2 Gram, IV Piggyback, [id number] famotidine 20 mg/2 mL inj 20 mg [...] At risk for sleep apnea / IMO [id number] / Confirmed, Active Problems (1) At risk [...] tenderness, No swelling, No deformity. Integumentary: Warm, [place], Moist, No rash. Neurologic: Alert, Oriented, Normal [...]
--- OUTSIDE RECORDS SUMMARY | 2025-06-23 12:26 | XMS_ITS | Clinical Summary ---
Author Organization [employer] Address [address] [place] [address] Care Team Providers Care Exchange Trouble Shooter Name Role Phone Erick Washburn MD Primary Care Provider Allergies Active Allergy Reactions Criticality Noted Date Comments Penicillin V Potassium Hives Medium 12/11/2018 Medications estradiol (ESTRACE) 2 MG tablet Take 1 tablet by mouth Daily. 02/04/2023 Active lisinopril-hydr ochlorothiazide (PRINZIDE,ZESTO RETIC) 10-12.5 MG per tablet Take 1 tablet by mouth Daily. for high blood pressure 01/21/2023 Active Family History Medical History Relation Name Comments Arthritis Mother Hypertension Mother Relation Name Status Comments Father Mother Alive Social History Tobacco Use Types Packs/Day Years Used Date Smoking Tobacco: Every Day Cigarettes Passive Smoke Exposure: Never Smokeless Tobacco: Never Tobacco Cessation:Ready to Q uit: Not Asked; Counseling Given: Not Answered Alcohol Use Standard Drinks/Week Comments Never 0 (1 standard drink = 0.6 oz pur e alcohol) Abuse Screen Answer Date Recorded Unsafe at Home or Work/School Not on file Feels Threatened by Someone? Not on file 04/2023 Does Anyone Keep You from Co ntacting Others or Doint Things Outside the Home? Not on file 06/03/2023 Physical Sign of Abuse Present Not on file 1 Housing Stability Answer Date Recorded Current Living Arrangements Not on file 04/2023 Potentially Unsafe Housing Conditions Not on minoo e 06/03/2023 Family and Community Support Answer Eddie e Recorded Help with Day-to-Day Activities Not on file 06/03/2023 Lonely or Isolated Not on file 06/03/2023 Employment Answer Date Recorded Do you want help finding or keeping work or a christy b? Not on file 06/03/2023 Disabilities Answer Date Recorded Concentrating, Remembering, or Making Decisions Difficulty Not on file 06/03/2023 Doing Errands Independently Difficulty Not on fi le 06/03/2023 Education Answer Date Recorded Help with school or training? Not on file Preferred Language Not on file 06/03/2023 Comments Unknown Sex and Gender Information Value Date Recorded Sex Assigned at Not on file Legal Sex Female 1:21 PM EDT Gender Identity Not on file Sexual Orientation Not on file Last Filed Vital Signs Vital Sign Reading Time Taken Comments Blood Pressure 158/82 04/01/2023 1:51 PM EDT Pulse - - Temperature 36.5 C (97.7 F) 04/01/2023 1:51 PM EDT Respiratory Rate - - Oxygen Saturation - - Inhaled Oxygen Concentration - - Weight 60.8 kg (134 lb) 04/01/2023 1:51 PM EDT Height 160 cm (5' 3 ) 04/01/2023 1:51 PM EDT Body Mass Index 23.74 04/01/2023 1:51 PM EDT Plan of Treatment Health Maintenance Due Date Last Done Comments Annual Gynecologic Pelvic and Breast Exam 1965 Pneumococcal Vaccine 50+ (1 of 2 - PCV) 1983 TDAP/TD VACCINES (2 - Tdap) 10/29/2006 10/29/1996 COLOGUARD 2009 COLON CANCER SCREENING 5 YEAR SIGMOIDOSCOPY 2009 COLONOSCOPY 2009 [address]AL CANCER SCREENING 2009 CT COLONOGRAPHY 2009 FECAL OCCULT BLOOD TEST 2009 FIT Testing (1 year) 2009 MAMMOGRAM 03/02/2022 03/02/2020 ANNUAL PHYSICAL 04/01/2023 HEPATITIS C SCREENING 04/01/2023 ZOSTER VACCINE (2 of 2) 04/29/2023 03/04/2023 INFLUENZA VACCINE 03/26/2025 08/15/2021 Care Teams Exchange Trouble Shooter Relationship Specialty Start Date End Date Erick Washburn MD [address] ATTN: [place] [address] PCP - General Emergency Medicine 01/29/23
--- OUTSIDE RECORDS SUMMARY | 2025-06-23 12:26 | XMS_ITS | Encounter Summary ---
Author Organization [employer] ([place], [place], [place], [place]) Address [address] [place] [address] Care Team Providers Care Management Trainee Marketing Name Role Phone Unavailable Primary Care Provider Unavailabl e Encounter Details Date Type Department Care Team (Late st Contact Info) Description 11/27/2018 Transcribed Document [facility] [place] Family Medicine [facility] [address] ProviderHilario MD [facility] [address] Social History Tobacco Use Types [...] 11/28/2018 08:57:00 EDT morphine,2mg IV Push,Right Antecubit [place],Pain (Severe 7-10) Pain Assessment Pain Assessment : [...]
--- OUTSIDE RECORDS SUMMARY | 2025-06-23 12:26 | XMS_ITS | Encounter Summary ---
Author Organization [employer] ([place], [place], [place], [place]) Address [address] [place] [address] Care Team Providers Care Vial Gauger Name Role Phone Unavailable Primary Care Provider Unavailabl e Encounter Details Date Type Department Care Team (Late st Contact Info) Description 11/29/2018 Transcribed Document [facility] [place] [facility] [place] [address] ProviderHilario MD [facility] [address] Social History Tobacco Use Types [...] Rocephin: 2 Gram, 100 mL/Hr, IV Piggyback, [id number] Sodium Chloride 0.45% intravenous solution 1,000 mL: [...] At Bedtime cefTRIAXone 2 Gram, IV Piggyback, [id number] famotidine 20 mg/2 mL inj 20 mg [...] At risk for sleep apnea / IMO [id number] / Confirmed, Active Problems (1) At risk [...] tenderness, No swelling, No deformity. Integumentary: Warm, Proctor, Moist, No rash. Neurologic: Alert, Oriented, Normal [...]
--- OUTSIDE RECORDS SUMMARY | 2025-06-23 12:26 | XMS_ITS | Clinical Summary ---
Author Organization [facility] Address [address] [place] [address] Care Team Providers Care Command Center Analyst Name Role Phone Low Hammonds APRN Primary Care Provider [phone]- [phone] Family History Medical History Relation Name Comments [...] 2014 UKY-Zoster Vaccines (1 of 2) 2014 [id number] Vaccine (1 - 20 24-25 season) 2025 UKY-Influenza Vaccine (#1) 2025 UKY-RSV Vaccine: 60+ [...] of Service: 03/02/2020 eferring Phy:Melquiadesyamile Merlos, APRNAccount: [phone] BI-RADS Assessment Category 3: Probably benign finding. RECOMMENDATION: Finding 2: Short term follow-up ultrasound of the right breast in 6 months. COMMUNICATION: The patient was seen today by the [facility] surgery/oncology team. They discussed the findings [...] The patient was seen today by the [facility] surgery/oncology team. They discussed the findings [...] of Service: 03/02/2020 eferring Phy:Maria Del Rosario Merols APRNAccount: [phone] Maria Del Rosario Merlos APRN [facility] [place] [address] FINAL REPORT PROCEDURE: Tomosynthesis Diagnostic Bilateral - [...] The patient was seen today by the [facility] surgery/oncology team. They discussed the findings [...] on Mar 02 2020 1:37P Transcribed by: [facility] on Mar 02 2020 1:37P Dictated by: ABBY BUENO M.D. on Mar 02 2020 1:37P Patient Name:Aleshia Smith : 1965 Age: 54 Gender: femaleDate of Service:03/02/2020 eferring Phy:Maria Del Rosario Merlos APRNAccount: [phone] Maria Del Rosario Merlos APRN [facility] [address] [place] [address] FINAL REPORT PROCEDURE: Tomosynthesis Diagnostic Bilateral - [...] Service:03/02/2020 eferring Phy:Maria Del Rosario Merlos, APRNAccount: [phone] BI-RADS Assessment Category 3: Probably benign finding. RECOMMENDATION: Finding 2: Short term follow-up ultrasound of the right breast in 6months. COMMUNICATION: The patient was seen today by the [facility] surgery/oncology team. Theydiscussed the findings as [...] of 2 us Maria Del Rosario Merlos BEATING MACHINE OPERATOR IMG BI PROCEDURES Final Res ult * Cytology (10/23/1993 12:00 AM EST) 10/23/1993 10/23/1993 Narrative [facility]QUEST - 11/06/1993 12:00 AM EST [facility] MR #: [id number] [facility] [place], [place] [address] 1965 (Age: 28) FW Collect Date: 10/23/1993 00:00 Receipt Date: 10/23/1993 00:00 Page 1 DEPARTMENT OF PATHOLOGY AND LABORATORY MEDICINE CYTOPATHOLOGY REPORT Email: [email or web address] * Converted Case * This report may not match the original report format ATTENDING MD/Practitioner: Piyush Karimi Jr., Service: STUDIO SET UP WORKER Location: Reported: 11/06/1993 00:00 Collected: 10/23/1993 00:00 [...] results is suggested (please call Microbiology at [phone] for results). CLINICAL INFORMATION: Menstrual History: {Not Provided} Date of Last Menstrual Period: {Not Provided} SPECIMEN DESCRIPTION: A: CERVICAL/VAGINAL SMEAR, PAP ICD: F: {Not Entered} SNOMED CODES: 1; [id number] In cases where a pathologist has signed out the report, the service has been rendered in part by a resident. The signing pathologist has performed and is responsible for the reported pathologic evaluation. Nilson Karimi MD LAB PATHOLOGY ORDERABLES Fi nal Result SUNQUEST from Last 3 Months or Most Recently Relevant to Health Maintenance Care Teams Command Center Analyst Relationship Specialty Start Date End Date Low Hammonds APRN [address] [place] [address] PCP - General 01/06/21
--- OUTSIDE RECORDS SUMMARY | 2025-06-23 12:26 | XMS_ITS | Encounter Summary ---
Author Organization [employer] ([place], [place], [place], [place]) Address [address] [place] [address] Care Team Providers Care Power Transformer Repair Supervisor Name Role Phone Unavailable Primary Care Provider Unavailabl e Encounter Details Date Type Department Care Team (Late st Contact Info) Description 11/28/2018 Transcribed Document [facility] [place] Family Medicine [address] [place] [address] ProviderHilario MD [facility] [place] [place] [address] Social History Tobacco Use Types Packs/Day Years [...] Miranda Portillo Rn-Traveler - 11/30/2018 15:07 EDT Electronically signed by Selina More Conversion Cement Or Concrete Finishing Supervisor Cerner at 12/11/2022 10:34 AM CDT documented in this encounter Plan of Treatment Not on file documented as of this encounter Visit Diagnoses Not on filedocumented in this encounter
--- OUTSIDE RECORDS SUMMARY | 2025-06-23 12:26 | XMS_ITS | Encounter Summary ---
Author Organization [employer] ([place], [place], [place], [place]) Address [address] [place] [address] Care Team Providers Care Software Qa Manager Name Role Phone Unavailable Primary Care Provider Unavailabl e Encounter Details Date Type Department Care Team (Late st Contact Info) Description 11/30/2018 Transcribed Document [facility] [place] Family Medicine [facility] [place] [address] ProviderHilario MD [facility] [place] [address] Social History Tobacco Use Types [...] 11/30/2018 15:19 EDT Electronically signed by [facility] Conversion Client Experience Manager Cerner at 12/11/2022 10:26 AM CDT documented in this encounter Plan of Treatment Not on file documented as of this encounter Visit Diagnoses Not on filedocumented in this encounter
--- OUTSIDE RECORDS SUMMARY | 2025-06-23 12:26 | XMS_ITS | Encounter Summary ---
Author Organization [employer] ([place], [place] Address [address] [place] [address] Care Team Providers Care Sweeper Brush Maker Machine Name Role Phone Unavailable Primary Care Provider Unavailabl e Encounter Details Date Type Department Care Team (Late st Contact Info) Description 11/29/2018 Transcribed Document [facility] [place] Family Medicine [facility] [place] [address] ProviderHilario MD [address] [place] [address] Social History Tobacco Use Types Packs/Day [...] 0.9% 50 mL 2 Gram, IV Piggyback, [id number] famotidine 20 mg/2 mL inj 20 mg 2 mL, IV Push, BID potassium chloride CR 10 mEq tab 10 mEq 1 Tab, Oral, TID ALLERGIES: PCN FHx: parents with htn and kidney stones SOHx: Patient is single and lives in [place], [place]. No known Diagnosis of Hep B, [...] of 2 sets with Escherichia coli via Misohoni. She is currently on cefepime therapy in [...]
--- OUTSIDE RECORDS SUMMARY | 2025-06-23 12:26 | XMS_ITS | Encounter Summary ---
Author Organization [employer] ([place], [place], [place], [place]) Address [address] [place] [address] Care Team Providers Care Inventory Control Associate Name Role Phone Unavailable Primary Care Provider Unavailabl e Encounter Details Date Type Department Care Team (Late st Contact Info) Description 11/30/2018 Transcribed Document [facility] [place] Family Medicine [facility] [place] [address] ProviderHilario MD [facility] [place], [place] [address] Social History Tobacco Use Types Packs/Day Years [...] Historical ProviderMD - 11/30/2018 2:00 AM CDT Shuttle Fitting Supervisor Details Entered On: 11/30/2018 3:03 EDT Performed [...]
--- OUTSIDE RECORDS SUMMARY | 2025-06-23 12:26 | XMS_ITS | Encounter Summary ---
Author Organization [employer] ([place], [place], [place], [place]) Address [address] [place] [address] Care Team Providers Care Zanjero Name Role Phone Unavailable Primary Care Provider Unavailabl e Encounter Details Date Type Department Care Team (Late st Contact Info) Description 11/28/2018 Transcribed Document [facility] Family Medicine [facility] [place] [address] ProviderHilario MD [facility] [place] [address] Social History Tobacco Use Types [...] None. SPECIMENS: None. DRAINS: 4.8 Citizen Of [place] x 24 cm double-J ureteral stent on [...] and distal curl of this 4.8-Citizen [place] x 24 cm double-J ureteral stent without [...] preoperative antibiotics. A well lubricated 22-Citizen Of [place] rigid cystoscope with a 30 degree lens [...] the left renal pelvis. A 5-Citizen [place] open-ended ureteral catheter was placed to 25 [...] in a push-pull fashion. A 4.8-Citizen [place] x 24 cm double-J ureteral stent was then deployed in the standard retrograde fashion with adequate proximal and distal curl. The strings were removed. Patient's bladder was left distended and a 16-Citizen [place] Peters catheter was placed per urethra with [...] M.D. Electronically signed by Selina More Conversion Quality Analyst/Technical Writer Cerner at 12/11/2022 10:36 AM CDT documented in this encounter Plan of Treatment Not on file documented as of this encounter Visit Diagnoses Not on filedocumented in this encounter
--- OUTSIDE RECORDS SUMMARY | 2025-06-23 12:26 | XMS_ITS | Encounter Summary ---
Author Organization [employer] ([place], [place], [place], [place]) Address [address] [place] [address] Care Team Providers Care Care Aid Name Role Phone Unavailable Primary Care Provider Unavailabl e Encounter Details Date Type Department Care Team (Late st Contact Info) Description 11/30/2018 Transcribed Document [facility] [place] Medicine [facility] [place] [address] ProviderHilario MD [address] [place] [address] Social History Tobacco Use Types [...] On: 11/30/2018 13:44 EDT by GONZALEZ GRISSOM RN-Recruiter CoordinatorHelpdesk Technician Note Care Management Note Report : GONZALEZ GRISSOM RN-Recruiter Coordinator - 11/28/18 13:21:37 Received from [facility] with c/o flank pain, placed in [...] Documentation Status Complete : Yes GONZALEZ GRISSOM RN-Recruiter Coordinator - 11/30/2018 13:44 EDT Final Discharge Disposition Note-CM Discharge To Care Management : Home/Residential/[facility] or Self Care -01 GONZALEZ GRISSOM RN-Recruiter Coordinator - 11/30/2018 13:44 EDT Electronically signed by Argenis [facility] Conversion Cardio Tech Cerner at 12/11/2022 10:27 AM CDT documented in this encounter Plan of Treatment Not on file documented as of this encounter Visit Diagnoses Not on filedocumented in this encounter
--- OUTSIDE RECORDS SUMMARY | 2025-06-23 12:26 | XMS_ITS | Encounter Summary ---
Author Organization [employer] ([place], [place], [place], [place]) Address [address] [place] [address] Care Team Providers Care Security Services Specialist Name Role Phone Unavailable Primary Care Provider Unavailabl e Encounter Details Date Type Department Care Team (Late st Contact Info) Description 11/30/2018 Transcribed Document [facility] [place] [address] ProviderHilario [place] [address] Social History Tobacco Use Types [...] 25.4 kg/m2 High (11/27/18 17:42:00) Rapid Response Security Services Specialist #1 : NEEL BROWN, RN NEEL BROWN, RN - 11/30/2018 0:38 EDT Electronically signed by Argenis [facility] Conversion Deboning Team Leader Cerner at 12/11/2022 10:33 AM CDT documented in this encounter Plan of Treatment Not on file documented as of this encounter Visit Diagnoses Not on filedocumented in this encounter
--- OUTSIDE RECORDS SUMMARY | 2025-06-23 12:26 | XMS_ITS | Encounter Summary ---
Author Organization [employer] ([place], [place], [place], [place]) Address [address] [place] [address] Care Team Providers Care High School Math Tutor Name Role Phone Unavailable Primary Care Provider Unavailabl e Encounter Details Date Type Department Care Team (Late st Contact Info) Description 11/30/2018 Transcribed Document [facility] [place] Family Medicine [address] [place] [address] ProviderHilario MD [address] [place], [place] [address] Social History Tobacco Use Types Packs/Day Years [...]
--- OUTSIDE RECORDS SUMMARY | 2025-06-23 12:26 | XMS_ITS | Encounter Summary ---
Author Organization [employer] ([place], [place], [place], [place]) Address [address] [place] [address] Care Team Providers Care Forest Landscape Ecology Professor Name Role Phone Unavailable Primary Care Provider Unavailabl e Encounter Details Date Type Department Care Team (Late st Contact Info) Description 11/30/2018 Transcribed Document [facility] [place] Family Medicine [address] [place] [address] ProviderHilario MD [address] [place], [place] [address] Social History Tobacco Use Types Packs/Day Years [...]
--- OUTSIDE RECORDS SUMMARY | 2025-06-23 12:26 | XMS_ITS | Encounter Summary ---
Author Organization [employer] ([place], [place], [place], [place]) Address [address] [place] [address] Care Team Providers Care Inventory Transcriber Name Role Phone Unavailable Primary Care Provider Unavailabl e Encounter Details Date Type Department Care Team (Late st Contact Info) Description 12/03/2018 Transcribed Document [facility] [place] [facility] [place] [address] ProviderHilario MD [facility] [place] [address] Social History Tobacco Use Types [...] mild hydronephrosis. Patient was transferred to [facility] ([place], [place]). Came in, blood work shows leukocytosis, patient [...] Discharge 35 minutes Electronically signed by Argenis, [facility] Conversion Tail Edger Cerner at 12/11/2022 10:38 AM CDT documented in this encounter Plan of Treatment Not on file documented as of this encounter Visit Diagnoses Not on filedocumented in this encounter
--- OUTSIDE RECORDS SUMMARY | 2025-06-23 12:26 | XMS_ITS | Encounter Summary ---
Author Organization [employer] ([place], [place], [place], [place]) Address [address] [place] [address] Care Team Providers Care Complex Commercial Litigation Paralegal Name Role Phone Unavailable Primary Care Provider Unavailabl e Encounter Details Date Type Department Care Team (Late st Contact Info) Description 11/28/2018 Transcribed Document [facility] [place] Family Medicine [facility] [place] [address] ProviderHilario MD [facility] [place] [address] Social History Tobacco Use Types [...] EDT) Electronically signed by Argenis, Selina Conversion Varnishing Machine Operator Cerner at 12/11/2022 10:41 AM CDT documented in this encounter Plan of Treatment Not on file documented as of this encounter Visit Diagnoses Not on filedocumented in this encounter
--- OUTSIDE RECORDS SUMMARY | 2025-06-23 12:26 | XMS_ITS | Encounter Summary ---
Author Organization [employer] ([place], [place], [place], [place]) Address [address] [place] [address] Care Team Providers Care Engineering Specialist Name Role Phone Unavailable Primary Care Provider Unavailabl e Encounter Details Date Type Department Care Team (Late st Contact Info) Description 11/28/2018 Transcribed Document [facility] [place] Family Medicine [facility] [place] [address] ProviderHilario MD [facility] [place] [address] Social History Tobacco Use Types [...] Hilario ProviderMD - 11/28/2018 1:12 PM CDT [facility] Main OR IntraOp Summary Primary Physician: JOHANNE HERNANDEZ MD-URO Finalized Date/Time: 11/29/18 14:07:57 Pt. Name: LUIS ENRIQUE SMITH D.O.B./Sex: 1965 Female Med Rec #: [id number] Physician: NEWTON SUAREZ MD Financial #: [id number] Pt. Type: O Room/Bed: [facility]/ Admit/Disch: 11/27/18 17:42:00 - Institution: [facility] IntraOp Case Attendance Entry 1 Entry 2 Entry 3 Case Attendee JOHANNE HERNANDEZ WILLS, SANDRA R. Hamilton, Gina M, RN MD-URO Role Performed Surgeon/Proceduralist, Scrub, [employer] Specialist, First First Time In 11/28/18 12:52:00 11/28/18 [...] OWENS, LARRY B, CRNA Role Performed Laser Enameler Anesthesiologist of KEY ACCOUNT COORDINATOR/Nurse Veneer Repairer Machine Record Time In 11/28/18 12:52:00 11/28/18 12:52:00 [...] 7 Entry 8 Case Attendee EDWARD JEONG, KEY ACCOUNT COORDINATOR SUSAN ANSARI MD Role Performed KEY ACCOUNT COORDINATOR/Nurse Veneer Repairer Machine Resident Time In 11/28/18 13:08:00 11/28/18 12:52:00 Time Out 11/28/18 13:30:00 11/28/18 13:30:00 Procedure Cystoscopy Laser Stone Cystoscopy Laser Stone Manipulation(Left), Manipulation(Left), Ureteral Stent Ureteral Stent Insertion, Ureteroscopy Insertion, Ureteroscopy Other Attendee Superficial Wound Closed By: Last Modified By: Shirin cD, RN Shirin Dc RN 11/28/18 13:30:43 11/28/18 13:30:43 [facility] IntraOp Case Attendance Audit 11/28/18 13:30:43 Mason Apprentice: [email or web address] Modifier: HAMILTGM 1 <+> Time Out [...] Manipulation(Left), Ureteral Stent Insertion, Ureteroscopy 11/28/18 13:22:42 Mason Apprentice: HAMILTGM Modifier: HAMILTGM <+> 8 Case Attendee <+> 8 Role Performed <+> 8 Procedure 11/28/18 13:14:14 Mason Apprentice: HAMILTGM Modifier: HAMILTGM 6 <+> Time Out 6 <*> Procedure Cystoscopy Laser Stone Manipulation(Left), Ureteral Stent Insertion, Ureteroscopy <+> 7 Case Attendee <+> 7 Role Performed <+> 7 Time In <+> 7 Procedure 11/28/18 13:00:52 Mason Apprentice: HAMILTGM Modifier: HAMILTGM 1 <+> Time In [...] Laser Stone Manipulation(Left), Ureteral Stent Insertion, Ureteroscopy [facility] IntraOp Case Times Entry 1 Patient In Room Time 11/28/18 12:52:00 Out Room Time 11/28/18 13:30:00 Anesthesia Start Time 11/28/18 12:54:00 Stop Time 11/28/18 13:30:00 Surgery / Procedure Times Start Time 11/28/18 13:12:00 Stop Time 11/28/18 13:25:00 Last Modified By: Shirin Dc RN 11/28/18 13:30:41 [facility] IntraOp Case Times Audit 11/28/18 13:30:41 Mason Apprentice: HAMILTGM Modifier: HAMILTGM <+> 1 Out Room Time <+> 1 Stop Time 11/28/18 13:29:20 Mason Apprentice: HAMILTGM Modifier: HAMILTGM <+> 1 Stop Time 11/28/18 13:16:59 Mason Apprentice: HAMILTGM Modifier: HAMILTGM <+> 1 Start Time [facility] IntraOp Communication Entry 1 Entry 2 Communication To Family/Significant other Other Comment NO FAMILY PRESENT REPORT Communication By Shirin Dc, Shirin Davis RN Date and Time 11/28/18 13:00:00 11/28/18 13:29:00 Last Modified By: Shirin Dc RN Hamilton, Gina M RN 11/28/18 13:00:46 11/28/18 13:29:35 [facility] IntraOp Communication Audit 11/28/18 13:29:35 Mason Apprentice: HAMILTGM Modifier: HAMILTGM <+> 2 Communication By <+> 2 Date and Time <+> 2 Communication To <+> 2 Comment [facility] IntraOp Departure from OR Entry 1 Integumentary Assessment Integumentary WDL Assessment WDL Transfer/Handoff Transfer to PACU Phase I Handoff Method Phone call Post-op Transport Stretcher/Javier Via Patient Transport SUSAN ANSARI MD, Accompanied by EDWARD JEONG CRNA Last Modified By: Shirin Dc RN 11/28/18 13:22:55 [facility] IntraOp Departure from OR Audit 11/28/18 13:22:55 Mason Apprentice: HAMILTGM Modifier: HAMILTGM 1 <*> Patient Transport Accompanied by Shirin Dc RN [facility] IntraOp Fire Risk Assessment Entry 1 [...] Modified By: Shirin Dc RN 11/28/18 12:41:18 [facility] IntraOp General Case Client Technical Support Associate 1 Case Information OR Cysto 02 [facility] Case Level 1 Room Verified Yes Wound Class II - Clean-Contaminated Specialty SN Urology Anesthesia Type General ASA Class 2 Diagnosis Preop Diagnosis LEFT RENAL CALCULUS Postop Same As Preop No Postop Diagnosis SEE DOCTOR'S POST OP NOTES Last Modified By: Shirin Dc RN 11/28/18 13:00:27 [facility] IntraOp General Case Data Audit 11/28/18 13:00:27 Mason Apprentice: HAMILTGM Modifier: HAMILTGM <+> 1 Preop Diagnosis 11/28/18 12:59:47 Mason Apprentice: HAMILTGM Modifier: HAMILTGM <+> 1 ASA Class [facility] IntraOp Intraoperative Assessment Entry 1 Handoff [...] Modified By: Shirin Dc RN 11/28/18 12:41:55 [facility] IntraOp Intraoperative Equipment Entry 1 Equipment [...] Modified By: Shirin Dc RN 11/28/18 12:42:19 [facility] IntraOp Medication Admin Entry 1 Medication/Irrigant NORMAL SALINE -- Route of IRRIGATION Administration Dose Administered By JOHANNE HERNANDEZ MD-URO Procedure Irrigation Last Modified By: Shirin Dc RN 11/28/18 12:42:46 General Comments: CONTRAST UTILIZED DURING STENT PLACEMENT. [facility] IntraOp Patient Positioning Entry 1 Procedure [...] Modified By: Shirin Dc RN 11/28/18 12:43:02 [facility] IntraOp Sign In Entry 1 Patient, [...] Modified By: Shirin Dc RN 11/28/18 12:59:42 [facility] IntraOp Sign Out Entry 1 RN [...] Modified By: Shirin Dc RN 11/28/18 13:30:48 [facility] IntraOp Sign Out Audit 11/28/18 13:30:48 Mason Apprentice: GIUSEPPE Modifier: IRENATGPeri <+> 1 RN Sign Out Signature Date/Time [facility] IntraOp Skin Prep Entry 1 Procedure Cystoscopy Laser Stone Manipulation(Left), Ureteral Stent Insertion, Ureteroscopy Prescribed N/A Pre-Surgical Prep Completed Prep Area Genitalia Intraop Prep Integumentary WDL Assessment WDL Prep Agents Betadine solution Prep by Shirin Dc RN Hair Removal Methods No hair removal performed Last Modified By: Shirin Dc RN 11/28/18 12:43:32 [facility] IntraOp Surgical Procedures Entry 1 Entry [...] RN 11/28/18 13:29:21 11/28/18 13:29:21 11/28/18 13:29:21 [facility] IntraOp Surgical Procedures Audit 11/28/18 13:29:21 Mason Apprentice: IRENATGPeri Modifier: HAMILTGM <+> 1 Start <+> 1 Stop <+> 2 Start <+> 2 Stop <+> 3 Start <+> 3 Stop [facility] IntraOp Temp Regulation Devices Entry 1 Temp Regulation Temperature Warm blankets, Forced Regulation Device Air Warming device Temperature Upper body Regulation Site Temperature MINDI GRANT, KEY ACCOUNT COORDINATOR Regulation Device Applied by Temperature monitored per Regulation Comment anesthesia, jon sparks available Last Modified By: Shirin Dc RN 11/28/18 12:43:52 [facility] IntraOP Time Out Entry 1 Procedure [...] Modified By: Shirin Dc RN 11/28/18 13:14:21 [facility] IntraOP Time Out Audit 11/28/18 13:14:21 Mason Apprentice: GIUSEPPE Modifier: GIUSEPPE 1 <+> Time Out Pause Time 1 <*> Procedure to be Performed Cystoscopy Laser Stone Manipulation(Left), Ureteral Stent Insertion, Ureteroscopy Case Comments <None> Finalized By: ROBERTA LEI Document Signatures Signed By: Shirin Dc RN 11/28/18 13:30 ROBERTA LEI 11/29/18 14:07 Unfinalized History Date/Time Username Reason for Unfinalizing Freetext Reason for Unfinalizing 11/29/18 14:02 [email or web address] Correct Billing Electronically signed by Myron More Conversion [employer] Teacher Librarian Cerner at 12/11/2022 10:41 AM CDT documented in this encounter Plan of Treatment Not on file documented as of this encounter Visit Diagnoses Not on filedocumented in this encounter
--- OUTSIDE RECORDS SUMMARY | 2025-06-23 12:26 | XMS_ITS | Encounter Summary ---
Author Organization [employer] ([place], [place], [place], [place]) Address [address] [place] [address] Care Team Providers Care Baker Doughnut Name Role Phone Unavailable Primary Care Provider Unavailabl e Encounter Details Date Type Department Care Team (Late st Contact Info) Description 11/28/2018 Transcribed Document [facility] Family Medicine [facility] [place] [address] ProviderHilario MD [address] [place] [address] Social History Tobacco Use Types [...] On: 11/28/2018 13:17 EDT by GONZALEZ GRISSOM RN-Numerical Control Lathe OperatorWait Staff Note Care Management Note : Received from [facility] with c/o flank pain, placed in [...] Documentation Status Complete : Yes GONZALEZ GRISSOM RN-Numerical Control Lathe Operator - 11/28/2018 13:17 EDT Patient History Information [...] None Home Equipment : None GONZALEZ GRISSOM RN-Numerical Control Lathe Operator - 11/28/2018 13:17 EDT Discharge Planning Details Discharge Home : Home with spouse/significant other GONZALEZ GRISSOM RN-Numerical Control Lathe Operator - 11/28/2018 13:17 EDT documented in this encounter Plan of Treatment Not on file documented as of this encounter Visit Diagnoses Not on filedocumented in this encounter
--- OUTSIDE RECORDS SUMMARY | 2025-06-23 12:26 | XMS_ITS | Encounter Summary ---
Author Organization [employer] ([place], [place], [place], [place]) Address [address] [place] [address] Care Team Providers Care Job Training Supervisor Name Role Phone Unavailable Primary Care Provider Unavailabl e Encounter Details Date Type Department Care Team (Late st Contact Info) Description 11/28/2018 Transcribed Document [facility] [place] Family Medicine [address] [place] [address] ProviderHilario MD [facility] [place], [place] [id number] Social History Tobacco Use Types Packs/Day Years [...]
--- OUTSIDE RECORDS SUMMARY | 2025-06-23 12:26 | XMS_ITS | Encounter Summary ---
Author Organization [employer] ([place], [place], [place], [place]) Address [address] [place] [address] Care Team Providers Care Motor Inspection Mechanic Name Role Phone Unavailable Primary Care Provider Unavailabl e Encounter Details Date Type Department Care Team (Late st Contact Info) Description 11/30/2018 Transcribed Document [facility] [place] Family Medicine [facility] [place] [address] ProviderHilario MD [facility] [place] [address] Social History Tobacco Use Types [...] Rocephin: 2 Gram, 100 mL/Hr, IV Piggyback, [id number] Sodium Chloride 0.45% intravenous solution 1,000 mL: [...] At Bedtime cefTRIAXone 2 Gram, IV Piggyback, D01SEom famotidine 20 mg/2 mL inj 20 mg [...] At risk for sleep apnea / IMO [id number] / Confirmed, Active Problems (1) At risk [...] tenderness, No swelling, No deformity. Integumentary: Warm, [place], Moist, No rash. Neurologic: Alert, Oriented, Normal [...]
--- OUTSIDE RECORDS SUMMARY | 2025-06-23 12:26 | XMS_ITS | Encounter Summary ---
Author Organization [employer] ([place], [place], [place], [place]) Address [address] [place] [address] Care Team Providers Care Welder Boilermaker Name Role Phone Unavailable Primary Care Provider Unavailabl e Encounter Details Date Type Department Care Team (Late st Contact Info) Description 11/30/2018 Transcribed Document [facility] [place] [facility] [place] [address] ProviderHilario MD [address] [place] [address] Social History Tobacco Use Types Packs/Day [...] Hilario ProviderMD - 11/30/2018 3:04 PM CDT [address] [address] Patient Copy Patient Information: Name: LUIS ENRIQUE SMITH Current Date: 11/30/2018 15:04:45 : 1965 Patient Address: [address] [place] [id number] Patient Attending Physician: NEWTON SUAREZ MD Primary Care Provider: TRACI ALCAZAR NP-[facility] Primary Care Provider Discharge Diagnosis: Ureteral stone Weight on Admission: 143 lb, 0 oz Comment: Follow-up Instructions: With: Address: When: Follow up with primary care provider Within 1 to 2 weeks With: Address: When: ALEXIA VILLALBA [address] [facility], [address] [place] [address] Business (1) 12:00 PM With: Address: When: JOHANNE HERNANDEZ [address] [facility], [address] [place] [address] Business (1) Within 1 to 2 weeks Comments: follow up first available in [place] office, ideally one week. With: Address: When: [...] including vitamins, herbs, eye drops, creams, and ipvn-dsw-zpqeppa medicines. ??? Any problems you or family [...] 08/17/2014 Document Revised: 05/28/2017 Document Reviewed: 05/24/2017 [employer] Interactive Patient Education ? 2017 [employer] Lithotripsy, Care After Refer to this [...] feel your energy improving. ??? Only take xviz-xow-ovqrfni or prescription medicines for pain, discomfort, or [...] 08/31/2008 Document Revised: 05/02/2016 Document Reviewed: 02/25/2014 [employer] Interactive Patient Education ? 2017 [employer] Ureteral Stent Implantation Introduction Ureteral stent [...] including vitamins, herbs, eye drops, creams, and hkuf-hwz-bcqmipj medicines. ??? Any problems you or family [...] kidney stones in the future. ??? Take uopt-sia-bkecdxo and prescription medicines only as told by [...] 08/12/2006 Document Revised: 03/01/2017 Document Reviewed: 01/25/2017 [employer] Interactive Patient Education ? 2017 [employer] Dietary Guidelines to Help Prevent Kidney [...] ? Parsley. ? Rutabagas. ? Spinach. ? Honduran chard. ? Tomato paste. ? Fried potatoes. [...] 12/07/2011 Document Revised: 01/17/2017 Document Reviewed: 07/09/2014 [employer] Interactive Patient Education ? 2017 [employer] Medication Leaflets: cefuroxime (SEF ue AMANDA [...] may report side effects to FDA at 6-718-DEO-9781. What other drugs will affect cefuroxime? Tell your doctor about all your current medicines and any you start or stop using, especially: ? probenecid (Benemid); ?? a blood thinner such as warfarin (Coumadin, Jantoven); or ?? a diuretic or 'water pill.' This list is not complete. Other drugs may interact with cefuroxime, including prescription and kugh-blf-gkzotxa medicines, vitamins, and herbal products. Not all [...] to ensure that the information provided by [employer] is accurate, up-to-date, and complete, but no guarantee is made to that effect. Drug information contained herein may be time sensitive. [employer] information has been compiled for use by healthcare practitioners and consumers in the [place] and therefore [employer] does not warrant that uses outside of the [place] are appropriate, unless specifically indicated otherwise. [employer] drug information does not endorse drugs, diagnose patients or recommend therapy. [employer] drug information is an informational resource designed [...] effective or appropriate for any given patient. [employer] does not assume any responsibility for any aspect of healthcare administered with the aid of information [employer] provides. The information contained herein is not intended to cover all possible uses, directions, precautions, warnings, drug interactions, allergic reactions, or adverse effects. If you have questions about the drugs you are taking, check with your doctor, nurse or pharmacist. Copyright 8355-8736 [employer] Version: 7.01. Revision Date: 01/20/2016. acetaminophen and [...] may report side effects to FDA at 3-297-HKU-1701. What other drugs will affect acetaminophen and [...] affect acetaminophen and oxycodone, including prescription and aqka-wdg-axerbuk medicines, vitamins, and herbal products. Not all [...] to ensure that the information provided by [employer] is accurate, up-to-date, and complete, but no guarantee is made to that effect. Drug information contained herein may be time sensitive. [employer] information has been compiled for use by healthcare practitioners and consumers in the [place] and therefore [employer] does not warrant that uses outside of the [place] are appropriate, unless specifically indicated otherwise. [employer] drug information does not endorse drugs, diagnose patients or recommend therapy. [employer] drug information is an informational resource designed [...] effective or appropriate for any given patient. [employer] does not assume any responsibility for any aspect of healthcare administered with the aid of information [employer] provides. The information contained herein is not intended to cover all possible uses, directions, precautions, warnings, drug interactions, allergic reactions, or adverse effects. If you have questions about the drugs you are taking, check with your doctor, nurse or pharmacist. Copyright 0084-5522 [employer] Version: 18.02. Revision Date: 07/23/2018. phenazopyridine (fen [...] or ?? a genetic enzyme deficiency called qupwxyn-4-rouxnczni dehydrogenase (G6PD) deficiency. FDA category B. Phenazopyridine [...] may report side effects to FDA at 6-383-XMK-7284. What other drugs will affect phenazopyridine? Other drugs may interact with phenazopyridine, including prescription and szij-oiw-yfakutg medicines, vitamins, and herbal products. Tell each [...] to ensure that the information provided by [employer] is accurate, up-to-date, and complete, but no guarantee is made to that effect. Drug information contained herein may be time sensitive. [employer] information has been compiled for use by healthcare practitioners and consumers in the [place] and therefore [employer] does not warrant that uses outside of the [place] are appropriate, unless specifically indicated otherwise. [employer] drug information does not endorse drugs, diagnose patients or recommend therapy. [employer] drug information is an informational resource designed [...] effective or appropriate for any given patient. [employer] does not assume any responsibility for any aspect of healthcare administered with the aid of information [employer] provides. The information contained herein is not intended to cover all possible uses, directions, precautions, warnings, drug interactions, allergic reactions, or adverse effects. If you have questions about the drugs you are taking, check with your doctor, nurse or pharmacist. Copyright 8911-0029 [employer] Version: 3.05. Revision Date: 12/17/2013. promethazine (oral) (pro METH a zeen) Phenergan What is the most important information I should know about promethazine? Promethazine should not be given to a child younger than 2 years old. Promethazine can cause severe breathing problems or in very young children. What is promethazine? Promethazine is in a group of drugs called phenothiazines (QFAV-uh-KQYO-a-zeens). It works by changing the actions of [...] may report side effects to FDA at 9-754-SYS-9513. What other drugs will affect promethazine? Using this medicine with other drugs that make you sleepy or slow your breathing can cause dangerous or life-threatening side effects. Ask your doctor before taking promethazine with a sleeping pill, narcotic pain medicine, muscle relaxer, or medicine for anxiety, depression, or seizures. Other drugs may interact with promethazine, including prescription and xhnc-ror-qugcwnp medicines, vitamins, and herbal products. Tell each [...] to ensure that the information provided by [employer] is accurate, up-to-date, and complete, but no guarantee is made to that effect. Drug information contained herein may be time sensitive. [employer] information has been compiled for use by healthcare practitioners and consumers in the [place] and therefore [employer] does not warrant that uses outside of the [place] are appropriate, unless specifically indicated otherwise. [employer] drug information does not endorse drugs, diagnose patients or recommend therapy. [employer] drug information is an informational resource designed [...] effective or appropriate for any given patient. [employer] does not assume any responsibility for any aspect of healthcare administered with the aid of information [employer] provides. The information contained herein is not intended to cover all possible uses, directions, precautions, warnings, drug interactions, allergic reactions, or adverse effects. If you have questions about the drugs you are taking, check with your doctor, nurse or pharmacist. Copyright 4865-3066 [employer] Version: 6.02. Revision Date: 06/09/2015. CIGARETTE SMOKING: The facts are clear, cigarette smoking will shorten your life. Smoking can cause many illnesses along the way. As a healthcare provider, we recommend that you stop smoking. Assistance with quitting is available by contacting 2-016-TCTQ-NOW. This is a free resource providing counseling, [...] Be sure to sign up for the [employer] patient portal, which gives you 18/03 access to your medical information ??? including these discharge instructions ??? using your computer, smartphone, or tablet. Just go to [employer] to get started. Questions? Call . [facility] would like to thank you for allowing us to assist you with your healthcare needs. PAULETTE Payne JUDY, (or compliance representative) have received the above patient education materials/instructions and have verbalized understanding: Patient Signature _ Date/Time Patient Licensed Mass Real Estate Appraiser Signature (if needed) Date/Time Clinician/Hospital Licensed Mass Real Estate Appraiser Signature (if needed) Date/Time Electronically signed by Argenis Cox Branson Conversion Customer Experience Manager Reany at 12/11/2022 10:24 AM CDT documented in this encounter Plan of Treatment Not on file documented as of this encounter Visit Diagnoses Not on filedocumented in this encounter
--- OUTSIDE RECORDS SUMMARY | 2025-06-23 12:26 | XMS_ITS | Encounter Summary ---
Author Organization [facility] ([place], [place], [place], [place]) Address [address] [place] [address] Care Team Providers Care Conductor Pullman Name Role Phone Unavailable Primary Care Provider Unavailabl e Encounter Details Date Type Department Care Team (Late st Contact Info) Description 11/27/2018 Transcribed Document [facility] [place] Family Medicine [address] [place] [address] ProviderHilario MD [address] [place], [place] [address] Social History Tobacco Use Types Packs/Day Years [...]
--- OUTSIDE RECORDS SUMMARY | 2025-06-23 12:26 | XMS_ITS | Encounter Summary ---
Author Organization [employer] ([place], [place], [place], [place]) Address [address] [place] [address] Care Team Providers Care Conduit Mechanic Name Role Phone Unavailable Primary Care Provider Unavailabl e Encounter Details Date Type Department Care Team (Late st Contact Info) Description 11/30/2018 Transcribed Document [facility] [place] Family Medicine [facility] [place] [address] ProviderHilario MD [address] [place] [address] Social History Tobacco Use Types Packs/Day [...] Hilario ProviderMD - 11/30/2018 3:20 PM CDT [address] [address] Patient Copy Patient Information: Name: LUIS ENRIQUE SMITH Current Date: 11/30/2018 15:20:04 : 1965 Patient Address: [address] [place] [id number] Patient Attending Physician: NEWTON SUAREZ MD Primary Care Provider: TRACI ALCAZAR NP-[facility] Primary Care Provider Discharge Diagnosis: Ureteral stone Weight on Admission: 143 lb, 0 oz Comment: Follow-up Instructions: With: Address: When: Follow up with primary care provider Within 1 to 2 weeks With: Address: When: ALEXIA VILLALBA [address] [facility], [address] [place] [address] Business (1) 12:00 PM With: Address: When: JOHANNE HERNANDEZ [address] [facility], [address] [place] [address] Business (1) Within 1 to 2 weeks Comments: follow up first available in [place] office, ideally one week. With: Address: When: [...] including vitamins, herbs, eye drops, creams, and wnsk-hjj-tfjjojw medicines. ??? Any problems you or family [...] 08/17/2014 Document Revised: 05/28/2017 Document Reviewed: 05/24/2017 [employer] Interactive Patient Education ? 2017 [employer] Lithotripsy, Care After Refer to this [...] feel your energy improving. ??? Only take bxoj-tjk-jccpxus or prescription medicines for pain, discomfort, or [...] 08/31/2008 Document Revised: 05/02/2016 Document Reviewed: 02/25/2014 [employer] Patient Education ? 2017 [employer] Ureteral Stent Implantation Introduction Ureteral stent [...] including vitamins, herbs, eye drops, creams, and fqhh-vzc-rigmvtg medicines. ??? Any problems you or family [...] kidney stones in the future. ??? Take qrlk-wzk-xnyjgfa and prescription medicines only as told by [...] 08/12/2006 Document Revised: 03/01/2017 Document Reviewed: 01/25/2017 [employer] Patient Education ? 2017 [employer] Dietary Guidelines to Help Prevent Kidney [...] ? Parsley. ? Rutabagas. ? Spinach. ? Sri Lankan chard. ? Tomato paste. ? Fried potatoes. [...] 12/07/2011 Document Revised: 01/17/2017 Document Reviewed: 07/09/2014 [employer] Patient Education ? 2017 [employer] Medication Leaflets: cefuroxime (SEF ue AMANDA [...] may report side effects to FDA at 8-614-ATS-2813. What other drugs will affect cefuroxime? Tell your doctor about all your current medicines and any you start or stop using, especially: ? probenecid (Benemid); ?? a blood thinner such as warfarin (Coumadin, Jantoven); or ?? a diuretic or 'water pill.' This list is not complete. Other drugs may interact with cefuroxime, including prescription and glda-vqt-wigurpn medicines, vitamins, and herbal products. Not all [...] to ensure that the information provided by [employer]. ('[employer]') is accurate, up-to-date, and complete, but no guarantee is made to that effect. Drug information contained herein may be time sensitive. [employer] information has been compiled for use by healthcare practitioners and consumers in the [place] and therefore [employer] does not warrant that uses outside of the [place] are appropriate, unless specifically indicated otherwise. [employer] drug information does not endorse drugs, diagnose patients or recommend therapy. [employer] drug information is an informational resource designed [...] effective or appropriate for any given patient. [employer] does not assume any responsibility for any aspect of healthcare administered with the aid of information [employer] provides. The information contained herein is not intended to cover all possible uses, directions, precautions, warnings, drug interactions, allergic reactions, or adverse effects. If you have questions about the drugs you are taking, check with your doctor, nurse or pharmacist. Copyright 9778-7080 [employer]. Version: 7.01. Revision Date: 01/20/2016. acetaminophen and [...] may report side effects to FDA at 4-534-TIZ-2821. What other drugs will affect acetaminophen and [...] affect acetaminophen and oxycodone, including prescription and shth-hnh-ybnahmw medicines, vitamins, and herbal products. Not all [...] to ensure that the information provided by [employer]') is accurate, up-to-date, and complete, but no guarantee is made to that effect. Drug information contained herein may be time sensitive. [employer] information has been compiled for use by healthcare practitioners and consumers in the [place] and therefore [employer] does not warrant that uses outside of the [place] are appropriate, unless specifically indicated otherwise. [employer] drug information does not endorse drugs, diagnose patients or recommend therapy. [employer] drug information is an informational resource designed [...] effective or appropriate for any given patient. [employer] does not assume any responsibility for any aspect of healthcare administered with the aid of information [employer] provides. The information contained herein is not intended to cover all possible uses, directions, precautions, warnings, drug interactions, allergic reactions, or adverse effects. If you have questions about the drugs you are taking, check with your doctor, nurse or pharmacist. Copyright 2457-4574 [employer]. Version: 18.02. Revision Date: 07/23/2018. phenazopyridine (fen [...] or ?? a genetic enzyme deficiency called kdqcads-7-ftmmcdrdb dehydrogenase (G6PD) deficiency. FDA category B. Phenazopyridine [...] may report side effects to FDA at 2-747-UZP-1087. What other drugs will affect phenazopyridine? Other drugs may interact with phenazopyridine, including prescription and zxus-cwd-mwlfsmg medicines, vitamins, and herbal products. Tell each [...] to ensure that the information provided by [employer] ('[employer]') is accurate, up-to-date, and complete, but no guarantee is made to that effect. Drug information contained herein may be time sensitive. [employer] information has been compiled for use by healthcare practitioners and consumers in the [place] and therefore [employer] does not warrant that uses outside of the [place] are appropriate, unless specifically indicated otherwise. [employer] drug information does not endorse drugs, diagnose patients or recommend therapy. [employer] drug information is an informational resource designed [...] effective or appropriate for any given patient. [employer] does not assume any responsibility for any aspect of healthcare administered with the aid of information [employer] provides. The information contained herein is not intended to cover all possible uses, directions, precautions, warnings, drug interactions, allergic reactions, or adverse effects. If you have questions about the drugs you are taking, check with your doctor, nurse or pharmacist. Copyright 8769-2949 [employer]. Version: 3.05. Revision Date: 12/17/2013. promethazine (oral) (pro METH a zeen) Phenergan What is the most important information I should know about promethazine? Promethazine should not be given to a child younger than 2 years old. Promethazine can cause severe breathing problems or in very young children. What is promethazine? Promethazine is in a group of drugs called phenothiazines (GTSK-sq-VXNJ-a-zeens). It works by changing the actions of [...] may report side effects to FDA at 4-488-CPQ-1876. What other drugs will affect promethazine? Using this medicine with other drugs that make you sleepy or slow your breathing can cause dangerous or life-threatening side effects. Ask your doctor before taking promethazine with a sleeping pill, narcotic pain medicine, muscle relaxer, or medicine for anxiety, depression, or seizures. Other drugs may interact with promethazine, including prescription and knsq-ifx-eahazfn medicines, vitamins, and herbal products. Tell each [...] to ensure that the information provided by [employer] ('[employer]') is accurate, up-to-date, and complete, but no guarantee is made to that effect. Drug information contained herein may be time sensitive. [employer] information has been compiled for use by healthcare practitioners and consumers in the [place] and therefore [employer] does not warrant that uses outside of the [place] are appropriate, unless specifically indicated otherwise. [employer] drug information does not endorse drugs, diagnose patients or recommend therapy. [employer] drug information is an informational resource designed [...] effective or appropriate for any given patient. [employer] does not assume any responsibility for any aspect of healthcare administered with the aid of information [employer] provides. The information contained herein is not intended to cover all possible uses, directions, precautions, warnings, drug interactions, allergic reactions, or adverse effects. If you have questions about the drugs you are taking, check with your doctor, nurse or pharmacist. Copyright 8725-5359 [employer]. Version: 6.02. Revision Date: 06/09/2015. CIGARETTE SMOKING: The facts are clear, cigarette smoking will shorten your life. Smoking can cause many illnesses along the way. As a healthcare provider, we recommend that you stop smoking. Assistance with quitting is available by contacting 5-939-TDMI-NOW. This is a free resource providing counseling, [...] Be sure to sign up for the [employer] patient portal, which gives you 18/03 access to your medical information ??? including these discharge instructions ??? using your computer, smartphone, or tablet. Just go to [employer] to get started. Questions? Call . [facility] would like to thank you for allowing us to assist you with your healthcare needs. PAULETTE Payne JUDY, (or wholesale representative) have received the above patient education materials/instructions and have verbalized understanding: Patient Signature _ Date/Time Patient Silk Presser Signature (if needed) Date/Time Clinician/Hospital Silk Presser Signature (if needed) Date/Time Electronically signed by Argenis [facility] Conversion Coroner Transport Technician Renay at 12/11/2022 10:17 AM CDT documented in this encounter Plan of Treatment Not on file documented as of this encounter Visit Diagnoses Not on filedocumented in this encounter
--- OUTSIDE RECORDS SUMMARY | 2025-06-23 12:26 | XMS_ITS | Encounter Summary ---
Author Organization [email or web address] ([place], [place], [place], [place]) Address [address] [place] [address] Care Team Providers Care Ground Worker Name Role Phone Unavailable Primary Care Provider Unavailabl e Encounter Details Date Type Department Care Team (Late st Contact Info) Description 11/28/2018 Transcribed Document [facility] [place] Family Medicine [facility] [place] [address] ProviderHilario MD [address] [place] [id number] Social History Tobacco Use Types Packs/Day Years [...] 11/28/2018 CONSULTATION ATTENDING PHYSICIAN: Antionette Nevarez M.D. PROPERTY LOSS INSURANCE CLAIM ADJUSTER: Rashawn Sims MD REASON FOR CONSULTATION: Left ureteral stone with possible urinary infection. BRIEF HISTORY: Patient is a 53-year-old female, who presented to [facility] Emergency Room yesterday with three days of left flank pain. The pain became refractory and she actually returned to the emergency room after a previous visit 24 hours earlier. She had a CT scan on her initial visit, which revealed a 5 mm left ureteral stone. Upon return, she was noted to have a white count [address], nitrite positive urine, and questionable probable urinary [...]
--- OUTSIDE RECORDS SUMMARY | 2025-06-23 12:26 | XMS_ITS | Encounter Summary ---
Author Organization [employer] ([place], [place], [place], [place]) Address [address] [place] [address] Care Team Providers Care Manager Of Data Name Role Phone Unavailable Primary Care Provider Unavailabl e Encounter Details Date Type Department Care Team (Late st Contact Info) Description 11/30/2018 Transcribed Document [facility] [place] [facility] [place] [address] ProviderHilario MD [address] [place] [address] Social History Tobacco Use Types [...] feel your energy improving. ??? Only take azhr-jne-pcyqwtn or prescription medicines for pain, discomfort, or [...] 08/31/2008 Document Revised: 05/02/2016 Document Reviewed: 02/25/2014 [employer] Interactive Patient Education ? 2017 [employer]. Urology Ureteroscopy Ureteroscopy is a procedure to [...] including vitamins, herbs, eye drops, creams, and emdg-thm-fryssrx medicines. ??? Any problems you or family [...] 08/17/2014 Document Revised: 05/28/2017 Document Reviewed: 05/24/2017 [employer] Interactive Patient Education ? 2017 [employer] Ureteral Stent Implantation Introduction Ureteral stent [...] including vitamins, herbs, eye drops, creams, and xfry-cbl-kktpeid medicines. ??? Any problems you or family [...] kidney stones in the future. ??? Take jaxf-equ-fgzzedt and prescription medicines only as told by [...] 08/12/2006 Document Revised: 03/01/2017 Document Reviewed: 01/25/2017 [employer] Interactive Patient Education ? 2017 [employer] Dietary Guidelines to Help Prevent Kidney [...] ? Parsley. ? Rutabagas. ? Spinach. ? Dominican chard. ? Tomato paste. ? Fried potatoes. [...] 12/07/2011 Document Revised: 01/17/2017 Document Reviewed: 07/09/2014 [employer] Interactive Patient Education ? 2017 [employer]. documented in this encounter Plan of Treatment Not on file documented as of this encounter Visit Diagnoses Not on filedocumented in this encounter
--- OUTSIDE RECORDS SUMMARY | 2025-06-23 12:26 | XMS_ITS | Encounter Summary ---
Author Organization [employer] ([place], [place], [place], [place]) Address [address] [place] [address] Care Team Providers Care Brush Trimming Machine Setter Name Role Phone Unavailable Primary Care Provider Unavailabl e Encounter Details Date Type Department Care Team (Late st Contact Info) Description 11/29/2018 Transcribed Document [facility] [place] Family Medicine [facility] [place] [address] ProviderHilario MD [address] [place] [address] Social History Tobacco Use Types [...] apnea Historical No qualifying data Allergies penicillin Electronically signed by Selina More Conversion [employer] Beverage Assistant Manager Cerner at 12/11/2022 10:32 AM CDT documented in this encounter Plan of Treatment Not on file documented as of this encounter Visit Diagnoses Not on filedocumented in this encounter
--- OUTSIDE RECORDS SUMMARY | 2025-06-23 12:26 | XMS_ITS | Encounter Summary ---
Author Organization [employer] ([place], [place], [place], [place]) Address [address] [place] [address] Care Team Providers Care Finisher Tailor Apprentice Name Role Phone Unavailable Primary Care Provider Unavailabl e Encounter Details Date Type Department Care Team (Late st Contact Info) Description 11/29/2018 Transcribed Document [facility] [place] [facility] [place] [address] ProviderHilario MD [place] [address] Social History Tobacco Use Types [...] 11/29/2018 20:35:00 EDT morphine,2mg IV Push,Right Antecubit [place],Pain (Severe 7-10) Pain Assessment Pain Assessment : [...] version of the form. Electronically signed by Argenis, Selina Conversion Automatic Beading Lathe Operator Cerner at 12/11/2022 10:41 AM CDT documented in this encounter Plan of Treatment Not on file documented as of this encounter Visit Diagnoses Not on filedocumented in this encounter
--- OUTSIDE RECORDS SUMMARY | 2025-06-23 12:27 | XMS_ITS | Encounter Summary ---
Author Organization [employer] ([place], [place], [place], [place]) Address [address] [place] [address] Care Team Providers Care Board Certified Family Physician Name Role Phone Unavailable Primary Care Provider Unavailabl e Encounter Details Date Type Department Care Team (Late st Contact Info) Description 11/27/2018 Transcribed Document [facility] Family Medicine [address] [place] [address] ProviderHilario MD [facility] [place] [place] [id number] Social History Tobacco Use Types Packs/Day Years [...] 11/27/2018 17:52 EDT by [place] Patient Die Presser Phone Call for Consults Consult Phone Call/Page Attempt : First call Consult Reason : kidney stones Physician Requested for Consult : JOHANNE HERNANDEZ MD-URO [place], Patient Die Presser - 11/27/2018 18:23 EDT documented in this encounter Plan of Treatment Not on file documented as of this encounter Visit Diagnoses Not on filedocumented in this encounter
--- OUTSIDE RECORDS SUMMARY | 2025-06-23 12:27 | XMS_ITS | Encounter Summary ---
Author Organization [employer] ([place], [place], [place], [place]) Address [address] [place] [address] Care Team Providers Care Rn Support Services Name Role Phone Unavailable Primary Care Provider Unavailabl e Encounter Details Date Type Department Care Team (Late st Contact Info) Description 11/27/2018 Transcribed Document [facility] Family Medicine [facility] [place] [address] ProviderHilario MD [address] [place] [address] Social History Tobacco Use Types Packs/Day [...] with mild hydronephrosis. Patient was transferred to [facility]. Came in, blood work [...] 19:44:41 Trans: 11/27/2018 20:23:06 Processed: 11/28/2018 10:21:31 [place] CC1: Antionette Nevarez M.D. CC2: Dr. Low Hammonds Electronically signed by [facility] Conversion Genetic Engineer Cerner at 12/11/2022 10:32 AM CDT documented in this encounter Plan of Treatment Not on file documented as of this encounter Visit Diagnoses Not on filedocumented in this encounter
[2025-06-23 13:12] LABS: Antinuclear Antibodies (ANA) Negative (Negative)
== END 2025-06-22 23:59 | disposition home or self-care (01) ==
LOC: LAB.DROPOF 06-23 12:24
PROVIDERS: PCP Internal Medicine; Visit Provider Internal Medicine
DX: E78.5 Hyperlipidemia, unspecified (principal); I10 Essential (primary) hypertension; I73.9 Peripheral vascular disease, unspecified; G62.9 Polyneuropathy, unspecified
CPT/HCPCS: 80053; 80061; 85025; 85651; 86200